=== PATIENT | female | born 1970 | race Two or more races ===

== ENCOUNTER → 2020-08-14 10:46 | Outpatient (BNVA) | payer OTHER, SELFPAY | PROVIDERS: PCP Internal Medicine; Visit Provider Anesthesiology | DX: M47.27 Other spondylosis with radiculopathy, lumbosacral region (principal); M47.22 Other spondylosis with radiculopathy, cervical region; M96.1 Postlaminectomy syndrome, not elsewhere classified | CPT/HCPCS: 99213 ==

== ENCOUNTER 2020-08-19 10:09 | Outpatient (REF) | payer SELFPAY ==
[2020-08-19 12:49] LABS: Alanine Aminotransferase 9 U/L (0-31); Albumin Level 4.4 g/dL (3.5-5.0); Alkaline Phosphatase 60 U/L (39-117); Anion Gap 12 (12-20); Aspartate Amino Transferase 16 U/L (5-31); Bilirubin Total 0.3 mg/dL (0.0-1.0); Blood Urea Nitrogen 12 mg/dL (9-16); Calcium 9.6 mg/dL (8.4-10.2); Carbon Dioxide 32 mmol/L (22-29); Chloride 101 mmol/L (96-108); Cholesterol 194 mg/dL; Estimated Glomerular Filt Rate > 60; Glucose Random 99 mg/dL (60-115); HDL Cholesterol 55 mg/dL; LDL Cholesterol Calculated 118 mg/dl; Potassium 4.6 mmol/l (3.3-5.1); Sodium 140 mmol/L (135-145); Total Protein 7.1 g/dL (6.5-8.0); Triglycerides 106 mg/dL
[2020-08-19 12:50] LABS: Vitamin D 25-OH Total 30.5 ng/mL (>30)
== END 2020-08-19 10:10 | disposition home or self-care (01) ==
LOC: HO.LAB 10:09
PROVIDERS: PCP Internal Medicine; Visit Provider Internal Medicine
DX: I10 Essential (primary) hypertension (principal); E55.9 Vitamin D deficiency, unspecified
CPT/HCPCS: 80053; 80061; 82306

== ENCOUNTER → 2020-12-25 14:17 | Outpatient (BNVA) | payer OTHER, SELFPAY | PROVIDERS: PCP Internal Medicine; Visit Provider Anesthesiology | DX: M47.27 Other spondylosis with radiculopathy, lumbosacral region (principal); M47.22 Other spondylosis with radiculopathy, cervical region; M96.1 Postlaminectomy syndrome, not elsewhere classified | CPT/HCPCS: 99212 ==

== ENCOUNTER 2021-02-13 09:23 | Outpatient (REF) | payer OTHER, SELFPAY ==
[2021-02-13 10:19] LABS: MANUAL DIFF FLAG NO
[2021-02-13 10:23] LABS: Basophils Percent Auto 0.6 % (0-2); Eosinophils Absolute Auto 0.1 X10*3/uL (0.0-0.4); Eosinophils Percent Auto 2.6 % (0-4); Hematocrit 37.8 % (37-47); Hemoglobin 11.7 g/dl (12.0-16.0); Imm Gran Abs Auto 0.01 X10*3/uL (0.00-0.03); Imm Gran Pct Auto 0.2 % (0.0-0.4); Lymphocytes Absolute Auto 2.8 X10*3/uL (1.2-4.9); Lymphocytes Percent Auto 55.5 % (20-40); Mean Corpuscular Hemoglobin 28.4 pg (27.0-33.0); Mean Corpuscular Volume 91.7 fL (80-98); Mean Platelet Volume 9.4 fL (9.4-12.3); Monocytes Absolute Auto 0.3 X10*3/uL (0.1-1.2); Monocytes Percent Auto 6.4 % (2-11); Neutrophils Absolute Auto 1.7 X10*3/uL (2.0-8.3); Neutrophils Percent Auto 34.7 % (45-73); Platelet Count 261 X10*3/uL (160-400); Red Blood Count 4.12 X10*6/uL (4.20-5.50); Red Cell Distribution Width 13.5 % (11.0-16.0)
[2021-02-13 10:49] LABS: Alanine Aminotransferase 10 U/L (0-31); Albumin Level 4.4 g/dL (3.5-5.0); Alkaline Phosphatase 61 U/L (39-117); Anion Gap 11 (12-20); Aspartate Amino Transferase 18 U/L (5-31); Bilirubin Total 0.4 mg/dL (0.0-1.0); Blood Urea Nitrogen 12 mg/dL (9-16); Calcium 9.8 mg/dL (8.4-10.2); Carbon Dioxide 29 mmol/L (22-29); Chloride 107 mmol/L (96-108); Cholesterol 181 mg/dL; Estimated Glomerular Filt Rate > 60; Glucose Fasting 91 mg/dL (60-99); HDL Cholesterol 54 mg/dL; LDL Cholesterol Calculated 110 mg/dl; Potassium 4.5 mmol/L (3.3-5.1); Sodium 142 mmol/L (135-145); Triglycerides 89 mg/dL
[2021-02-13 11:11] LABS: Thyroid Stimulating Hormone 0.74 uIU/mL (0.32-4.0)
[2021-02-20 16:12] LABS: Vitamin D 25-OH, D2 5 ng/mL; Vitamin D 25-OH, D3 26 ng/mL; Vitamin D 25-OH, Total 31 ng/mL (30-100)
== END 2021-02-13 09:24 | disposition home or self-care (01) ==
LOC: HO.LAB 09:23
PROVIDERS: PCP Internal Medicine; Visit Provider Internal Medicine
DX: E78.5 Hyperlipidemia, unspecified (principal); I10 Essential (primary) hypertension; D64.9 Anemia, unspecified; E66.9 Obesity, unspecified; E55.9 Vitamin D deficiency, unspecified
CPT/HCPCS: 36415; 80053; 80061; 82306; 84443; 85025

== ENCOUNTER 2021-02-25 13:26 | Outpatient (REF) | payer OTHER, SELFPAY ==
[2021-03-04 03:52] LABS: HPV mRNA E6/E7 rflx Not Detected (Not Detected)
== END 2021-02-25 13:27 | disposition home or self-care (01) ==
LOC: HO.LAB 13:26
PROVIDERS: PCP Internal Medicine; Visit Provider Obstetrics & Gynecology
DX: Z01.419 Encounter for gynecological examination (general) (routine) without abnormal findings (principal); Z11.51 Encounter for screening for human papillomavirus (HPV)
CPT/HCPCS: 87624; 88142

== ENCOUNTER 2021-03-16 16:02 | Outpatient (REF) | payer OTHER, SELFPAY ==
--- NOTE | 2021-03-16 17:15 | PFT_ITS ---
Forced vital capacity, FEV1, [id number], and MVV are all normal. Postbronchodilator therapy, there is no change. Total lung capacity and residual volume normal. Diffusion capacity normal. CONCLUSION: Normal pulmonary function test. There is no evidence of obstructive or restrictive pulmonary disorder. Ruthann Mendoza MD MSB/MODL / [id number]
== END 2021-03-16 16:03 | disposition home or self-care (01) ==
LOC: HO.RESP 16:02
PROVIDERS: PCP Internal Medicine; Visit Provider Internal Medicine
DX: R06.02 Shortness of breath (principal)
CPT/HCPCS: 94060; 94727; 94729

== ENCOUNTER → 2021-03-17 12:45 | Outpatient (BNVA) | payer OTHER, SELFPAY | PROVIDERS: PCP Internal Medicine; Visit Provider Physician Assistant | DX: E66.9 Obesity, unspecified (principal); I10 Essential (primary) hypertension; Z68.35 Body mass index [BMI] 35.0-35.9, adult | CPT/HCPCS: 99202 ==

== ENCOUNTER 2021-03-27 08:24 | Outpatient (REF) | payer OTHER, SELFPAY ==
--- NOTE | ~2021-03-27 | XR_ITS ---
EXAMINATION: XR KNEE, LEFT CLINICAL INFORMATION: Dislocation. COMPARISON: Radiographs dated 01/19/2019. TECHNIQUE: AP, lateral, tunnel, and sunrise views of the left knee. FINDINGS: Bony alignment and mineralization are normal. No fracture or dislocation. There is a small joint effusion. Alignment is anatomic. Joint spaces are well maintained. There is very mild peripheral osteophyte formation of the medial joint space compartment. No abnormal soft tissue calcification. XR/XR knee LT 4V IMPRESSION: 1. Minimal osteoarthritic change is seen of the medial joint space compartment of the left knee. 2. There is a small left knee joint effusion.
--- NOTE | ~2021-03-27 | XR_ITS ---
EXAMINATION: XR CHEST CLINICAL INFORMATION: Shortness of breath COMPARISON: Previous chest x-ray December 2019 TECHNIQUE: 2 views of the chest were obtained. FINDINGS: The cardiac and mediastinal contours are stable. The lungs are clear. There is no pleural effusion or pneumothorax. There is curvature of the lower thoracic spine to the left. There are postsurgical changes to the cervical spine. XR/XR chest 2V IMPRESSION: No evidence for acute disease in the chest.
== END 2021-03-27 08:25 | disposition home or self-care (01) ==
LOC: HO.XRAY 08:24
PROVIDERS: Absent Provider Anesthesiology; PCP Internal Medicine; Visit Provider Surgery
DX: R06.02 Shortness of breath (principal); S83.105A Unspecified dislocation of left knee, initial encounter; E66.9 Obesity, unspecified; Z68.34 Body mass index [BMI] 34.0-34.9, adult; K21.9 Gastro-esophageal reflux disease without esophagitis; I10 Essential (primary) hypertension; M47.27 Other spondylosis with radiculopathy, lumbosacral region; M96.1 Postlaminectomy syndrome, not elsewhere classified; G43.811 Other migraine, intractable, with status migrainosus; F41.9 Anxiety disorder, unspecified; G47.00 Insomnia, unspecified; J45.909 Unspecified asthma, uncomplicated
CPT/HCPCS: 71046; 73564

== ENCOUNTER → 2021-03-31 09:48 | Outpatient (REF) | payer OTHER, SELFPAY ==
--- NOTE | 2021-03-31 09:56 | ECG_ITS ---
Test Reason : SOB Blood Pressure : / mmHG Vent. Rate : 071 BPM Atrial Rate : 071 BPM P-R Int : 164 ms QRS Dur : 092 ms QT Int : 376 ms P-R-T Axes : 053 021 019 degrees QTc Int : 408 ms Normal sinus rhythm Normal ECG When compared to the previous EKG of No significant changes seen Referred By: Kirstie Singh Electronically Signed By:Nick Torres
[2021-03-31 10:50] LABS: MANUAL DIFF FLAG NO
[2021-03-31 11:00] LABS: Basophils Percent Auto 0.7 % (0-2); Eosinophils Absolute Auto 0.1 X10*3/uL (0.0-0.4); Eosinophils Percent Auto 1.8 % (0-4); Hematocrit 36.3 % (37-47); Hemoglobin 11.1 g/dl (12.0-16.0); Imm Gran Abs Auto 0.01 X10*3/uL (0.00-0.03); Imm Gran Pct Auto 0.2 % (0.0-0.4); Lymphocytes Absolute Auto 2.8 X10*3/uL (1.2-4.9); Lymphocytes Percent Auto 50.2 % (20-40); Mean Corpuscular HGB Conc 30.6 g/dl (31.0-35.0); Mean Corpuscular Volume 91.4 fL (80-98); Mean Platelet Volume 9.3 fL (9.4-12.3); Monocytes Absolute Auto 0.4 X10*3/uL (0.1-1.2); Monocytes Percent Auto 6.5 % (2-11); Neutrophils Absolute Auto 2.2 X10*3/uL (2.0-8.3); Neutrophils Percent Auto 40.6 % (45-73); Platelet Count 279 X10*3/uL (160-400); Red Blood Count 3.97 X10*6/uL (4.20-5.50); Red Cell Distribution Width 13.9 % (11.0-16.0); White Blood Count 5.5 X10*3/uL (4.8-10.8)
[2021-03-31 11:14] LABS: Estimated Average Glucose 114 mg/dL; Hemoglobin A1c % 5.6 %
[2021-03-31 11:23] LABS: Alanine Aminotransferase 8 U/L (0-31); Albumin Level 4.2 g/dL (3.5-5.0); Alkaline Phosphatase 66 U/L (39-117); Aspartate Amino Transferase 14 U/L (5-31); Bilirubin Total 0.2 mg/dL (0.0-1.0); Blood Urea Nitrogen 14 mg/dL (9-16); C Reactive Protein 0.28 mg/dL (< or = 0.50); Calcium 9.7 mg/dL (8.4-10.2); Cholesterol 190 mg/dL; Estimated Glomerular Filt Rate > 60; Glucose Fasting 94 mg/dL (60-99); HDL Cholesterol 55 mg/dL; Iron 49 mcg/dL (30-160); LDL Cholesterol Calculated 113 mg/dl; Percent Iron Saturation 11 % (15-50); Total Iron Binding Capacity 429 mcg/dL (228-428); Total Protein 6.8 g/dL (6.5-8.0); Triglycerides 111 mg/dL; Unsaturated Iron Binding 380 ug/dL
[2021-03-31 11:36] LABS: Anion Gap 11 (12-20); Carbon Dioxide 30 mmol/L (22-29); Chloride 103 mmol/L (96-108); Potassium 4.1 mmol/L (3.3-5.1); Sodium 140 mmol/L (135-145)
[2021-03-31 11:43] LABS: Folate 13.6 ng/mL (> or = 4.0); Vitamin B12 712 pg/mL (200-900)
[2021-03-31 11:44] LABS: Ferritin 7 ng/mL (10-250); TSH reflex Free T4 1.38 uIU/mL (0.32-4.0); Vitamin D 25-OH Total 32.6 ng/mL (>30)
[2021-04-01 09:37] LABS: Insulin Level Total 7.4 uIU/mL
[2021-04-02 09:21] LABS: Calcium (PTHI) 9.4 mg/dL (8.6-10.4); PTHI 54 pg/mL (14-64)
[2021-04-03 01:33] LABS: Zinc 66 mcg/dL (60-130)
[2021-04-03 12:06] LABS: Vitamin B1 48 nmol/L (8-30)
[2021-04-04 20:17] LABS: Vitamin A 84 mcg/dL (38-98)
== END ==
LOC: HO.SL 09:48
PROVIDERS: Absent Provider Physician Assistant; PCP Internal Medicine; Visit Provider Internal Medicine
DX: E66.01 Morbid (severe) obesity due to excess calories (principal); I10 Essential (primary) hypertension; R40.0 Somnolence; R06.02 Shortness of breath; Z68.35 Body mass index [BMI] 35.0-35.9, adult
CPT/HCPCS: 36415; 80053; 80061; 82306; 82607; 82728; 82746; 83036; 83525; 83540; 83970; 84425; 84443; 84590; 84630; 85025; 86140; 93005

== ENCOUNTER → 2021-04-08 10:18 | Outpatient (BNVA) | payer OTHER, SELFPAY | PROVIDERS: PCP Internal Medicine; Visit Provider Nurse Practitioner Family | DX: K59.00 Constipation, unspecified (principal); K21.9 Gastro-esophageal reflux disease without esophagitis; Z12.11 Encounter for screening for malignant neoplasm of colon | CPT/HCPCS: 99202 ==

== ENCOUNTER → 2021-04-09 16:44 | Outpatient (BNVA) | payer OTHER, SELFPAY | PROVIDERS: PCP Internal Medicine; Visit Provider Anesthesiology | DX: M47.27 Other spondylosis with radiculopathy, lumbosacral region (principal); M25.562 Pain in left knee; M47.22 Other spondylosis with radiculopathy, cervical region; M96.1 Postlaminectomy syndrome, not elsewhere classified; Z87.891 Personal history of nicotine dependence; Z79.899 Other long term (current) drug therapy | CPT/HCPCS: 20610; 99212; J3300 ==

== ENCOUNTER → 2021-04-14 08:11 | Outpatient (BNVA) | payer OTHER, SELFPAY | PROVIDERS: PCP Internal Medicine; Visit Provider Dietitian, Registered | DX: E66.9 Obesity, unspecified (principal); Z68.35 Body mass index [BMI] 35.0-35.9, adult | CPT/HCPCS: 97802 ==

== ENCOUNTER → 2021-05-05 08:15 | Outpatient (BNVA) | payer OTHER, SELFPAY | PROVIDERS: Visit Provider Dietitian, Registered | DX: E66.9 Obesity, unspecified (principal); Z68.35 Body mass index [BMI] 35.0-35.9, adult | CPT/HCPCS: 97803 ==

== ENCOUNTER 2021-05-12 10:19 | Day surgery (SDC) | payer OTHER, SELFPAY ==
[2021-05-07 11:15] VITALS: BMI 35.5
--- NOTE | 2021-05-11 09:44 | P.CONAN_ITS ---
Documented by User: Annemarie Anyaa 05/11/21 09:48 HPI - Anesthesia Eval Consult details Narrative: 50yo F Colonoscopy PMFSH Active Problems Active Problems: All Active Problems (Updated 04/09/21 @ 17:12 by Jaime Mccartney MD) Well woman exam (Acute) BMI 34.0-34.9,adult (Acute) Anemia (Acute) Fibromyalgia (Acute) GERD (gastroesophageal reflux disease) (Acute) Asthma (Acute) BMI 35.0-35.9,adult (Acute) Obesity (BMI 30-39.9) (Acute) Essential hypertension (Acute) Daytime sleepiness (Acute) Shortness of breath (Acute) Obese (Acute) Acute traumatic internal derangement of left knee (Acute) Insomnia (Acute) Sinusitis (Acute) Anxiety (Acute) Migraine (Acute) Postlaminectomy syndrome of cervical region (Acute) Spondylosis of cervical spine with radiculopathy (Acute) Spondylosis of lumbosacral spine with radiculopathy (Acute) Past Medical History Medical History Acute traumatic internal derangement of left knee Anemia Anxiety Asthma BMI 35.0-35.9,adult Daytime sleepiness Essential hypertension Fibromyalgia GERD (gastroesophageal reflux disease) Insomnia Migraine Obese Obesity (BMI 30-39.9) Postlaminectomy syndrome of cervical region Shortness of breath Sinusitis 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 Brother No problems noted. Son No problems noted. Son No problems noted. Son No problems noted. Son No problems noted. Surgical History Surgical History H/O colonoscopy H/O medial meniscus repair of right knee History of carpal tunnel release History of esophagogastroduodenoscopy (EGD) History of neck surgery History of surgery History of tubal ligation Hx of breast reduction, elective S/P JUSTYN-BSO (total abdominal hysterectomy and bilateral salpingo-oophorectomy) Social History Social History (Reviewed 05/12/21 @ 12:30 by Connie Washburn Alcohol intake: current Alcohol intake frequency: holidays/special occasions only Patient Tobacco Use Status: Former Tobacco user Quit Date: 2013 Patient Interested in Nicotine Replacement: No Patient Given Instructions on How to Stop Smoking: No Use of substances other than those prescribed or required for medical reasons: No Are you DNR?: No Advance Directives: No Advance Directives Information Provided: Yes Patient : No Meds Allergies Allergy/AdvReac Type Severity Reaction Status Date / Time fluoxetine [From PROZAC] Allergy Severe OVER Verified 04/09/21 16:48 SEDATION gabapentin [GABAPENTIN] Allergy Intermediate NAUSEA,DIZZINESS, Verified 04/09/21 16:48 dizziness hydromorphone [HYDROMORPHONE] Allergy Intermediate NAUSEA/PALPITATIONS, Verified 04/09/21 16:48 vomiting latex [LATEX] Allergy Intermediate RASH Verified 04/09/21 16:48 Penicillins [PENICILLINS] Allergy Intermediate RASH Verified 04/09/21 16:48 Home Medications Medication Instructions Recorded Confirmed Last Taken Type bupropion HCl 150 mg 24 hr tablet, 150 mg PO QAM 08/14/20 05/07/21 Unknown History extended release buspirone 15 mg tablet 30 mg PO BID 08/14/20 05/07/21 Unknown History lamotrigine 25 mg tablet 50 mg PO DAILY 08/14/20 05/07/21 Unknown History albuterol sulfate 90 mcg/actuation 2 puff INHALATION Q6H PRN 03/27/21 05/07/21 Unknown History aerosol inhaler sumatriptan succinate 50 mg tablet 50 mg PO DAILY 04/07/21 05/07/21 Unknown History zolpidem 10 mg tablet 10 mg PO BEDTIME 04/07/21 05/07/21 Unknown History trazodone 50 mg tablet 50 mg PO BEDTIME PRN 04/08/21 05/07/21 Unknown History oxycodone [OxyContin] 20 mg PO BID 05/07/21 05/07/21 Unknown History Exam Exam Date and Time: May 11, 2021 0944 Height,Weight and Vital Signs: Height 5 ft 4 in Weight 93.894 kg Pertinent Lab Results Pertinent Lab Results: Laboratory Tests 03/31/21 03/31/21 10:10 10:10 WBC 5.5 Hgb 11.1 L Hct 36.3 L Plt Count 279 Sodium 140 Potassium 4.1 Chloride 103 Carbon Dioxide 30 H BUN 14 Creatinine 0.75 Narrative Narrative: EKG 03/2021 Vent. Rate : 071 BPM Atrial Rate : 071 BPM P-R Int : 164 ms QRS Dur : 092 ms QT Int : 376 ms P-R-T Axes : 053 021 019 degrees QTc Int : 408 ms Normal sinus rhythm Normal ECG When compared to the previous EKG of No significant changes seen PFT 02/2021 CONCLUSION: Normal pulmonary function test. There is no evidence of obstructive or restrictive pulmonary disorder. 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 Brother No problems noted. Son No problems noted. Son No problems noted. Son No problems noted. Son No problems noted. Surgical History Surgical History H/O colonoscopy H/O medial meniscus repair of right knee History of carpal tunnel release History of esophagogastroduodenoscopy (EGD) History of neck surgery History of surgery History of tubal ligation Hx of breast reduction, elective S/P JUSTYN-BSO (total abdominal hysterectomy and bilateral salpingo-oophorectomy) Social History Social History (Reviewed 05/12/21 @ 12:30 by Connie Washburn Alcohol intake: current Alcohol intake frequency: holidays/special occasions only Patient Tobacco Use Status: Former Tobacco user Quit Date: 2013 Patient Interested in Nicotine Replacement: No Patient Given Instructions on How to Stop Smoking: No Use of substances other than those prescribed or required for medical reasons: No Are you DNR?: No Advance Directives: No Advance Directives Information Provided: Yes Patient : No Meds Allergies Allergy/AdvReac Type Severity Reaction Status Date / Time fluoxetine [From PROZAC] Allergy Severe OVER Verified 04/09/21 16:48 SEDATION gabapentin [GABAPENTIN] Allergy Intermediate NAUSEA,DIZZINESS, Verified 04/09/21 16:48 dizziness hydromorphone [HYDROMORPHONE] Allergy Intermediate NAUSEA/PALPITATIONS, Verified 04/09/21 16:48 vomiting latex [LATEX] Allergy Intermediate RASH Verified 04/09/21 16:48 Penicillins [PENICILLINS] Allergy Intermediate RASH Verified 04/09/21 16:48 Home Medications Medication Instructions Recorded Confirmed Last Taken Type bupropion HCl 150 mg 24 hr tablet, 150 mg PO QAM 08/14/20 05/07/21 Unknown History extended release buspirone 15 mg tablet 30 mg PO BID 08/14/20 05/07/21 Unknown History lamotrigine 25 mg tablet 50 mg PO DAILY 08/14/20 05/07/21 Unknown History albuterol sulfate 90 mcg/actuation 2 puff INHALATION Q6H PRN 03/27/21 05/07/21 Unknown History aerosol inhaler sumatriptan succinate 50 mg tablet 50 mg PO DAILY 04/07/21 05/07/21 Unknown History zolpidem 10 mg tablet 10 mg PO BEDTIME 04/07/21 05/07/21 Unknown History trazodone 50 mg tablet 50 mg PO BEDTIME PRN 04/08/21 05/07/21 Unknown History oxycodone [OxyContin] 20 mg PO BID 05/07/21 05/07/21 Unknown History Exam Airway Mallampati Class: II TM Dist: >3cm Neck ROM: Full Heart: RRR Lungs: CTA Assessment and Plan Assessment Anesthesia Assessment: Anesthesia Plan Discussed and Chart Reviewed Final Anesthetic Review NPO: Yes ASA Class: II Final Preanesthetic Review: Meds/Allgs Chart Reviewed, Consent Obtained/Reviewed and Anes Risks/Benef Reviewed Patient Risk: Low Procedure Risk: Intermediate Anesthetic Plan Anesthetic Plan: MAC: Disposition: Standard PACU
[2021-05-12 11:21] VITALS: BP 121/75; PULSE 78; RESP 16; TEMP 36.2; O2SAT 100; BMI 36.2
[2021-05-12] MEDS: Lactated Ringers 1,000 ML 100 ML IVCONT (11:29)
--- NOTE | 2021-05-12 11:44 | P.HPSUR_ITS ---
Pre-Procedural Eval Section A Date of Service: 05/12/21 The patient is an INPATIENT: No The History & Physical has been completed within 30 days and I have reviewed it.: No Section B Chief Complaint: Constipation, GERD Details of Present Illness: colon cancer screening, GERD, abdominal bloating, chronic constipation Relevant Family History (Specify if Yes): Yes Relevant Social History: Tobacco Use (former smoker) Present Medications: see Short Stay Collaborative assessment Medical History: Significant History (Acute traumatic internal derangement of left knee Anemia Anxiety Asthma BMI 35.0-35.9,adult Daytime sleepiness Essential hypertension Fibromyalgia GERD (gastroesophageal reflux disease) Insomnia Migraine Obese Obesity (BMI 30-39.9) Postlaminectomy syndrome of cervical region Shortness of breath Sinu) History of Previous Operations: Relevant previous surgery/procedure and date(s) (H/O medial meniscus repair of right knee History of carpal tunnel release History of neck surgery History of tubal ligation Hx of breast reduction, elective S/P JUSTYN-BSO (total abdominal hysterectomy and bilateral salpingo- oophorectomy)) Allergies: Allergies Allergy/AdvReac Type Severity Reaction Status Date / Time fluoxetine [From PROZAC] Allergy Severe OVER Verified 04/09/21 16:48 SEDATION gabapentin [GABAPENTIN] Allergy Intermediate NAUSEA,DIZZINESS, Verified 04/09/21 16:48 dizziness hydromorphone [HYDROMORPHONE] Allergy Intermediate NAUSEA/PALPITATIONS, Verified 04/09/21 16:48 vomiting latex [LATEX] Allergy Intermediate RASH Verified 04/09/21 16:48 Penicillins [PENICILLINS] Allergy Intermediate RASH Verified 04/09/21 16:48 Review of Systems Sugical H&P ROS: Negative: Constitution, Cardiovascular and Respiratory and Yes, Specify: Gastrointestinal (GERD, abdominal bloating, constipation) Exam Surgical H&P Exam: Normal: Heart, Normal: Lungs, Normal: Extremities and Normal: Abdomen Plan Diagnosis/Plan: Unchanged I have reviewed the history and physical and performed a pertinent physical examination on my patient. No changes have occurred unless specified.
[2021-05-12 13:27] VITALS: BP 93/59; PULSE 77; RESP 18; TEMP 36.3; O2SAT 99
--- NOTE | 2021-05-12 13:38 | PC.NURSE ---
patient sitting up in bed rafa po gingerle. c/o sciatic pain states its her baseline.
--- NOTE | 2021-05-12 13:41 | PC.NURSE ---
md t[place]on by bedside eval patient
[2021-05-12 13:42] VITALS: BP 110/68; PULSE 76; RESP 18; TEMP 36.7; O2SAT 98
--- NOTE | 2021-05-12 17:42 | P.OP_ITS ---
Operative Note Operative Note Date of Service: 05/12/21 Narrative: Pre-op diagnosis: Colon cancer screening, chronic constipation, GERD, FH of colon cancer and polyps Post-op diagnosis: other (Esophagitis, gastritis, diverticulosis, hemorrhoids) Procedure: FLEXIBLE TRANSORAL UPPER GASTROINTESTINAL ENDOSCOPY WITH BIOPSIES AND COLONOSCOPY TILL CECUM PROCEDURE NOTE UPPER ENDOSCOPY Consent: Indications for the procedure and potential complications of bleeding, perforation, reaction to medications and missed diagnosis were discussed with the patient and informed consent was obtained. Instrument: Olympus GIF H 190 mid size upper endoscope Monitoring: Vital signs and clinical assessment, continuous EKG monitoring, Pulse oximetry, Carbon Dioxide monitoring and blood pressure monitoring were done throughout the procedure. Procedure: The patient was placed in the left lateral decubitis position and pre-procedure medications were administered and a bite block was placed. The endoscope was inserted into the mouth and advanced under direct vision to the third part of duodenum. A careful inspection was made as the upper endoscope was withdrawn including a retroflexed examination of the proximal stomach; Findings and interventions are described below. Findings: Larynx: Normal Esophagus: GE junction at 36 cms. A 1.5 cms linear erosion at the GE junction. No Feliz's. Stomach: Multiple 5-10 mm benign appearing polyps in the fundus and body of the stomach - biopsied. Mild gastric erythema. Biopsies were obtained. Grade 2 flap valve on retroflexed examination of the cardia. Duodenum: Normal bulb and descending duodenum Intervention: Biopsies as noted above COLONOSCOPY PROCEDURE NOTE Consent: Indications for the procedure and potential complications of bleeding, perforation, reaction to medications and missed diagnosis were discussed with the patient and informed consent was obtained. Instrument: Olympus PCF H 190 L variable stiffness pediatric colonoscope Monitoring: Vital signs and clinical assessment, intermittent blood pressure monitoring, continuous EKG monitoring, Pulse oximetry and Carbon Dioxide monitoring were done throughout the procedure. Colon withdrawl time was 15 minutes. Procedure: The patient was placed in the left lateral decubitis position and pre-procedure medications were administered. After a digital rectal examination of the ano-rectum, the video colonoscope was inserted into the rectum and advanced through the colon to the cecum. The colonoscope was slowly withdrawn in a retrograde panoramic fashion and the colon mucosa was carefully examined including a retroflexed view of the rectum. Findings and interventions are described below. Procedure Difficulty: : Without difficulty Findings: Terminal Ileum: Not evaluated Cecum: Normal Ascending Colon: Normal Transverse Colon: Normal Descending Colon: Moderate diverticulosis Sigmoid Colon: Moderate diverticulosis Rectum: Normal Ano-rectum: Moderate internal hemorrhoids Colon preparation: Good after copious irrigation Impression and Post Procedure Diagnosis: Endoscopy Findings: ESOPHAGUS: Linear erosion at GEJ STOMACH: Gastritis and gastric polyps DUODENUM: Normal - bxed to check for celiac sprue Colonoscopy Findings: No polyps were detected. Moderate diverticulosis seen in the left colon Moderate hemorrhoids on retroflexed exam. Plan: Await pathology results Patient has an appointment on 05/27/21 in the [facility] with Taniya Cali FNP-BC . Repeat Colonoscopy in 5 years due to positive Family history (GM of colon cancer & Dad had multiple colon polyps removed). Above findings were reviewed with the patient and GERD and diverticulosis handouts were given in the discharge area Surgeon: Jenny Ramirez MD Anesthesia: MAC (Dr Smith) Was an Fire Prevention Captain used for this Procedure?: No Fire Prevention Captain: Rbuen Renner Estimated blood loss (mL): 0 Pathology: other ( A- SMALL BOWEL BXS R/O CELIAC B- GASTRIC ANTRUM BXS R/O H.PYLORI C- GASTRIC POLYPS) Condition: stable Disposition: PACU
== END 2021-05-12 14:25 | disposition home or self-care (01) ==
PROVIDERS: PCP Internal Medicine; Visit Provider Internal Medicine Gastroenterology
PROC: 0DJD8ZZ Inspection of Lower Intestinal Tract, Via Natural or Artificial Opening Endoscopic (ICD-10-PCS; CPT 45378; principal; 2021-05-12 11:40)
DX: Z12.11 Encounter for screening for malignant neoplasm of colon (principal); Z83.71 Family history of colonic polyps; K57.30 Diverticulosis of large intestine without perforation or abscess without bleeding; K64.8 Other hemorrhoids; K59.09 Other constipation; K21.9 Gastro-esophageal reflux disease without esophagitis; K20.80 Other esophagitis without bleeding; K29.50 Unspecified chronic gastritis without bleeding; K31.7 Polyp of stomach and duodenum; I10 Essential (primary) hypertension; J45.909 Unspecified asthma, uncomplicated; Z79.899 Other long term (current) drug therapy; Z91.040 Latex allergy status; Z88.0 Allergy status to penicillin; Z88.8 Allergy status to other drugs, medicaments and biological substances; Z87.891 Personal history of nicotine dependence
CPT/HCPCS: 45378; 43239; 88305; 88342

== ENCOUNTER 2021-05-22 10:03 | Outpatient (REF) | payer OTHER, SELFPAY ==
[2021-05-23 13:37] LABS: H Pylori Breath Test NOT DETECTED (NOT DETECTED)
== END 2021-05-22 10:04 | disposition home or self-care (01) ==
LOC: HO.LNP 10:03
PROVIDERS: PCP Internal Medicine; Referring Provider Internal Medicine; Visit Provider Physician Assistant
DX: E66.9 Obesity, unspecified (principal); Z68.35 Body mass index [BMI] 35.0-35.9, adult; I10 Essential (primary) hypertension; R06.02 Shortness of breath
CPT/HCPCS: 83013; 99211

== ENCOUNTER → 2021-05-27 15:15 | Outpatient (BNVA) | payer OTHER, SELFPAY | PROVIDERS: PCP Internal Medicine; Visit Provider Anesthesiology | DX: M47.27 Other spondylosis with radiculopathy, lumbosacral region (principal); M47.22 Other spondylosis with radiculopathy, cervical region; M96.1 Postlaminectomy syndrome, not elsewhere classified | CPT/HCPCS: 99212 ==

== ENCOUNTER 2021-06-29 08:09 | Outpatient (REF) | payer OTHER, SELFPAY ==
--- NOTE | ~2021-06-29 | US_ITS ---
EXAMINATION: US COMPLETE ABDOMEN WITH LIVER ELASTOGRAPHY CLINICAL INFORMATION: Obesity COMPARISON: None TECHNIQUE: Real-time imaging of the abdominal viscera. Noninvasive ultrasound liver fibrosis assessment is performed using [place] ElastPQ point quantification shear wave elastography (pSWE) with a C5-2 MHz transducer. Multiple elastography samples are obtained. FINDINGS: PANCREAS: Normal. The visualized pancreatic head and body are normal in appearance. The remainder of the pancreas is obscured from visualization by the overlying bowel gas. ABDOMINAL AORTA: The proximal, middle, and distal aortic segments are normal in caliber. INFERIOR VENA CAVA: Visualized portions are normal. LIVER: Diffuse increased parenchymal echogenicity. No focal lesion or intrahepatic biliary duct dilatation. The right lobe measures 17.7 cm in length. The left lobe measures 11.4 cm in length. Portal flow is hepatopedal. Shear wave liver elastography median stiffness is 1.35 m/s (reference: normal median stiffness is 1.3 m/s or less). IQR/median stiffness to assess sampling precision is 0.19 (reference: good quality data set is IQR/median stiffness of 0.15 or less). GALLBLADDER: Normal. The gallbladder is physiologically distended without evidence of stones, sludge, polyps, wall thickening or pericholecystic fluid. COMMON BILE DUCT: Normal in caliber measuring 0.3 cm in diameter. RIGHT KIDNEY: Normal. No hydronephrosis. No renal calculi or focal parenchymal lesions. The kidney measures 10.1 cm in maximum dimension. LEFT KIDNEY: Normal. No hydronephrosis. No renal calculi or focal parenchymal lesions. The kidney measures 10.6 cm in maximum dimension. SPLEEN: Normal. The spleen measures 8.3 cm in maximum dimension. FREE FLUID: None US/US abdomen comp w elastography IMPRESSION: 1. There is generalized increase in hepatic echotexture, consistent with fatty infiltration or hepatocellular disease. Please correlate clinically. No focal hepatic mass or intrahepatic biliary duct dilatation is seen. 2. Liver elastography: Elastography median value 1.35 m/s. Based on the criteria mentioned below, this correlates with cACLD is ruled out . REFERENCE: Society of Radiologists in Ultrasound Liver Stiffness Thresholds (2020): LIVER STIFFNESS THRESHOLDS: *Liver Stiffness equal or less than 1.3 m/s: High probability of being normal. *Liver Stiffness less than 1.7 m/s: In the absence of other known clinical signs, rules out compensated advanced chronic liver disease. *Liver Stiffness 1.7-2.1 m/s: Suggestive of compensated advanced chronic liver disease but need further test for confirmation. *Liver Stiffness over 2.1 m/s: Rules in compensated advanced chronic liver disease. *Liver Stiffness over 2.4 m/s: Suggestive of clinically significant portal hypertension. QUALITY OF DATA SET: *IQR/Median value equal or less than 0.15 implies a quality data set. *IQR/Median value over 0.15 implies a poor quality data set. SIGNIFICANT CHANGE FROM PRIOR EXAM: Significant change if liver stiffness measurement is 10% or greater from prior exam. OTHER CONSIDERATIONS: The stage of liver fibrosis may be overestimated in the setting of acute hepatitis, liver inflammation, elevated liver function tests, hepatic vascular congestion, obstructive cholestasis, non-fasting state, and infiltrative diseases such as amyloidosis and lymphoma. In some patients with NAFLD, the liver stiffness thresholds for compensated advanced chronic liver disease may be lower. In causes other than viral hepatitis and NAFLD, liver stiffness thresholds are not well established.
== END 2021-06-29 08:10 | disposition home or self-care (01) ==
LOC: HO.US 08:09
PROVIDERS: PCP Internal Medicine; Visit Provider Surgery
DX: Z01.818 Encounter for other preprocedural examination (principal); E66.01 Morbid (severe) obesity due to excess calories; K21.9 Gastro-esophageal reflux disease without esophagitis
CPT/HCPCS: 76705; 76981

== ENCOUNTER 2021-07-08 16:32 | Outpatient (REF) | payer OTHER, SELFPAY ==
--- NOTE | ~2021-07-08 | XR_ITS ---
EXAMINATION: XR HAND, LEFT CLINICAL INFORMATION: Displaced fracture. COMPARISON: Left hand radiographs dated 05/06/2016. TECHNIQUE: PA, lateral, and oblique views of the left hand. FINDINGS: The bones and soft tissues are normal. No fracture. Alignment is anatomic. Joint spaces are maintained. No erosions or soft tissue calcifications. XR/XR hand LT min 3V IMPRESSION: No fracture or dislocation.
== END 2021-07-08 16:33 | disposition home or self-care (01) ==
LOC: HO.XRAY 16:32
PROVIDERS: PCP Internal Medicine; Visit Provider Anesthesiology
DX: S62.319A Displaced fracture of base of unspecified metacarpal bone, initial encounter for closed fracture (principal); M47.27 Other spondylosis with radiculopathy, lumbosacral region; M47.22 Other spondylosis with radiculopathy, cervical region; M96.1 Postlaminectomy syndrome, not elsewhere classified; M17.10 Unilateral primary osteoarthritis, unspecified knee
CPT/HCPCS: 73130; 87071; 87073; 87205; 99212; J3300

== ENCOUNTER → 2021-07-16 12:33 | Day surgery (SDC) | payer OTHER, SELFPAY ==
[2021-07-13 10:37] VITALS: BMI 37.0
--- NOTE | 2021-07-15 11:35 | HO.ANESPROP2 ---
Documented by User: Annemarie Anaya NP 07/15/21 11:37 HPI - Anesthesia Eval Consult details Narrative: 50yo F for Left Epidural Steroid Injection,L5-LS1 *Multiple Med Allergies* Chronic opioids PMFSH Active Problems Active Problems: All Active Problems (Updated 07/08/21 @ 17:34 by Jaime Mccartney MD) Well woman exam (Acute) BMI 34.0-34.9,adult (Acute) Arthropathy of knee (Acute) Fracture of metacarpal base of left hand, closed (Acute) Foot pain, right (Acute) Plantar fasciitis of left foot (Acute) Anemia (Chronic) Fibromyalgia (Acute) GERD (gastroesophageal reflux disease) (Acute) Asthma (Acute) BMI 35.0-35.9,adult (Acute) Obesity (BMI 30-39.9) (Acute) Essential hypertension (Acute) Daytime sleepiness (Acute) Shortness of breath (Acute) Obese (Acute) Acute traumatic internal derangement of left knee (Acute) Insomnia (Acute) Sinusitis (Acute) Anxiety (Acute) Migraine (Acute) Postlaminectomy syndrome of cervical region (Acute) Spondylosis of cervical spine with radiculopathy (Acute) Spondylosis of lumbosacral spine with radiculopathy (Acute) Past Medical History Medical History Acute traumatic internal derangement of left knee Anemia Anxiety Arthropathy of knee Asthma BMI 35.0-35.9,adult Daytime sleepiness Essential hypertension Fibromyalgia Foot pain, right Fracture of metacarpal base of left hand, closed GERD (gastroesophageal reflux disease) Insomnia Migraine Obese Obesity (BMI 30-39.9) Plantar fasciitis of left foot Postlaminectomy syndrome of cervical region Shortness of breath Sinusitis 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 Brother No problems noted. Son No problems noted. Son No problems noted. Son No problems noted. Son No problems noted. Surgical History Surgical History H/O colonoscopy H/O medial meniscus repair of right knee History of carpal tunnel release History of esophagogastroduodenoscopy (EGD) History of neck surgery History of surgery History of tubal ligation Hx of breast reduction, elective S/P JUSTYN-BSO (total abdominal hysterectomy and bilateral salpingo-oophorectomy) Social History Social History Alcohol intake: current Alcohol intake frequency: holidays/special occasions only Patient Tobacco Use Status: Former Tobacco user Quit Date: 2013 Tobacco use type: Cigarette Smoked in Last 30 Days: No Use of substances other than those prescribed or required for medical reasons: No Are you DNR?: No Advance Directives: No Advance Directives Information Provided: Yes Recently lost weight without trying: No Nutrition Risks: No Nutritional Risk Meds Allergies Allergy/AdvReac Type Severity Reaction Status Date / Time fluoxetine [From PROZAC] Allergy Severe OVER Verified 07/08/21 16:49 SEDATION gabapentin [GABAPENTIN] Allergy Intermediate NAUSEA,DIZZINESS, Verified 07/08/21 16:49 dizziness hydromorphone [HYDROMORPHONE] Allergy Intermediate NAUSEA/PALPITATIONS, Verified 07/08/21 16:49 vomiting latex [LATEX] Allergy Intermediate RASH Verified 07/08/21 16:49 Penicillins [PENICILLINS] Allergy Intermediate RASH Verified 07/08/21 16:49 Home Medications Medication Instructions Recorded Confirmed Last Taken Type bupropion HCl 150 mg 24 hr tablet, 150 mg PO QAM 08/14/20 07/13/21 07/16/21 History extended release buspirone 15 mg tablet 30 mg PO BID 08/14/20 07/13/21 07/16/21 History lamotrigine 25 mg tablet 50 mg PO DAILY 08/14/20 07/13/21 07/16/21 History albuterol sulfate 90 mcg/actuation 2 puff INHALATION Q6H PRN 03/27/21 07/13/21 Unknown History aerosol inhaler sumatriptan succinate 50 mg tablet 50 mg PO DAILY 04/07/21 07/13/21 Unknown History zolpidem 10 mg tablet 10 mg PO BEDTIME 04/07/21 07/01/21 Unknown History oxycodone 20 mg tablet,crush 1 tab PO BID 07/01/21 07/13/21 Unknown History resistant,extended release 12 hr (OxyContin) Exam Exam Date and Time: July 15, 2021 1135 Height,Weight and Vital Signs: Height 5 ft 4 in Weight 97.749 kg Pertinent Lab Results Pertinent Lab Results: Laboratory Tests 03/31/21 07/01/21 10:10 15:52 WBC 6.9 Hgb 12.0 Hct 38.1 Plt Count 252 Sodium 140 Potassium 4.1 Chloride 103 Carbon Dioxide 30 H BUN 14 Creatinine 0.75 Narrative Narrative: EKG 03/2021 Vent. Rate : 071 BPM ? ? Atrial Rate : 071 BPM ?? P-R Int : 164 ms? QRS Dur : 092 ms ? ? QT Int : 376 ms ? ? ? P-R-T Axes : 053 021 019 degrees ?? QTc Int : 408 ms ? Normal sinus rhythm Normal ECG When compared to the previous EKG of No significant changes seen PFT 02/2021 CONCLUSION: Normal pulmonary function test.? There is no evidence of obstructive or restrictive pulmonary disorder. 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 Brother No problems noted. Son No problems noted. Son No problems noted. Son No problems noted. Son No problems noted. Surgical History Surgical History H/O colonoscopy H/O medial meniscus repair of right knee History of carpal tunnel release History of esophagogastroduodenoscopy (EGD) History of neck surgery History of surgery History of tubal ligation Hx of breast reduction, elective S/P JUSTYN-BSO (total abdominal hysterectomy and bilateral salpingo-oophorectomy) History of Problems with Anesthesia: No Social History Social History Alcohol intake: current Alcohol intake frequency: holidays/special occasions only Patient Tobacco Use Status: Former Tobacco user Quit Date: 2013 Tobacco use type: Cigarette Smoked in Last 30 Days: No Use of substances other than those prescribed or required for medical reasons: No Are you DNR?: No Advance Directives: No Advance Directives Information Provided: Yes Recently lost weight without trying: No Nutrition Risks: No Nutritional Risk Meds Allergies Allergy/AdvReac Type Severity Reaction Status Date / Time fluoxetine [From PROZAC] Allergy Severe OVER Verified 07/08/21 16:49 SEDATION gabapentin [GABAPENTIN] Allergy Intermediate NAUSEA,DIZZINESS, Verified 07/08/21 16:49 dizziness hydromorphone [HYDROMORPHONE] Allergy Intermediate NAUSEA/PALPITATIONS, Verified 07/08/21 16:49 vomiting latex [LATEX] Allergy Intermediate RASH Verified 07/08/21 16:49 Penicillins [PENICILLINS] Allergy Intermediate RASH Verified 07/08/21 16:49 Home Medications Medication Instructions Recorded Confirmed Last Taken Type bupropion HCl 150 mg 24 hr tablet, 150 mg PO QAM 08/14/20 07/13/21 07/16/21 History extended release buspirone 15 mg tablet 30 mg PO BID 08/14/20 07/13/21 07/16/21 History lamotrigine 25 mg tablet 50 mg PO DAILY 08/14/20 07/13/21 07/16/21 History albuterol sulfate 90 mcg/actuation 2 puff INHALATION Q6H PRN 03/27/21 07/13/21 Unknown History aerosol inhaler sumatriptan succinate 50 mg tablet 50 mg PO DAILY 04/07/21 07/13/21 Unknown History zolpidem 10 mg tablet 10 mg PO BEDTIME 04/07/21 07/01/21 Unknown History oxycodone 20 mg tablet,crush 1 tab PO BID 07/01/21 07/13/21 Unknown History resistant,extended release 12 hr (OxyContin) Exam Airway Mallampati Class: II TM Dist: >3cm Neck ROM: Full Loose/Missing/Broken Teeth: No Heart: RRR Lungs: CTA Assessment and Plan Assessment Anesthesia Assessment: Anesthesia Plan Discussed Final Anesthetic Review History of Problems with Anesthesia: No NPO: Yes ASA Class: II Final Preanesthetic Review: Meds/Allgs Chart Reviewed, Consent Obtained/Reviewed and Anes Risks/Benef Reviewed Patient Risk: Low Procedure Risk: Low Anesthetic Plan Anesthetic Plan: MAC: Disposition: Standard PACU
[2021-07-16 12:41] VITALS: BMI 37.0
[2021-07-16 13:00] VITALS: BP 134/73; PULSE 74; RESP 16; TEMP 36.2; O2SAT 98
[2021-07-16] MEDS: Lactated Ringers 1,000 ML 100 ML IVCONT (13:57)
== END ==
PROVIDERS: PCP Internal Medicine; Visit Provider Anesthesiology
DX: M47.27 Other spondylosis with radiculopathy, lumbosacral region (principal); M47.22 Other spondylosis with radiculopathy, cervical region; M96.1 Postlaminectomy syndrome, not elsewhere classified; Z53.8 Procedure and treatment not carried out for other reasons
CPT/HCPCS: J2250; J3010; J3300; Q9967

== ENCOUNTER → 2021-07-22 11:44 | Outpatient (BNVA) | payer OTHER, SELFPAY | PROVIDERS: Visit Provider Nurse Practitioner Family | DX: K21.9 Gastro-esophageal reflux disease without esophagitis (principal); Z98.890 Other specified postprocedural states | CPT/HCPCS: 99212 ==

== ENCOUNTER → 2021-07-23 15:46 | Outpatient (BNVA) | payer OTHER, SELFPAY | PROVIDERS: Visit Provider Physician Assistant | DX: M17.10 Unilateral primary osteoarthritis, unspecified knee (principal) | CPT/HCPCS: 99212 ==

== ENCOUNTER 2021-07-31 11:45 | Day surgery (SDC) | payer OTHER, SELFPAY ==
--- NOTE | ~2021-07-31 | FL_ITS ---
EXAMINATION: XR FLUOROSCOPY WITH IMAGES CLINICAL INFORMATION: Back pain and left lower extremity pain COMPARISON: MR lumbar spine 06/30/2020 TECHNIQUE: Fluoroscopy performed by Dr. Jaime Mccartney. Fluoroscopy time: 0.1 minutes DAP: 2.02 Gycm2 Images: 1 FINDINGS: There is a spinal needle overlying outer aspect left L5 neural foramen. Contrast is seen in the nerve sheaths with transforaminal epidural extension. No visible vascular communication. FL/FL guidance in OR IMPRESSION: Fluoroscopy for pain management procedure.
--- NOTE | 2021-07-31 07:23 | MHC.SHP ---
Pre-Procedural Eval Section A Date of Service: 07/31/21 The patient is an INPATIENT: No Changes since office visit: Yes Patient answered all questions Section B Chief Complaint: spondylosis Details of Present Illness: low back pain Relevant Family History (Specify if Yes): No Relevant Social History: None Present Medications: see Short Stay Collaborative assessment Medical History: No relevant PMH History of Previous Operations: No relevant previous surgery Allergies: Allergies Allergy/AdvReac Type Severity Reaction Status Date / Time fluoxetine [From PROZAC] Allergy Severe OVER Verified 07/22/21 12:01 SEDATION gabapentin [GABAPENTIN] Allergy Intermediate NAUSEA,DIZZINESS, Verified 07/22/21 12:01 dizziness hydromorphone [HYDROMORPHONE] Allergy Intermediate NAUSEA/PALPITATIONS, Verified 07/22/21 12:01 vomiting latex [LATEX] Allergy Intermediate RASH Verified 07/22/21 12:01 Penicillins [PENICILLINS] Allergy Intermediate RASH Verified 07/22/21 12:01 Review of Systems Sugical H&P ROS: Negative: Constitution, Cardiovascular, Respiratory, Neurological, Psychiatric, Hem-Onc, Allergic/Immunologic, Gastrointestinal, Genitourinary, Musculoskeletal, Integumentary, Endocrine and Eyes/Ears/Nose/Throat Exam Surgical H&P Exam: Normal: HEENT, Normal: Heart, Normal: Lungs, Normal: Extremities, Normal: Abdomen, Normal: Skin and Normal: Neurological Plan Diagnosis/Plan: Unchanged I have reviewed the history and physical and performed a pertinent physical examination on my patient. No changes have occurred unless specified.
[2021-07-31 12:08] VITALS: BP 134/80; PULSE 77; RESP 18; TEMP 36.7; O2SAT 99; BMI 37.0
--- NOTE | 2021-07-31 14:16 | W.PM.OPN ---
Operative Note Operative Note Date of Service: 07/31/21 Narrative: after explaining risks and benefits of the procedure and explaining informed consent the patient was taken into the operating room and was positioned prone on the operating table. ASA monitors were applied and the patient was minimaly sedated. Time out was performed delineating Name and of the patient nature, site and side of the procedure need for antibiotics, risk of DVT. The patient's back was prepped with Duraprep. and draped with sterile surgical utility towels. Sterilely draped C-arm was brought over the operating field and square picture of the L5 vertebra was delineated on the screen. Tilting machine 25 degree to the left the picture of the L5 left pedicle was delineated on the screen. 3mm below the lowest point of the pedicle projection to the skin local anesthetic lidocain 1% was used to raise a skin wheal. after ttha 22 g. 5 inch needle was insered through the skin wheal and advanced toward the L5 S1 left foramina in tunnel vision fashion on AP view using lateral and oblique views as the control of the needle tip position. When tip of the needle entered anterior epidural space injection of the contrast was performed delineating spread of the contrast in the fashion corresponding anterior epidural space. After that 3 cc of lidocaine 1% preservative-free mixed with 80 mg of Kenalog was injected into the needle. The patient tolerated procedure well. The needle was removed. Sterile Band-Aid was applied. The patient was taking outside of the operating room and the she recovered in PACU. There were no immediate complications observed.
--- NOTE | 2021-07-31 14:43 | PM.OP ---
Brief Operative Note Date of Service: 07/31/21 Pre-op diagnosis: Disc degeneration lumbar Post-op diagnosis: same Procedure: Transforaminal epidural steroid injection L5-S1 on the left. Implants: None Surgeon: Jaime Mccartney MD Anesthesia: MAC Was an Corporate Scheduler used for this Procedure?: No Estimated blood loss (mL): 2 Pathology: none sent Condition: stable Disposition: PACU
[2021-07-31 14:50] VITALS: BP 162/99; PULSE 90; RESP 19; TEMP 36.8; O2SAT 99
[2021-07-31 15:05] VITALS: BP 147/88; PULSE 90; RESP 18; O2SAT 99
[2021-07-31] MEDS: oxyCODONE HCl Immed Release 5 MG TABLET 10 MG PO (15:05)
[2021-07-31 15:20] VITALS: BP 129/85; PULSE 88; RESP 18; TEMP 36.8; O2SAT 98
== END 2021-07-31 15:51 | disposition home or self-care (01) ==
PROVIDERS: PCP Internal Medicine; Visit Provider Anesthesiology
PROC: (CPT 64483; principal; 2021-07-31 14:40)
DX: M47.27 Other spondylosis with radiculopathy, lumbosacral region (principal); M51.36 Other intervertebral disc degeneration, lumbar region; M54.50 Low back pain, unspecified; I10 Essential (primary) hypertension; J45.909 Unspecified asthma, uncomplicated; Z79.899 Other long term (current) drug therapy; Z91.040 Latex allergy status; Z88.0 Allergy status to penicillin; Z88.8 Allergy status to other drugs, medicaments and biological substances; Z87.891 Personal history of nicotine dependence
CPT/HCPCS: 64483; J1100; J2250; J3010; J3300; Q9967

== ENCOUNTER → 2021-09-30 14:41 | Outpatient (BNVA) | payer OTHER, SELFPAY | PROVIDERS: PCP Internal Medicine; Visit Provider Anesthesiology | DX: M47.27 Other spondylosis with radiculopathy, lumbosacral region (principal); M47.22 Other spondylosis with radiculopathy, cervical region; M96.1 Postlaminectomy syndrome, not elsewhere classified; M17.10 Unilateral primary osteoarthritis, unspecified knee; M46.1 Sacroiliitis, not elsewhere classified | CPT/HCPCS: 99212 ==

== ENCOUNTER 2021-11-10 05:48 | Outpatient (REF) | payer MEDICAID, SELFPAY ==
--- NOTE | ~2021-11-10 | FL_ITS ---
EXAMINATION: XR FLUOROSCOPY WITH IMAGES CLINICAL INFORMATION: M46.1 - Sacroiliitis, not elsewhere classified COMPARISON: Fluoroscopic spot view 07/31/2021, MR lumbar spine 06/30/2020 TECHNIQUE: Fluoroscopy performed by Dr. Jaime Mccartney. Fluoroscopy time: less than 1 minute. DAP: 0.912 Gycm2 Images: 1 FINDINGS: Spinal needle overlies lower left SI joint. There is contrast in the periarticular soft tissues with probable early intra-articular contrast. No vasculature communication appreciated. FL/FL guidance in treatment room IMPRESSION: Fluoroscopy for pain management procedure.
== END 2021-11-10 05:49 | disposition home or self-care (01) ==
LOC: HO.RADIR 05:48
PROVIDERS: Visit Provider Anesthesiology
DX: M46.1 Sacroiliitis, not elsewhere classified (principal); M47.27 Other spondylosis with radiculopathy, lumbosacral region; M47.22 Other spondylosis with radiculopathy, cervical region; M96.1 Postlaminectomy syndrome, not elsewhere classified; M17.10 Unilateral primary osteoarthritis, unspecified knee
CPT/HCPCS: J3300; Q9967

== ENCOUNTER → 2021-11-19 08:54 | Outpatient (BNVA) | payer MEDICAID, SELFPAY | PROVIDERS: Visit Provider Anesthesiology | DX: M47.27 Other spondylosis with radiculopathy, lumbosacral region (principal); M47.22 Other spondylosis with radiculopathy, cervical region; M96.1 Postlaminectomy syndrome, not elsewhere classified; M17.10 Unilateral primary osteoarthritis, unspecified knee; M46.1 Sacroiliitis, not elsewhere classified; M16.12 Unilateral primary osteoarthritis, left hip | CPT/HCPCS: 99212 ==

== ENCOUNTER 2021-11-25 09:28 | Outpatient (REF) | payer OTHER, SELFPAY ==
--- NOTE | ~2021-11-25 | XR_ITS ---
EXAMINATION: XR HIP, LEFT CLINICAL INFORMATION: Unilateral primary osteoarthritis left hip COMPARISON: None TECHNIQUE: Two views of the left hip. FINDINGS: No acute visible fracture or dislocation. Mild degenerative changes of the left femoral acetabular joint with joint space narrowing, subchondral cystic changes, and periarticular osteophyte formation. Joint spaces and alignment are otherwise maintained. Pelvic phleboliths are noted. Soft tissues are unremarkable. XR/XR hip LT min 2V IMPRESSION: 1. No acute visible fracture or dislocation. 2. Mild degenerative changes of the left femoral acetabular joint.
== END 2021-11-25 09:29 | disposition home or self-care (01) ==
LOC: HO.XRAY 09:28
PROVIDERS: PCP Internal Medicine; Visit Provider Anesthesiology
DX: M16.12 Unilateral primary osteoarthritis, left hip (principal)
CPT/HCPCS: 73502

== ENCOUNTER → 2021-12-14 11:17 | Outpatient (BNVA) | payer OTHER, SELFPAY | PROVIDERS: PCP Internal Medicine; Visit Provider Anesthesiology ==

== ENCOUNTER 2022-01-25 09:10 | Outpatient (REF) | payer OTHER, SELFPAY ==
[2022-01-25 11:29] LABS: Alanine Aminotransferase 11 U/L (0-31); Albumin Level 4.2 g/dL (3.5-5.0); Alkaline Phosphatase 61 U/L (39-117); Anion Gap 10 (12-20); Aspartate Amino Transferase 15 U/L (5-31); Bilirubin Total 0.5 mg/dL (0.0-1.0); Blood Urea Nitrogen 10 mg/dL (9-16); Calcium 9.7 mg/dL (8.4-10.2); Carbon Dioxide 29 mmol/L (22-29); Chloride 104 mmol/L (96-108); Cholesterol 218 mg/dL; Estimated Glomerular Filt Rate > 60; Glucose Fasting 100 mg/dL (60-99); HDL Cholesterol 52 mg/dL; LDL Cholesterol Calculated 131 mg/dl; Potassium 3.8 mmol/L (3.3-5.1); Sodium 139 mmol/L (135-145); Triglycerides 179 mg/dL
[2022-01-25 11:40] LABS: Thyroid Stimulating Hormone 2.67 uIU/mL (0.32-4.0); Vitamin D 25-OH Total 26.4 ng/mL (>30)
[2022-01-27 13:01] LABS: TS Negative Control Passed; TS Panel A 0; TS Panel B 0; TS Positive Control Passed; TSpotTB Negative (Negative)
== END 2022-01-25 09:11 | disposition home or self-care (01) ==
LOC: HO.LAB 09:10
PROVIDERS: PCP Internal Medicine; Visit Provider Internal Medicine
DX: E55.9 Vitamin D deficiency, unspecified (principal); M46.1 Sacroiliitis, not elsewhere classified; D64.9 Anemia, unspecified; Z11.1 Encounter for screening for respiratory tuberculosis; Z68.34 Body mass index [BMI] 34.0-34.9, adult
CPT/HCPCS: 36415; 80053; 80061; 82306; 84443; 86481

== ENCOUNTER 2022-02-05 07:21 | Day surgery (SDC) | payer OTHER, SELFPAY ==
--- NOTE | 2022-02-04 12:48 | P.CONAN_ITS ---
Documented by User: Annemarie Anaya NP 02/04/22 12:50 HPI - Anesthesia Eval Consult details Narrative: 50yo F for Left Hip Steroid Injection s/p epidural injection 07/2021 with MAC *Multiple Med Allergies* Chronic opioids PMFSH Active Problems Active Problems: All Active Problems (Updated 01/25/22 @ 09:37 by Dawn aWsserman MD) Osteoarthritis of left hip (Acute) Sacroiliitis (Acute) Infective arthritis of left knee (Acute) Well woman exam (Acute) BMI 34.0-34.9,adult (Acute) Arthropathy of knee (Acute) Fracture of metacarpal base of left hand, closed (Acute) Foot pain, right (Acute) Plantar fasciitis of left foot (Acute) Anemia (Chronic) Fibromyalgia (Acute) GERD (gastroesophageal reflux disease) (Acute) Asthma (Acute) BMI 35.0-35.9,adult (Acute) Obesity (BMI 30-39.9) (Acute) Essential hypertension (Acute) Daytime sleepiness (Acute) Shortness of breath (Acute) Obese (Acute) Acute traumatic internal derangement of left knee (Acute) Insomnia (Acute) Sinusitis (Acute) Anxiety (Acute) Migraine (Acute) Postlaminectomy syndrome of cervical region (Acute) Spondylosis of cervical spine with radiculopathy (Acute) Spondylosis of lumbosacral spine with radiculopathy (Acute) Past Medical History Medical History Acute traumatic internal derangement of left knee Anemia Anxiety Arthropathy of knee Asthma BMI 35.0-35.9,adult Daytime sleepiness Essential hypertension Fibromyalgia Foot pain, right Fracture of metacarpal base of left hand, closed GERD (gastroesophageal reflux disease) Infective arthritis of left knee Insomnia Migraine Obese Obesity (BMI 30-39.9) Osteoarthritis of left hip Plantar fasciitis of left foot Postlaminectomy syndrome of cervical region Sacroiliitis Shortness of breath Sinusitis 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 Brother No problems noted. Son No problems noted. Son No problems noted. Son No problems noted. Son No problems noted. Surgical History Surgical History H/O colonoscopy H/O medial meniscus repair of right knee History of carpal tunnel release History of esophagogastroduodenoscopy (EGD) History of neck surgery History of surgery History of tubal ligation Hx of breast reduction, elective S/P JUSTYN-BSO (total abdominal hysterectomy and bilateral salpingo-oophorectomy) History of Problems with Anesthesia: No Social History Social History Household Members: Significant Other and Family Housing: House Are you a primary lead caregiver to a significant other at home: No Do you presently have visiting nurse or other home services: No Alcohol intake: current Alcohol intake frequency: holidays/special occasions only Patient Tobacco Use Status: Former Tobacco user Quit Date: 2012 Tobacco use type: Cigarette Second Hand Smoke Exposure: No Use of substances other than those prescribed or required for medical reasons: No Are you DNR?: No Advance Directives: No Advance Directives Information Provided: Yes Advance Directives on File: No service: No Current occupational status: employed Meds Allergies Allergy/AdvReac Type Severity Reaction Status Date / Time fluoxetine [From PROZAC] Allergy Severe OVER Verified 01/25/22 09:30 SEDATION gabapentin [GABAPENTIN] Allergy Intermediate NAUSEA,DIZZINESS, Verified 01/25/22 09:30 dizziness hydromorphone [HYDROMORPHONE] Allergy Intermediate NAUSEA/PALPITATIONS, Verified 01/25/22 09:30 vomiting latex [LATEX] Allergy Intermediate RASH Verified 01/25/22 09:30 Penicillins [PENICILLINS] Allergy Intermediate RASH Verified 01/25/22 09:30 Home Medications Medication Instructions Recorded Confirmed Last Taken Type bupropion HCl 150 mg 24 hr tablet, 150 mg PO QAM 08/14/20 02/01/22 07/31/21 History extended release buspirone 15 mg tablet 30 mg PO BID 08/14/20 02/01/22 07/31/21 History lamotrigine 25 mg tablet 50 mg PO DAILY 08/14/20 02/01/22 02/05/22 History sumatriptan succinate 50 mg tablet 50 mg PO DAILY 04/07/21 02/01/22 Unknown H istory zolpidem 10 mg tablet 10 mg PO BEDTIME 04/07/21 02/01/22 Unknown History Exam Exam Date and Time: February 04, 2022 1248 Pertinent Lab Results Pertinent Lab Results: Laboratory Tests 01/25/22 01/25/22 09:56 09:56 WBC 7.3 Hgb 11.0 L Hct 35.2 L Plt Count 288 Sodium 139 Potassium 3.8 Chloride 104 Carbon Dioxide 29 BUN 10 Creatinine 0.74 Narrative Narrative: EKG 03/2021 Vent. Rate : 071 BPM ? ? Atrial Rate : 071 BPM ?? P-R Int : 164 ms? QRS Dur : 092 ms ? ? QT Int : 376 ms ? ? ? P-R-T Axes : 053 021 019 degrees ?? QTc Int : 408 ms ? Normal sinus rhythm Normal ECG When compared to the previous EKG of No significant changes seen PFT 02/2021 CONCLUSION: Normal pulmonary function test.? There is no evidence of obstructive or restrictive pulmonary disorder. Assessment and Plan Assessment Anesthesia Assessment: Chart Reviewed Final Anesthetic Review History of Problems with Anesthesia: No Documented by User: Connie Smith MD 02/05/22 07:54 [facility] Past Medical History Medical History Acute traumatic internal derangement of left knee Anemia Anxiety Arthropathy of knee Asthma BMI 35.0-35.9,adult Daytime sleepiness Essential hypertension Fibromyalgia Foot pain, right Fracture of metacarpal base of left hand, closed GERD (gastroesophageal reflux disease) Infective arthritis of left knee Insomnia Migraine Obese Obesity (BMI 30-39.9) Osteoarthritis of left hip Plantar fasciitis of left foot Postlaminectomy syndrome of cervical region Sacroiliitis Shortness of breath Sinusitis 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 Brother No problems noted. Son No problems noted. Son No problems noted. Son No problems noted. Son No problems noted. Surgical History Surgical History H/O colonoscopy H/O medial meniscus repair of right knee History of carpal tunnel release History of esophagogastroduodenoscopy (EGD) History of neck surgery History of surgery History of tubal ligation Hx of breast reduction, elective S/P JUSTYN-BSO (total abdominal hysterectomy and bilateral salpingo-oophorectomy) Social History Social History Household Members: Significant Other and Family Housing: House Are you a primary lead caregiver to a significant other at home: No Do you presently have visiting nurse or other home services: No Alcohol intake: current Alcohol intake frequency: holidays/special occasions only Patient Tobacco Use Status: Former Tobacco user Quit Date: 2012 Tobacco use type: Cigarette Second Hand Smoke Exposure: No Use of substances other than those prescribed or required for medical reasons: No Are you DNR?: No Advance Directives: No Advance Directives Information Provided: Yes Advance Directives on File: No service: No Current occupational status: employed Meds Allergies Allergy/AdvReac Type Severity Reaction Status Date / Time fluoxetine [From PROZAC] Allergy Severe OVER Verified 01/25/22 09:30 SEDATION gabapentin [GABAPENTIN] Allergy Intermediate NAUSEA,DIZZINESS, Verified 01/25/22 09:30 dizziness hydromorphone [HYDROMORPHONE] Allergy Intermediate NAUSEA/PALPITATIONS, Verified 01/25/22 09:30 vomiting latex [LATEX] Allergy Intermediate RASH Verified 01/25/22 09:30 Penicillins [PENICILLINS] Allergy Intermediate RASH Verified 01/25/22 09:30 Home Medications Medication Instructions Recorded Confirmed Last Taken Type bupropion HCl 150 mg 24 hr tablet, 150 mg PO QAM 08/14/20 02/01/22 07/31/21 History extended release buspirone 15 mg tablet 30 mg PO BID 08/14/20 02/01/22 07/31/21 History lamotrigine 25 mg tablet 50 mg PO DAILY 1002/01/22 02/05/22 History sumatriptan succinate 50 mg tablet 50 mg PO DAILY 04/07/21 02/01/22 Unknown History zolpidem 10 mg tablet 10 mg PO BEDTIME 04/07/21 02/01/22 Unknown History Exam Airway Mallampati Class: II TM Dist: >3cm Loose/Missing/Broken Teeth: Yes, Upper and Lower Heart: RRR Lungs: CTA Assessment and Plan Assessment Anesthesia Assessment: Anesthesia Plan Discussed Final Anesthetic Review NPO: Yes ASA Class: II Final Preanesthetic Review: Meds/Allgs Chart Reviewed, Consent Obtained/Reviewed and Anes Risks/Benef Reviewed Patient Risk: Low Procedure Risk: Low Anesthetic Plan Anesthetic Plan: MAC: Disposition: Standard PACU
--- NOTE | ~2022-02-05 | FL_ITS ---
EXAMINATION: XR FLUOROSCOPY WITH IMAGES CLINICAL INFORMATION: Left hip injection COMPARISON: Radiographs left hip 11/25/2021 TECHNIQUE: Fluoroscopy performed by Dr. Jaime Mccartney. Fluoroscopy time: 0.3 minutes DAP: 4.85 Gycm2 Images: 1 FINDINGS: There is a spinal needle overlying the superolateral left hip joint. There is contrast in the joint capsule. No visible vascular communication. FL/FL guidance in OR IMPRESSION: Fluoroscopy for pain management procedure.
[2022-02-05 07:31] VITALS: BMI 33.7
[2022-02-05 07:45] VITALS: BP 114/68; PULSE 78; RESP 16; TEMP 36.2; O2SAT 96
[2022-02-05] MEDS: Lactated Ringers 1,000 ML 100 ML IVCONT (07:56)
[2022-02-05 08:50] VITALS: BP 108/69; PULSE 67; RESP 13; TEMP 36.3; O2SAT 94
--- NOTE | 2022-02-05 09:00 | MHC.SHP ---
Pre-Procedural Eval Section A Date of Service: 02/05/22 Section B Chief Complaint: osteoarthritis Details of Present Illness: as above Relevant Family History (Specify if Yes): No Relevant Social History: Other (specify) Present Medications: None Medical History: No relevant PMH History of Previous Operations: No relevant previous surgery Allergies: Allergies Allergy/AdvReac Type Severity Reaction Status Date / Time fluoxetine [From PROZAC] Allergy Severe OVER Verified 01/25/22 09:30 SEDATION gabapentin [GABAPENTIN] Allergy Intermediate NAUSEA,DIZZINESS, Verified 01/25/22 09:30 dizziness hydromorphone [HYDROMORPHONE] Allergy Intermediate NAUSEA/PALPITATIONS, Verified 01/25/22 09:30 vomiting latex [LATEX] Allergy Intermediate RASH Verified 01/25/22 09:30 Penicillins [PENICILLINS] Allergy Intermediate RASH Verified 01/25/22 09:30 Review of Systems Sugical H&P ROS: Negative: Constitution, Cardiovascular, Respiratory, Neurological, Psychiatric, Hem-Onc, Allergic/Immunologic, Gastrointestinal, Genitourinary, Integumentary, Endocrine and Eyes/Ears/Nose/Throat and Yes, Specify: Musculoskeletal (osteoarthritis) Exam Surgical H&P Exam: Normal: HEENT, Normal: Heart, Normal: Lungs, Normal: Abdomen, Normal: Skin and Normal: Neurological and Significant Findings: Extremities (osteoarthritis) Plan Diagnosis/Plan: Unchanged I have reviewed the history and physical and performed a pertinent physical examination on my patient. No changes have occurred unless specified.
--- NOTE | 2022-02-05 09:01 | PM.OP ---
Brief Operative Note Date of Service: 02/05/22 Pre-op diagnosis: left hip osteoarthritis Post-op diagnosis: same Procedure: left hip steroid injection Surgeon: Jaime Mccartney MD Anesthesia: MAC Was an Editor Sound used for this Procedure?: No Estimated blood loss (mL): 0 Pathology: none sent Condition: stable Disposition: PACU
[2022-02-05 09:05] VITALS: BP 118/74; PULSE 69; RESP 18; TEMP 36.3; O2SAT 95
--- NOTE | 2022-02-05 09:05 | P.OP_ITS ---
Operative Note Operative Note Date of Service: 02/05/22 Narrative: Left hip joint therapeutic steroid injection. Before surgery informed consent was explained to the patient all risks and benefits were explained to the patient. The patient came to the operating room , she was positioned right lateral decubital on the operating table with dependent hip flexed and the non dependent he positions straight. Time-out was performed delineating correct site and side of the procedure name and date of of the patient need for antibiotic prophylaxis patient's allergies and risk of fire. Nondependent hip was prepped with ChloraPrep and draped with sterile it elicits house. C-arm was brought of the operating field and picture of the left smaller in size hip joint was demonstrated on the screen. Trochanter of the left hip was chosen as the target of the injection originally. The area of the projection of the trochanter skin was injected with mixture of lidocaine and bupivacaine 1-10.5% and 2%. After that 22 gauge 5 in needle was inserted through the skin and was advanced in the direction of mid shaft of the neck of the left hip to were the hip joint. After that position of the C-arm was brought to lateral view and advancement of the needle continued on the AP proje ction. When tip of the needle entered joint capsule injection of the contrast was performed demonstrating intra-articular spread of the contrast. After that injection of treatment solution of bupivacaine 0.5% mixed with Kenalog 40 mg was injected into the needle. Upon completion of the injection the needle was withdrawn sterile dressing was applied. Patient tolerated procedure well she was taken outside of the operating room to recovery room where she recovered uneventfully. She went home without immediate complications.
== END 2022-02-05 09:44 | disposition home or self-care (01) ==
PROVIDERS: PCP Internal Medicine; Visit Provider Anesthesiology
PROC: (CPT 20610; principal; 2022-02-05 08:30)
DX: M16.12 Unilateral primary osteoarthritis, left hip (principal); M96.1 Postlaminectomy syndrome, not elsewhere classified; M46.1 Sacroiliitis, not elsewhere classified; M47.27 Other spondylosis with radiculopathy, lumbosacral region; M47.22 Other spondylosis with radiculopathy, cervical region; M17.10 Unilateral primary osteoarthritis, unspecified knee; M79.7 Fibromyalgia; M72.2 Plantar fascial fibromatosis; I10 Essential (primary) hypertension; Z79.899 Other long term (current) drug therapy; Z88.0 Allergy status to penicillin; Z88.8 Allergy status to other drugs, medicaments and biological substances; Z91.040 Latex allergy status; Z98.890 Other specified postprocedural states; Z87.891 Personal history of nicotine dependence
CPT/HCPCS: 20610; J2250; J3010; J3300; Q9967

== ENCOUNTER → 2022-04-26 10:42 | Outpatient (BNVA) | payer OTHER, SELFPAY | PROVIDERS: Visit Provider Anesthesiology | DX: M25.562 Pain in left knee (principal); M17.12 Unilateral primary osteoarthritis, left knee; M16.12 Unilateral primary osteoarthritis, left hip | CPT/HCPCS: 99212 ==

== ENCOUNTER 2022-07-22 06:41 | Outpatient (REF) | payer OTHER, SELFPAY | END 2022-07-22 06:42 | disposition home or self-care (01) | LOC: HO.HOSX 06:41 | PROVIDERS: Visit Provider Physician Assistant | DX: Z13.89 Encounter for screening for other disorder (principal) ==

== ENCOUNTER 2022-07-28 09:46 | Outpatient (REF) | payer OTHER, SELFPAY ==
[2022-07-28 10:22] LABS: Alanine Aminotransferase 11 U/L (0-31); Albumin Level 4.6 g/dL (3.5-5.0); Alkaline Phosphatase 76 U/L (39-117); Anion Gap 17 (12-20); Aspartate Amino Transferase 17 U/L (5-31); Bilirubin Total 0.3 mg/dL (0.0-1.0); Blood Urea Nitrogen 8 mg/dL (9-16); Carbon Dioxide 26 mmol/L (22-29); Chloride 101 mmol/L (96-108); Cholesterol 186 mg/dL; Estimated Glomerular Filt Rate > 60; Glucose Fasting 102 mg/dL (60-99); HDL Cholesterol 52 mg/dL; LDL Cholesterol Calculated 109 mg/dl; Potassium 3.8 mmol/L (3.3-5.1); Sodium 140 mmol/L (135-145); Total Protein 7.5 g/dL (6.5-8.0); Triglycerides 128 mg/dL
[2022-07-28 10:42] LABS: Vitamin D 25-OH Total 33.7 ng/mL (>30)
== END 2022-07-28 09:47 | disposition home or self-care (01) ==
LOC: HO.LAB 09:46
PROVIDERS: PCP Internal Medicine; Visit Provider Internal Medicine
DX: E55.9 Vitamin D deficiency, unspecified (principal); I10 Essential (primary) hypertension; D64.9 Anemia, unspecified; J45.909 Unspecified asthma, uncomplicated
CPT/HCPCS: 36415; 80053; 80061; 82306

== ENCOUNTER 2022-08-26 12:18 | Outpatient (REF) | payer OTHER, SELFPAY ==
--- NOTE | ~2022-08-26 | XR_ITS ---
EXAMINATION: XR STANDING BILATERAL KNEES XR KNEE, LEFT CLINICAL INFORMATION: Left knee pain. COMPARISON: Left knee 03/27/2021. TECHNIQUE: Single standing radiograph of both knees with 2 additional views left knee. FINDINGS: Compared to the right, there is some mild narrowing of both the medial and lateral compartments on the upright radiograph. Small marginal medial osteophyte present on the tibial plateau. Patellofemoral joint appears normal. No significant joint effusion is seen. No chondrocalcinosis. XR/XR knee LT 2V IMPRESSION: Mild degenerative changes as described above.
--- NOTE | ~2022-08-26 | XR_ITS ---
EXAMINATION: XR STANDING BILATERAL KNEES XR KNEE, LEFT CLINICAL INFORMATION: Left knee pain. COMPARISON: Left knee 03/27/2021. TECHNIQUE: Single standing radiograph of both knees with 2 additional views left knee. FINDINGS: Compared to the right, there is some mild narrowing of both the medial and lateral compartments on the upright radiograph. Small marginal medial osteophyte present on the tibial plateau. Patellofemoral joint appears normal. No significant joint effusion is seen. No chondrocalcinosis. XR/XR knee standing BI IMPRESSION: Mild degenerative changes as described above.
== END 2022-08-26 12:19 | disposition home or self-care (01) ==
LOC: HO.HOSX 12:18
PROVIDERS: Visit Provider Physician Assistant
DX: M17.12 Unilateral primary osteoarthritis, left knee (principal); M70.62 Trochanteric bursitis, left hip
CPT/HCPCS: 73560; 73565; 99212

== ENCOUNTER 2022-09-09 10:22 | Outpatient (REF) | payer OTHER, SELFPAY ==
--- NOTE | ~2022-09-09 | MR_ITS ---
EXAMINATION: MR KNEE WITHOUT CONTRAST, LEFT CLINICAL INFORMATION: Left knee pain and swelling COMPARISON: Radiographs 08/26/2022 TECHNIQUE: MRI of the knee without contrast was performed using routine sequences on a high-field scanner. FINDINGS: MENISCI: Medial Meniscus: Ill-defined inner margin tearing of the posterior horn extending to the undersurface of the meniscal body where a small portion of the meniscal undersurface is displaced into the meniscotibial recess. Lateral Meniscus: Ill-defined inner margin tearing of the body and posterior horn. LIGAMENTS: Cruciate: Intact Collateral: Intact EXTENSOR MECHANISM: Intact ARTICULAR CARTILAGE/BONE: Patellofemoral Compartment: Normal Medial Compartment: Normal Lateral Compartment: Near full-thickness cartilage loss along the lateral tibial spine and mild cartilage thinning and surface irregularity of the weightbearing and posterior nonweightbearing femoral condyle with small marginal osteophytes JOINT FLUID AND BURSAE: Small joint effusion. MR/MR knee LT wo con IMPRESSION: 1. Ill-defined inner margin tearing of the posterior horn of the medial meniscus extending to the undersurface of the meniscal body. 2. Ill-defined inner margin tearing of the lateral meniscus body and posterior horn. 3. Moderate lateral compartment osteoarthritis with a small joint effusion.
== END 2022-09-09 10:23 | disposition home or self-care (01) ==
LOC: HO.MRI 10:22
PROVIDERS: Visit Provider Physician Assistant
DX: M17.12 Unilateral primary osteoarthritis, left knee (principal)
CPT/HCPCS: 73721

== ENCOUNTER → 2022-09-27 14:04 | Outpatient (BNVA) | payer OTHER, SELFPAY | PROVIDERS: PCP Internal Medicine; Visit Provider Orthopaedic Surgery | DX: S83.242D Other tear of medial meniscus, current injury, left knee, subsequent encounter (principal); M17.12 Unilateral primary osteoarthritis, left knee | CPT/HCPCS: 99212 ==

== ENCOUNTER 2022-09-29 06:08 | Day surgery (SDC) | payer OTHER, SELFPAY ==
--- NOTE | 2022-09-28 09:34 | P.CONAN_ITS ---
Documented by User: Annemarie Anaya NP 09/28/22 09:36 HPI - Anesthesia Eval Consult details Narrative: 51yo F for Left Knee Arthroscopy Chronic opioids s/p hip injection 01/2022 with MAC PMFSH Active Problems Active Problems: All Active Problems (Updated 09/27/22 @ 14:26 by Tyler Salazar) Acute meniscal tear of left knee (Acute) Trochanteric bursitis of left hip (Acute) Osteoarthritis of left knee (Acute) Mild recurrent major depression (Acute) Numbness of left hand (Acute) Arthritis of left knee (Acute) Left knee pain (Acute) Osteoarthritis of left hip (Acute) Sacroiliitis (Acute) Infective arthritis of left knee (Acute) Well woman exam (Acute) BMI 34.0-34.9,adult (Acute) Arthropathy of knee (Acute) Fracture of metacarpal base of left hand, closed (Acute) Foot pain, right (Acute) Plantar fasciitis of left foot (Acute) Anemia (Chronic) Fibromyalgia (Acute) GERD (gastroesophageal reflux disease) (Acute) Asthma (Acute) BMI 35.0-35.9,adult (Acute) Obesity (BMI 30-39.9) (Acute) Essential hypertension (Acute) Daytime sleepiness (Acute) Shortness of breath (Acute) Obese (Acute) Acute traumatic internal derangement of left knee (Acute) Insomnia (Acute) Sinusitis (Acute) Anxiety (Acute) Migraine (Acute) Postlaminectomy syndrome of cervical region (Acute) Spondylosis of cervical spine with radiculopathy (Acute) Spondylosis of lumbosacral spine with radiculopathy (Acute) Past Medical History Medical History Acute traumatic internal derangement of left knee Anemia Anxiety Arthropathy of knee Asthma BMI 35.0-35.9,adult Daytime sleepiness Essential hypertension Fibromyalgia Foot pain, right Fracture of metacarpal base of left hand, closed GERD (gastroesophageal reflux disease) Infective arthritis of left knee Insomnia Migraine Obese Obesity (BMI 30-39.9) Osteoarthritis of left hip Plantar fasciitis of left foot Postlaminectomy syndrome of cervical region Sacroiliitis Shortness of breath Sinusitis 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 Brother No problems noted. Son No problems noted. Son No problems noted. Son No problems noted. Son No problems noted. Surgical History Surgical History H/O colonoscopy H/O medial meniscus repair of right knee History of carpal tunnel release History of esophagogastroduodenoscopy (EGD) History of neck surgery History of surgery History of tubal ligation Hx of breast reduction, elective S/P JUSTYN-BSO (total abdominal hysterectomy and bilateral salpingo-oophorectomy) History of Problems with Anesthesia: No Social History Social History Household Members: Significant Other and Family Housing: House Are you a primary janitor caretaker to a significant other at home: No Do you presently have visiting nurse or other home services: No Alcohol intake: current Alcohol intake frequency: holidays/special occasions only Patient Tobacco Use Status: Current everyday Tobacco user Tobacco use type: Smokeless Tobacco e-Cigarette/Vaping Use: Never Used Second Hand Smoke Exposure: No Use of substances other than those prescribed or required for medical reasons: No Are you DNR?: No Advance Directives: No Advance Directives Information Provided: Yes service: No Current occupational status: employed Cognitive needs: No Hearing needs: No Vision needs: No Meds Allergies Allergy/AdvReac Type Severity Reaction Status Date / Time fluoxetine [From PROZAC] Allergy Severe OVER Verified 08/26/22 13:59 SEDATION gabapentin [GABAPENTIN] Allergy Intermediate NAUSEA,DIZZINESS, Verified 08/26/22 13:59 dizziness hydromorphone [HYDROMORPHONE] Allergy Intermediate NAUSEA/PALPITATIONS, Verified 08/26/22 13:59 vomiting latex [LATEX] Allergy Intermediate RASH Verified 08/26/22 13:59 Penicillins [PENICILLINS] Allergy Intermediate RASH Verified 08/26/22 13:59 Home Medications Medication Instructions Recorded Confirmed Last Taken Type bupropion HCl 150 mg 24 hr tablet, 150 mg PO QAM 08/14/20 09/29/22 09/29/22 History extended release buspirone 15 mg tablet 30 mg PO BID 08/14/20 09/29/22 09/29/22 History lamotrigine 25 mg tablet 50 mg PO DAILY 08/14/20 09/29/22 09/29/22 History sumatriptan succinate 50 mg tablet 50 mg PO DAILY 04/07/21 07/28/22 Unknown History zolpidem 10 mg tablet 10 mg PO BEDTIME 04/07/21 07/28/22 Unknown History Exam Exam Date and Time: September 28, 2022 0934 Pertinent Lab Results Pertinent Lab Results: Laboratory Tests 07/28/22 07/28/22 09:22 09:22 WBC 5.4 Hgb 12.1 Hct 38.4 Plt Count 263 Sodium 140 Potassium 3.8 Chloride 101 Carbon Dioxide 26 BUN 8 L Creatinine 0.78 Assessment and Plan Assessment Anesthesia Assessment: Chart Reviewed Final Anesthetic Review History of Problems with Anesthesia: No Documented by User: Leena Smith MD 09/29/22 07:02 [facility] Past Medical History Medical History Acute traumatic internal derangement of left knee Anemia Anxiety Arthropathy of knee Asthma BMI 35.0-35.9,adult Daytime sleepiness Essential hypertension Fibromyalgia Foot pain, right Fracture of metacarpal base of left hand, closed GERD (gastroesophageal reflux disease) Infective arthritis of left knee Insomnia Migraine Obese Obesity (BMI 30-39.9) Osteoarthritis of left hip Plantar fasciitis of left foot Postlaminectomy syndrome of cervical region Sacroiliitis Shortness of breath Sinusitis 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 Brother No problems noted. Son No problems noted. Son No problems noted. Son No problems noted. Son No problems noted. Family history of problems with anesthesia: No Surgical History Surgical History H/O colonoscopy H/O medial meniscus repair of right knee History of carpal tunnel release History of esophagogastroduodenoscopy (EGD) History of neck surgery History of surgery History of tubal ligation Hx of breast reduction, elective S/P JUSTYN-BSO (total abdominal hysterectomy and bilateral salpingo-oophorectomy) Social History Social History Household Members: Significant Other and Family Housing: House Are you a primary janitor caretaker to a significant other at home: No Do you presently have visiting nurse or other home services: No Alcohol intake: current Alcohol intake frequency: holidays/special occasions only Patient Tobacco Use Status: Current everyday Tobacco user Tobacco use type: Smokeless Tobacco e-Cigarette/Vaping Use: Never Used Second Hand Smoke Exposure: No Use of substances other than those prescribed or required for medical reasons: No Are you DNR?: No Advance Directives: No Advance Directives Information Provided: Yes service: No Current occupational status: employed Cognitive needs: No Hearing needs: No Vision needs: No Meds Allergies Allergy/AdvReac Type Severity Reaction Status Date / Time fluoxetine [From PROZAC] Allergy Severe OVER Verified 08/26/22 13:59 SEDATION gabapentin [GABAPENTIN] Allergy Intermediate NAUSEA,DIZZINESS, Verified 08/26/22 13:59 dizziness hydromorphone [HYDROMORPHONE] Allergy Intermediate NAUSEA/PALPITATIONS, Verified 08/26/22 13:59 vomiting latex [LATEX] Allergy Intermediate RASH Verified 08/26/22 13:59 Penicillins [PENICILLINS] Allergy Intermediate RASH Verified 08/26/22 13:59 Home Medications Medication Instructions Recorded Confirmed Last Taken Type bupropion HCl 150 mg 24 hr tablet, 150 mg PO QAM 08/14/20 09/29/22 09/29/22 History extended release buspirone 15 mg tablet 30 mg PO BID 08/14/20 09/29/22 09/29/22 History lamotrigine 25 mg tablet 50 mg PO DAILY 1009/29/22 09/29/22 History sumatriptan succinate 50 mg tablet 50 mg PO DAILY 04/07/21 07/28/22 Unknown History zolpidem 10 mg tablet 10 mg PO BEDTIME 04/07/21 07/28/22 Unknown History Exam Airway Mallampati Class: II TM Dist: >3cm Neck ROM: Full Heart: rrr Lungs: cta Assessment and Plan Assessment Anesthesia Assessment: Anesthesia Plan Discussed and Chart Reviewed Final Anesthetic Review Family History of Problems with Anesthesia: No NPO: Yes ASA Class: II Final Preanesthetic Review: No Changes in Pt Med Stat, Meds/Allgs Chart Reviewed and Consent Obtained/Reviewed Patient Risk: Intermediate Procedure Risk: Intermediate Anesthetic Plan Anesthetic Plan: GA Disposition: Standard PACU
[2022-09-29] VITALS (16 sets, daily range): BP systolic 84–120; BP diastolic 45–75; PULSE 58–94; RESP 12–18; TEMP 36.3–36.8; O2SAT 90–100; BMI 35.0
[2022-09-29] MEDS: Lactated Ringers 1,000 ML 100 ML IVCONT (06:42)
--- NOTE | 2022-09-29 07:27 | MHC.SHP ---
Pre-Procedural Eval Section A Date of Service: 09/29/22 The patient is an INPATIENT: No Changes since office visit: Yes Patient answered all questions; No Cold of Flu in the past 2 weeks, No New Medical Problems and No Changes in Medication The History & Physical has been completed within 30 days and I have reviewed it.: Yes Section B Chief Complaint: Unspecified tear of unspecified meniscus, current Allergies: Allergies Allergy/AdvReac Type Severity Reaction Status Date / Time fluoxetine [From PROZAC] Allergy Severe OVER Verified 08/26/22 13:59 SEDATION gabapentin [GABAPENTIN] Allergy Intermediate NAUSEA,DIZZINESS, Verified 08/26/22 13:59 dizziness hydromorphone [HYDROMORPHONE] Allergy Intermediate NAUSEA/PALPITATIONS, Verified 08/26/22 13:59 vomiting latex [LATEX] Allergy Intermediate RASH Verified 08/26/22 13:59 Penicillins [PENICILLINS] Allergy Intermediate RASH Verified 08/26/22 13:59 Plan I have reviewed the history and physical and performed a pertinent physical examination on my patient. No changes have occurred unless specified.
--- NOTE | 2022-09-29 08:10 | PM.OP ---
Brief Operative Note Date of Service: 09/29/22 Pre-op diagnosis: Left knee MMT Post-op diagnosis: other (1) left medial MMT 2) Left knee OA) Procedure: Left knee partial MMT and chondroplasty Surgeon: Jonathan De La Cruz MD Anesthesia: GETA and local Was an Building Equipment Inspector used for this Procedure?: No Estimated blood loss (mL): 5 Tourniquet time (min): 20 IV fluids (mL): 500 Pathology: none sent Condition: stable Disposition: PACU
[2022-09-29] MEDS: fentaNYL citrate/PF 100 MCG/2 ML VIAL 50 MCG IVPUSH ×4 (08:20→09:05)
--- NOTE | 2022-09-29 08:23 | P.OP_ITS ---
Operative Note Operative Note Date of Service: 09/29/22 Narrative: Date of Service: 09/29/22 Pre-op diagnosis: Left knee MMT Post-op diagnosis: other (1) left medial MMT 2) Left knee OA) Procedure: Left knee partial MMT and chondroplasty Surgeon: Jonathan De La Cruz MD Anesthesia: GETA and local Was an Marketing Manager [employer] used for this Procedure?: No Estimated blood loss (mL): 5 Tourniquet time (min): 20 IV fluids (mL): 500 Pathology: none sent Condition: stable Disposition: PACU Procedure in detail: Patient was brought to the operating room placed supine on the arthroscopic table and prepped and draped in standard sterile fashion. A time-out was called to identify proper site proper procedure proper surgeon and IV antibiotics per weight were administered. I began by exsanguinating the limb and insufflating tourniquet to 300 mm Hg. Then made a standard anterolateral stab incision. knee was insufflated with water and 30 degree arthroscope was placed. There was grade 1 fibrillations of the patella but overall suprapatellar pouch the gutters were clean. There was a small central G3 wear in the proximal trochlea.. I descended into the medial compartment where I made my medial portal under direct visualization. There was obvious of complex tear of the body and posterior horn of the medial meniscus. The oot was intact and there wwere scattered grade 1 changes in the medial compartment. I used a combination of biter shaver and cautery to remove unstable portions of the meniscus. Approximately 30% meniscal volume was removed. Once I was happy with this the ACL was examined and found to be intact and the lateral compartment was entered. There was G4 eburnation of 90 % of the lateral tibial plateau with associated degenerative meniscal fraying. I debrided any loose cartilage and the meniscal fraying but there was little to be done in the lateral compartment. I then removed all instrumentation and closed the portals with skin glue. 25 mL of 2% Marcaine with epinephrine was injected into the joint and the surrounding soft tissues. Patient was then placed in sterile dressing extubated brought recovery room stable condition. There were no known complications.
[2022-09-29] MEDS: oxyCODONE HCl Immed Release 5 MG TABLET 10 MG PO (08:30)
[2022-09-29] MEDS: Albuterol Sulfate (0.083%) 2.5 MG/3 ML VIAL.NEB INHALE (08:40)
[2022-09-29] MEDS: Acetaminophen 1,000 MG/100 ML PIGGYBACK 400 MG IV (09:36)
== END 2022-09-29 11:43 | disposition home or self-care (01) ==
PROVIDERS: PCP Internal Medicine; Visit Provider Orthopaedic Surgery
PROC: (CPT 29870; principal; 2022-09-29 07:30)
DX: S83.232A Complex tear of medial meniscus, current injury, left knee, initial encounter (principal); M17.12 Unilateral primary osteoarthritis, left knee; J45.909 Unspecified asthma, uncomplicated; R06.02 Shortness of breath; I10 Essential (primary) hypertension; M79.7 Fibromyalgia; M72.2 Plantar fascial fibromatosis; F33.0 Major depressive disorder, recurrent, mild; X58.XXXA Exposure to other specified factors, initial encounter; Y93.9 Activity, unspecified; Y92.9 Unspecified place or not applicable; Y99.8 Other external cause status; Z79.899 Other long term (current) drug therapy; Z88.0 Allergy status to penicillin; Z88.8 Allergy status to other drugs, medicaments and biological substances; Z91.040 Latex allergy status; F17.200 Nicotine dependence, unspecified, uncomplicated
CPT/HCPCS: 29881; 94640; J0131; J0171; J2250; J2405; J2795; J3010

== ENCOUNTER 2022-11-02 11:00 | Outpatient (RCR) | payer OTHER, SELFPAY ==
--- NOTE | 2022-10-04 11:49 | MHC.PT.EP ---
[facility] [place] Office [place] Office [place] Office [address] Bobby Lugo [address] [phone] F: [phone] F: [phone] F: [phone] F: [phone] Physical Therapy Plan of Care Date of Evaluation: Date of Surgery: 09/29/22 Diagnosis: Left knee partial MMT and chondroplasty Assessment: PRESENTS POD #5 FOR ORTHOPEDIC FOLLOW UP AND PT EVALUATION. UPON EXAM HE DEMONSTRATES THE EXPECTED IMPAIRMENTS OF DECREASED ROM, DECREASED STRENGTH, ALTERED POSTURE AND POSITIONING,ALTERED GAIT AND BALANCE, AND INCREASED PAIN AND EDEMA. FUNCTIONAL LIMITATIONS INCLUDE DECREASED ABILITY TO PERFORM HOMEMAKING AND SELF-CARE TASKS, DECREASED ABILITY TO PERFORM WALKING, RUNNING, JUMPING AND SQUATTING, INABILITY TO DRIVE AND PERFORM WORK TASKS, DECREASED PARTICIPATION IN COMMUNITY AND RECREATIONAL ACTIVITIES AND DISRUPTED SLEEP. THE Pt IS A GOOD CANDIDATE FOR SKILLED PT DUE TO AGE, POTENTIAL REMEDIATION OF IMPAIRMENTS, TYPICAL DISEASE/CONDITION PROGRESSION AND PROGNOSIS, COMORBIDITIES, AND MOTIVATION. PT WOULD BENEFIT FROM TAILORED PROGRAM OF THERAPEUTIC ACTIVITIES, FUNCTIONAL TRAINING, GAIT TRAINING, POSTURAL EDUCATION, NEUROMUSCULAR RE-EDUCATION, AND MODALITIES NEEDED. Frequency and Duration: The patient will be seen 2 X WEEK FOR 4 WEEKS Short Term Goals: INITIATE HEP AND PROMOTE SELF MANAGEMENT OF SYMPTOMS Metallurgical Lab Technician Goals: TO DEMONSTRATE FULL KNEE ROM, EQUAL EDWAR TO DEMONSTRATE FULL LE STRENGTH, EQUAL EDWAR TO ASCEND AND DESCEND STAIRS WITH RECIPROCAL GAIT WITHOUT PAIN GREATER THAN 2/10 TO AMBULATE AD TIANA ON LEVEL AND UNEVEN SURFACES FOR FITNESS WITHOUT PAIN GREATER THAN 2/10 TO PERFORM FULL FUNCTIONAL SQUAT WITHOUT SUBSTITUTION Treatment Plan: Modalities to reduce pain, spasms and effusion. Manual therapy to restore motion and function. Therapeutic exercise to improve strength and flexibility. Neuromuscular re-education for posture and balance. Therapeutic activities to return to functional activities of daily living. Electronically signed by: AVERY CHAUDHRY PT, DPT Please sign and return to therapist. Thank you for your referral.
--- NOTE | 2022-11-26 15:07 | MHC.PT.DC ---
[facility] [place] Office [place] Office [place] Office [address] Bobby Lugo [address] [phone] F: [phone] F: [phone] F: [phone] F: [phone] Physical Therapy Discharge Report Diagnosis: Left knee partial MMT and chondroplasty. PER OP REPORT Pt HAD MEDIAL MENISCECTOMY (30% OF VOLUME REMOVED) AND DEBRIDED LOOSE CARTILAGE FROM LAT TIBIAL PLATEAU AND THE MENISCAL FRAYING Date of Surgery: 09/29/22 Date of Evaluation: 10/04/22 Date of Discharge: 11/26/22 Treatments to Date: 4 Cancellations to Date: 0 No Shows to Date: 0 Discharge Status: Patient Elected to Stop Recommend MD Follow-up Discharge Summary: Pt LAST SEEN ON 11/02/22. SAW [facility]TH[facility] ON 11/04/22. PER LAST ASSESSMENT PROGRESSING WITH ROM AND STRENGTHENING, WEANING FROM CRUTCH . Pt THEN NO SHOWED X 7. WILL DC PER DEPARTMENT POLICY. TIGERTEXT SENT TO DANIEL[facility]TATYANA IN [facility] TO LET THEM KNOW. Electronically signed by: CHIQUITA NAVARRETE PT Please sign and return to therapist. Thank you for your referral.
== END 2022-11-26 15:31 | disposition home or self-care (01) ==
LOC: HO.PT 11:00
PROVIDERS: Visit Provider Physician Assistant
DX: S83.207A Unspecified tear of unspecified meniscus, current injury, left knee, initial encounter (principal)
CPT/HCPCS: 97110; 97116; 97161; 97530

== ENCOUNTER → 2022-11-04 13:20 | Outpatient (BNVA) | payer OTHER, SELFPAY | PROVIDERS: PCP Internal Medicine; Visit Provider Physician Assistant | DX: Z13.89 Encounter for screening for other disorder (principal) ==

== ENCOUNTER 2022-11-10 11:33 | Outpatient (REF) | payer OTHER, SELFPAY ==
--- NOTE | ~2022-11-10 | MM_ITS ---
EXAMINATION: MM SCREENING DIGITAL BREAST TOMOSYNTHESIS, BILATERAL CLINICAL INFORMATION: Screening. Asymptomatic. Status post bilateral reduction mammoplasty since prior mammography 2019. The lifetime risk of breast cancer based on the Tyrer-Cuzick Model is 6%. COMPARISON: Mammography: 06/11/2020; outside mammography 05/15/2018, 05/12/2017 ([facility]). TECHNIQUE: Digital breast tomosynthesis is performed in both the craniocaudal and mediolateral oblique views along with computer-aided detection (CAD). Synthesized 2D images are generated from the tomosynthesis. FINDINGS: There are scattered areas of fibroglandular density (ACR BI-RADS breast composition Category b). The breasts are symmetrically decreased in size along with minor scarring consistent with the reduction mammoplasty when compared with prior exams. There is a ribbon shaped biopsy clip marker anterior 11:00 right breast. There is no significant mass or architectural abnormality or abnormal calcifications. The axilla are unremarkable. MM/MM tomosynthesis screening BI IMPRESSION: No mammographic evidence of malignancy. ASSESSMENT: BI-RADS 2: Benign RECOMMENDATION: Routine annual mammography screening. This patient's information was entered into a reminder system with a target due date for their next mammogram.
== END 2022-11-10 11:34 | disposition home or self-care (01) ==
LOC: HO.MAMMO 11:33
PROVIDERS: PCP Internal Medicine; Visit Provider Internal Medicine
DX: Z12.31 Encounter for screening mammogram for malignant neoplasm of breast (principal)
CPT/HCPCS: 77063; 77067

== ENCOUNTER → 2022-12-15 11:51 | Outpatient (BNVA) | payer OTHER, SELFPAY | PROVIDERS: PCP Internal Medicine; Visit Provider Anesthesiology | DX: M47.27 Other spondylosis with radiculopathy, lumbosacral region (principal); M47.22 Other spondylosis with radiculopathy, cervical region; M96.1 Postlaminectomy syndrome, not elsewhere classified; M17.10 Unilateral primary osteoarthritis, unspecified knee; M46.1 Sacroiliitis, not elsewhere classified; M16.12 Unilateral primary osteoarthritis, left hip | CPT/HCPCS: 99212 ==

== ENCOUNTER 2023-01-18 06:04 | Outpatient (REF) | payer OTHER, SELFPAY ==
--- NOTE | ~2023-01-18 | FL_ITS ---
EXAMINATION: XR FLUOROSCOPY WITH IMAGES CLINICAL INFORMATION: Low back pain. COMPARISON: None available. TECHNIQUE: Fluoroscopy Supervised By: Nancy Epstein NP. Fluoroscopy Time: 0.2 minutes. Cumulative Dose: 9.21 mGy. DAP: 2.51 Gy-cm2. Images: 1. FINDINGS: There is a single image of lumbar spine revealing needle positioned at the left L5 pedicles with contrast opacifying the extra spinal L5 nerve root pathway there is likely some epidural contrast as well. Visualized bones are grossly unremarkable. FL/FL guidance in treatment room IMPRESSION: Fluoroscopy was provided to referrer for pain management.
== END 2023-01-18 06:05 | disposition home or self-care (01) ==
LOC: CF 06:04
PROVIDERS: Visit Provider Anesthesiology
DX: M47.27 Other spondylosis with radiculopathy, lumbosacral region (principal); M47.22 Other spondylosis with radiculopathy, cervical region; M96.1 Postlaminectomy syndrome, not elsewhere classified; M17.10 Unilateral primary osteoarthritis, unspecified knee; M46.1 Sacroiliitis, not elsewhere classified
CPT/HCPCS: 64483

== ENCOUNTER 2023-03-02 11:00 | Outpatient (RCR) | payer OTHER, SELFPAY ==
--- NOTE | 2023-04-25 12:03 | MHC.PT.DC ---
[facility] [place] [facility] [place] [facility] [place] Office [address] Bobby Lugo [address] [phone] F: [phone] F: [phone] F: [phone] F: [phone] Physical Therapy Discharge Report Diagnosis: NECK PAIN (KP) Date of Surgery: 2015 Date of Evaluation: 02/11/23 Date of Discharge: 04/25/23 Treatments to Date: 4 Cancellations to Date: 1 No Shows to Date: 1 Discharge Status: Patient Elected to Stop Discharge Summary: NO SHOWED FOR LAST SCHEDULED VISIT, LVM W/ MACHINE SORTER TO CALL AND RESCHEDULE HOWEVER Pt DID NOT RETURN CALLS. Electronically signed by: AVERY CHAUDHRY PT DPT Please sign and return to therapist. Thank you for your referral.
== END 2023-04-25 12:03 | disposition home or self-care (01) ==
LOC: HO.PT 11:00
PROVIDERS: PCP Internal Medicine; Visit Provider Anesthesiology
DX: M96.1 Postlaminectomy syndrome, not elsewhere classified (principal); M47.22 Other spondylosis with radiculopathy, cervical region
CPT/HCPCS: 97110; 97140; 97161

== ENCOUNTER → 2023-03-02 16:11 | Outpatient (BNVA) | payer OTHER, SELFPAY | PROVIDERS: PCP Internal Medicine; Visit Provider Anesthesiology | DX: M47.27 Other spondylosis with radiculopathy, lumbosacral region (principal); M47.22 Other spondylosis with radiculopathy, cervical region; M96.1 Postlaminectomy syndrome, not elsewhere classified; M17.10 Unilateral primary osteoarthritis, unspecified knee; M46.1 Sacroiliitis, not elsewhere classified; M54.12 Radiculopathy, cervical region | CPT/HCPCS: 99212 ==

== ENCOUNTER 2023-04-08 08:00 | Outpatient (REF) | payer OTHER, SELFPAY ==
--- NOTE | ~2023-04-08 | MR_ITS ---
EXAMINATION: MR CERVICAL SPINE WITHOUT CONTRAST CLINICAL INFORMATION: Postlaminectomy syndrome. Radiculopathy. COMPARISON: Cervical spine MRI from 03/27/2020. TECHNIQUE: MRI of the cervical spine was obtained using routine sequences without contrast. FINDINGS: Instrumented anterior fusion of C5-C6. Minimal degenerative retrolisthesis of C4 on C5. Otherwise, normal anatomic alignment. Moderate degenerative disc disease at C4-C5 and C6-C7. Associated mild mixed Modic type discogenic endplate changes including minimal Modic type I discogenic edema at C4-C5. No additional suspicious marrow edema. The vertebral body heights are well-maintained. No demonstrated spinal cord signal abnormalities. Limited evaluation of the soft tissues of the neck without demonstrated abnormalities. The flow voids of the major cervical vessels are maintained. Normal appearance of the cervicomedullary junction and visualized posterior fossa. SPINAL LEVELS: C2-C3: Normal annular contour. There is no uncovertebral joint arthropathy. There is no facet joint arthropathy. There is no neural foraminal stenosis. There is no spinal canal stenosis. C3-C4: Minimal disc-osteophyte complex. There is mild right and no left uncovertebral joint arthropathy. There is mild bilateral facet joint arthropathy. There is no neural foraminal stenosis. There is no spinal canal stenosis. C4-C5: Mild disc-osteophyte complex. There is mild right and no left uncovertebral joint arthropathy. There is mild bilateral facet joint arthropathy. There is mild right and no left neural foraminal stenosis. There is no spinal canal stenosis. C5-C6: Normal annular contour. There is mild right and no left uncovertebral joint arthropathy. There is mild bilateral facet joint arthropathy. There is mild right and no left neural foraminal stenosis. There is no spinal canal stenosis. C6-C7: Moderate disc-osteophyte complex. There is moderate bilateral uncovertebral joint arthropathy. There is mild bilateral facet joint arthropathy. There is mild bilateral neural foraminal stenosis. There is no spinal canal stenosis. C7-T1: Normal annular contour. There is no uncovertebral joint arthropathy. There is no facet joint arthropathy. There is no neural foraminal stenosis. There is no spinal canal stenosis. MR/MR cervical spine wo con IMPRESSION: Instrumented anterior fusion of C5-C6. Mild to moderate multilevel degenerative spondyloarthropathy of the cervical spine as described in detail above. Most notably, there are mild neural foraminal narrowings from C4-C7. No overt spinal canal stenosis or nerve root compression. Overall, degenerative changes are minimally progressed compared to 2020.
== END 2023-04-08 08:01 | disposition home or self-care (01) ==
LOC: HO.MRI 08:00
PROVIDERS: PCP Internal Medicine; Visit Provider Anesthesiology
DX: M96.1 Postlaminectomy syndrome, not elsewhere classified (principal); M54.12 Radiculopathy, cervical region
CPT/HCPCS: 72141

== ENCOUNTER → 2023-07-06 15:42 | Outpatient (BNVA) | payer OTHER, SELFPAY | PROVIDERS: PCP Internal Medicine; Visit Provider Anesthesiology ==

== ENCOUNTER 2023-07-26 09:44 | Outpatient (AMB) | payer OTHER, SELFPAY ==
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
[2023-07-26 09:54] VITALS: BMI 33.6
== END 2023-07-26 10:30 | disposition home or self-care (01) ==
PROVIDERS: PCP Internal Medicine; Visit Provider Physician Assistant
DX: M17.12 Unilateral primary osteoarthritis, left knee (principal); M47.22 Other spondylosis with radiculopathy, cervical region; M47.27 Other spondylosis with radiculopathy, lumbosacral region
CPT/HCPCS: 99213

== ENCOUNTER 2023-07-26 12:01 | Outpatient (REF) | payer OTHER, SELFPAY ==
--- NOTE | ~2023-07-26 | XR_ITS ---
EXAMINATION: XR KNEE AP STANDING, BILATERAL XR KNEE, LEFT CLINICAL INFORMATION: Left knee pain. COMPARISON: Radiographs 08/06/2022. TECHNIQUE: AP standing view of both knees. Lateral and sunrise views of the left knee. FINDINGS: Mild medial compartment narrowing bilaterally. Small marginal osteophytes in all 3 compartments of the left knee with a small joint effusion. There is a loose body in the posterior joint recess. No fracture or malalignment. XR/XR knee standing BI IMPRESSION: Mild tricompartmental osteoarthritis of the left knee with a small joint effusion. No significant change.
--- NOTE | ~2023-07-26 | XR_ITS ---
EXAMINATION: XR KNEE AP STANDING, BILATERAL XR KNEE, LEFT CLINICAL INFORMATION: Left knee pain. COMPARISON: Radiographs 08/06/2022. TECHNIQUE: AP standing view of both knees. Lateral and sunrise views of the left knee. FINDINGS: Mild medial compartment narrowing bilaterally. Small marginal osteophytes in all 3 compartments of the left knee with a small joint effusion. There is a loose body in the posterior joint recess. No fracture or malalignment. XR/XR knee LT 2V IMPRESSION: Mild tricompartmental osteoarthritis of the left knee with a small joint effusion. No significant change.
== END 2023-07-26 12:02 | disposition home or self-care (01) ==
LOC: HO.HOSX 12:01
PROVIDERS: Visit Provider Physician Assistant
DX: M17.12 Unilateral primary osteoarthritis, left knee (principal); M47.22 Other spondylosis with radiculopathy, cervical region; M47.27 Other spondylosis with radiculopathy, lumbosacral region
CPT/HCPCS: 73560; 73565; 99212

== ENCOUNTER 2023-07-29 07:29 | Day surgery (SDC) | payer OTHER, SELFPAY ==
[2023-07-27 13:14] VITALS: BMI 33.6
--- NOTE | ~2023-07-29 | FL_ITS ---
EXAMINATION: XR FLUOROSCOPY WITH IMAGES CLINICAL INFORMATION: Right C4-C5-C6 MBB. COMPARISON: None available. TECHNIQUE: Fluoroscopy Supervised By: Dr. Jaime Mccartney. Fluoroscopy Time: 0.4 minutes. Cumulative Dose: 8.66 mGy. DAP: 1.27 Gycm2. Images: 6. FINDINGS: Images demonstrate needle/probe placement and contrast injection adjacent to the right C4, C5 and and C6 vertebrae. there is anterior fusion hardware at C5-C6. FL/FL guidance in OR IMPRESSION: Fluoroscopy guidance for pain management procedure
[2023-07-29 08:06] VITALS: BP 117/78; PULSE 86; RESP 16; TEMP 36.6; O2SAT 99; BMI 33.6
[2023-07-29] MEDS: Lactated Ringers 1,000 ML 80 ML IVCONT (08:27)
--- NOTE | 2023-07-29 08:41 | P.CONAN_ITS ---
HPI - Anesthesia Eval Consult details Narrative: forcervical medial branch PMFSH Active Problems Active Problems: All Active Problems (Updated 07/26/23 @ 10:38 by Nataly French) Primary osteoarthritis of left knee (Acute) Postlaminectomy syndrome, cervical (Acute) Spondylosis without myelopathy or radiculopathy, cervical region (Acute) Radiculopathy of cervical spine (Acute) Acute meniscal tear of left knee (Acute) Trochanteric bursitis of left hip (Acute) Osteoarthritis of left knee (Acute) Mild recurrent major depression (Acute) Numbness of left hand (Acute) Arthritis of left knee (Acute) Left knee pain (Acute) BMI 34.0-34.9,adult (Acute) Well woman exam (Acute) Osteoarthritis of left hip (Acute) Sacroiliitis (Acute) Infective arthritis of left knee (Acute) Arthropathy of knee (Acute) Fracture of metacarpal base of left hand, closed (Acute) Foot pain, right (Acute) Plantar fasciitis of left foot (Acute) Anemia (Chronic) Fibromyalgia (Acute) GERD (gastroesophageal reflux disease) (Acute) Asthma (Acute) BMI 35.0-35.9,adult (Acute) Obesity (BMI 30-39.9) (Acute) Essential hypertension (Acute) Daytime sleepiness (Acute) Shortness of breath (Acute) Obese (Acute) Acute traumatic internal derangement of left knee (Acute) Insomnia (Acute) Sinusitis (Acute) Anxiety (Acute) Migraine (Acute) Postlaminectomy syndrome of cervical region (Acute) Spondylosis of cervical spine with radiculopathy (Acute) Spondylosis of lumbosacral spine with radiculopathy (Acute) Past Medical History Medical History Osteoarthritis of left hip Sacroiliitis Infective arthritis of left knee Arthropathy of knee Fracture of metacarpal base of left hand, closed Foot pain, right Plantar fasciitis of left foot Anemia Fibromyalgia GERD (gastroesophageal reflux disease) Asthma BMI 35.0-35.9,adult Obesity (BMI 30-39.9) Daytime sleepiness Shortness of breath Obese Acute traumatic internal derangement of left knee Insomnia Essential hypertension Sinusitis Anxiety Migraine Postlaminectomy syndrome of cervical region 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 Brother No problems noted. Son No problems noted. Son No problems noted. Son No problems noted. Son No problems noted. Family history of problems with anesthesia: No Surgical History Surgical History Hx of arthroscopy of left knee History of surgery History of esophagogastroduodenoscopy (EGD) H/O colonoscopy Hx of breast reduction, elective History of carpal tunnel release History of neck surgery History of tubal ligation S/P JUSTYN-BSO (total abdominal hysterectomy and bilateral salpingo-oophorectomy) H/O medial meniscus repair of right knee History of Problems with Anesthesia: No Social History Social History Household Members: Significant Other and Family Housing: House Are you a primary career development coordinator to a significant other at home: No Do you presently have visiting nurse or other home services: No Alcohol intake: current Alcohol intake frequency: holidays/special occasions only Patient Tobacco Use Status: Former Tobacco user Quit Date: 2012 Tobacco use type: Cigarette Years Smoked: 9 Smoked in Last 30 Days: No e-Cigarette/Vaping Use: Never Used Second Hand Smoke Exposure: No Use of substances other than those prescribed or required for medical reasons: No Are you DNR?: No Advance Directives: No Advance Directives Information Provided: Yes service: No Current occupational status: employed Cognitive needs: No Hearing needs: No Vision needs: No Meds Allergies Allergy/AdvReac Type Severity Reaction Status Date / Time fluoxetine [From PROZAC] Allergy Severe OVER Verified 07/29/23 08:02 SEDATION gabapentin [GABAPENTIN] Allergy Intermediate NAUSEA,DIZZINESS, Verified 07/29/23 08:02 dizziness hydromorphone [HYDROMORPHONE] Allergy Intermediate NAUSEA/PALPITATIONS, Verified 07/29/23 08:02 vomiting latex [LATEX] Allergy Intermediate RASH Verified 07/29/23 08:02 Penicillins [PENICILLINS] Allergy Intermediate RASH Verified 07/29/23 08:02 Active Medications: Current Medications Lactated Ringer's (Lr) 1,000 mls @ 80 mls/hr IVCONT .[id number] DAMEON Last Admin: 07/29/23 08:27 Dose: 80 mls/hr Home Medications Medication Instructions Recorded Confirmed Last Taken Type bupropion HCl 150 mg 24 hr tablet, 150 mg PO QAM 08/14/20 07/29/23 09/29/22 History extended release buspirone 15 mg tablet 30 mg PO BID 08/14/20 07/29/23 09/29/22 History lamotrigine 25 mg tablet 50 mg PO DAILY 08/14/20 07/29/23 09/29/22 History zolpidem 10 mg tablet 10 mg PO BEDTIME 04/07/21 07/29/23 Unknown History Exam Exam Date and Time: July 29, 2023 0841 Height,Weight and Vital Signs: Height 5 ft 4 in Weight 88.904 kg Last Vital Signs Temp 97.8 F 07/29/23 08:06 Pulse 86 07/29/23 08:06 Resp 16 07/29/23 08:06 BP 117/78 07/29/23 08:06 Pulse Ox 99 07/29/23 08:06 O2 Del Method Room Air 07/29/23 08:06 Airway Mallampati Class: II TM Dist: >3cm Neck ROM: Full Heart: rrr Lungs: cta Assessment and Plan Assessment Anesthesia Assessment: Anesthesia Plan Discussed and Chart Reviewed Final Anesthetic Review Family History of Problems with Anesthesia: No History of Problems with Anesthesia: No NPO: Yes Final Preanesthetic Review: No Changes in Pt Med Stat, Meds/Allgs Chart Reviewed, Consent Obtained/Reviewed and Anes Risks/Benef Reviewed Patient Risk: Intermediate Procedure Risk: Low (pt vapes, has headache and sinus congestion, no fever ) Anesthetic Plan Anesthetic Plan: MAC: Disposition: Standard PACU
--- NOTE | 2023-07-29 08:49 | P.HPSUR_ITS ---
Pre-Procedural Eval Section A Date of Service: 07/29/23 The patient is an INPATIENT: No Changes since office visit: Yes Patient answered all questions The History & Physical has been completed within 30 days and I have reviewed it.: No Section B Chief Complaint: Postlaminectomy syndrome,spondylosis with radiculo Details of Present Illness: as above Relevant Family History (Specify if Yes): No Relevant Social History: None Present Medications: see Short Stay Collaborative assessment Medical History: No relevant PMH History of Previous Operations: Relevant previous surgery/procedure and date(s) Allergies: Allergies Allergy/AdvReac Type Severity Reaction Status Date / Time fluoxetine [From PROZAC] Allergy Severe OVER Verified 07/29/23 08:02 SEDATION gabapentin [GABAPENTIN] Allergy Intermediate NAUSEA,DIZZINESS, Verified 07/29/23 08:02 dizziness hydromorphone [HYDROMORPHONE] Allergy Intermediate NAUSEA/PALPITATIONS, Verified 07/29/23 08:02 vomiting latex [LATEX] Allergy Intermediate RASH Verified 07/29/23 08:02 Penicillins [PENICILLINS] Allergy Intermediate RASH Verified 07/29/23 08:02 Review of Systems Sugical H&P ROS: Negative: Cardiovascular, Respiratory, Neurological, Psychiatric, Hem-Onc, Allergic/Immunologic, Gastrointestinal, Genitourinary, Integumentary, Endocrine and Eyes/Ears/Nose/Throat and Yes, Specify: Consti tution (obesity) and Musculoskeletal (spondylosis postlaminectomy syndrome, GOA.) Exam Surgical H&P Exam: Normal: HEENT, Normal: Heart, Normal: Lungs, Normal: Extremities, Normal: Skin and Normal: Neurological and Significant Findings: Abdomen (enlarged due to fat) Plan Diagnosis/Plan: Unchanged I have reviewed the history and physical and performed a pertinent physical examination on my patient. No changes have occurred unless specified. Time Spent With Patient Time: Total time managing care of this patient today __5__ minutes.
[2023-07-29 09:41] VITALS: BP 127/83; PULSE 87; RESP 16; TEMP 36.4; O2SAT 95
--- NOTE | 2023-07-29 09:46 | P.BOP_ITS ---
Brief Operative Note Date of Service: 07/29/23 Pre-op diagnosis: spondylosis cervical spine, postlaminectomy syndrome cervical spine Post-op diagnosis: same Procedure: therapeutic C4- C5- C6 MBB Surgeon: Jaime Mccartney MD Was an Radiator Mechanic used for this Procedure?: No Estimated blood loss (mL): 1 Condition: stable Disposition: PACU
--- NOTE | 2023-07-29 09:54 | P.OP_ITS ---
Operative Note Operative Note Date of Service: 07/29/23 Narrative: Therapeutic Cervical MBBs C4- C5- C6 on the right. Informed consent was explained to the patient. All questions were explained and? answered.? The patient was taken inside the operating room where the patient was positioned prone on the operating table.. Time-out was performed delineating correct site, side, the nature of the procedure, patient's allergy, preoperative antibiotic if needed.? All operating room staff was participating in OR time-out procedure. ASA m-rs were applied nd the patient was minimally sedated. The posterior neck was prepped with ChloraPrep and draped with sterile towels.? Sterilely draped C-arm was brought over the operating field and square picture of C4,C5, C6? vertebrae? were delineated on the screen.? Point of interest were delineated as the right lateral? masses of the above mentioned vertebrae. The waste line of the lateral masses on the right was chosen as the final needle target.The projection of the point of interest to the skin were injected with the small amount of local anesthetic lidocaine 2% 1-1.5 cc.? After that 22 gauge QP spinal needles were driven to the point of interest in tunnel vision fashion. After needles gently contacted the bone at the point of interests the lateral view was obtained for each needle and needle? was adjusted to be in the centroid of the lateral mass paralelloid projection. the needles was injected with small amount ofropivacaine 0.5%-1.5cc mixed with kenalog. Total dose of kenalog was 40 mg..? Upon completion of the injections? needles were removed and sterile dressings were applied patient was awaken and taken out side of the operating room to recovery room where she recovered uneventfully.?
[2023-07-29 09:56] VITALS: BP 124/73; PULSE 91; RESP 16; O2SAT 99
[2023-07-29 10:11] VITALS: BP 124/73; PULSE 85; RESP 16; TEMP 36.4; O2SAT 98
== END 2023-07-29 10:45 | disposition home or self-care (01) ==
PROVIDERS: PCP Internal Medicine; Visit Provider Anesthesiology
PROC: (CPT 64490; principal; 2023-07-29 09:10)
DX: M96.1 Postlaminectomy syndrome, not elsewhere classified (principal); M47.22 Other spondylosis with radiculopathy, cervical region; M47.27 Other spondylosis with radiculopathy, lumbosacral region; M79.7 Fibromyalgia; M46.1 Sacroiliitis, not elsewhere classified; M17.12 Unilateral primary osteoarthritis, left knee; M16.12 Unilateral primary osteoarthritis, left hip; M70.62 Trochanteric bursitis, left hip; I10 Essential (primary) hypertension; D64.9 Anemia, unspecified; J45.909 Unspecified asthma, uncomplicated; G43.909 Migraine, unspecified, not intractable, without status migrainosus; E66.9 Obesity, unspecified; Z68.33 Body mass index [BMI] 33.0-33.9, adult; Z88.8 Allergy status to other drugs, medicaments and biological substances; Z88.0 Allergy status to penicillin; Z91.040 Latex allergy status; Z98.890 Other specified postprocedural states; F17.200 Nicotine dependence, unspecified, uncomplicated
CPT/HCPCS: 64490; 64491; J2250; J2795; J3010; J3301; Q9967

== ENCOUNTER → 2023-07-29 07:29 | Outpatient (BNV) | payer OTHER, SELFPAY | PROVIDERS: PCP Internal Medicine; Visit Provider Anesthesiology | DX: M47.812 Spondylosis without myelopathy or radiculopathy, cervical region (principal); M96.1 Postlaminectomy syndrome, not elsewhere classified | CPT/HCPCS: 64490; 64491 ==

== ENCOUNTER 2023-08-24 10:41 | Outpatient (AMB) | payer OTHER, SELFPAY ==
--- NOTE | 2023-08-24 10:44 | A.OFFVIS_ITS ---
Intake Vital Signs 08/24/23 10:48 Height 5 ft 4 in Weight 196 lb BMI 33.6 BP 118/63 Blood Pressure Location Rt brachial Position Sitting Respiration 18 Pulse 69 Pulse Source Pulse Oximeter Pulse Oximetry (%) 96 Oxygen Delivery Method Room Air Intake Visit Reasons: s/p R. C4-C5-C6 MBB 07/21/23 Allergies fluoxetine [From PROZAC] Allergy (Severe, Verified 08/24/23 10:49) OVER SEDATION gabapentin [GABAPENTIN] Allergy (Intermediate, Verified 08/24/23 10:49) NAUSEA,DIZZINESS, dizziness hydromorphone [HYDROMORPHONE] Allergy (Intermediate, Verified 08/24/23 10:49) NAUSEA/PALPITATIONS, vomiting latex [LATEX] Allergy (Intermediate, Verified 08/24/23 10:49) RASH Penicillins [PENICILLINS] Allergy (Intermediate, Verified 08/24/23 10:49) RASH HPI HPI Comments History of Present Illness Details Selina is 49 y.o.? female who? PRESENTS IN MY? office again complaining on multiple pain generators.?She has postlaminectomy syndrome of the cervical spine.? She was sent to physical therapy by Dr. Ivory.? She continues to do physical therapy.? I performed right-sided C4-C5 C6 medial branch block on 07/21/2023. The patient reports excellent pain relief. She reports pain no not more than 1-2 out of 10 on regular basis. She denies pain exacerbation with movements. She reports that the injection ?help me a lot, it is not bothering me any more ?. On the background of improved pain in the neck she reports significant pain increase in the left knee. She is status post meniscectomy. She had injection of the steroids 1 year ago. She is not very eager to go for injection again. I will schedule her for the physical therapy to help her pain in the knee. Orthopedic surgery ordered her brace for her knee. That provides minimal to moderate pain relief. If those measures will not help her pain she will give us a call and we will schedule the appointment with me, we probably will proceed with another injection in the knee. She has Medicaid patient. She also complains on continuous pain on the left knee where she had meniscectomy surgery. History of lower back with radiation into the left lower extremity she received again left L5-S1 transforaminal epidural steroid injection which was done on 01/18/2023.? She reports this pain is getting much better.? She reports better mobility with her spine.? She reports severe pain in the left leg related to the surgery of meniscal tear which was done several years ago.? However I do not believe it is related to her radiculopathy.? She reports that SI joint injection did not help her condition.? She reports that sacroiliac joint injection resulted in pain aggravation she reports that pain is radiating to the left groin.? In the past she also received intra- articular hip steroid injections with moderate to minimal results. History of left knee steroid injection to alleviate pain in her left knee.? I also aspirated some fluid and send it for exam.? It did not reveal any pathology in the synovial fluid.? Patient reported aggravation of the pain after the injection.? Septic arthritis was ruled out. In the past she had L5-S1 left transforaminal epidural steroid injection with very good results it has been 9 months of complete pain relief.? Now she reports that her pain is starting to come back. She did not discuss her back pain today. She also did not discuss her left knee pain where she was discovered with mild osteoarthritis of the knee by the x-ray. Prior: Once she was here with complains on pain in the right side of her neck radiating into the posterior surface of the upper shoulder posterior surface of the arm lateral surface of the forearm and into the 3 middle fingers.? She reports that pain coincides with numbness into 3 little fingers, she feels her right arm and forearm week than the left.she had interlaminar C7-T1 epidural steroid injection with me to address pain which was in the lower cervical spine. ?She had the sacroiliac joint injection in the past which was marginal helpful for several days. She tried physical therapy for her lower back pain for about 3 of 4 times. She denies any help and reports aggravation of the pain due to physical therapy. 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 [facility] Medical History Osteoarthritis of left hip Sacroiliitis Infective arthritis of left knee Arthropathy of knee Fracture of metacarpal base of left hand, closed Foot pain, right Plantar fasciitis of left foot Anemia Fibromyalgia GERD (gastroesophageal reflux disease) Asthma BMI 35.0-35.9,adult Obesity (BMI 30-39.9) Daytime sleepiness Shortness of breath Obese Acute traumatic internal derangement of left knee Insomnia Essential hypertension Sinusitis Anxiety Migraine Postlaminectomy syndrome of cervical region 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 of lumbosacral spine with radiculopathy Surgical History Hx of arthroscopy of left knee History of surgery History of esophagogastroduodenoscopy (EGD) H/O colonoscopy Hx of breast reduction, elective History of carpal tunnel release History of neck surgery History of tubal ligation S/P JUSTYN-BSO (total abdominal hysterectomy and bilateral salpingo-oophorectomy) H/O medial meniscus repair of right knee Family History Father Diabetes Hypertension Maternal Grandmother Cancer Maternal Grandfather Cancer Family/Other FH: mental illness Substance use disorder Mother Arthritis Asthma Brother No problems noted. Brother No problems noted. Son No problems noted. Son No problems noted. Son No problems noted. Son No problems noted. Social History Household Members: Significant Other and Family Housing: House Are you a primary certified social workers in health care to a significant other at home: No Do you presently have visiting nurse or other home services: No Alcohol intake: current Alcohol intake frequency: holidays/special occasions only Patient Tobacco Use Status: Former Tobacco user Quit Date: 2012 Tobacco use type: Cigarette Years Smoked: 9 e-Cigarette/Vaping Use: Never Used Second Hand Smoke Exposure: No service: No Current occupational status: employed Cognitive needs: No Hearing needs: No Vision needs: No Female Reproductive History Menstrual Age of Menarche: 12 Review of Systems Const All systems reviewed & are unremarkable except as noted in HPI and below ENT Reports Normal hearing present Neuro Reports Normal hearing present and Denies confusion Psych Denies confusion Physical Exam Vital Signs: Last Vital Signs Pulse 69 08/24/23 10:48 Resp 18 08/24/23 10:48 BP 118/63 08/24/23 10:48 Pulse Ox 96 08/24/23 10:48 Oxygen Delivery Method Room Air 08/24/23 10:48 BMI result Body Mass Index 33.6 Const General: No confusion Orientation/consciousness: No confusion Neck Other: Reports radiation of the pain from the upper cervical spine all the way to the neck upper shoulder lower shoulder right arm right forearm and 3 right middle fingers. Both Phalen and reverse Phalen tests aggravate her pain. Therefore I would not think it is medial nerve entrapment. Neck: Yes normal visual inspection and Yes full ROM ( Limited ROM in the neck reports cracking sounds with neck movements) Resp Effort & Inspection: normal respiratory effort, able to speak in complete sentences, normal respiratory pattern, no audible wheezes and no cough Cardio Jugular venous distension: no JVD GI Inspection: Yes normal to inspection Back/Spine/Pelvis Other: Tenderness on palpation on paraspinal spinal region lumbar spine. Significant tenderness on palpation in the projection of the lowest portion of the lumbar spine. SLR is positive for pain increase. Lassegue test is positive for pain increase. Reports numbness and tingling in the left lower extremity in the area of the foot. Neuro General: No confusion Cranial nerves: Yes Normal hearing present Psych Speech and movement: Normal speech and movement present Affect: normal affect Attitude: cooperative Thought process: Normal thought process present Results Reviewed Results Reviewed: MR CERVICAL SPINE WITHOUT CONTRAST TECHNIQUE: MRI of the cervical spine was obtained using routine sequences without contrast. FINDINGS: Instrumented anterior fusion of C5-C6. Minimal degenerative retrolisthesis of C4 on C5. Otherwise, normal anatomic alignment. Moderate degenerative disc disease at C4-C5 and C6-C7. Associated mild mixed Modic type discogenic endplate changes including minimal Modic type I discogenic edema at C4-C5. No additional suspicious marrow edema. The vertebral body heights are well-maintained. No demonstrated spinal cord signal abnormalities. Limited evaluation of the soft tissues of the neck without demonstrated abnormalities. The flow voids of the major cervical vessels are maintained. Normal appearance of the cervicomedullary junction and visualized posterior fossa. SPINAL LEVELS: C2-C3: Normal annular contour. There is no uncovertebral joint arthropathy. There is no facet joint arthropathy. There is no neural foraminal stenosis. There is no spinal canal stenosis. C3-C4: Minimal disc-osteophyte complex. There is mild right and no left uncovertebral joint arthropathy. There is mild bilateral facet joint arthropathy. There is no neural foraminal stenosis. There is no spinal canal stenosis. C4-C5: Mild disc-osteophyte complex. There is mild right and no left uncovertebral joint arthropathy. There is mild bilateral facet joint arthropathy. There is mild right and no left neural foraminal stenosis. There is no spinal canal stenosis. C5-C6: Normal annular contour. There is mild right and no left uncovertebral joint arthropathy. There is mild bilateral facet joint arthropathy. There is mild right and no left neural foraminal stenosis. There is no spinal canal stenosis. C6-C7: Moderate disc-osteophyte complex. There is moderate bilateral uncovertebral joint arthropathy. There is mild bilateral facet joint arthropathy. There is mild bilateral neural foraminal stenosis. There is no spinal canal stenosis. C7-T1: Normal annular contour. There is no uncovertebral joint arthropathy. There is no facet joint arthropathy. There is no neural foraminal stenosis. There is no spinal canal stenosis. IMPRESSION: Instrumented anterior fusion of C5-C6. ? Mild to moderate multilevel degenerative spondyloarthropathy of the cervical spine as described in detail above. Most notably, there are mild neural foraminal narrowings from C4-C7. No overt spinal canal stenosis or nerve root compression. ? Overall, degenerative changes are minimally progressed compared to 2020. Assessment & Plan Assessment & Plan (1) Primary osteoarthritis of left knee: Code(s): M17.12 - Unilateral primary osteoarthritis, left knee (2) Radiculopathy of cervical spine: Code(s): M54.12 - Radiculopathy, cervical region (3) Spondylosis of cervical spine with radiculopathy: Code(s): M47.22 - Other spondylosis with radiculopathy, cervical region (4) Spondylosis of lumbosacral spine with radiculopathy: Code(s): M47.27 - Other spondylosis with radiculopathy, lumbosacral region (5) Left knee pain: Code(s): M25.562 - Pain in left knee Plan Ms. Derrick Hammond is a 52-year-old female, who is in my office today on the reports of cervical injection C4-C5 C6 MBB on 07/21/2023. She reports excellent pain relief. She reports pain today 11/09. status post left knee partial MMT and chondroplasty, 09/29/[address] De La Cruz. The patient reports she is having chronic pain when ambulating and bearing weight on the left lower extremity. She states she is here in the office to see what she can do to help her with pain relief. She reports her pain is in the left knee and radiates to her thigh and anterior tibia down to the foot. which radiates down to her foot. She also reports intermittent edema in the left knee. She reports having her ?entire? meniscus removed from the right knee in the past and now has no pain in the right knee. She wants me to send her for her left knee physical therapy. I will do as she requested. She is not very eager to repeat her steroid injection in the knee. However she stated that if physical therapy will not help her she may take a knee injection under consideration again. Patient Instructions: I here by testify that I spent 35 minutes in conversation with this patient, my examination of this patient as well as planning her care and organizing this note. Quality Reporting (2019) Adult ([facility] ) Smoking risk assessment performed?: Yes Patient Tobacco Use Status: Former Tobacco user Coding Level of Care Code Est Pt Level 4 (18876) Diagnoses Primary osteoarthritis of left knee M17.12 Radiculopathy of cervical spine M54.12 Spondylosis of cervical spine with radiculopathy M47.22 Spondylosis of lumbosacral spine with radiculopathy M47.27 Left knee pain M25.562
[2023-08-24 10:48] VITALS: BP 118/63; PULSE 69; RESP 18; O2SAT 96; BMI 33.6
== END 2023-08-24 11:00 | disposition home or self-care (01) ==
PROVIDERS: PCP Internal Medicine; Visit Provider Anesthesiology
DX: M17.12 Unilateral primary osteoarthritis, left knee (principal); M54.12 Radiculopathy, cervical region; M25.562 Pain in left knee
CPT/HCPCS: 99214

== ENCOUNTER → 2023-08-24 10:41 | Outpatient (BNVA) | payer OTHER, SELFPAY | PROVIDERS: PCP Internal Medicine; Visit Provider Anesthesiology | DX: M17.12 Unilateral primary osteoarthritis, left knee (principal); M54.12 Radiculopathy, cervical region; M47.22 Other spondylosis with radiculopathy, cervical region; M47.27 Other spondylosis with radiculopathy, lumbosacral region; M25.562 Pain in left knee | CPT/HCPCS: 99212 ==

== ENCOUNTER 2023-09-07 15:41 | Outpatient (AMB) | payer OTHER, SELFPAY ==
[2023-09-07 15:42] VITALS: BP 132/78; PULSE 76; O2SAT 99; BMI 33.3
--- NOTE | 2023-09-07 15:42 | A.OFFPC_ITS ---
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 Required: No Accompanied by: Self / Same As Patient Allergies fluoxetine [From PROZAC] Allergy (Severe, Verified 09/07/23 15:56) OVER SEDATION gabapentin [GABAPENTIN] Allergy (Intermediate, Verified 09/07/23 15:56) NAUSEA,DIZZINESS, dizziness hydromorphone [HYDROMORPHONE] Allergy (Intermediate, Verified 09/07/23 15:56) NAUSEA/PALPITATIONS, vomiting latex [LATEX] Allergy (Intermediate, Verified 09/07/23 15:56) RASH Penicillins [PENICILLINS] Allergy (Intermediate, Verified 09/07/23 15:56) RASH Medication List - Last Reconciled 09/07/23 by Deirdre Morel MD albuterol sulfate 90 mcg/actuation 2 puffs inhalation Q6H PRN 30 days arm brace (Wrist Brace) As directed bupropion HCl 150 mg PO QAM buspirone 30 mg PO BID cetirizine (Allergy Relief (cetirizine)) 10 mg PO DAILY PRN 90 days diazepam 10 mg PO BID PRN 30 days hydrochlorothiazide 25 mg PO QAM iron,carbonyl-vitamin C 65 mg iron- 125 mg (Vitron-C) 1 tab PO DAILY lamotrigine 50 mg PO DAILY leg brace (Knee Brace Large-XLarge) As directed montelukast 10 mg PO DAILY 90 days oxycodone 10 mg PO Q4-6H PRN 30 days oxycodone ER (OxyContin) 20 mg PO BID 7 days pantoprazole 40 mg PO DAILY 90 days rizatriptan 10 mg PO Q2-4H PRN 30 days triamcinolone acetonide 1 spray intranasal DAILY PRN 30 days zolpidem 10 mg PO BEDTIME Tobacco use date assessed: 09/07/23 Dental Screening Dental Screen Date: 09/07/23 Did you have a dental visit in the last 12 months?: Yes Did you have a dental problem in the last 6 months where you did not have access to dental care?: No Was dental information given to patient?: Patient has dentist HPI HPI Comments History of Present Illness Details This is a 52-year-old female with hypertension, GERD, sacroiliitis and mild major depression that comes today for follow-up on her conditions. Blood pressure stable. GERD stable with medications. Depression also stable with bupropion and this is follow by Psychiatry. She has postlaminectomy syndrome of cervical spine, bilateral knee osteoarthritis. Lumbar degenerative disc disease and he up osteoarthritis. She has been having more pain after discontinuing OxyContin due to insurance deny need. She requires more short- acting oxycodone to control her pain. Had a nerve block in the neck recently and has markedly improved her neck pain. She has been follow by pain management for over a year. Sacroiliitis is slightly control with oxycodone short-acting. Has left foot plantar fascitis and will benefit from having an ankle brace. [facility] Medical History Osteoarthritis of left hip Sacroiliitis Infective arthritis of left knee Arthropathy of knee Fracture of metacarpal base of left hand, closed Foot pain, right Plantar fasciitis of left foot Anemia Fibromyalgia GERD (gastroesophageal reflux disease) Asthma BMI 35.0-35.9,adult Obesity (BMI 30-39.9) Daytime sleepiness Shortness of breath Obese Acute traumatic internal derangement of left knee Insomnia Essential hypertension Sinusitis Anxiety Migraine Postlaminectomy syndrome of cervical region 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 of lumbosacral spine with radiculopathy Surgical History Hx of arthroscopy of left knee History of surgery History of esophagogastroduodenoscopy (EGD) H/O colonoscopy Hx of breast reduction, elective History of carpal tunnel release History of neck surgery History of tubal ligation S/P JUSTYN-BSO (total abdominal hysterectomy and bilateral salpingo-oophorectomy) H/O medial meniscus repair of right knee Family History Father Diabetes Hypertension Maternal Grandmother Cancer Maternal Grandfather Cancer Family/Other FH: mental illness Substance use disorder Mother Arthritis Asthma Brother No problems noted. Brother No problems noted. Son No problems noted. Son No problems noted. Son No problems noted. Son No problems noted. Social History Household Members: Significant Other and Family Housing: House Are you a primary career services representative to a significant other at home: No Do you presently have visiting nurse or other home services: No Alcohol intake: current Alcohol intake frequency: holidays/special occasions only Patient Tobacco Use Status: Former Tobacco user Quit Date: 2012 Tobacco use type: Cigarette Years Smoked: 9 e-Cigarette/Vaping Use: Never Used Second Hand Smoke Exposure: No service: No Current occupational status: employed Cognitive needs: No Hearing needs: No Vision needs: No Female Reproductive History Menstrual Age of Menarche: 12 Questionnaire PHQ-9 Over the last 2 weeks, how often have you been bothered by any of the following problems? 1. Little interest or pleasure in doing things: several days 2. Feeling down, depressed, or hopeless: several days 3. Trouble falling or staying asleep, or sleeping too much: several days 4. Feeling tired or having little energy: several days 5. Poor appetite or overeating: several days 6. Feeling bad about yourself - or that you are a failure or have let yourself or your family down: more than half the days 7. Trouble concentrating on things, such as reading the newspaper or watching television: not at all 8. Moving or speaking so slowly that other people could have noticed. Or the opposite - being so fidgety or restless that you have been moving around a lot more than usual: not at all 9. Thoughts that you would be better off or of hurting yourself in some way: not at all Total score: 7 Depression Screening Interpretation: Positive Depression Screening Follow-up: Existing condition and Community Mental Health Worker F/U Depression Screening Done: Yes 54449 - PHQ-9 Billing: Yes Source: Developed by Drs. Godfrey Varghese, Kaci Lang, Eduardo Jones and colleagues, with an educational araseli from [employer]. Thrive Questionnaire Date Thrive assessed: 09/07/23 I am a: Patient What is your living situation today?: I have a steady place to live Within the past 12 months, did the food you bought not last and you didn't have the money to get more?: Never true Within the past 12 months, did you worry whether your food would run out before you got money to buy more?: Never true Currently or been in a relationship where the following occur: no concerns reported AUDIT C Alcohol Use Questionnaire (AUDIT-C) 1. How often do you have a drink containing alcohol?: Monthly or less 2. How many drinks containing alcohol do you have on a typical day when you are drinking?: 1 or 2 3. How often do you have six or more drinks on one occasion?: Never Total Score: 1 Score Reviewed/Action Taken: No GORAN-7 AMB Questionnaire GORAN-7 Date GORAN - 7 assessed: 09/07/23 Feeling nervous, anxious, or on edge: 0 = Not at all Not being able to stop or control worryin = Not at all Worrying too much about different things: 0 = Not at all Trouble relaxin = Not at all Being so restless that it is hard to sit still: 0 = Not at all Becoming easily annoyed or irritable: 0 = Not at all Feeling afraid as if something awful might happen: 0 = Not at all Total GORAN-7 score (0-4 normal; 5-9 mild; 10-14 moderate; 15-21 severe): 0 Source: Developed by Drs. Godfrey Varghese, Kaci Lang, Eduardo Jones and colleagues, with an educational araseli from [employer]. GORAN-7 Assessment Billing GORAN-7 Assessment Tool: GORAN-7 Assessment 22817 Review of Systems Const All systems reviewed & are unremarkable except as noted in HPI and below Eyes Reports no additional complaints, Denies change in vision and Denies other visual disturbances Card Denies chest pain at rest, Denies chest pain with activity, Denies edema, Denies irregular heart rhythm, Denies claudication, Denies dyspnea, Denies dyspnea on exertion, Denies orthopnea, Denies paroxysmal nocturnal dyspnea and Denies slow heart rate Resp Denies cough, Denies dyspnea and Denies dyspnea on exertion GI Denies abdominal pain, Denies change in bowel habits, Denies excessive flatus, Denies nausea and Denies vomiting Denies urinary incontinence, Denies urinary hesitancy and Denies urinary urgency Musc Denies abnormal gait, Reports back pain, Reports myalgias, Denies atrophy, Denies deformity, Reports arthralgias and Denies limited range of motion Skin/Breast Denies bleeding lesions, Denies changing lesions and Denies rash Neuro Denies abnormal gait, Denies behavioral changes and Denies lack of coordination Psych Denies behavioral changes Physical exam (Primary Care) Vital Signs: Last Vital Signs Pulse 76 09/07/23 15:42 BP 132/78 09/07/23 15:42 Pulse Ox 99 09/07/23 15:42 Oxygen Delivery Method Room Air 09/07/23 15:42 BMI result Body Mass Index 33.3 Tobacco/Smoking Status: Tobacco use Status Tobacco use date assessed 09/07/23 09/07/23 15:43 Patient Tobacco Use Status Former Tobacco user 09/07/23 15:43 Tobacco use type Cigarette 09/07/23 15:43 e-Cigarette/Vaping Use Never Used 09/07/23 15:43 PHQ-9: PHQ-9 Score PHQ-9: Total score 7 09/07/23 16:21 Depression Screening Interpretation: Positive Depression Screening Follow-up: Existing condition and Community Mental Health Worker F/U Thrive Assessment: Date of Thrive Assessment Date Thrive assessed 09/07/23 09/07/23 15:43 Currently or been in a relationship where the following occur: no concerns reported Eyes General: appearance normal, both eyes and all related structures Eyelids: Yes eyelids normal Conjunctivae: conjunctivae normal Neck Neck: Yes normal visual inspection and Yes supple Resp Effort & Inspection: normal respiratory effort Auscultation: clear to auscultation bilaterally Cardio Jugular venous distension: no JVD Rate: regular rate Rhythm: regular rhythm Heart sounds: S1 normal heart sound present and S2 normal heart sound present Extrem General: Yes full ROM Office Procedures Flu Questionnaire Does the patient have a severe egg allergy?: No Does the patient have severe life threatening allergies?: No Does the patient have a fever or illness today?: No Has the patient ever had Guillain-[place] Syndrome?: No Has the patient ever had any past reaction to a flu shot?: No Immunizations flu vacc [id number] 6mos up(PF) 60 mcg(15 mcgx4)/0.5 mL IM syringe Performing Provider: Deirdre Morel MD [facility] Administered by: KHUSHI Estrella on 09/07/23 15:54 Dose Route Admin Location Dispensed Lot Number Expiration Date NDC Platform Power Technician 0.5 mL IM Left Deltoid 0.5 mL [id number] 04/29/24 66498-527-80 [employer] VIS Given Date VIS Provided VIS Publication Date 09/07/23 Single Vaccine 21 Eligibility Eligibility Date Funding Source Not [facility] Eligible 09/07/23 Private Assessment and Plan Assessment & Plan (1) Mild recurrent major depression: Code(s): F33.0 - Major depressive disorder, recurrent, mild Plan: Continue bupropion. (2) Sacroiliitis: Code(s): M46.1 - Sacroiliitis, not elsewhere classified Plan: Continue oxycodone as needed. (3) Essential hypertension: Code(s): I10 - Essential (primary) hypertension Plan: Continue hydrochlorothiazide. Blood pressure goal is equal or less than 130/80 P (4) GERD (gastroesophageal reflux disease): Code(s): K21.9 - Gastro-esophageal reflux disease without esophagitis Qualifiers: Esophagitis presence: esophagitis presence not specified Qualified Code(s): K21.9 - Gastro-esophageal reflux disease without esophagitis Plan: Continue pantoprazole. Orders: Orders Influenza [id number] Immunization Today Z23 - Encounter for immunization Lipid Panel Today E78.5 - Hyperlipidemia, unspecified Comprehensive [place]. Panel Fast Today M17.12 - Unilateral primary osteoarthritis, left knee Complete Blood Count Auto Diff Today D64.9 - Anemia, unspecified IRON PROFILE Today D64.9 - Anemia, unspecified Medications: New leg brace (BUNNY Ankle Brace) As directed 1 ea 0RF M72.2 - Plantar fascial fibroma tosis Refilled oxycodone ER (OxyContin) 20 mg PO BID 7 days 14 tabs 0RF M16.12 - Unilateral primary osteoarthritis, left hip, M17.12 - Unilateral primary osteoarthritis, left knee, M46.1 - Sacroiliitis, not elsewhere classified, M47.22 - Other spondylosis with radiculopathy, cervical region, M47.27 - Other spondylosis with radiculopathy, lumbosacral region, M54.12 - Radiculopathy, cervical region, M96.1 - Postlaminectomy syndrome, not elsewhere classified Coding Level of Care Code Est Pt Level 4 (87226) Diagnoses Mild recurrent major depression F33.0 Sacroiliitis M46.1 Essential hypertension I10 Gastroesophageal reflux disease, unspecified whether esophagitis present K21.9 Esophagitis presence: esophagitis presence not specified Additional Codes GORAN-7 Assessment Billing - GORAN-7 Assessment Tool: GORAN-7 Assessment 79605 ([id number]) Time Spent (min) 21
== END 2023-09-07 16:18 | disposition home or self-care (01) ==
PROVIDERS: PCP Internal Medicine; Visit Provider Internal Medicine
DX: F33.0 Major depressive disorder, recurrent, mild (principal); M46.1 Sacroiliitis, not elsewhere classified; I10 Essential (primary) hypertension; K21.9 Gastro-esophageal reflux disease without esophagitis; Z23 Encounter for immunization
CPT/HCPCS: 90471; 90686; 96127; 99214

== ENCOUNTER 2023-09-09 09:38 | Outpatient (AMB) | payer OTHER, SELFPAY ==
--- NOTE | 2023-09-09 09:40 | AM.OFFVISNUR ---
Intake Intake Visit Reasons: tb Allergies fluoxetine [From PROZAC] Allergy (Severe, Verified 09/07/23 15:56) OVER SEDATION gabapentin [GABAPENTIN] Allergy (Intermediate, Verified 09/07/23 15:56) NAUSEA,DIZZINESS, dizziness hydromorphone [HYDROMORPHONE] Allergy (Intermediate, Verified 09/07/23 15:56) NAUSEA/PALPITATIONS, vomiting latex [LATEX] Allergy (Intermediate, Verified 09/07/23 15:56) RASH Penicillins [PENICILLINS] Allergy (Intermediate, Verified 09/07/23 15:56) RASH Office Meds tuberculin PPD 5 tub. unit/0.1 mL intradermal injection solution Performing Provider: Deirdre Morel MD [facility] Administered by: Mireya Copeland RN on 09/09/23 09:48 Dose Route Admin Location Dispensed Lot Number Expiration Date NDC Promotional Demonstrator 0.1 mL intradermal 0.1 mL [id number] 08/29/26 [id number] [employer] Coding Assessment & Plan Assessment & Plan Orders: Orders AMB PPD Planted Today Z11.1 - Encounter for screening for respiratory tuberculosis
== END 2023-09-09 09:49 | disposition home or self-care (01) ==
LOC: HO.HMGH 09:39
PROVIDERS: PCP Internal Medicine; Visit Provider Internal Medicine
DX: Z11.1 Encounter for screening for respiratory tuberculosis (principal)
CPT/HCPCS: 86580

== ENCOUNTER 2023-09-09 09:56 | Outpatient (REF) | payer OTHER, SELFPAY ==
[2023-09-09 10:14] LABS: MANUAL DIFF FLAG NO
[2023-09-09 11:03] LABS: Basophils Percent Auto 0.6 % (0-2); Hematocrit 37.8 % (37.0-47.0); Hemoglobin 11.9 g/dl (12.0-16.0); Imm Gran Abs Auto 0.01 X10*3/uL (0.00-0.03); Imm Gran Pct Auto 0.2 % (0.0-0.4); Lymphocytes Absolute Auto 2.6 X10*3/uL (1.2-4.9); Lymphocytes Percent Auto 49.7 % (20-40); Mean Corpuscular HGB Conc 31.5 g/dl (31.0-35.0); Mean Corpuscular Hemoglobin 28.5 pg (27.0-33.0); Mean Corpuscular Volume 90.4 fL (80.0-98.0); Mean Platelet Volume 9.2 fL (9.4-12.3); Monocytes Absolute Auto 0.4 X10*3/uL (0.1-1.2); Monocytes Percent Auto 7.6 % (2-11); Neutrophils Absolute Auto 2.2 x10*3/uL (2.0-8.3); Neutrophils Percent Auto 41.9 % (45-73); Platelet Count 276 X10*3/uL (160-400); Red Blood Count 4.18 X10*6/uL (4.20-5.50); Red Cell Distribution Width 13.2 % (11.0-16.0); White Blood Count 5.1 X10*3/uL (4.8-10.8)
[2023-09-09 11:45] LABS: Alanine Aminotransferase 8 U/L (0-31); Albumin Level 4.4 g/dL (3.5-5.0); Alkaline Phosphatase 67 U/L (39-117); Anion Gap 10 (12-20); Aspartate Amino Transferase 18 U/L (5-31); Bilirubin Total 0.3 mg/dL (0.0-1.0); Blood Urea Nitrogen 6 mg/dL (9-16); Calcium 9.7 mg/dL (8.4-10.2); Carbon Dioxide 31 mmol/L (22-29); Chloride 104 mmol/L (96-108); Cholesterol 130 mg/dL (<200); Estimated Glomerular Filt Rate > 60; Glucose Fasting 95 mg/dL (60-99); HDL Cholesterol 53 mg/dL (>40); Iron 56 mcg/dL (30-160); LDL Cholesterol Calculated 61 mg/dL (<100); Percent Iron Saturation 16 % (15-50); Potassium 3.6 mmol/L (3.3-5.1); Sodium 141 mmol/L (135-145); Total Iron Binding Capacity 352 mcg/dL (228-428); Total Protein 7.3 g/dL (6.5-8.0); Triglycerides 80 mg/dL (<150); Unsaturated Iron Binding 296 ug/dL
== END 2023-09-09 09:57 | disposition home or self-care (01) ==
LOC: HO.LAB 09:56
PROVIDERS: PCP Internal Medicine; Visit Provider Internal Medicine
DX: D64.9 Anemia, unspecified (principal); E78.5 Hyperlipidemia, unspecified; M17.12 Unilateral primary osteoarthritis, left knee
CPT/HCPCS: 36415; 80053; 80061; 83540; 85025

== ENCOUNTER 2023-10-10 15:29 | Outpatient (AMB) | payer OTHER, SELFPAY ==
--- NOTE | 2023-10-10 15:31 | MHC.OFFVIS ---
Intake Vital Signs 10/10/23 15:36 Height 5 ft 4 in Weight 199 lb BMI 34.2 BP 120/74 Blood Pressure Location Lt brachial Position Sitting Respiration 18 Pulse 80 Pulse Source Pulse Oximeter Pulse Oximetry (%) 100 Oxygen Delivery Method Room Air Intake Visit Reasons: follow up increased knee/back pain Allergies fluoxetine [From PROZAC] Allergy (Severe, Verified 10/10/23 15:37) OVER SEDATION gabapentin [GABAPENTIN] Allergy (Intermediate, Verified 10/10/23 15:37) NAUSEA,DIZZINESS, dizziness hydromorphone [HYDROMORPHONE] Allergy (Intermediate, Verified 10/10/23 15:37) NAUSEA/PALPITATIONS, vomiting latex [LATEX] Allergy (Intermediate, Verified 10/10/23 15:37) RASH Penicillins [PENICILLINS] Allergy (Intermediate, Verified 10/10/23 15:37) RASH HPI HPI Comments History of Present Illness Details Selina is 49 y.o.? female who? is back in my office with complains on pain mostly in her left knee and left foot. She reports most of the pain in the knee with radiation in up to the hip as well as pain in the foot in the projection of the left heel most likely she suffers from plantar fasciitis however with a typical feature of exacerbation of the pain to were the end of the day. I recommended her to call to segmental wall installer with this complaint. I recommended her to ask her primary care physician for good podiatry referral. She also requested me to address the pain in her knee with intra-articular knee steroid injection. She had knee steroid injection 1 year ago. I perform knee steroid injections he is below. Prior: ?She has postlaminectomy syndrome of the cervical spine.? She was sent to physical therapy by Dr. Ivory.? She continues to do physical therapy.? I performed right-sided C4-C5 C6 medial branch block on 07/21/2023. The patient reports excellent pain relief. She reports pain no not more than 1-2 out of 10 on regular basis. She denies pain exacerbation with movements. She reports that the injection ?help me a lot, it is not bothering me any more ?. On the background of improved pain in the neck she reports significant pain increase in the left knee. She is status post meniscectomy. She had injection of the steroids 1 year ago. She is not very eager to go for injection again. I will schedule her for the physical therapy to help her pain in the knee. Orthopedic surgery ordered her brace for her knee however she does not wear 23/05. She also complains on continuous pain on the left knee where she had meniscectomy surgery. History of lower back with radiation into the left lower extremity she received again left L5-S1 transforaminal epidural steroid injection which was done on 01/18/2023.? She reports this pain is getting much better.? She reports better mobility with her spine.? She reports severe pain in the left leg related to the surgery of meniscal tear which was done several years ago.? However I do not believe it is related to her radiculopathy.? She reports that SI joint injection did not help her condition.? She reports that sacroiliac joint injection resulted in pain aggravation she reports that pain is radiating to the left groin.? In the past she also received intra-articular hip steroid injections with moderate to minimal results. History of left knee steroid injection to alleviate pain in her left knee.? I also aspirated some fluid and send it for exam.? It did not reveal any pathology in the synovial fluid.? Patient reported aggravation of the pain after the injection.? Septic arthritis was ruled out. In the past she had L5-S1 left transforaminal epidural steroid injection with very good results it has been 9 months of complete pain relief.? Now she reports that her pain is starting to come back. She did not discuss her back pain today. She also did not discuss her left knee pain where she was discovered with mild osteoarthritis of the knee by the x-ray. ?She had the sacroiliac joint injection in the past which was marginal helpful for several days. She tried physical therapy for her lower back pain for about 3 of 4 times. She denies any help and reports aggravation of the pain due to physical therapy. She is suffering from fibromyalgia and she is under care of cloth checker for fibromyalgia. [facility] Medical History Osteoarthritis of left hip Sacroiliitis Infective arthritis of left knee Arthropathy of knee Fracture of metacarpal base of left hand, closed Foot pain, right Plantar fasciitis of left foot Anemia Fibromyalgia GERD (gastroesophageal reflux disease) Asthma BMI 35.0-35.9,adult Obesity (BMI 30-39.9) Daytime sleepiness Shortness of breath Obese Acute traumatic internal derangement of left knee Insomnia Essential hypertension Sinusitis Anxiety Migraine Postlaminectomy syndrome of cervical region 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 of lumbosacral spine with radiculopathy Surgical History Hx of arthroscopy of left knee History of surgery History of esophagogastroduodenoscopy (EGD) H/O colonoscopy Hx of breast reduction, elective History of carpal tunnel release History of neck surgery History of tubal ligation S/P JUSTYN-BSO (total abdominal hysterectomy and bilateral salpingo-oophorectomy) H/O medial meniscus repair of right knee Family History Father Diabetes Hypertension Maternal Grandmother Cancer Maternal Grandfather Cancer Family/Other FH: mental illness Substance use disorder Mother Arthritis Asthma Brother No problems noted. Brother No problems noted. Son No problems noted. Son No problems noted. Son No problems noted. Son No problems noted. Social History Household Members: Significant Other and Family Housing: House Are you a primary acute care nurse practitioner to a significant other at home: No Do you presently have visiting nurse or other home services: No Alcohol intake: current Alcohol intake frequency: holidays/special occasions only Patient Tobacco Use Status: Former Tobacco user Quit Date: 2012 Tobacco use type: Cigarette Years Smoked: 9 e-Cigarette/Vaping Use: Never Used Second Hand Smoke Exposure: No service: No Current occupational status: employed Cognitive needs: No Hearing needs: No Vision needs: No Female Reproductive History Menstrual Age of Menarche: 12 Review of Systems Const All systems reviewed & are unremarkable except as noted in HPI and below ENT Reports Normal hearing present Neuro Reports Normal hearing present and Denies confusion Psych Denies confusion Physical Exam Vital Signs: Last Vital Signs Pulse 80 10/10/23 15:36 Resp 18 10/10/23 15:36 BP 120/74 10/10/23 15:36 Pulse Ox 100 10/10/23 15:36 Oxygen Delivery Method Room Air 10/10/23 15:36 BMI result Body Mass Index 34.2 Const General: No confusion Orientation/consciousness: No confusion Neck Other: Reports radiation of the pain from the upper cervical spine all the way to the neck upper shoulder lower shoulder right arm right forearm and 3 right middle fingers. Both Phalen and reverse Phalen tests aggravate her pain. Therefore I would not think it is medial nerve entrapment. Neck: Yes normal visual inspection and Yes full ROM ( Limited ROM in the neck reports cracking sounds with neck movements) Resp Effort & Inspection: normal respiratory effort, able to speak in complete sentences, normal respiratory pattern, no audible wheezes and no cough Cardio Jugular venous distension: no JVD GI Inspection: Yes normal to inspection Back/Spine/Pelvis Other: Tenderness on palpation on paraspinal spinal region lumbar spine. Significant tenderness on palpation in the projection of the lowest portion of the lumbar spine. SLR is positive for pain increase. Lassegue test is positive for pain increase. Reports numbness and tingling in the left lower extremity in the area of the foot. Neuro General: No confusion Cranial nerves: Yes Normal hearing present Psych Speech and movement: Normal speech and movement present Affect: normal affect Attitude: cooperative Thought process: Normal thought process present Assessment & Plan Assessment & Plan (1) Primary osteoarthritis of left knee: Code(s): M17.12 - Unilateral primary osteoarthritis, left knee (2) Radiculopathy of cervical spine: Code(s): M54.12 - Radiculopathy, cervical region (3) Spondylosis of cervical spine with radiculopathy: Code(s): M47.22 - Other spondylosis with radiculopathy, cervical region (4) Spondylosis of lumbosacral spine with radiculopathy: Code(s): M47.27 - Other spondylosis with radiculopathy, lumbosacral region (5) Left knee pain: Code(s): M25.562 - Pain in left knee Plan: Informed consent was explained to the patient. Risks and benefits were explained to the patient. The patient was positioned sitting on the examination table. The anterior lateral surface of the knee was prepped with ChloraPrep. Sterilely obtained lidocaine 2% 5 cc mixed with a sterilely obtain Kenalog 40 mg was injected into the retropatellar space from anterior lateral direction. Aspiration was negative for heme or synovial fluid. Patient tolerated procedure well. Sterile Band-Aid was applied. (6) Plantar fasciitis of left foot: Code(s): M72.2 - Plantar fascial fibromatosis Plan Ms. Derrick Hammond is a 52-year-old female, who is in my office today with request to perform steroid injection in her left knee. The procedure was performed as above. Prior to that she had knee injection 1 year ago. cervical injection C4-C5 C6 MBB on 07/21/2023. She reports excellent pain relief. status post left knee partial MMT and chondroplasty, 09/29/[address] De La Cruz. The patient reports she is having chronic pain when ambulating and bearing weight on the left lower extremity. She states she is here in the office to see what she can do to help her with pain relief. She reports her pain is in the left knee and radiates to her thigh and anterior tibia down to the foot. which radiates down to her foot. She also reports intermittent edema in the left knee. She reports having her ?entire? meniscus removed from the right knee in the past and now has no pain in the right knee. I recommended her to go to primary care physician for the referral to the past right trace to address left plantar fasciitis. Quality Reporting (2019) Adult ([facility] ) Smoking risk assessment performed?: Yes Patient Tobacco Use Status: Former Tobacco user Coding Level of Care Code Est Pt Level 3 (02602) Diagnoses Primary osteoarthritis of left knee M17.12 Radiculopathy of cervical spine M54.12 Spondylosis of cervical spine with radiculopathy M47.22 Spondylosis of lumbosacral spine with radiculopathy M47.27 Left knee pain M25.562 Plantar fasciitis of left foot M72.2
[2023-10-10 15:36] VITALS: BP 120/74; PULSE 80; RESP 18; O2SAT 100; BMI 34.2
== END 2023-10-10 16:22 | disposition home or self-care (01) ==
PROVIDERS: PCP Internal Medicine; Visit Provider Anesthesiology
DX: M17.12 Unilateral primary osteoarthritis, left knee (principal); M47.22 Other spondylosis with radiculopathy, cervical region; M47.27 Other spondylosis with radiculopathy, lumbosacral region; M25.562 Pain in left knee; M72.2 Plantar fascial fibromatosis
CPT/HCPCS: 20610; 99213

== ENCOUNTER → 2023-10-10 15:29 | Outpatient (BNVA) | payer OTHER, SELFPAY | PROVIDERS: PCP Internal Medicine; Visit Provider Anesthesiology | DX: M17.12 Unilateral primary osteoarthritis, left knee (principal); M54.12 Radiculopathy, cervical region; M47.22 Other spondylosis with radiculopathy, cervical region; M47.27 Other spondylosis with radiculopathy, lumbosacral region; M25.562 Pain in left knee; M72.2 Plantar fascial fibromatosis | CPT/HCPCS: 20610; 99212 ==

== ENCOUNTER 2023-11-14 15:45 | Outpatient (AMB) | payer OTHER, SELFPAY ==
[2023-11-14 15:48] VITALS: BP 120/80; BMI 34.3
--- NOTE | 2023-11-14 15:48 | A.OFFPC_ITS ---
Vital Signs 11/14/23 15:48 Height 5 ft 4 in Weight 200 lb BMI 34.3 BP 120/80 Blood Pressure Location Lt brachial Position Sitting Intake Visit Reasons: Physical Exam Intake Note: Patient here for a physical exam Clinical Documentation Improvement Specialist Required: No Accompanied by: Self / Same As Patient Allergies fluoxetine [From PROZAC] Allergy (Severe, Verified 11/14/23 16:18) OVER SEDATION gabapentin [GABAPENTIN] Allergy (Intermediate, Verified 11/14/23 16:18) NAUSEA,DIZZINESS, dizziness hydromorphone [HYDROMORPHONE] Allergy (Intermediate, Verified 11/14/23 16:18) NAUSEA/PALPITATIONS, vomiting latex [LATEX] Allergy (Intermediate, Verified 11/14/23 16:18) RASH Penicillins [PENICILLINS] Allergy (Intermediate, Verified 11/14/23 16:18) RASH Medication List - Last Reconciled 11/14/23 by Deirdre Morel MD albuterol sulfate 90 mcg/actuation 2 puffs inhalation Q6H PRN 30 days arm brace (Wrist Brace) As directed bupropion HCl 150 mg PO QAM buspirone 30 mg PO BID cetirizine (Allergy Relief (cetirizine)) 10 mg PO DAILY PRN 90 days diazepam 10 mg PO BID PRN 30 days doxycycline hyclate 100 mg PO BID 5 days hydrochlorothiazide 25 mg PO QAM iron,carbonyl-vitamin C 65 mg iron- 125 mg (Vitron-C) 1 tab PO DAILY lamotrigine 50 mg PO DAILY leg brace (Knee Brace Large-XLarge) As directed leg brace (BUNNY Ankle Brace) As directed montelukast 10 mg PO DAILY 90 days oxycodone 10 mg PO Q4-6H PRN 30 days oxycodone ER (OxyContin) 20 mg PO BID 7 days pantoprazole 40 mg PO DAILY 90 days rizatriptan 10 mg PO Q2-4H PRN 30 days triamcinolone acetonide 1 spray intranasal DAILY PRN 30 days zolpidem 10 mg PO BEDTIME Tobacco use date assessed: 11/14/23 Dental Screening Dental Screen Date: 11/14/23 Did you have a dental visit in the last 12 months?: Yes Did you have a dental problem in the last 6 months where you did not have access to dental care?: No Was dental information given to patient?: Patient has dentist HPI HPI Comments History of Present Illness Details This is a 52-year-old female with mild recurrent major depression that comes for her physical exam. Depression stable with medications and is follow by Psychiatry. Mammogram done 2022 was normal. Pap smear done 2020 was normal. Colonoscopy done 2018 showing hyperplastic polyp. She has family history of colon cancer and was in a 5 year plan. She reassures me that that is the only colonoscopy that she has had. No chest pain or shortness of breath. 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 of lumbosacral spine with radiculopathy Surgical History Hx of arthroscopy of left knee History of surgery History of esophagogastroduodenoscopy (EGD) H/O colonoscopy Hx of breast reduction, elective History of carpal tunnel release History of neck surgery History of tubal ligation S/P JUSTYN-BSO (total abdominal hysterectomy and bilateral salpingo-oophorectomy) H/O medial meniscus repair of right knee Family History Father Diabetes Hypertension Maternal Grandmother Cancer Maternal Grandfather Cancer Family/Other FH: mental illness Substance use disorder Mother Arthritis Asthma Brother No problems noted. Brother No problems noted. Son No problems noted. Son No problems noted. Son No problems noted. Son No problems noted. Social History Household Members: Significant Other and Family Housing: House Are you a primary sub acute care nurse to a significant other at home: No Do you presently have visiting nurse or other home services: No Alcohol intake: current Alcohol intake frequency: holidays/special occasions only Patient Tobacco Use Status: Former Tobacco user Quit Date: 2012 Tobacco use type: Cigarette Years Smoked: 9 e-Cigarette/Vaping Use: Never Used Second Hand Smoke Exposure: No service: No Current occupational status: employed Current occupational exposures/hazards: No Cognitive needs: No Hearing needs: No Vision needs: No Female Reproductive History Menstrual Age of Menarche: 12 Questionnaire PHQ-9 Over the last 2 weeks, how often have you been bothered by any of the following problems? 1. Little interest or pleasure in doing things: several days 2. Feeling down, depressed, or hopeless: several days 3. Trouble falling or staying asleep, or sleeping too much: several days 4. Feeling tired or having little energy: several days 5. Poor appetite or overeating: several days 6. Feeling bad about yourself - or that you are a failure or have let yourself or your family down: several days 7. Trouble concentrating on things, such as reading the newspaper or watching television: not at all 8. Moving or speaking so slowly that other people could have noticed. Or the opposite - being so fidgety or restless that you have been moving around a lot more than usual: not at all 9. Thoughts that you would be better off or of hurting yourself in some way: not at all Total score: 6 Depression Screening Interpretation: Positive Depression Screening Follow-up: Existing condition and Community Mental Health Worker F/U Depression Screening Done: Yes 93744 - PHQ-9 Billing: Yes Source: Developed by Drs. Godfrey Varghese, Kaci Lang, Eduardo Jones and colleagues, with an educational araseli from [employer]. Thrive Questionnaire Date Thrive assessed: 11/14/23 I am a: Patient What is your living situation today?: I have a steady place to live Within the past 12 months, did the food you bought not last and you didn't have the money to get more?: Never true Within the past 12 months, did you worry whether your food would run out before you got money to buy more?: Never true Do you have trouble paying for medicines?: No Do you have trouble getting transportation to medical appointments?: No Do you have trouble paying your heating and electricity bill?: No Do you have trouble taking care of your child, family member or friend?: No Do you have trouble with day-to-day activities such as bathing, preparing meals, shopping, managing finances, etc.?: No Are you currently unemployed and looking for a job?: No Are you interested in more education?: No Please select the resources that you would like help with: None AUDIT C Alcohol Use Questionnaire (AUDIT-C) 1. How often do you have a drink containing alcohol?: Monthly or less 2. How many drinks containing alcohol do you have on a typical day when you are drinking?: 1 or 2 3. How often do you have six or more drinks on one occasion?: Never Total Score: 1 Score Reviewed/Action Taken: No GORAN-7 AMB Questionnaire GORAN-7 Date GORAN - 7 assessed: 11/14/23 Feeling nervous, anxious, or on edge: 0 = Not at all Not being able to stop or control worryin = Not at all Worrying too much about different things: 0 = Not at all Trouble relaxin = Not at all Being so restless that it is hard to sit still: 0 = Not at all Becoming easily annoyed or irritable: 0 = Not at all Feeling afraid as if something awful might happen: 0 = Not at all Total GORAN-7 score (0-4 normal; 5-9 mild; 10-14 moderate; 15-21 severe): 0 Source: Developed by Drs. Godfrey Varghese, Kaci Lang, Eduardo Jones and colleagues, with an educational araseli from [employer]. GORAN-7 Assessment Billing GORAN-7 Assessment Tool: GORAN-7 Assessment 93751 Review of Systems Const All systems reviewed & are unremarkable except as noted in HPI and below Eyes Reports no additional complaints, Denies change in vision and Denies other visual disturbances Card Denies chest pain at rest, Denies chest pain with activity, Denies edema, Denies irregular heart rhythm, Denies claudication, Denies dyspnea, Denies dyspnea on exertion, Denies orthopnea, Denies paroxysmal nocturnal dyspnea and Denies slow heart rate Resp Denies cough, Denies dyspnea and Denies dyspnea on exertion GI Denies abdominal pain, Denies change in bowel habits, Denies excessive flatus, Denies nausea and Denies vomiting Denies urinary incontinence, Denies urinary hesitancy and Denies urinary urgency Musc Denies abnormal gait, Denies atrophy, Denies deformity and Denies limited range of motion Skin/Breast Denies bleeding lesions, Denies changing lesions and Denies rash Neuro Denies abnormal gait, Denies behavioral changes, Denies confusion and Denies lack of coordination Psych Denies behavioral changes and Denies confusion Physical exam (Primary Care) Vital Signs: Last Vital Signs BP 120/80 11/14/23 15:48 BMI result Body Mass Index 34.3 Tobacco/Smoking Status: Tobacco use Status Tobacco use date assessed 11/14/23 11/14/23 16:11 Patient Tobacco Use Status Former Tobacco user 11/14/23 15:51 Tobacco use type Cigarette 11/14/23 15:51 e-Cigarette/Vaping Use Never Used 11/14/23 15:51 PHQ-9: PHQ-9 Score PHQ-9: Total score 6 11/14/23 16:20 Depression Screening Interpretation: Positive Depression Screening Follow-up: Existing condition and Community Mental Health Worker F/U Thrive Assessment: Date of Thrive Assessment Date Thrive assessed 11/14/23 11/14/23 16:11 Const General: No confusion Orientation/consciousness: patient oriented x3 and No confusion HENMT Head: Yes normal to inspection, Yes normocephalic and Yes atraumatic Ears: external ears normal Eyes General: appearance normal, both eyes and all related structures Eyelids: Yes eyelids normal Conjunctivae: conjunctivae normal Neck Neck: Yes normal visual inspection and Yes supple Resp Effort & Inspection: normal respiratory effort Auscultation: clear to auscultation bilaterally Cardio Jugular venous distension: no JVD Rate: regular rate Rhythm: regular rhythm Heart sounds: S1 normal heart sound present and S2 normal heart sound present GI Inspection: Yes normal to inspection Palpation (GI): Soft to palpation and nontender Auscultation: normal bowel sounds Skin General skin exam: no rashes or lesions noted Neuro General: patient oriented x3, no focal motor deficits and No confusion Extrem General: Yes full ROM Psych Appearance: grossly normal Assessment and Plan Assessment & Plan (1) Physical exam: Code(s): Z00.00 - Encounter for general adult medical examination without abnormal findings Plan: Repeat in a year. (2) Mild recurrent major depression: Code(s): F33.0 - Major depressive disorder, recurrent, mild Plan: Continue bupropion. Follow-up with psychiatry. Orders: Orders T Spot TB Today Z11.1 - Encounter for screening for respiratory tuberculosis Referrals Ear/Nose/Throat Referral H92.03 - Otalgia, bilateral Gastroenterology Referral Z80.0 - Family history of malignant neoplasm of digestive organs Podiatry Referral M79.672 - Pain in left foot Coding Level of Care Code Est Pt Prev Care 40-64y(76152) Diagnoses Physical exam Z00.00 Mild recurrent major depression F33.0 Additional Codes GORAN-7 Assessment Billing - GORAN-7 Assessment Tool: GORAN-7 Assessment 77626 ([id number]) Time Spent (min) 32
== END 2023-11-14 16:52 | disposition home or self-care (01) ==
PROVIDERS: Visit Provider Internal Medicine
DX: Z00.00 Encounter for general adult medical examination without abnormal findings (principal); F33.0 Major depressive disorder, recurrent, mild; E11.9 Type 2 diabetes mellitus without complications; E55.9 Vitamin D deficiency, unspecified
CPT/HCPCS: 99396

== ENCOUNTER 2023-11-17 10:27 | Outpatient (REF) | payer OTHER, SELFPAY ==
--- NOTE | ~2023-11-17 | MM_ITS ---
EXAMINATION: MM SCREENING DIGITAL BREAST TOMOSYNTHESIS, BILATERAL CLINICAL INFORMATION: Screening. Asymptomatic. COMPARISON: Mammography: This study is compared with prior exams dating back to 2017. TECHNIQUE: Digital breast tomosynthesis is performed in both the craniocaudal and mediolateral oblique views along with computer-aided detection (CAD). Synthesized 2D images are generated from the tomosynthesis. FINDINGS: There are scattered areas of fibroglandular density (ACR BI-RADS breast composition Category b). There are no significant masses, abnormal calcifications, or other abnormalities. There is a tissue marker present in the upper outer quadrant of the right breast from prior benign percutaneous biopsy. MM/MM tomosynthesis screening BI IMPRESSION: No mammographic evidence of malignancy. ASSESSMENT: BI-RADS BI-RADS 2 - Benign Findings RECOMMENDATION: Routine annual mammography screening. 1 year F/U This examination should not preclude the clinical evaluation of a suspicious palpable abnormality. This patient's information was entered into a reminder system with a target due date for their next mammogram.
== END 2023-11-17 10:28 | disposition home or self-care (01) ==
LOC: HO.MAMMO 10:27
PROVIDERS: PCP Internal Medicine; Visit Provider Internal Medicine
DX: Z12.31 Encounter for screening mammogram for malignant neoplasm of breast (principal)
CPT/HCPCS: 77063; 77067

== ENCOUNTER → 2023-11-17 10:30 | Outpatient (BNV) | payer OTHER, SELFPAY | PROVIDERS: PCP Internal Medicine; Visit Provider Radiology Diagnostic Radiology | DX: Z12.31 Encounter for screening mammogram for malignant neoplasm of breast (principal) | CPT/HCPCS: 77063; 77067 ==

== ENCOUNTER 2024-01-31 16:20 | Outpatient (REF) | payer OTHER, SELFPAY ==
[2024-01-31 17:12] LABS: Influenza A PCR NEGATIVE (Negative); Influenza B PCR NEGATIVE (Negative); Resp Syncy Virus RNA Qual PCR NEGATIVE (Negative); SARS COV2 PCR INHOUSE NEGATIVE (Negative)
== END 2024-01-31 16:21 | disposition home or self-care (01) ==
LOC: HO.LAB 16:20
PROVIDERS: PCP Internal Medicine; Visit Provider Internal Medicine
DX: R09.89 Other specified symptoms and signs involving the circulatory and respiratory systems (principal)
CPT/HCPCS: 0241U

== ENCOUNTER 2024-02-22 17:14 | Outpatient (AMB) | payer OTHER, SELFPAY ==
[2024-02-22 17:15] VITALS: BP 120/82; BMI 35.5
--- NOTE | 2024-02-22 17:15 | MHC.PC.OV ---
Vital Signs 02/22/24 17:15 Height 5 ft 4 in Weight 207 lb BMI 35.5 BP 120/82 Blood Pressure Location Lt brachial Position Sitting Intake Visit Reasons: [facility] 12/24/23 sprained ankle Intake Note: Patient here for follow up sprained ankle Casing Running Machine Tender Required: No Accompanied by: Self / Same As Patient Allergies fluoxetine [From PROZAC] Allergy (Severe, Verified 02/22/24 17:30) OVER SEDATION gabapentin [GABAPENTIN] Allergy (Intermediate, Verified 02/22/24 17:30) NAUSEA,DIZZINESS, dizziness hydromorphone [HYDROMORPHONE] Allergy (Intermediate, Verified 02/22/24 17:30) NAUSEA/PALPITATIONS, vomiting latex [LATEX] Allergy (Intermediate, Verified 02/22/24 17:30) RASH Penicillins [PENICILLINS] Allergy (Intermediate, Verified 02/22/24 17:30) RASH Medication List - Last Reconciled 02/22/24 by Deirdre Morel MD albuterol sulfate 90 mcg/actuation 2 puffs inhalation Q6H PRN 30 days arm brace (Wrist Brace) As directed bupropion HCl XL 150 mg PO QAM buspirone 30 mg PO BID cetirizine (Allergy Relief (cetirizine)) 10 mg PO DAILY PRN 90 days diazepam 10 mg PO BID PRN 30 days hydrochlorothiazide 25 mg PO QAM iron,carbonyl-vitamin C 65 mg iron- 125 mg (Vitron-C) 1 tab PO DAILY lamotrigine 50 mg PO DAILY leg brace (Knee Brace Large-XLarge) As directed leg brace (BUNNY Ankle Brace) As directed meloxicam 15 mg PO DAILY 90 days montelukast 10 mg PO DAILY 90 days oxycodone 10 mg PO Q4-6H PRN 30 days oxycodone ER (OxyContin) 20 mg PO BID 7 days pantoprazole 40 mg PO DAILY 90 days rizatriptan 10 mg PO Q2-4H PRN 30 days topiramate 50 mg PO BEDTIME 30 days triamcinolone acetonide 1 spray intranasal DAILY PRN 30 days Tobacco use date assessed: 11/14/23 Dental Screening Dental Screen Date: 11/14/23 HPI HPI Comments History of Present Illness Details This is a 53-year-old female with hypertension, GERD, left foot plantar fascitis and allergic rhinitis that comes today for follow-up on her conditions. Blood pressure stable. GERD stable with PPIs. Allergic rhinitis has improved with antihistamines but still present and would like a referral for an measurement psychologist. Plantar fascitis is follow by tech brazer tester which gave 3 local injections with no response. I will order MRI of left foot. She still has plantar pain more prominent when standing in the morning. Full active range of motion. She is obese with a BMI of 35.5 and has tried diet and exercise as tolerated with no improvement. I would like to start her on Wegovy. [facility] Medical History (Updated 02/22/24 @ 17:46 by Deirdre Morel MD) Osteoarthritis of left hip Sacroiliitis Infective arthritis of left knee Arthropathy of knee Fracture of metacarpal base of left hand, closed Foot pain, right Plantar fasciitis of left foot Anemia Fibromyalgia GERD (gastroesophageal reflux disease) Asthma BMI 35.0-35.9,adult Obesity (BMI 30-39.9) Daytime sleepiness Shortness of breath Obese Acute traumatic internal derangement of left knee Insomnia Essential hypertension Sinusitis Anxiety Migraine Postlaminectomy syndrome of cervical region 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 of lumbosacral spine with radiculopathy Surgical History Hx of arthroscopy of left knee History of surgery History of esophagogastroduodenoscopy (EGD) H/O colonoscopy Hx of breast reduction, elective History of carpal tunnel release History of neck surgery History of tubal ligation S/P JUSTYN-BSO (total abdominal hysterectomy and bilateral salpingo-oophorectomy) H/O medial meniscus repair of right knee Family History Father Diabetes Hypertension Maternal Grandmother Cancer Maternal Grandfather Cancer Family/Other FH: mental illness Substance use disorder Mother Arthritis Asthma Brother No problems noted. Brother No problems noted. Son No problems noted. Son No problems noted. Son No problems noted. Son No problems noted. Social History Household Members: Significant Other and Family Housing: House Are you a primary palliative care coordinator to a significant other at home: No Do you presently have visiting nurse or other home services: No Alcohol intake: current Alcohol intake frequency: holidays/special occasions only Patient Tobacco Use Status: Former Tobacco user Quit Date: 2012 Tobacco use type: Cigarette Years Smoked: 9 e-Cigarette/Vaping Use: Never Used Second Hand Smoke Exposure: No service: No Current occupational status: employed Current occupational exposures/hazards: No Cognitive needs: No Hearing needs: No Vision needs: No Female Reproductive History Menstrual Age of Menarche: 12 Questionnaire Thrive Questionnaire Date Thrive assessed: 11/14/23 GORAN-7 AMB Questionnaire GORAN-7 Date GORAN - 7 assessed: 11/14/23 Source: Developed by Drs. Godfrey Varghese, Kaci Lang, Eduardo Jones and colleagues, with an educational araseli from [employer]. Review of Systems Const All systems reviewed & are unremarkable except as noted in HPI and below Card Denies chest pain at rest, Denies chest pain with activity, Denies edema, Denies irregular heart rhythm, Denies claudication, Denies dyspnea, Denies dyspnea on exertion, Denies orthopnea, Denies paroxysmal nocturnal dyspnea and Denies slow heart rate Resp Denies cough, Denies dyspnea and Denies dyspnea on exertion Physical exam (Primary Care) Vital Signs: Last Vital Signs BP 120/82 02/22/24 17:15 BMI result Body Mass Index 35.5 Tobacco/Smoking Status: Tobacco use Status Tobacco use date assessed 11/14/23 02/22/24 17:24 Patient Tobacco Use Status Former Tobacco user 02/22/24 17:24 Tobacco use type Cigarette 02/22/24 17:24 e-Cigarette/Vaping Use Never Used 02/22/24 17:24 Thrive Assessment: Date of Thrive Assessment Date Thrive assessed 11/14/23 02/22/24 17:24 Resp Effort & Inspection: normal respiratory effort Auscultation: clear to auscultation bilaterally Cardio Jugular venous distension: no JVD Rate: regular rate Rhythm: regular rhythm Heart sounds: S1 normal heart sound present and S2 normal heart sound present Extrem General: Yes full ROM Assessment and Plan Assessment & Plan (1) Mild recurrent major depression: Code(s): F33.0 - Major depressive disorder, recurrent, mild Plan: Continue bupropion. (2) Plantar fasciitis of left foot: Code(s): M72.2 - Plantar fascial fibromatosis Plan: MRI of the foot ordered. (3) GERD (gastroesophageal reflux disease): Code(s): K21.9 - Gastro-esophageal reflux disease without esophagitis Qualifiers: Esophagitis presence: esophagitis presence not specified Qualified Code(s): K21.9 - Gastro-esophageal reflux disease without esophagitis Plan: Continue PPIs. (4) Essential hypertension: Code(s): I10 - Essential (primary) hypertension Plan: Continue hydrochlorothiazide. Blood pressure goal is equal or less than 130/80. (5) Allergic rhinitis: Code(s): J30.9 - Allergic rhinitis, unspecified Plan: Continue antihistamines. Referred to measurement psychologist. Orders: Orders Complete Blood Count Auto Diff Today D64.9 - Anemia, unspecified IRON PROFILE Today D64.9 - Anemia, unspecified MR foot LT wo/w con Today M72.2 - Plantar fascial fibromatosis, M79.672 - Pain in left foot Referrals Allergy & Immunology Referral J30.9 - Allergic rhinitis, unspecified Medications: New semaglutide (weight loss) (Wechristinevalon) administer weeks 1 through 4 of therapy 0.25 mg (0.5 mL) subcut QWEEK 2.5 mL 0RF 30 days E66.9 - Obesity, unspecified Refilled oxycodone ER (OxyContin) 20 mg PO BID 14 tabs 0RF 7 days M16.12 - Unilateral primary osteoarthritis, left hip, M17.12 - Unilateral primary osteoarthritis, left knee, M46.1 - Sacroiliitis, not elsewhere classified, M47.22 - Other spondylosis with radiculopathy, cervical region, M47.27 - Other spondylosis with radiculopathy, lumbosacral region, M54.12 - Radiculopathy, cervical region, M96.1 - Postlaminectomy syndrome, not elsewhere classified oxycodone 10 mg PO Q4-6H PRN 168 tabs 0RF pain 30 days Coding Level of Care Code Est Pt Level 4 (15192) Diagnoses Mild recurrent major depression F33.0 Plantar fasciitis of left foot M72.2 Gastroesophageal reflux disease, unspecified whether esophagitis present K21.9 Esophagitis presence: esophagitis presence not specified Essential hypertension I10 Allergic rhinitis J30.9 Time Spent (min) 24
== END 2024-02-22 17:52 | disposition home or self-care (01) ==
PROVIDERS: PCP Internal Medicine; Visit Provider Internal Medicine
DX: I10 Essential (primary) hypertension (principal); K21.9 Gastro-esophageal reflux disease without esophagitis; J30.9 Allergic rhinitis, unspecified; F33.0 Major depressive disorder, recurrent, mild; M72.2 Plantar fascial fibromatosis
CPT/HCPCS: 99214

== ENCOUNTER 2024-04-03 08:14 | Day surgery (SDC) | payer OTHER, SELFPAY ==
[2024-04-03 08:28] VITALS: BP 128/82; PULSE 87; RESP 19; TEMP 36.9; O2SAT 97; BMI 35.6
[2024-04-03] MEDS: Lactated Ringers 1,000 ML 100 ML IVCONT (08:46)
--- NOTE | 2024-04-03 09:05 | P.CONAN_ITS ---
Documented by User: Annemarie Anaya NP 04/02/24 08:56 HPI - Anesthesia Eval Consult details Narrative: 53yo F for Upper Endoscopy and Colonoscopy Anesthesia Pre-Procedure Meds Is the patient on any of the following meds?: GLP1/DPP4 PMFSH Active Problems Active Problems: All Active Problems Obesity (BMI 35.0-39.9 without comorbidity) (Acute) Allergic rhinitis (Acute) Physical exam (Acute) Left foot pain (Acute) Family history of colon cancer (Acute) Otalgia of both ears (Acute) Primary osteoarthritis of left knee (Acute) Postlaminectomy syndrome, cervical (Acute) Spondylosis without myelopathy or radiculopathy, cervical region (Acute) Radiculopathy of cervical spine (Acute) Acute meniscal tear of left knee (Acute) Trochanteric bursitis of left hip (Acute) Osteoarthritis of left knee (Acute) Mild recurrent major depression (Acute) Numbness of left hand (Acute) Arthritis of left knee (Acute) Left knee pain (Acute) BMI 34.0-34.9,adult (Acute) Well woman exam (Acute) Osteoarthritis of left hip (Acute) Arthropathy of knee (Acute) Fracture of metacarpal base of left hand, closed (Acute) Foot pain, right (Acute) Plantar fasciitis of left foot (Acute) Anemia (Chronic) Fibromyalgia (Acute) GERD (gastroesophageal reflux disease) (Acute) Asthma (Acute) BMI 35.0-35.9,adult (Acute) Obesity (BMI 30-39.9) (Acute) Essential hypertension (Acute) Daytime sleepiness (Acute) Shortness of breath (Acute) Obese (Acute) Acute traumatic internal derangement of left knee (Acute) Insomnia (Acute) Sinusitis (Acute) Anxiety (Acute) Migraine (Acute) Postlaminectomy syndrome of cervical region (Acute) Spondylosis of cervical spine with radiculopathy (Acute) Spondylosis of lumbosacral spine with radiculopathy (Acute) Past Medical History Medical History (Updated 02/22/24 @ 17:46 by Deirdre Morel MD) Osteoarthritis of left hip Sacroiliitis Infective arthritis of left knee Arthropathy of knee Fracture of metacarpal base of left hand, closed Foot pain, right Plantar fasciitis of left foot Anemia Fibromyalgia GERD (gastroesophageal reflux disease) Asthma BMI 35.0-35.9,adult Obesity (BMI 30-39.9) Daytime sleepiness Shortness of breath Obese Acute traumatic internal derangement of left knee Insomnia Essential hypertension Sinusitis Anxiety Migraine Postlaminectomy syndrome of cervical region 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 Brother No problems noted. Son No problems noted. Son No problems noted. Son No problems noted. Son No problems noted. Family history of problems with anesthesia: No Surgical History Surgical History Hx of arthroscopy of left knee History of surgery History of esophagogastroduodenoscopy (EGD) H/O colonoscopy Hx of breast reduction, elective History of carpal tunnel release History of neck surgery History of tubal ligation S/P JUSTYN-BSO (total abdominal hysterectomy and bilateral salpingo-oophorectomy) H/O medial meniscus repair of right knee History of Problems with Anesthesia: No Social History Social History Household Members: Significant Other and Family Housing: House Are you a primary critical care registered nurse to a significant other at home: No Do you presently have visiting nurse or other home services: No Alcohol intake: current Alcohol intake frequency: does not drink Patient Tobacco Use Status: Former Tobacco user Tobacco use type: Cigarette Years Smoked: 9 e-Cigarette/Vaping Use: Never Used Second Hand Smoke Exposure: No Are you DNR?: No Advance Directives: No Advance Directives Information Provided: Yes Nutrition Risks: No Nutritional Risk service: No Current occupational status: employed Current occupational exposures/hazards: No Cognitive needs: No Hearing needs: No Vision needs: No Meds Allergies Allergy/AdvReac Type Severity Reaction Status Date / Time fluoxetine [From PROZAC] Allergy Severe OVER Verified 02/22/24 17:30 SEDATION gabapentin [GABAPENTIN] Allergy Intermediate NAUSEA,DIZZINESS, Verified 02/22/24 17:30 dizziness hydromorphone [HYDROMORPHONE] Allergy Intermediate NAUSEA/PALPITATIONS, Verified 02/22/24 17:30 vomiting latex [LATEX] Allergy Intermediate RASH Verified 02/22/24 17:30 Penicillins [PENICILLINS] Allergy Intermediate RASH Verified 02/22/24 17:30 Home Medications ?Medication ?Instructions ?Recorded ?Confirmed ?Last Taken ?Type bupropion HCl 150 mg 24 hr tablet, 150 mg PO QAM 08/14/20 02/22/24 09/29/22 History extended release buspirone 15 mg tablet 30 mg PO BID 08/14/20 02/22/24 09/29/22 History lamotrigine 25 mg tablet 50 mg PO DAILY 08/14/20 02/22/24 04/03/24 History Assessment and Plan Assessment Anesthesia Assessment: Chart Reviewed Final Anesthetic Review Family History of Problems with Anesthesia: No History of Problems with Anesthesia: No Documented by User: Anne Castillo DO 04/03/24 09:10 [facility] Past Medical History Medical History (Updated 02/22/24 @ 17:46 by Deirdre Morel MD) Osteoarthritis of left hip Sacroiliitis Infective arthritis of left knee Arthropathy of knee Fracture of metacarpal base of left hand, closed Foot pain, right Plantar fasciitis of left foot Anemia Fibromyalgia GERD (gastroesophageal reflux disease) Asthma BMI 35.0-35.9,adult Obesity (BMI 30-39.9) Daytime sleepiness Shortness of breath Obese Acute traumatic internal derangement of left knee Insomnia Essential hypertension Sinusitis Anxiety Migraine Postlaminectomy syndrome of cervical region 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 Brother No problems noted. Son No problems noted. Son No problems noted. Son No problems noted. Son No problems noted. Family history of problems with anesthesia: No Surgical History Surgical History Hx of arthroscopy of left knee History of surgery History of esophagogastroduodenoscopy (EGD) H/O colonoscopy Hx of breast reduction, elective History of carpal tunnel release History of neck surgery History of tubal ligation S/P JUSTYN-BSO (total abdominal hysterectomy and bilateral salpingo-oophorectomy) H/O medial meniscus repair of right knee History of Problems with Anesthesia: No Social History Social History Household Members: Significant Other and Family Housing: House Are you a primary critical care registered nurse to a significant other at home: No Do you presently have visiting nurse or other home services: No Alcohol intake: current Alcohol intake frequency: does not drink Patient Tobacco Use Status: Former Tobacco user Tobacco use type: Cigarette Years Smoked: 9 e-Cigarette/Vaping Use: Never Used Second Hand Smoke Exposure: No Are you DNR?: No Advance Directives: No Advance Directives Information Provided: Yes Nutrition Risks: No Nutritional Risk service: No Current occupational status: employed Current occupational exposures/hazards: No Cognitive needs: No Hearing needs: No Vision needs: No Meds Allergies Allergy/AdvReac Type Severity Reaction Status Date / Time fluoxetine [From PROZAC] Allergy Severe OVER Verified 02/22/24 17:30 SEDATION gabapentin [GABAPENTIN] Allergy Intermediate NAUSEA,DIZZINESS, Verified 02/22/24 17:30 dizziness hydromorphone [HYDROMORPHONE] Allergy Intermediate NAUSEA/PALPITATIONS, Verified 02/22/24 17:30 vomiting latex [LATEX] Allergy Intermediate RASH Verified 02/22/24 17:30 Penicillins [PENICILLINS] Allergy Intermediate RASH Verified 02/22/24 17:30 Home Medications ?Medication ?Instructions ?Recorded ?Confirmed ?Last Taken ?Type bupropion HCl 150 mg 24 hr tablet, 150 mg PO QAM 08/14/20 02/22/24 09/29/22 History extended release buspirone 15 mg tablet 30 mg PO BID 08/14/20 02/22/24 09/29/22 History lamotrigine 25 mg tablet 50 mg PO DAILY 08/14/20 02/22/24 04/03/24 History Exam Exam Date and Time: April 03, 2024 0908 Height,Weight and Vital Signs: Height 5 ft 4 in Weight 94.03 kg Vital Signs Temperature 98.4 F 04/03/24 08:28 Pulse Rate 87 04/03/24 08:28 Respiratory Rate 19 04/03/24 08:28 Blood Pressure 128/82 04/03/24 08:28 Pulse Oximetry 97 04/03/24 08:28 Oxygen Delivery Method Room Air 04/03/24 08:28 Temperature 98.4 F 04/03/24 08:28 Pulse Rate 87 04/03/24 08:28 Respiratory Rate 19 04/03/24 08:28 Blood Pressure 128/82 04/03/24 08:28 Pulse Oximetry 97 04/03/24 08:28 Oxygen Delivery Method Room Air 04/03/24 08:28 Airway Mallampati Class: I TM Dist: >3cm Neck ROM: Full Loose/Missing/Broken Teeth: Yes (multiple missing teeth but no loose or broken teeth) Heart: S1S2 Lungs: CTAB Assessment and Plan Assessment Anesthesia Assessment: Anesthesia Plan Discussed and Chart Reviewed Final Anesthetic Review Family History of Problems with Anesthesia: No History of Problems with Anesthesia: No NPO: Yes ASA Class: III Final Preanesthetic Review: No Changes in Pt Med Stat, Meds/Allgs Chart Reviewed, Consent Obtained/Reviewed and Anes Risks/Benef Reviewed Patient Risk: Low Procedure Risk: Low Anesthetic Plan Anesthetic Plan: MAC: and Agree w/ Assess. and Plan Disposition: Standard PACU
--- NOTE | 2024-04-03 09:22 | MHC.SHP ---
Pre-Procedural Eval Section A - 24 Hr Update-Section A only Date of Service: 04/03/24 Section B - Complete if H&P > 30 days Chief Complaint: gerd,screening Details of Present Illness: see H&P no changes Relevant Family History (Specify if Yes): No Relevant Social History: None Present Medications: see Short Stay Collaborative assessment Medical History: No relevant PMH History of Previous Operations: No relevant previous surgery Allergies: Allergies Allergy/AdvReac Type Severity Reaction Status Date / Time fluoxetine [From PROZAC] Allergy Severe OVER Verified 02/22/24 17:30 SEDATION gabapentin [GABAPENTIN] Allergy Intermediate NAUSEA,DIZZINESS, Verified 02/22/24 17:30 dizziness hydromorphone [HYDROMORPHONE] Allergy Intermediate NAUSEA/PALPITATIONS, Verified 02/22/24 17:30 vomiting latex [LATEX] Allergy Intermediate RASH Verified 02/22/24 17:30 Penicillins [PENICILLINS] Allergy Intermediate RASH Verified 02/22/24 17:30 Review of Systems Sugical H&P ROS: Negative: Constitution, Cardiovascular, Respiratory, Neurological, Psychiatric, Hem-Onc, Allergic/Immunologic, Gastrointestinal, Genitourinary, Musculoskeletal, Integumentary, Endocrine and Eyes/Ears/Nose/Throat Exam Surgical H&P Exam: Normal: HEENT, Normal: Heart, Normal: Lungs, Normal: Extremities, Normal: Abdomen, Normal: Skin and Normal: Neurological Plan Diagnosis/Plan: Unchanged I have reviewed the history and physical and performed a pertinent physical examination on my patient. No changes have occurred unless specified. Time Spent With Patient Time: Total time managing care of this patient today ____ minutes.
[2024-04-03 10:24] VITALS: BP 113/73; PULSE 68; RESP 18; TEMP 36.1; O2SAT 97
[2024-04-03 10:39] VITALS: BP 129/85; PULSE 68; RESP 16; TEMP 36.1; O2SAT 98
--- NOTE | 2024-04-03 11:50 | OP_ITS ---
DATE OF SERVICE: 04/03/2024 SURGEON: Bebo Guy MD INDICATIONS: 1. Gastroesophageal reflux disease. 2. Colon cancer screening and family history of colon polyps. PREOPERATIVE DIAGNOSIS: POSTOPERATIVE DIAGNOSIS: PROCEDURE PERFORMED: 1. Upper endoscopy with biopsy. 2. Colonoscopy to the cecum. ESTIMATED BLOOD LOSS: COMPLICATIONS: ANESTHESIA: Monitored anesthesia care. ASSISTANTS: SPECIMENS: DESCRIPTION OF PROCEDURE: A history and physical was performed. The risks and benefits of the procedure were explained to the patient and informed consent was obtained. The patient was placed in the left lateral decubitus position. The Olympus video gastroscope was introduced into the esophagus, stomach, and duodenum. Examination was performed and the scope was removed. She was repositioned for colonoscopy. A digital rectal exam was performed and was found to be normal. The Olympus pediatric video colonoscope was introduced into the rectum and advanced to the cecum with the assistance of abdominal wall pressure. Examination was performed and the scope was removed. She tolerated both procedures well and was returned to the recovery area in stable condition. The cecum was identified by transillumination, palpation, and identification of ileocecal valve. FINDINGS: Upper endoscopy, esophagus: The esophagus was normal. There was no esophagitis. Biopsies were obtained from the EG junction. Stomach: The stomach showed multiple polyps appearing in the body and fundus consistent with fundic gland polyps, largest of these measured approximately 8 to 10 mm. Two of these were biopsied. Antral biopsies were obtained as there was mild erythema consistent with mild gastritis. Duodenum: The bulb and 2nd portion were normal. Colonoscopy: The terminal ileum was not examined. The visualized colonic mucosa was normal without evidence of masses, ulcers, or polyps. There was minimal sigmoid diverticulosis with retroflexed examination showing moderate-sized internal hemorrhoids. The quality of the prep was good. IMPRESSION: 1. Gastric polyps. 2. Gastritis. 3. Gastroesophageal reflux disease. 4. Normal colonoscopy. RECOMMENDATIONS: 1. Follow up the biopsy results. 2. Repeat colonoscopy is recommended in 5 years due to family history of colon cancer and polyps. MD BRIAN Whitfield/HARLEEN / [phone]
== END 2024-04-03 12:09 | disposition home or self-care (01) ==
PROVIDERS: PCP Internal Medicine; Visit Provider Internal Medicine Gastroenterology
PROC: (CPT 45378; principal; 2024-04-03 10:00)
DX: Z12.11 Encounter for screening for malignant neoplasm of colon (principal); K57.30 Diverticulosis of large intestine without perforation or abscess without bleeding; K64.8 Other hemorrhoids; Z83.719 Family history of colon polyps, unspecified; K21.9 Gastro-esophageal reflux disease without esophagitis; K31.7 Polyp of stomach and duodenum; K29.70 Gastritis, unspecified, without bleeding; Z88.0 Allergy status to penicillin; Z88.5 Allergy status to narcotic agent
CPT/HCPCS: 45378; 43239; 88305; 88313; 88342; J2704

== ENCOUNTER 2024-04-18 11:39 | Outpatient (AMB) | payer OTHER, SELFPAY ==
--- NOTE | 2024-04-18 11:43 | MHC.OFFVIS ---
Vital Signs 04/18/24 11:57 Height 5 ft 4 in Weight 203 lb BMI 34.8 BP 126/70 Blood Pressure Location Lt brachial Position Sitting Respiration 16 Pulse 107 H Pulse Source Pulse Oximeter Pulse Oximetry (%) 95 Oxygen Delivery Method Room Air Intake Visit Reasons: LEFT KNEE PAIN,BACK PAIN Intake Note: Patient comes in for knee and back pain. Reports pain /10. Allergies fluoxetine [From PROZAC] Allergy (Severe, Verified 04/18/24 12:00) OVER SEDATION gabapentin [GABAPENTIN] Allergy (Intermediate, Verified 04/18/24 12:00) NAUSEA,DIZZINESS, dizziness hydromorphone [HYDROMORPHONE] Allergy (Intermediate, Verified 04/18/24 12:00) NAUSEA/PALPITATIONS, vomiting latex [LATEX] Allergy (Intermediate, Verified 04/18/24 12:00) RASH Penicillins [PENICILLINS] Allergy (Intermediate, Verified 04/18/24 12:00) RASH HPI Comments Details: Selina is back in my office with complaints on pain in the left knee as well as the pain in the lumbar spine with minimal radiation into bilateral lower extremities reporting neurogenic claudication with the pain into bilateral lower extremities inability to flex herself forward or backwards. She did not have MRI safe of the lumbar spine in the past 5 years. I suspected that she has lumbar spinal stenosis. I will send her for the fresh MRI. To treat the pain in left knee I offered her intra-articular Synvisc injection. We will preauthorize this injection with her insurance company in light her for the appointment. Instructions were given today for the patient about her pain. In the past she was subject of multiple injections including intra-articular hip injections knee injections as well as medial branch block of the cervical spine. She does not complain on cervicalgia today. She has postlaminectomy syndrome of the cervical spine. 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 Brother No problems noted. Son No problems noted. Son No problems noted. Son No problems noted. Son No problems noted. Social History Household Members: Significant Other and Family Housing: House Are you a primary caregivers non medical to a significant other at home: No Do you presently have visiting nurse or other home services: No Alcohol intake: current Alcohol intake frequency: does not drink Patient Tobacco Use Status: Former Tobacco user Tobacco use type: Cigarette Years Smoked: 9 e-Cigarette/Vaping Use: Never Used Second Hand Smoke Exposure: No service: No Current occupational status: employed Current occupational exposures/hazards: No Cognitive needs: No Hearing needs: No Vision needs: No Female Reproductive History Menstrual Age of Menarche: 12 Review of Systems Const All systems reviewed & are unremarkable except as noted in HPI and below ENT Reports Normal hearing present Neuro Reports Normal hearing present and Denies confusion Psych Denies confusion Physical Exam Vital Signs: Last Vital Signs Pulse 107 H 04/18/24 11:57 Resp 16 04/18/24 11:57 BP 126/70 04/18/24 11:57 Pulse Ox 95 04/18/24 11:57 Oxygen Delivery Method Room Air 04/18/24 11:57 BMI result Body Mass Index 34.8 Const General: No confusion Orientation/consciousness: No confusion Neck Other: Reports radiation of the pain from the upper cervical spine all the way to the neck upper shoulder lower shoulder right arm right forearm and 3 right middle fingers. Both Phalen and reverse Phalen tests aggravate her pain. Therefore I would not think it is medial nerve entrapment. Neck: Yes normal visual inspection and Yes full ROM ( Limited ROM in the neck reports cracking sounds with neck movements) Resp Effort & Inspection: normal respiratory effort, able to speak in complete sentences, normal respiratory pattern, no audible wheezes and no cough Cardio Jugular venous distension: no JVD GI Inspection: Yes normal to inspection Back/Spine/Pelvis Other: Tenderness on palpation on paraspinal spinal region lumbar spine. Significant tenderness on palpation in the projection of the lowest portion of the lumbar spine. SLR is positive for pain increase. Lassegue test is positive for pain increase. Reports numbness and tingling in the left lower extremity in the area of the foot. Neuro General: No confusion Cranial nerves: Yes Normal hearing present Psych Speech and movement: Normal speech and movement present Affect: normal affect Attitude: cooperative Thought process: Normal thought process present Quality Reporting (2019) Adult ([facility] 138/12/22/68) Smoking risk assessment performed?: Yes Patient Tobacco Use Status: Former Tobacco user Assessment & Plan Assessment & Plan (1) Spondylosis of lumbosacral spine with radiculopathy: Code(s): M47.27 - Other spondylosis with radiculopathy, lumbosacral region Category: Medical (2) Spinal stenosis of lumbar region: Code(s): M48.061 - Spinal stenosis, lumbar region without neurogenic claudication Category: Medical (3) Primary osteoarthritis of left knee: Code(s): M17.12 - Unilateral primary osteoarthritis, left knee Category: Medical (4) Radiculopathy of cervical spine: Code(s): M54.12 - Radiculopathy, cervical region Category: Medical (5) Spondylosis of cervical spine with radiculopathy: Code(s): M47.22 - Other spondylosis with radiculopathy, cervical region Category: Medical (6) Left knee pain: Code(s): M25.562 - Pain in left knee Category: Medical (7) Plantar fasciitis of left foot: Code(s): M72.2 - Plantar fascial fibromatosis Category: Medical Plan cervical injection C4-C5 C6 MBB on 07/21/2023. She reported excellent pain relief. She denies any pain as of now. status post left knee partial MMT and chondroplasty, 09/29/[address] De La Cruz. The patient reports she is having chronic pain when ambulating and bearing weight on the left lower extremity. She exhibits signs of exacerbation of the synovitis of the left knee. Her knee is swollen and ballottement of the kneecap is felt. I offered her today to preauthorize her for Synvisc injection. She also complains on neurogenic claudication as above. Spinal stenosis is suspected. I will order MRI of the lumbar spine for this patient. Orders: Orders MR lumbar spine wo con Today M47.27 - Other spondylosis with radiculopathy, lumbosacral region, M48.061 - Spinal stenosis, lumbar region without neurogenic claudication Coding Level of Care Code Est Pt Level 3 (71028) Diagnoses Spondylosis of lumbosacral spine with radiculopathy M47.27 Spinal stenosis of lumbar region M48.061 Primary osteoarthritis of left knee M17.12 Radiculopathy of cervical spine M54.12 Spondylosis of cervical spine with radiculopathy M47.22 Left knee pain M25.562 Plantar fasciitis of left foot M72.2
[2024-04-18 11:57] VITALS: BP 126/70; PULSE 107; RESP 16; O2SAT 95; BMI 34.8
== END 2024-04-18 12:07 | disposition home or self-care (01) ==
PROVIDERS: PCP Internal Medicine; Visit Provider Anesthesiology
DX: M47.27 Other spondylosis with radiculopathy, lumbosacral region (principal); M48.061 Spinal stenosis, lumbar region without neurogenic claudication; M17.12 Unilateral primary osteoarthritis, left knee; M47.22 Other spondylosis with radiculopathy, cervical region; M25.562 Pain in left knee; M72.2 Plantar fascial fibromatosis
CPT/HCPCS: 99213

== ENCOUNTER → 2024-04-18 11:39 | Outpatient (BNVA) | payer OTHER, SELFPAY | PROVIDERS: PCP Internal Medicine; Visit Provider Anesthesiology | DX: M47.27 Other spondylosis with radiculopathy, lumbosacral region (principal); M48.061 Spinal stenosis, lumbar region without neurogenic claudication; M17.12 Unilateral primary osteoarthritis, left knee; M54.12 Radiculopathy, cervical region; M47.22 Other spondylosis with radiculopathy, cervical region; M25.562 Pain in left knee; M72.2 Plantar fascial fibromatosis | CPT/HCPCS: 99212 ==

== ENCOUNTER 2024-04-26 09:57 | Outpatient (AMB) | payer OTHER, SELFPAY ==
--- NOTE | 2024-04-26 09:58 | A.OFFPC_ITS ---
Vital Signs 04/26/24 09:59 Height 5 ft 4 in Weight 204 lb BMI 35.0 BP 122/82 Blood Pressure Location Lt brachial Position Sitting Intake Visit Reasons: bp,chronic pain Intake Note: Patient here for a follow up bp, chronic pain Multimedia Developer Required: No Accompanied by: Self / Same As Patient Allergies fluoxetine [From PROZAC] Allergy (Severe, Verified 04/26/24 10:12) OVER SEDATION gabapentin [GABAPENTIN] Allergy (Intermediate, Verified 04/26/24 10:12) NAUSEA,DIZZINESS, dizziness hydromorphone [HYDROMORPHONE] Allergy (Intermediate, Verified 04/26/24 10:12) NAUSEA/PALPITATIONS, vomiting latex [LATEX] Allergy (Intermediate, Verified 04/26/24 10:12) RASH Penicillins [PENICILLINS] Allergy (Intermediate, Verified 04/26/24 10:12) RASH Medication List - Last Reconciled 04/26/24 by Deirdre Morel MD albuterol sulfate 90 mcg/actuation 2 puffs inhalation Q6H PRN 30 days arm brace (Wrist Brace) As directed bupropion HCl XL 150 mg PO QAM buspirone 30 mg PO BID cetirizine (Allergy Relief (cetirizine)) 10 mg PO DAILY PRN 90 days diazepam 10 mg PO BID PRN 30 days hydrochlorothiazide 25 mg PO QAM iron,carbonyl-vitamin C 65 mg iron- 125 mg (Vitron-C) 1 tab PO DAILY lamotrigine 50 mg PO DAILY leg brace (Knee Brace Large-XLarge) As directed leg brace (BUNNY Ankle Brace) As directed meloxicam 15 mg PO DAILY 90 days montelukast 10 mg PO DAILY 90 days oxycodone 10 mg PO Q4-6H PRN 30 days oxycodone ER (OxyContin) 20 mg PO BID 7 days pantoprazole 40 mg PO DAILY 90 days rizatriptan 10 mg PO Q2-4H PRN 30 days topiramate 50 mg PO BEDTIME 30 days trazodone 50 mg PO BEDTIME PRN 90 days triamcinolone acetonide 1 spray intranasal DAILY PRN 30 days Tobacco use date assessed: 11/14/23 Dental Screening Dental Screen Date: 11/14/23 HPI HPI Comments History of Present Illness Details This is a 53-year-old female with hypertension, GERD, mild major de pression and chronic pain on opiates that complains of bilateral knee pain secondary to osteoarthritis and would like a 2nd opinion outside [facility]. Blood pressure stable. GERD well control with PPIs. On bupropion for depression and this is follow by Psychiatry. Denies any chest pain or shortness on breath. She has obese with a BMI of 35 and is doing diet and exercise daily. [facility] Medical History (Updated 04/26/24 @ 10:46 by Deirrde Morel MD) Osteoarthritis of left hip Sacroiliitis Infective arthritis of left knee Arthropathy of knee Fracture of metacarpal base of left hand, closed Foot pain, right Plantar fasciitis of left foot Anemia Fibromyalgia GERD (gastroesophageal reflux disease) Asthma BMI 35.0-35.9,adult Obesity (BMI 30-39.9) Daytime sleepiness Shortness of breath Obese Acute traumatic internal derangement of left knee Insomnia Essential hypertension Sinusitis Anxiety Migraine Postlaminectomy syndrome of cervical region 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 of lumbosacral spine with radiculopathy Surgical History Hx of arthroscopy of left knee History of surgery History of esophagogastroduodenoscopy (EGD) H/O colonoscopy Hx of breast reduction, elective History of carpal tunnel release History of neck surgery History of tubal ligation S/P JUSTYN-BSO (total abdominal hysterectomy and bilateral salpingo-oophorectomy) H/O medial meniscus repair of right knee Family History Father Diabetes Hypertension Maternal Grandmother Cancer Maternal Grandfather Cancer Family/Other FH: mental illness Substance use disorder Mother Arthritis Asthma Brother No problems noted. Brother No problems noted. Son No problems noted. Son No problems noted. Son No problems noted. Son No problems noted. Social History (Updated 04/26/24 @ 10:17 by Deirdre Morel MD) Household Members: Significant Other and Family Housing: House Are you a primary family day care provider to a significant other at home: No Do you presently have visiting nurse or other home services: No Alcohol intake: current Alcohol intake frequency: holidays/special occasions only Alcohol type: hard liquor Patient Tobacco Use Status: Former Tobacco user Tobacco use type: Cigarette Years Smoked: 9 e-Cigarette/Vaping Use: Never Used Second Hand Smoke Exposure: No service: No Current occupational status: employed Current occupational exposures/hazards: No Cognitive needs: No Hearing needs: No Vision needs: No Female Reproductive History Menstrual Age of Menarche: 12 Questionnaire Thrive Questionnaire Date Thrive assessed: 11/14/23 GORAN-7 AMB Questionnaire GORAN-7 Date GORAN - 7 assessed: 11/14/23 Source: Developed by Drs. Godfrey Varghese, Kaci Lang, Eduardo Jones and colleagues, with an educational araseli from [employer]. Review of Systems Const All systems reviewed & are unremarkable except as noted in HPI and below Card Denies chest pain at rest, Denies chest pain with activity, Denies edema, Denies irregular heart rhythm, Denies claudication, Denies dyspnea, Denies dyspnea on exertion, Denies orthopnea, Denies paroxysmal nocturnal dyspnea and Denies slow heart rate Resp Denies cough, Denies dyspnea and Denies dyspnea on exertion Physical exam (Primary Care) Vital Signs: Last Vital Signs BP 122/82 04/26/24 09:59 BMI result Body Mass Index 35.0 BMI Assessment/Plan discussion: High BMI High, discussed plan: lifestyle, weight reduction, dietary and physical activity Tobacco/Smoking Status: Tobacco use Status Tobacco use date assessed 11/14/23 04/26/24 10:05 Patient Tobacco Use Status Former Tobacco user 04/26/24 10:17 Tobacco use type Cigarette 04/26/24 10:17 e-Cigarette/Vaping Use Never Used 04/26/24 10:17 Thrive Assessment: Date of Thrive Assessment Date Thrive assessed 11/14/23 04/26/24 10:05 Resp Effort & Inspection: normal respiratory effort Auscultation: clear to auscultation bilaterally Cardio Jugular venous distension: no JVD Rate: regular rate Rhythm: regular rhythm Heart sounds: S1 normal heart sound present and S2 normal heart sound present Extrem General: Yes full ROM Assessment and Plan Assessment & Plan (1) Osteoarthritis of left knee: Code(s): M17.12 - Unilateral primary osteoarthritis, left knee Qualifiers: Osteoarthritis type: primary Qualified Code(s): M17.12 - Unilateral primary osteoarthritis, left knee Plan: Referred to Ortho. (2) Essential hypertension: Code(s): I10 - Essential (primary) hypertension Plan: Continue hydrochlorothiazide. Blood pressure goal is equal or less than 130/80. (3) GERD (gastroesophageal reflux disease): Code(s): K21.9 - Gastro-esophageal reflux disease without esophagitis Qualifiers: Esophagitis presence: esophagitis presence not specified Qualified Code(s): K21.9 - Gastro-esophageal reflux disease without esophagitis Plan: Continue PPIs. (4) Mild recurrent major depression: Code(s): F33.0 - Major depressive disorder, recurrent, mild Plan: Continue bupropion. Follow-up with psychiatry. (5) Arthritis of right knee: Code(s): M17.11 - Unilateral primary osteoarthritis, right knee Plan: Referred to Ortho. (6) Opiate dependence: Code(s): F11.20 - Opioid dependence, uncomplicated Qualifiers: Substance use status: uncomplicated Qualified Code(s): F11.20 - Opioid dependence, uncomplicated Plan: Continue opiates as needed for chronic pain. Orders: Referrals Orthopedics Referral M17.11 - Unilateral primary osteoarthritis, right knee, M17.12 - Unilateral primary osteoarthritis, left knee Coding Level of Care Code Est Pt Level 4 (79360) Complex EM visit Add On G2211 Diagnoses Primary osteoarthritis of left knee M17.12 Osteoarthritis type: primary Essential hypertension I10 Gastroesophageal reflux disease, unspecified whether esophagitis present K21.9 Esophagitis presence: esophagitis presence not specified Mild recurrent major depression F33.0 Arthritis of right knee M17.11 Uncomplicated opioid dependence F11.20 Substance use status: uncomplicated
[2024-04-26 09:59] VITALS: BP 122/82; BMI 35.0
== END 2024-04-26 10:37 | disposition home or self-care (01) ==
PROVIDERS: PCP Internal Medicine; Visit Provider Internal Medicine
DX: I10 Essential (primary) hypertension (principal); M17.0 Bilateral primary osteoarthritis of knee; F33.0 Major depressive disorder, recurrent, mild; F11.20 Opioid dependence, uncomplicated
CPT/HCPCS: 99214; G2211

== ENCOUNTER 2024-07-20 08:11 | Outpatient (REF) | payer OTHER, SELFPAY ==
--- NOTE | ~2024-07-20 | MR_ITS ---
EXAMINATION: MR LUMBAR SPINE WITHOUT CONTRAST CLINICAL INFORMATION: Lumbosacral radiculopathy. COMPARISON: Lumbar spine MRI from 06/30/2020. TECHNIQUE: MRI of the lumbar spine was obtained using routine sequences without contrast. FINDINGS: Minimal degenerative retrolisthesis of L3 on L4 and L5 on S1. Otherwise, normal anatomic alignment. Mild degenerative disc disease from L3-S1. Associated mixed Modic type discogenic endplate changes including Modic type I discogenic edema from L3-S1. No additional suspicious marrow edema. The vertebral body heights are largely maintained. The conus medullaris terminates at the level of L1-L2. The distal spinal cord is normal in appearance. Moderate subcutaneous edema within the posterior soft tissues of the back from L1-L5. No additional significant abnormalities of the paraspinal musculature. Limited evaluation of the intra-abdominal structures without significant abnormalities. The abdominal aorta is of normal contour and caliber. AXIAL SPINAL LEVELS: L1-L2: Normal annular contour. There is mild left and no right facet joint arthropathy. There is no neural foraminal stenosis. There is no spinal canal stenosis. L2-L3: Normal annular contour. There is mild bilateral facet joint arthropathy. There is no neural foraminal stenosis. There is no spinal canal stenosis. L3-L4: Mild diffuse disc bulge. There is mild bilateral facet joint arthropathy. There is mild left and no right neural foraminal stenosis. There is no spinal canal stenosis. L4-L5: Mild diffuse disc bulge. There is moderate bilateral facet joint arthropathy. There is mild bilateral neural foraminal stenosis. There is no spinal canal stenosis. L5-S1: Moderate diffuse disc bulge. There is moderate bilateral facet joint arthropathy. There is moderate right and mild left neural foraminal stenosis. There is no spinal canal stenosis. MR/MR lumbar spine wo con IMPRESSION: Mild to moderate multilevel degenerative spondyloarthropathy of the lumbar spine as described in detail above. Most notably, there are mild to moderate neural foraminal narrowings from L3-S1. No overt spinal canal stenosis. Overall, degenerative changes apparent mildly progressed compared to 2019. Electronically signed by: Eleno Mensah DO 08/11/2024 07:00 PM EDT
== END 2024-07-20 08:12 | disposition home or self-care (01) ==
LOC: HO.MRI 08:11
PROVIDERS: PCP Internal Medicine; Visit Provider Anesthesiology
DX: M47.27 Other spondylosis with radiculopathy, lumbosacral region (principal); M48.061 Spinal stenosis, lumbar region without neurogenic claudication
CPT/HCPCS: 72148

== ENCOUNTER 2024-08-01 09:54 | Outpatient (AMB) | payer OTHER, SELFPAY ==
--- NOTE | 2024-08-01 10:09 | AM.OFFVISNUR ---
Intake Visit Reasons: flu shot Allergies fluoxetine [From PROZAC] Allergy (Severe, Verified 04/26/24 10:12) OVER SEDATION gabapentin [GABAPENTIN] Allergy (Intermediate, Verified 04/26/24 10:12) NAUSEA,DIZZINESS, dizziness hydromorphone [HYDROMORPHONE] Allergy (Intermediate, Verified 04/26/24 10:12) NAUSEA/PALPITATIONS, vomiting latex [LATEX] Allergy (Intermediate, Verified 04/26/24 10:12) RASH Penicillins [PENICILLINS] Allergy (Intermediate, Verified 04/26/24 10:12) RASH Office Procedures Flu Questionnaire Does the patient have a severe egg allergy?: No Does the patient have severe life threatening allergies?: No Does the patient have a fever or illness today?: No Has the patient ever had Guillain-[place] Syndrome?: No Has the patient ever had any past reaction to a flu shot?: No Assessment & Plan Assessment & Plan Orders: Orders Influenza [id number] Immunization Today Z23 - Encounter for immunization Medications: New Fluarix Triv [id number] (PF) (flu vacc [id number] 6mos up(PF)) 0.5 mL IM ONCE 0.5 mL 0RF NS Z23 - Encounter for immunization
== END 2024-08-01 10:13 | disposition home or self-care (01) ==
PROVIDERS: PCP Internal Medicine; Visit Provider Internal Medicine
DX: Z23 Encounter for immunization (principal)

== ENCOUNTER → 2024-08-01 09:54 | Outpatient (BNVA) | payer OTHER, SELFPAY | PROVIDERS: PCP Internal Medicine; Visit Provider Internal Medicine | DX: Z23 Encounter for immunization (principal) | CPT/HCPCS: 90471; 90656 ==

== ENCOUNTER 2024-08-16 09:38 | Outpatient (AMB) | payer OTHER, SELFPAY ==
--- NOTE | 2024-08-16 09:39 | A.OFFVIS_ITS ---
Vital Signs 08/16/24 09:49 Height 5 ft 4 in Weight 202 lb 4 oz BMI 34.7 BP 122/72 Blood Pressure Location Lt brachial Position Sitting Respiration 16 Pulse 89 Pulse Source Pulse Oximeter Pulse Oximetry (%) 96 Oxygen Delivery Method Room Air Intake Visit Reasons: Discuss MRI Results Intake Note: Patient comes in to discuss MRI results. Reports pain 6/10. Allergies fluoxetine [From PROZAC] Allergy (Severe, Verified 08/16/24 09:50) OVER SEDATION gabapentin [GABAPENTIN] Allergy (Intermediate, Verified 08/16/24 09:50) NAUSEA,DIZZINESS, dizziness hydromorphone [HYDROMORPHONE] Allergy (Intermediate, Verified 08/16/24 09:50) NAUSEA/PALPITATIONS, vomiting latex [LATEX] Allergy (Intermediate, Verified 08/16/24 09:50) RASH Penicillins [PENICILLINS] Allergy (Intermediate, Verified 08/16/24 09:50) RASH HPI Comments Details: Selina is back in my office with continuous complain on lower back pain. She reports that most of the pain she experiences while sitting and attempting to stand up. She also reports pain aggravation with flexing forward. I sent her for the MRI of the lumbar spine and it did not demonstrate Modic type 1 changes in the projection of L3-L4 L5 and S1 lumbar vertebra. I offered patient to have intercept procedure to perform. Patient requests me to perform this as soon as possible because she is facing a surgery on her left knee, total knee replacement, she wants to have intercept procedure to be performed before total knee replacement. If her insurance will approve the procedure we will be possibly schedule this before the September of 2024 when her total knee replacement is scheduled. We discussed her plantar fasciitis today as well. I recommended her to were [employer] orthotics full-length for the next 6 months nonstop inside and out. Patient agreed and she will go online and acquire [employer] orthotic insoles. 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 Brother No problems noted. Son No problems noted. Son No problems noted. Son No problems noted. Son No problems noted. Social History (Updated 04/26/24 @ 10:17 by Deirdre Morel MD) Household Members: Significant Other and Family Housing: House Are you a primary student career development specialist to a significant other at home: No Do you presently have visiting nurse or other home services: No Alcohol intake: current Alcohol intake frequency: does not drink Alcohol type: hard liquor Patient Tobacco Use Status: Former Tobacco user Tobacco use type: Cigarette Years Smoked: 9 e-Cigarette/Vaping Use: Never Used Second Hand Smoke Exposure: No service: No Current occupational status: employed Current occupational exposures/hazards: No Cognitive needs: No Hearing needs: No Vision needs: No Female Reproductive History Menstrual Age of Menarche: 12 Review of Systems Const All systems reviewed & are unremarkable except as noted in HPI and below ENT Reports Normal hearing present Neuro Reports Normal hearing present and Denies confusion Psych Denies confusion Physical Exam Const General: No confusion Orientation/consciousness: No confusion Neck Other: Reports radiation of the pain from the upper cervical spine all the way to the neck upper shoulder lower shoulder right arm right forearm and 3 right middle fingers. Both Phalen and reverse Phalen tests aggravate her pain. Therefore I would not think it is medial nerve entrapment. Neck: Yes normal visual inspection and Yes full ROM ( Limited ROM in the neck reports cracking sounds with neck movements) Resp Effort & Inspection: normal respiratory effort, able to speak in complete sentences, normal respiratory pattern, no audible wheezes and no cough Cardio Jugular venous distension: no JVD GI Inspection: Yes normal to inspection Back/Spine/Pelvis Other: Tenderness on palpation on paraspinal spinal region lumbar spine. Significant tenderness on palpation in the projection of the lowest portion of the lumbar spine. SLR is positive for pain increase. Lassegue test is positive for pain increase. Reports numbness and tingling in the left lower extremity in the area of the foot. Neuro General: No confusion Cranial nerves: Yes Normal hearing present Psych Speech and movement: Normal speech and movement present Affect: normal affect Attitude: cooperative Thought process: Normal thought process present Quality Reporting (2019) Adult ([facility] 138//) Smoking risk assessment performed?: Yes Patient Tobacco Use Status: Former Tobacco user Results Reviewed Results Reviewed: MR LUMBAR SPINE WITHOUT CONTRAST 07/20/2024 CLINICAL INFORMATION: Lumbosacral radiculopathy. COMPARISON: Lumbar spine MRI from 06/30/2020. TECHNIQUE: MRI of the lumbar spine was obtained using routine sequences without contrast. FINDINGS: Minimal degenerative retrolisthesis of L3 on L4 and L5 on S1. Otherwise, normal anatomic alignment. Mild degenerative disc disease from L3-S1. Associated mixed Modic type discogenic endplate changes including Modic type I discogenic edema from L3-S1. No additional suspicious marrow edema. The vertebral body heights are largely maintained. The conus medullaris terminates at the level of L1-L2. The distal spinal cord is normal in appearance. Moderate subcutaneous edema within the posterior soft tissues of the back from L1-L5. No additional significant abnormalities of the paraspinal musculature. Limited evaluation of the intra-abdominal structures without significant abnormalities. The abdominal aorta is of normal contour and caliber. AXIAL SPINAL LEVELS: L1-L2: Normal annular contour. There is mild left and no right facet joint arthropathy. There is no neural foraminal stenosis. There is no spinal canal stenosis. L2-L3: Normal annular contour. There is mild bilateral facet joint arthropathy. There is no neural foraminal stenosis. There is no spinal canal stenosis. L3-L4: Mild diffuse disc bulge. There is mild bilateral facet joint arthropathy. There is mild left and no right neural foraminal stenosis. There is no spinal canal stenosis. L4-L5: Mild diffuse disc bulge. There is moderate bilateral facet joint arthropathy. There is mild bilateral neural foraminal stenosis. There is no spinal canal stenosis. L5-S1: Moderate diffuse disc bulge. There is moderate bilateral facet joint arthropathy. There is moderate right and mild left neural foraminal stenosis. There is no spinal canal stenosis. MR/MR lumbar spine wo con IMPRESSION: Mild to moderate multilevel degenerative spondyloarthropathy of the lumbar spine as described in detail above. Most notably, there are mild to moderate neural foraminal narrowings from L3-S1. No overt spinal canal stenosis. Overall, degenerative changes apparent mildly progressed compared to 2020. Assessment & Plan Assessment & Plan (1) Spondylosis of lumbosacral spine with radiculopathy: Code(s): M47.27 - Other spondylosis with radiculopathy, lumbosacral region Category: Medical (2) Spinal stenosis of lumbar region: Code(s): M48.061 - Spinal stenosis, lumbar region without neurogenic claudication Category: Medical (3) Primary osteoarthritis of left knee: Code(s): M17.12 - Unilateral primary osteoarthritis, left knee Category: Medical (4) Radiculopathy of cervical spine: Code(s): M54.12 - Radiculopathy, cervical region Category: Medical (5) Spondylosis of cervical spine with radiculopathy: Code(s): M47.22 - Other spondylosis with radiculopathy, cervical region Category: Medical (6) Left knee pain: Code(s): M25.562 - Pain in left knee Category: Medical (7) Plantar fasciitis of left foot: Code(s): M72.2 - Plantar fascial fibromatosis Category: Medical (8) Vertebrogenic low back pain: Code(s): M54.51 - Vertebrogenic low back pain Category: Medical Plan cervical injection C4-C5 C6 MBB on 07/21/2023. She reported excellent pain relief. She denies any pain as of now. She is in process of getting total knee replacement in September of 2024. She understands the need for physical therapy after total knee replacement. As of her lower back pain the MRI was read as above and demonstrated L3-L4 L5 and S1 vertebra genic changes Modic type 1. She complains on pain with prolonged sitting. Complains on pain with activities, she complains on pain with flexing forward. She wants me to schedule her for intercept procedure soon as possible to have it done before knee replacement surgery. As of her plantar fasciitis on the left I recommended her to acquire [employer] orthotics and continue to wear it 24/ inside and out Patient Instructions: I here by testify that I spent 32 minutes in conversation with this patient as well as evaluating her prior records and prior diagnostic studies current MRI studies planning her care and organizing this note. Coding Level of Care Code Est Pt Level 4 (48748) Diagnoses Spondylosis of lumbosacral spine with radiculopathy M47.27 Spinal stenosis of lumbar region M48.061 Primary osteoarthritis of left knee M17.12 Radiculopathy of cervical spine M54.12 Spondylosis of cervical spine with radiculopathy M47.22 Left knee pain M25.562 Plantar fasciitis of left foot M72.2 Vertebrogenic low back pain M54.51
[2024-08-16 09:49] VITALS: BP 122/72; PULSE 89; RESP 16; O2SAT 96; BMI 34.7
== END 2024-08-16 09:59 | disposition home or self-care (01) ==
PROVIDERS: PCP Internal Medicine; Visit Provider Anesthesiology
DX: M47.27 Other spondylosis with radiculopathy, lumbosacral region (principal); M48.061 Spinal stenosis, lumbar region without neurogenic claudication; M17.12 Unilateral primary osteoarthritis, left knee; M54.12 Radiculopathy, cervical region; M47.22 Other spondylosis with radiculopathy, cervical region; M25.562 Pain in left knee; M72.2 Plantar fascial fibromatosis; M54.51 Vertebrogenic low back pain
CPT/HCPCS: 99214

== ENCOUNTER → 2024-08-16 09:38 | Outpatient (BNVA) | payer OTHER, SELFPAY | PROVIDERS: PCP Internal Medicine; Visit Provider Anesthesiology | DX: M47.27 Other spondylosis with radiculopathy, lumbosacral region (principal); M48.061 Spinal stenosis, lumbar region without neurogenic claudication; M17.12 Unilateral primary osteoarthritis, left knee; M54.12 Radiculopathy, cervical region; M47.22 Other spondylosis with radiculopathy, cervical region; M25.562 Pain in left knee; M72.2 Plantar fascial fibromatosis; M54.51 Vertebrogenic low back pain | CPT/HCPCS: 99212 ==

== ENCOUNTER 2024-09-21 09:41 | Day surgery (SDC) | payer OTHER, SELFPAY ==
--- NOTE | 2024-09-20 11:04 | P.CONAN_ITS ---
Documented by User: Annemarie Anaya NP 09/20/24 11:05 HPI - Anesthesia Eval Consult details Narrative: 53yo F for L3, L4, L5 and S1 Basivertebral Nerve Ablation (Intracept RFA) s/p colo 03/2024 with TIVA Chronic opioids PMFSH Active Problems Active Problems: All Active Problems Vertebrogenic low back pain (Acute) Opiate dependence (Acute) Arthritis of right knee (Acute) Spinal stenosis of lumbar region (Acute) Obesity (BMI 35.0-39.9 without comorbidity) (Acute) Allergic rhinitis (Acute) Physical exam (Acute) Left foot pain (Acute) Family history of colon cancer (Acute) Otalgia of both ears (Acute) Primary osteoarthritis of left knee (Acute) Postlaminectomy syndrome, cervical (Acute) Spondylosis without myelopathy or radiculopathy, cervical region (Acute) Radiculopathy of cervical spine (Acute) Acute meniscal tear of left knee (Acute) Trochanteric bursitis of left hip (Acute) Osteoarthritis of left knee (Acute) Mild recurrent major depression (Acute) Numbness of left hand (Acute) Arthritis of left knee (Acute) Left knee pain (Acute) BMI 34.0-34.9,adult (Acute) Well woman exam (Acute) Osteoarthritis of left hip (Acute) Arthropathy of knee (Acute) Fracture of metacarpal base of left hand, closed (Acute) Foot pain, right (Acute) Plantar fasciitis of left foot (Acute) Anemia (Chronic) Fibromyalgia (Acute) GERD (gastroesophageal reflux disease) (Acute) Asthma (Acute) BMI 35.0-35.9,adult (Acute) Obesity (BMI 30-39.9) (Acute) Essential hypertension (Acute) Daytime sleepiness (Acute) Shortness of breath (Acute) Obese (Acute) Acute traumatic internal derangement of left knee (Acute) Insomnia (Acute) Sinusitis (Acute) Anxiety (Acute) Migraine (Acute) Postlaminectomy syndrome of cervical region (Acute) Spondylosis of cervical spine with radiculopathy (Acute) Spondylosis of lumbosacral spine with radiculopathy (Acute) Past Medical History Medical History Osteoarthritis of left hip Sacroiliitis Infective arthritis of left knee Arthropathy of knee Fracture of metacarpal base of left hand, closed Foot pain, right Plantar fasciitis of left foot Anemia Fibromyalgia GERD (gastroesophageal reflux disease) Asthma BMI 35.0-35.9,adult Obesity (BMI 30-39.9) Daytime sleepiness Shortness of breath Obese Acute traumatic internal derangement of left knee Insomnia Essential hypertension Sinusitis Anxiety Migraine Postlaminectomy syndrome of cervical region 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 Brother No problems noted. Son No problems noted. Son No problems noted. Son No problems noted. Son No problems noted. Family history of problems with anesthesia: No Surgical History Surgical History Hx of arthroscopy of left knee History of surgery History of esophagogastroduodenoscopy (EGD) H/O colonoscopy Hx of breast reduction, elective History of carpal tunnel release History of neck surgery History of tubal ligation S/P JUSTYN-BSO (total abdominal hysterectomy and bilateral salpingo-oophorectomy) H/O medial meniscus repair of right knee History of Problems with Anesthesia: No Social History Social History (Updated 04/26/24 @ 10:17 by Deirdre Morel MD) Household Members: Significant Other and Family Housing: House Are you a primary hospice care consultant to a significant other at home: No Do you presently have visiting nurse or other home services: No Alcohol intake: current Alcohol intake frequency: holidays/special occasions only Alcohol type: hard liquor Patient Tobacco Use Status: Former Tobacco user Tobacco use type: Cigarette Years Smoked: 9 e-Cigarette/Vaping Use: Never Used Second Hand Smoke Exposure: No service: No Current occupational status: employed Current occupational exposures/hazards: No Cognitive needs: No Hearing needs: No Vision needs: No Meds Allergies Allergy/AdvReac Type Severity Reaction Status Date / Time fluoxetine [From PROZAC] Allergy Severe OVER Verified 10/01/24 11:37 SEDATION gabapentin [GABAPENTIN] Allergy Intermediate NAUSEA,DIZZINESS, Verified 10/01/24 11:37 dizziness hydromorphone [HYDROMORPHONE] Allergy Intermediate NAUSEA/PALPITATIONS, Verified 10/01/24 11:37 vomiting latex [LATEX] Allergy Intermediate RASH Verified 10/01/24 11:37 Penicillins [PENICILLINS] Allergy Intermediate RASH Verified 10/01/24 11:37 Home Medications ?Medication ?Instructions ?Recorded ?Confirmed ?Last Taken ?Type bupropion HCl 150 mg 24 hr tablet, 150 mg PO QAM 08/14/20 09/21/24 09/21/24 History extended release buspirone 15 mg tablet 30 mg PO BID 08/14/20 09/21/24 09/21/24 History lamotrigine 25 mg tablet 50 mg PO DAILY 08/14/20 09/21/24 09/21/24 History Assessment and Plan Assessment Anesthesia Assessment: Chart Reviewed Final Anesthetic Review Family History of Problems with Anesthesia: No History of Problems with Anesthesia: No Documented by User: Shun Reese MD 10/03/24 17:02 [facility] Past Medical History Medical History Osteoarthritis of left hip Sacroiliitis Infective arthritis of left knee Arthropathy of knee Fracture of metacarpal base of left hand, closed Foot pain, right Plantar fasciitis of left foot Anemia Fibromyalgia GERD (gastroesophageal reflux disease) Asthma BMI 35.0-35.9,adult Obesity (BMI 30-39.9) Daytime sleepiness Shortness of breath Obese Acute traumatic internal derangement of left knee Insomnia Essential hypertension Sinusitis Anxiety Migraine Postlaminectomy syndrome of cervical region 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 Brother No problems noted. Son No problems noted. Son No problems noted. Son No problems noted. Son No problems noted. Surgical History Surgical History Hx of arthroscopy of left knee History of surgery History of esophagogastroduodenoscopy (EGD) H/O colonoscopy Hx of breast reduction, elective History of carpal tunnel release History of neck surgery History of tubal ligation S/P JUSTYN-BSO (total abdominal hysterectomy and bilateral salpingo-oophorectomy) H/O medial meniscus repair of right knee Social History Social History (Updated 04/26/24 @ 10:17 by Deirdre Morel MD) Household Members: Significant Other and Family Housing: House Are you a primary hospice care consultant to a significant other at home: No Do you presently have visiting nurse or other home services: No Alcohol intake: current Alcohol intake frequency: holidays/special occasions only Alcohol type: hard liquor Patient Tobacco Use Status: Former Tobacco user Tobacco use type: Cigarette Years Smoked: 9 e-Cigarette/Vaping Use: Never Used Second Hand Smoke Exposure: No service: No Current occupational status: employed Current occupational exposures/hazards: No Cognitive needs: No Hearing needs: No Vision needs: No Meds Allergies Allergy/AdvReac Type Severity Reaction Status Date / Time fluoxetine [From PROZAC] Allergy Severe OVER Verified 10/01/24 11:37 SEDATION gabapentin [GABAPENTIN] Allergy Intermediate NAUSEA,DIZZINESS, Verified 10/01/24 11:37 dizziness hydromorphone [HYDROMORPHONE] Allergy Intermediate NAUSEA/PALPITATIONS, Verified 10/01/24 11:37 vomiting latex [LATEX] Allergy Intermediate RASH Verified 10/01/24 11:37 Penicillins [PENICILLINS] Allergy Intermediate RASH Verified 10/01/24 11:37 Home Medications ?Medication ?Instructions ?Recorded ?Confirmed ?Last Taken ?Type bupropion HCl 150 mg 24 hr tablet, 150 mg PO QAM 08/14/20 09/21/24 09/21/24 History extended release buspirone 15 mg tablet 30 mg PO BID 08/14/20 09/21/24 09/21/24 History lamotrigine 25 mg tablet 50 mg PO DAILY 08/14/20 09/21/24 09/21/24 History Exam Airway Mallampati Class: II TM Dist: <=3cm Neck ROM: Full Heart: ok Lungs: ok Assessment and Plan Assessment Anesthesia Assessment: Anesthesia Plan Discussed Final Anesthetic Review NPO: Yes ASA Class: III Final Preanesthetic Review: No Changes in Pt Med Stat, Meds/Allgs Chart Reviewed, Consent Obtained/Reviewed and Anes Risks/Benef Reviewed Patient Risk: Intermediate Procedure Risk: Intermediate Anesthetic Plan Anesthetic Plan: GA and Agree w/ Assess. and Plan Disposition: Standard PACU
[2024-09-21] VITALS (8 sets, daily range): BP systolic 98–129; BP diastolic 53–75; PULSE 60–77; RESP 15–16; TEMP 36.1–36.6; O2SAT 91–99; BMI 34.5
[2024-09-21] MEDS: Lactated Ringers 1,000 ML 100 ML IVCONT (10:54)
[2024-09-21] MEDS: dexAMETHasone sod phosphate 4 MG/ML VIAL IVPUSH (10:54)
--- NOTE | 2024-09-21 11:20 | MHC.SHP ---
Pre-Procedural Eval Section A - 24 Hr Update-Section A only Date of Service: 09/21/24 The patient is an INPATIENT: No Changes since office visit: Yes Patient answered all questions The patient has been examined within 24 hours of the surgical procedure. The History & Physical has been completed within 30 days and I have reviewed it.: No Section B - Complete if H&P > 30 days Chief Complaint: Vertebrogenic low back pain Details of Present Illness: as above Relevant Family History (Specify if Yes): No Relevant Social History: None Present Medications: None Medical History: No relevant PMH History of Previous Operations: No relevant previous surgery Allergies: Allergies Allergy/AdvReac Type Severity Reaction Status Date / Time fluoxetine [From PROZAC] Allergy Severe OVER Verified 09/21/24 10:09 SEDATION gabapentin [GABAPENTIN] Allergy Intermediate NAUSEA,DIZZINESS, Verified 09/21/24 10:09 dizziness hydromorphone [HYDROMORPHONE] Allergy Intermediate NAUSEA/PALPITATIONS, Verified 09/21/24 10:09 vomiting latex [LATEX] Allergy Intermediate RASH Verified 09/21/24 10:09 Penicillins [PENICILLINS] Allergy Intermediate RASH Verified 09/21/24 10:09 Review of Systems Sugical H&P ROS: Negative: Constitution, Cardiovascular, Respiratory, Neurological, Psychiatric, Hem-Onc, Allergic/Immunologic, Gastrointestinal, Genitourinary, Musculoskeletal, Integumentary, Endocrine and Eyes/Ears/Nose/Throat Exam Surgical H&P Exam: Normal: HEENT, Normal: Heart, Normal: Lungs, Normal: Extremities, Normal: Abdomen, Normal: Skin and Normal: Neurological Plan Diagnosis/Plan: Unchanged I have reviewed the history and physical and performed a pertinent physical examination on my patient. No changes have occurred unless specified. Time Spent With Patient Time: Total time managing care of this patient today ____ minutes.
--- NOTE | 2024-09-21 13:42 | PM.OP ---
Brief Operative Note Date of Service: 09/21/24 Pre-op diagnosis: Vertebra genic pain syndrome Post-op diagnosis: same Procedure: basivertebral nerve radiofrequency ablation L4, L5, S1. Surgeon: Jaime Mccartney MD Was an Hospital Product Specialist used for this Procedure?: No Estimated blood loss (mL): 18 Condition: stable Disposition: PACU
[2024-09-21] MEDS: fentaNYL citrate/PF 100 MCG/2 ML VIAL IVPUSH (13:45)
--- NOTE | 2024-09-21 13:45 | P.OP_ITS ---
Operative Note Operative Note Date of Service: 09/21/24 Narrative: Basivertebral nerve (BVN) ablation? Intracept Procedure S1, L5 Procedure Time Out: Selina is very pleasant 53 years old female who came today to the operating room to receive basivertebral nerve radiofrequency ablation L4,L5 and S1. The informed consent was obtained risks and benefits were explained as bleeding , infection, peripheral nerve damage, spinal cord damage, headache, failure to eliminate the pain..? The benefits are pain relief, the alternatives are physical therapy, medications, injections. She received cefazolin 2 g intravenously 30 minutes before onset of the procedure as well as dexamethasone 10 mg intravenously push. The patient came to the operating room and positioned supine on the stretcher. ASA monitors were applied and patient was induced with general LMAanesthesia. The patient was transferred on the operating table prone, all pressure points were protected. The entire back was sterilely prepped with ChloraPrep twice and draped with erik rile self adhesive utility towels and covered with full body drape. Sterilely draped C-arm was brought over the operating field. Time-out was performed delineating name and date of of the patient, allergies, need for DVT prophylaxis, probiotics prophylaxis, risk of fire. 2 sterilely draped C-arm were adjusted around the operating field, One C-arm positioned in stable lateral position, and another C-armwas rotated to a Stock view to square off the superior endplate at S1. The skin entry point was identified As 7 cm to the left from the S1 left pedicle and infiltrated with mixture of 2% lidocaine with ropivacaine 0.5% 1 to 1 4 cc. A small horizontal 5 mm skin incision was made with 11 scalpel blade. The introducer cannula with bevel tip was then introduced through the skin, subcutaneous tissue and paraspinal muscle until bony contact was made. The position was checked in the AP and lateral plane. Using a mallet, the trocar was then advanced through the pedicle to the posterior aspect of the vertebral body using a combination of AP , oblique and lateral views to ensure appropriate traversing of the left pedicle and no breaching of the pedicle medially. Once the trocar was in the posterior aspect of the S1 vertebral body, the trocar was removed from the cannula and the curved cannula assembly with the nitinol J-stylet was inserted. The spin wheel was rotated counterclockwise permitting excursion of the J- stylet. The curved cannula assembly was then advanced using a mallet in 1-2 mm increments. The J-stylet was observed to traverse the vertebral body in the midl ine in both the AP and lateral views. The J-stylet was removed and replaced with the straight stylet to reach the BVN target. Target was reached when the tip of the stylet was noted to be approximately 55 % anterior of the posterior wall of the S1 in the lateral view, 50 % inferior from the superior endplate and it crossed the midline of the S1 spinous process in the AP view. The stylet was then removed. The bipolar radiofrequency (RF) probe was ?inserted into the introducer cannula. The spin wheel was rotated clockwise to retract the PEEK sleeve to expose the proximal electrode on the radiofrequency probe. The BVN was then ablated using [employer]?s standard RFG algorithm for 15 minutes. because the position of the bipolar radiofrequency probe was little bit more anterior the decision was made to repeat the radiofrequency ablation from the right side. on the right side position of the stylette was more appropriate with 40% anterior to posterior wall of the S1 on the lateral view and 50% inferior from superior endplate Cammie cross the midline of the S1 spinous process on AP view. The procedure on this side was performed using relevant standard RFA algorithm for 7 minutes. After the C-arm was moved to visualize the target at the superolateral aspect of the L5 vertebral body. The C-arm was rotated to square off the superior endplate at L5 . The superolateral right L5 pedicle was identified, and the skin entry point identified and infiltrated with mixture of 2% lidocaine with ropivacaine 0.5% one to one using a 25- gauge 1-1/2 inch needle. A skin incision was made with 11 blade scalpel5 mm. The introducer cannula with bevel tip was then introduced through the skin, subcutaneous tissue and paraspinal muscle until bony contact was made In retropatellar L5 position on the right. The position was checked in the AP and lateral plane. Using a mallet, the trocar was then advanced through the pedicle to the posterior aspect of the vertebral body using a combination of AP, and lateral views to ensure appropriate traversing of the pedicle and no breaching of the pedicle medially or inferiorly. Once the trocar was in the posterior aspect of the L5 vertebral body the trocar was removed from the cannula and the curved cannula assembly with the nitinol J-stylet was inserted. The spin wheel was rotated counterclockwise permitting excursion of the J-stylet. The curved cannula assembly was then advanced using a mallet in 1-2 mm increments. The J-stylet was observed to traverse the vertebral body in the AP and lateral views. Target was reached when the tip of the stylet was 40 % anterior of the posterior wall of the L5 in the lateral view (midway between the superior and inferior endplates) and it crossed the midline of the L5 spinous process in the AP view. The stylet was then removed. The bipolar radiofrequency (RF) probe was removed from the previous vertebral body, the tip cleaned and was inserted into the introducer cannula in its ablation position. The spin wheel was rotated clockwise to retract the PEEK sleeve to expose the proximal electrode on the radiofrequency probe. The BVN was then ablated using [employer]?s standard RFG algorithm for 15 minutes.? After the C-arm was moved to visualize the target at the superolateral aspect of the L4 vertebral body. The C-arm was rotated to square off the superior endplate at L4 . The superolateral left L4 pedicle was identified, and the skin entry point identified and infiltrated with mixture of 2% lidocaine with ropivacaine 0.5% one to one using a 25- gauge 1-1/2 inch needle. A skin incisi on was made with 11 blade scalpel5 mm. The introducer cannula with bevel tip was then introduced through the skin, subcutaneous tissue and paraspinal muscle until bony contact was made In retropatellar L4 position on the right. The position was checked in the AP and lateral plane. Using a mallet, the trocar was then advanced through the pedicle to the posterior aspect of the vertebral body using a combination of AP, and lateral views to ensure appropriate traversing of the pedicle and no breaching of the pedicle medially or inferiorly. Once the trocar was in the posterior aspect of the L5 vertebral body the trocar was removed from the cannula and the curved cannula assembly with the nitinol J- stylet was inserted. The spin wheel was rotated counterclockwise permitting excursion of the J-stylet. The curved cannula assembly was then advanced using a mallet in 1-2 mm increments. The J-stylet was observed to traverse the vertebral body in the AP and lateral views. Target was reached when the tip of the stylet was 40 % anterior of the posterior wall of the L4 in the lateral view (midway between the superior and inferior endplates) and it crossed the midline of the L4 spinous process in the AP view. The stylet was then removed. The bipolar radiofrequency (RF) probe was removed from the previous vertebral body, the tip cleaned and was inserted into the introducer cannula in its ablation position. The spin wheel was rotated clockwise to retract the PEEK sleeve to expose the proximal electrode on the radiofrequency probe. The BVN was then ablated using [employer]?s standard RFG algorithm for 15 minutes.? Upon completion of the procedure instruments were removed EN mass. Pressure was applied to each site of the insertion of the introducer and held for 90 seconds. After that single skin sutures was performed to close the wound with 0-0 silk suture. Bacitracin ointment was applied and sterile dressing was applied. The patient was awaken, extubated, taken outside of the operating room to recovery room where she recovered uneventfully
[2024-09-21] MEDS: HYDROmorphone HCl 1 MG/ML SYRINGE IVPUSH (13:50)
== END 2024-09-21 15:29 | disposition home or self-care (01) ==
PROVIDERS: PCP Internal Medicine; Visit Provider Anesthesiology
PROC: (CPT 64628; principal; 2024-09-21 11:00)
DX: M54.51 Vertebrogenic low back pain (principal); M47.27 Other spondylosis with radiculopathy, lumbosacral region; M48.061 Spinal stenosis, lumbar region without neurogenic claudication; M46.1 Sacroiliitis, not elsewhere classified; M96.1 Postlaminectomy syndrome, not elsewhere classified; M72.2 Plantar fascial fibromatosis; M17.12 Unilateral primary osteoarthritis, left knee; M25.562 Pain in left knee; M79.7 Fibromyalgia; J45.909 Unspecified asthma, uncomplicated; I10 Essential (primary) hypertension; D64.9 Anemia, unspecified; E66.9 Obesity, unspecified; Z68.34 Body mass index [BMI] 34.0-34.9, adult; Z79.899 Other long term (current) drug therapy; Z88.0 Allergy status to penicillin; Z88.8 Allergy status to other drugs, medicaments and biological substances; Z91.040 Latex allergy status; Z98.890 Other specified postprocedural states; Z87.891 Personal history of nicotine dependence
CPT/HCPCS: 64628; 64629; C1889; J0736; J1100; J1171; J2003; J2250; J2704; J2795; J3010

== ENCOUNTER → 2024-09-21 09:41 | Outpatient (BNV) | payer OTHER, SELFPAY | PROVIDERS: PCP Internal Medicine; Visit Provider Anesthesiology | DX: M54.51 Vertebrogenic low back pain (principal) | CPT/HCPCS: 64628 ==

== ENCOUNTER 2024-10-01 11:16 | Outpatient (AMB) | payer OTHER, SELFPAY ==
--- NOTE | 2024-10-01 11:23 | MHC.OFFVIS ---
Vital Signs 10/01/24 11:36 Height 5 ft 4 in Weight 200 lb 4 oz BMI 34.4 BP 134/84 Blood Pressure Location Rt brachial Position Sitting Respiration 16 Pulse 95 Pulse Source Pulse Oximeter Pulse Oximetry (%) 96 Oxygen Delivery Method Room Air Intake Visit Reasons: S/p L3,L4,L5 and S1 BVN 09/21/24 Intake Note: Patient comes in for post-op. Reports pain 2-3. Allergies fluoxetine [From PROZAC] Allergy (Severe, Verified 10/01/24 11:37) OVER SEDATION gabapentin [GABAPENTIN] Allergy (Intermediate, Verified 10/01/24 11:37) NAUSEA,DIZZINESS, dizziness hydromorphone [HYDROMORPHONE] Allergy (Intermediate, Verified 10/01/24 11:37) NAUSEA/PALPITATIONS, vomiting latex [LATEX] Allergy (Intermediate, Verified 10/01/24 11:37) RASH Penicillins [PENICILLINS] Allergy (Intermediate, Verified 10/01/24 11:37) RASH HPI Comments Details: Selina is back in my office after intracept RFA procedure.. She reports mild tension on the right lower back and loin. She reports that she completed treatment with Medrol pack. Most likely this minor pain is secondary to irritation of the soft tissues after passing in and out the cannulas to perform the procedure. She reports that her regular pain is no longer bothering her it is gone. She reports very good mobility good activities of daily living and good social interaction. She is going to have total hip replacement. I will schedule her for stitches removal on 10/04/2024. The wounds examined today: There is no redness, no pathological discharge, no swelling, no tenderness on palpation. She is doing very well. The sterile dry dressing was applied. Spenco orthotics was offered in the past for plantar fasciitis. 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 Brother No problems noted. Son No problems noted. Son No problems noted. Son No problems noted. Son No problems noted. Social History (Updated 04/26/24 @ 10:17 by Deirdre Morel MD) Household Members: Significant Other and Family Housing: House Are you a primary acute care certified nursing assistant to a significant other at home: No Do you presently have visiting nurse or other home services: No Alcohol intake: current Alcohol intake frequency: holidays/special occasions only Alcohol type: hard liquor Patient Tobacco Use Status: Former Tobacco user Tobacco use type: Cigarette Years Smoked: 9 e-Cigarette/Vaping Use: Never Used Second Hand Smoke Exposure: No service: No Current occupational status: employed Current occupational exposures/hazards: No Cognitive needs: No Hearing needs: No Vision needs: No Female Reproductive History Menstrual Age of Menarche: 12 Review of Systems Const All systems reviewed & are unremarkable except as noted in HPI and below ENT Reports Normal hearing present Neuro Reports Normal hearing present and Denies confusion Psych Denies confusion Physical Exam Vital Signs: Last Vital Signs Pulse 95 10/01/24 11:36 Resp 16 10/01/24 11:36 BP 134/84 10/01/24 11:36 Pulse Ox 96 10/01/24 11:36 Oxygen Delivery Method Room Air 10/01/24 11:36 BMI result Body Mass Index 34.4 Const General: No confusion Orientation/consciousness: No confusion Neck Other: Reports radiation of the pain from the upper cervical spine all the way to the neck upper shoulder lower shoulder right arm right forearm and 3 right middle fingers. Both Phalen and reverse Phalen tests aggravate her pain. Therefore I would not think it is medial nerve entrapment. Neck: Yes normal visual inspection and Yes full ROM ( Limited ROM in the neck reports cracking sounds with neck movements) Resp Effort & Inspection: normal respiratory effort, able to speak in complete sentences, normal respiratory pattern, no audible wheezes and no cough Cardio Jugular venous distension: no JVD GI Inspection: Yes normal to inspection Back/Spine/Pelvis Other: Tenderness on palpation on paraspinal spinal region lumbar spine. Significant tenderness on palpation in the projection of the lowest portion of the lumbar spine. SLR is positive for pain increase. Lassegue test is positive for pain increase. Reports numbness and tingling in the left lower extremity in the area of the foot. Neuro General: No confusion Cranial nerves: Yes Normal hearing present Psych Speech and movement: Normal speech and movement present Affect: normal affect Attitude: cooperative Thought process: Normal thought process present Quality Reporting (2019) Adult ([facility] 138/12/22/68) Smoking risk assessment performed?: Yes Patient Tobacco Use Status: Former Tobacco user Assessment & Plan Assessment & Plan (1) Spondylosis of lumbosacral spine with radiculopathy: Code(s): M47.27 - Other spondylosis with radiculopathy, lumbosacral region Category: Medical (2) Spinal stenosis of lumbar region: Code(s): M48.061 - Spinal stenosis, lumbar region without neurogenic claudication Category: Medical (3) Primary osteoarthritis of left knee: Code(s): M17.12 - Unilateral primary osteoarthritis, left knee Category: Medical (4) Radiculopathy of cervical spine: Code(s): M54.12 - Radiculopathy, cervical region Category: Medical (5) Spondylosis of cervical spine with radiculopathy: Code(s): M47.22 - Other spondylosis with radiculopathy, cervical region Category: Medical (6) Left knee pain: Code(s): M25.562 - Pain in left knee Category: Medical (7) Plantar fasciitis of left foot: Code(s): M72.2 - Plantar fascial fibromatosis Category: Medical (8) Vertebrogenic low back pain: Code(s): M54.51 - Vertebrogenic low back pain Category: Medical Plan Intercept RFA L4-5 and S1 was performed 1 week ago. The patient reported very good results. No more lower back pain as it was before. Minor discomfort in the right loin is probably secondary to the cannulas passages. I will remove her seth on 10/04/2024. In the past: cervical injection C4-C5 C6 MBB on 07/21/2023. She reported excellent pain relief. She denies any pain as of now. She is in process of getting total knee replacement in September of 2024. She understands the need for physical therapy after total knee replacement. Coding Level of Care Code Est Pt Level 3 (98859) Diagnoses Spondylosis of lumbosacral spine with radiculopathy M47.27 Spinal stenosis of lumbar region M48.061 Primary osteoarthritis of left knee M17.12 Radiculopathy of cervical spine M54.12 Spondylosis of cervical spine with radiculopathy M47.22 Left knee pain M25.562 Plantar fasciitis of left foot M72.2 Vertebrogenic low back pain M54.51
[2024-10-01 11:36] VITALS: BP 134/84; PULSE 95; RESP 16; O2SAT 96; BMI 34.4
== END 2024-10-01 12:09 | disposition home or self-care (01) ==
PROVIDERS: PCP Internal Medicine; Visit Provider Anesthesiology
DX: M47.27 Other spondylosis with radiculopathy, lumbosacral region (principal); M48.061 Spinal stenosis, lumbar region without neurogenic claudication; M17.12 Unilateral primary osteoarthritis, left knee; M47.22 Other spondylosis with radiculopathy, cervical region; M25.562 Pain in left knee; M72.2 Plantar fascial fibromatosis; M54.51 Vertebrogenic low back pain
CPT/HCPCS: 99024

== ENCOUNTER → 2024-10-01 11:16 | Outpatient (BNVA) | payer OTHER, SELFPAY | PROVIDERS: PCP Internal Medicine; Visit Provider Anesthesiology | DX: M47.27 Other spondylosis with radiculopathy, lumbosacral region (principal); M48.061 Spinal stenosis, lumbar region without neurogenic claudication; M17.12 Unilateral primary osteoarthritis, left knee; M47.22 Other spondylosis with radiculopathy, cervical region; M72.2 Plantar fascial fibromatosis; M54.51 Vertebrogenic low back pain | CPT/HCPCS: 99212 ==

== ENCOUNTER 2024-10-04 09:56 | Outpatient (AMB) | payer OTHER, SELFPAY ==
--- NOTE | 2024-10-04 09:57 | MHC.OFFVIS ---
Vital Signs 10/04/24 10:01 Height 5 ft 4 in Weight 201 lb 6 oz BMI 34.6 BP 137/78 Blood Pressure Location Lt brachial Position Sitting Pulse 97 Pulse Source Pulse Oximeter Pulse Oximetry (%) 98 Oxygen Delivery Method Room Air Intake Visit Reasons: Removal of Stitches Intake Note: Pain today 1/10 Director Of Graduate Medical Education Required: No Accompanied by: Self / Same As Patient Allergies fluoxetine [From PROZAC] Allergy (Severe, Verified 10/01/24 11:37) OVER SEDATION gabapentin [GABAPENTIN] Allergy (Intermediate, Verified 10/01/24 11:37) NAUSEA,DIZZINESS, dizziness hydromorphone [HYDROMORPHONE] Allergy (Intermediate, Verified 10/01/24 11:37) NAUSEA/PALPITATIONS, vomiting latex [LATEX] Allergy (Intermediate, Verified 10/01/24 11:37) RASH Penicillins [PENICILLINS] Allergy (Intermediate, Verified 10/01/24 11:37) RASH HPI Comments Details: Selina is back in my office after intracept BVN RFA procedure.. She reports pain level 1/10 very minimal today. The wound was examined today the area was prepped with ChloraPrep. Sutures #3 were removed today. The wounds are very well-healed. Minimal redness but no tenderness on palpation no swelling and no pathological discharge. Sterile dry dressing was applied. She is going for total knee replacement tomorrow. She reports very good mobility good activities of daily living and good social interaction. She is going to have total hip replacement. I will schedule her for stitches removal on 10/04/2024. The wounds examined today: There is no redness, no pathological discharge, no swelling, no tenderness on palpation. She is doing very well. The sterile dry dressing was applied. Spenco orthotics was offered in the past for plantar fasciitis. 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 Brother No problems noted. Son No problems noted. Son No problems noted. Son No problems noted. Son No problems noted. Social History (Updated 04/26/24 @ 10:17 by Deirdre Morel MD) Household Members: Significant Other and Family Housing: House Are you a primary intensive care nurse to a significant other at home: No Do you presently have visiting nurse or other home services: No Alcohol intake: current Alcohol intake frequency: holidays/special occasions only Alcohol type: hard liquor Patient Tobacco Use Status: Former Tobacco user Tobacco use type: Cigarette Years Smoked: 9 e-Cigarette/Vaping Use: Never Used Second Hand Smoke Exposure: No service: No Current occupational status: employed Current occupational exposures/hazards: No Cognitive needs: No Hearing needs: No Vision needs: No Female Reproductive History Menstrual Age of Menarche: 12 Review of Systems Const All systems reviewed & are unremarkable except as noted in HPI and below ENT Reports Normal hearing present Neuro Reports Normal hearing present and Denies confusion Psych Denies confusion Physical Exam Vital Signs: Last Vital Signs Pulse 97 10/04/24 10:01 BP 137/78 10/04/24 10:01 Pulse Ox 98 10/04/24 10:01 Oxygen Delivery Method Room Air 10/04/24 10:01 BMI result Body Mass Index 34.6 Const General: No confusion Orientation/consciousness: No confusion Neck Other: Reports radiation of the pain from the upper cervical spine all the way to the neck upper shoulder lower shoulder right arm right forearm and 3 right middle fingers. Both Phalen and reverse Phalen tests aggravate her pain. Therefore I would not think it is medial nerve entrapment. Neck: Yes normal visual inspection and Yes full ROM ( Limited ROM in the neck reports cracking sounds with neck movements) Resp Effort & Inspection: normal respiratory effort, able to speak in complete sentences, normal respiratory pattern, no audible wheezes and no cough Cardio Jugular venous distension: no JVD GI Inspection: Yes normal to inspection Back/Spine/Pelvis Other: Tenderness on palpation on paraspinal spinal region lumbar spine. Significant tenderness on palpation in the projection of the lowest portion of the lumbar spine. SLR is positive for pain increase. Lassegue test is positive for pain increase. Reports numbness and tingling in the left lower extremity in the area of the foot. Neuro General: No confusion Cranial nerves: Yes Normal hearing present Psych Speech and movement: Normal speech and movement present Affect: normal affect Attitude: cooperative Thought process: Normal thought process present Quality Reporting (2019) Adult ([facility] 138/12/22/68) Smoking risk assessment performed?: Yes Patient Tobacco Use Status: Former Tobacco user Assessment & Plan Assessment & Plan (1) Spondylosis of lumbosacral spine with radiculopathy: Code(s): M47.27 - Other spondylosis with radiculopathy, lumbosacral region Category: Medical (2) Spinal stenosis of lumbar region: Code(s): M48.061 - Spinal stenosis, lumbar region without neurogenic claudication Category: Medical (3) Primary osteoarthritis of left knee: Code(s): M17.12 - Unilateral primary osteoarthritis, left knee Category: Medical (4) Radiculopathy of cervical spine: Code(s): M54.12 - Radiculopathy, cervical region Category: Medical (5) Spondylosis of cervical spine with radiculopathy: Code(s): M47.22 - Other spondylosis with radiculopathy, cervical region Category: Medical (6) Left knee pain: Code(s): M25.562 - Pain in left knee Category: Medical (7) Plantar fasciitis of left foot: Code(s): M72.2 - Plantar fascial fibromatosis Category: Medical (8) Vertebrogenic low back pain: Code(s): M54.51 - Vertebrogenic low back pain Category: Medical Plan Intercept RFA L4-5 and S1 was performed on 09/28/2024 The patient reported very good results. No more lower back pain as it was before. Sutures removed today. In the past: cervical injection C4-C5 C6 MBB on 07/21/2023. She reported excellent pain relief. She denies any pain as of now. She is going for total knee replacement tomorrow 10/05/2024. The procedure is in the [facility].. She understands the need for physical therapy after total knee replacement. Coding Level of Care Code Est Pt Level 3 (60106) Diagnoses Spondylosis of lumbosacral spine with radiculopathy M47.27 Spinal stenosis of lumbar region M48.061 Primary osteoarthritis of left knee M17.12 Radiculopathy of cervical spine M54.12 Spondylosis of cervical spine with radiculopathy M47.22 Left knee pain M25.562 Plantar fasciitis of left foot M72.2 Vertebrogenic low back pain M54.51
[2024-10-04 10:01] VITALS: BP 137/78; PULSE 97; O2SAT 98; BMI 34.6
== END 2024-10-04 10:08 | disposition home or self-care (01) ==
PROVIDERS: PCP Internal Medicine; Visit Provider Anesthesiology
DX: M47.27 Other spondylosis with radiculopathy, lumbosacral region (principal); M48.061 Spinal stenosis, lumbar region without neurogenic claudication; M17.12 Unilateral primary osteoarthritis, left knee; M47.22 Other spondylosis with radiculopathy, cervical region; M25.562 Pain in left knee; M72.2 Plantar fascial fibromatosis; M54.51 Vertebrogenic low back pain
CPT/HCPCS: 99213

== ENCOUNTER → 2024-10-04 09:56 | Outpatient (BNVA) | payer OTHER, SELFPAY | PROVIDERS: PCP Internal Medicine; Visit Provider Anesthesiology | DX: Z48.02 Encounter for removal of sutures (principal); M47.27 Other spondylosis with radiculopathy, lumbosacral region; M48.061 Spinal stenosis, lumbar region without neurogenic claudication; M17.12 Unilateral primary osteoarthritis, left knee; M47.22 Other spondylosis with radiculopathy, cervical region; M25.562 Pain in left knee; M72.2 Plantar fascial fibromatosis; M54.51 Vertebrogenic low back pain; Z98.890 Other specified postprocedural states | CPT/HCPCS: 99212 ==

== ENCOUNTER 2024-11-15 11:35 | Outpatient (AMB) | payer OTHER, SELFPAY ==
--- NOTE | 2024-11-15 11:41 | A.OFFPC_ITS ---
Vital Signs 11/15/24 11:44 Height 5 ft 4 in Weight 206 lb 6 oz BMI 35.4 BP 130/70 Blood Pressure Location Lt brachial Position Sitting Pulse 96 Pulse Source Pulse Oximeter Temp 97.3 F Temp Source Temporal Artery Scan Pulse Oximetry (%) 97 Oxygen Delivery Method Room Air Intake Visit Reasons: annual exam Intake Note: Patient is here for follow-up after [place] [facility] [place] replacement on 10[place]13/24, currently experiencing hypoxia. Computer Language Coder Required: No Accompanied by: Self / Same As Patient Allergies fluoxetine [From PROZAC] Allergy (Severe, Verified 11/15/24 13:08) OVER SEDATION gabapentin [GABAPENTIN] Allergy (Intermediate, Verified 11/15/24 13:08) NAUSEA,DIZZINESS, dizziness hydromorphone [HYDROMORPHONE] Allergy (Intermediate, Verified 11/15/24 13:08) NAUSEA/PALPITATIONS, vomiting latex [LATEX] Allergy (Intermediate, Verified 11/15/24 13:08) RASH Penicillins [PENICILLINS] Allergy (Intermediate, Verified 11/15/24 13:08) RASH Medication List - Last Reconciled 11/15/24 by Juliet Shi PA-C albuterol sulfate 2.5 mg (3 mL) inhalation QID PRN 30 days albuterol sulfate 90 mcg/actuation 2 puffs inhalation Q6H PRN 30 days arm brace (Wrist Brace) As directed azithromycin 250 mg PO DAILY 5 days bupropion HCl XL 150 mg PO QAM buspirone 30 mg PO BID cetirizine (Allergy Relief (cetirizine)) 10 mg PO DAILY PRN 90 days diazepam 10 mg PO BID PRN 30 days hydrochlorothiazide 25 mg PO QAM iron,carbonyl-vitamin C 65 mg iron- 125 mg (Vitron-C) 1 tab PO DAILY lamotrigine 50 mg PO DAILY leg brace (Knee Brace Large-XLarge) As directed leg brace (BUNNY Ankle Brace) As directed methylprednisolone (Medrol (Arya)) 4 mg PO QAM 6 days montelukast 10 mg PO DAILY 90 days oxycodone 10 mg PO Q6H PRN 30 days pantoprazole 40 mg PO DAILY 90 days topiramate 50 mg PO DAILY 90 days triamcinolone acetonide 1 spray intranasal DAILY PRN 30 days Tobacco use date assessed: 11/14/23 Dental Screening Dental Screen Date: 11/14/23 HPI annual exam HPI Details 53-year-old female with a past medical h istory of osteoarthritis of left knee status post left total knee arthroplasty at [facility] in 09/2024, fibromyalgia, chronic back pain, chronic opioid use disorder she takes oxycodone for her chronic pain, GERD, obesity with BMI of 35, anxiety, depression, iron deficiency anemia, chronic sinusitis and asthma. She is presenting today due to shortness of breath since she has had her surgery and was admitted at [facility]. She reports this started after she had her surgery while still admitted at [facility] therefore they obtain labs and she was noted to be anemic with an H&H of 9.1 and 29.6 although they related that from recent blood loss from surgery that she had. Her BNP was 363. She is currently on hydrochlorothiazide 25 mg take daily taking as prescribed. They obtain a CT of her chest which was negative for PE. There was no evidence of pneumonia. They reported that it was most likely related to cold induced asthma and prescribed her albuterol inhaler. She reports she is utilizing the albuterol inhaler although she does not feel like it is related to asthma. She reports she did not have asthma as a child although she was around secondhand smoke. She reports that she was vaping over the past 2 years and recently stopped vaping before her knee surgery. She reports the shortness of breath is with any activity and upon exertion. She denies orthopnea, cough, sputum production, nasal congestion/rhinorrhea, chest pain, leg swelling, black or bloody stools or any other symptoms related to this. [facility] Medical History Osteoarthritis of left hip Sacroiliitis Infective arthritis of left knee Arthropathy of knee Fracture of metacarpal base of left hand, closed Foot pain, right Plantar fasciitis of left foot Anemia Fibromyalgia GERD (gastroesophageal reflux disease) Asthma BMI 35.0-35.9,adult Obesity (BMI 30-39.9) Daytime sleepiness Shortness of breath Obese Acute traumatic internal derangement of left knee Insomnia Essential hypertension Sinusitis Anxiety Migraine Postlaminectomy syndrome of cervical region 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 of lumbosacral spine with radiculopathy Surgical History Status post left knee replacement Hx of arthroscopy of left knee History of surgery History of esophagogastroduodenoscopy (EGD) H/O colonoscopy Hx of breast reduction, elective History of carpal tunnel release History of neck surgery History of tubal ligation S/P JUSTYN-BSO (total abdominal hysterectomy and bilateral salpingo-oophorectomy) H/O medial meniscus repair of right knee Family History Father Diabetes Hypertension Maternal Grandmother Cancer Maternal Grandfather Cancer Family/Other FH: mental illness Substance use disorder Mother Arthritis Asthma Brother No problems noted. Brother No problems noted. Son No problems noted. Son No problems noted. Son No problems noted. Son No problems noted. Social History Household Members: Significant Other and Family Housing: House Are you a primary gericare aide teacher to a significant other at home: No Do you presently have visiting nurse or other home services: No Alcohol intake: current Alcohol intake frequency: holidays/special occasions only Alcohol type: hard liquor Patient Tobacco Use Status: Former Tobacco user Tobacco use type: Cigarette Years Smoked: 9 e-Cigarette/Vaping Use: Never Used Second Hand Smoke Exposure: No service: No Current occupational status: employed Current occupational exposures/hazards: No Cognitive needs: No Hearing needs: No Vision needs: No Female Reproductive History Menstrual Age of Menarche: 12 Questionnaire Thrive Questionnaire Date Thrive assessed: 11/15/24 I am a: Patient What is your living situation today?: I have a steady place to live Within the past 12 months, did the food you bought not last and you didn't have the money to get more?: Never true Within the past 12 months, did you worry whether your food would run out before you got money to buy more?: Never true Do you have trouble paying for medicines?: No Do you have trouble getting transportation to medical appointments?: No Do you have trouble paying your heating and electricity bill?: No Do you have trouble taking care of your child, family member or friend?: No Do you have trouble with day-to-day activities such as bathing, preparing meals, shopping, managing finances, etc.?: No Are you currently unemployed and looking for a job?: No Are you interested in more education?: No Please select the resources that you would like help with: None Currently or been in a relationship where the following occur: No concerns reported THRIVE Score: 0 AUDIT C Alcohol Use Questionnaire (AUDIT-C) 1. How often do you have a drink containing alcohol?: Monthly or less 2. How many drinks containing alcohol do you have on a typical day when you are drinking?: 1 or 2 3. How often do you have six or more drinks on one occasion?: Never Total Score: 1 Score Reviewed/Action Taken: No GORAN-7 AMB Questionnaire GORAN-7 Date GORAN - 7 assessed: 11/15/24 Feeling nervous, anxious, or on edge: 0 = Not at all Not being able to stop or control worryin = Not at all Worrying too much about different things: 0 = Not at all Trouble relaxin = Not at all Being so restless that it is hard to sit still: 0 = Not at all Becoming easily annoyed or irritable: 0 = Not at all Feeling afraid as if something awful might happen: 0 = Not at all Total GORAN-7 score (0-4 normal; 5-9 mild; 10-14 moderate; 15-21 severe): 0 Source: Developed by Drs. Godfrey Varghese, Kaci Lang, Eduardo Jones and colleagues, with an educational araseli from [employer]. GORAN-7 Assessment Billing GORAN-7 Assessment Tool: GORAN-7 Assessment 89044 Review of Systems Const All systems reviewed & are unremarkable except as noted in HPI and below Physical exam (Primary Care) Vital Signs: Last Vital Signs Temp 97.3 F 11/15/24 11:44 Pulse 96 11/15/24 11:44 BP 130/70 11/15/24 11:44 Pulse Ox 97 11/15/24 11:44 Oxygen Delivery Method Room Air 11/15/24 11:44 Care Plan Goal for BP management: Blood pressure 130/70 at go patient currently on hydrochlorothiazide 25 mg taking as prescribed will continue this regimen. BMI result Body Mass Index 35.4 BMI Assessment/Plan discussion: High BMI High, discussed plan: lifestyle, weight reduction, dietary, physical activity, alcohol moderation and other Tobacco/Smoking Status: Tobacco use Status Tobacco use date assessed 11/14/23 11/15/24 11:42 Patient Tobacco Use Status Former Tobacco user 11/15/24 11:42 Tobacco use type Cigarette 11/15/24 11:42 e-Cigarette/Vaping Use Never Used 11/15/24 11:42 Thrive Assessment: Date of Thrive Assessment Date Thrive assessed 11/15/24 11/15/24 11:43 Currently or been in a relationship where the following occur: No concerns reported Results Reviewed Results Reviewed: 10/11/24 CTA performed at [facility] on 10/12/2024 revealed no evidence of pulmonary embolism. Generalized low lung volumes with mild dependent atelectasis. No evidence of pneumonia or congestive failure. Labs from [facility] records: 10/11/2024 Hemoglobin and hematocrit 8.7/28.0. Patient had a negative PCR panel. Patient's BNP was 363. Coding Level of Care Code Est Pt Level 4 (64748) Complex EM visit Add On G2211 Diagnoses Shortness of breath R06.02 Asthma J45.909 Vapes nicotine containing substance Z72.0 Uncomplicated opioid dependence F11.20 Substance use status: uncomplicated Obesity (BMI 35.0-39.9 without comorbidity) E66.9 Mild recurrent major depression F33.0 Essential hypertension I10 Additional Codes GORAN-7 Assessment Billing - GORAN-7 Assessment Tool: GORAN-7 Assessment 08602 ([id number]) Assessment & Plan Assessment & Plan (1) Shortness of breath: Code(s): R06.02 - Shortness of breath Category: Medical Plan: On exam patient has oxygen 97% on room air. Not in any acute respiratory distress. No wheezes rales or rhonchi noted. No evidence of pneumonia or acute respiratory failure. Will obtain basic outpatient labs which include CBC, CMP and BNP along with a chest x-ray. Patient instructed to stay away from any secondhand smoke and vaping. Referral to pulmonology ordered at this time for further asthma management. (2) Asthma: Code(s): J45.909 - Unspecified asthma, uncomplicated Category: Medical Plan: see above (3) Vapes nicotine containing substance: Code(s): Z72.0 - Tobacco use Category: Social Hx Plan: It was discussed with patient that vaping could be making her symptoms worse she reports she has not vaped since before her surgery. Will continue to monitor. (4) Opiate dependence: Code(s): F11.20 - Opioid dependence, uncomplicated Category: Medical Qualifiers: Substance use status: uncomplicated Qualified Code(s): F11.20 - Opioid dependence, uncomplicated Plan: Patient on oxycodone taking as prescribed for chronic pain. Condition is chronic and stable will continue to monitor. (5) Obesity (BMI 35.0-39.9 without comorbidity): Code(s): E66.9 - Obesity, unspecified Category: Medical Plan: Patient instructed to continue walking for exercise and better diet. Condition is chronic and stable will continue to monitor. (6) Mild recurrent major depression: Code(s): F33.0 - Major depressive disorder, recurrent, mild Category: Medical Plan: Patient currently on bupropion taking as prescribed. Condition is chronic and stable continue to monitor. (7) Essential hypertension: Code(s): I10 - Essential (primary) hypertension Category: Medical Plan: Patient currently on hydrochlorothiazide 25 mg daily taking as prescribed. Blood pressure at goal today. Condition is chronic and staple will continue to monitor. Plan 1. Outpatient CMP, CBC, BNP and chest x-ray ordered to evaluate for possible anemia, CHF or pneumonia causing the patient's shortness of breath. 2. Patient with history of asthma although reports she has never had asthma in the past. If labs and imaging above are negative referral for pulmonology place. 3. Patient to return in 1-2 weeks for follow-up on labs and imaging. Orders: Orders Complete Blood Count Auto Diff Today R06.02 - Shortness of breath Comprehensive Dierks. Panel Fast Today R06.02 - Shortness of breath B Type Natriuretic Peptide Today R06.02 - Shortness of breath XR chest 2V Today R06.02 - Shortness of breath Referrals Pulmonology Referral J45.909 - Unspecified asthma, uncomplicated, R06.02 - Shortness of breath, Z72.0 - Tobacco use Patient Instructions: 1. Outpatient CMP, CBC, BNP and chest x-ray ordered to evaluate for possible anemia, CHF or pneumonia causing the patient's shortness of breath. 2. Patient with history of asthma although reports she has never had asthma in the past. If labs and imaging above are negative referral for pulmonology place. 3. Patient to return in 1-2 weeks for follow-up on labs and imaging.
[2024-11-15 11:44] VITALS: BP 130/70; PULSE 96; TEMP 36.3; O2SAT 97; BMI 35.4
--- OUTSIDE RECORDS SUMMARY | 2024-11-15 14:40 | XMS_ITS | Continuity of Care Document ---
Author Organization [facility] ter Address [address] [place] [address]- Care Team Providers Care Creel Clerk Name Role Phone Krzysztof Morel MD, Deirdre Sears Primary Care Physician [phone] Encounter [facility] Date(s): 09/17/24 - 10/17/[address] [address]- Attending Physician: Admtr, [id number] Admitting Physician: Admtr, Dayanara Referring Physician: Admtr, [id number] Encounter Type: Triage Allergies, Adverse Reactions, Alerts Substance Criticality Severity Reaction Reaction Severity Status penicillin hives Active gabapentin Active Dilaudid Vomitting nausea Active Adhesive Bandage rash Act javy Latex 1 Unable to assess criticality Persistent Moderate Active PROzac Active 1rash Medications acetaminophen 325 mg oral tablet 650 mg, By Mouth, Every 6 hours, May take OTC not to exceed 3000 mg/day, Refills 0, Maintenance, 10/06/24 12:30:00 PM EST, Partial fill upon patient request if the prescription is for a schedule II opioid drug. Start Date: 10/06/24 Status: Ordered Repeat number: 1 Albuterol 0.083% inhalation jason 2.5 mg, 3, mL, BAND Nebulizer, 4 times a day, Refills 0, Maintenance, 10/11/24 9:30:00 AM EST, Inhalation Solution Start Date: 10/11/24 Status: Ordered Repeat number: 1 busPIRone 30 mg oral tablet 1 tablet = 30 mg, By Mouth, 2 times a day, # 180 tablet, 0 Refills, Maintenance, 09/20/24 11:43:00 AM EST, Tablet, Partial fill upon patient request if the prescription is for a schedule II opioid drug. Start Date: 09/20/24 Status: Ordered Quantity: 180.0 Unit: tablet Repeat number: 1 celecoxib 200 mg oral capsule = 200 mg, By Mouth, Daily, 0 Refills, Maintenance, 10/06/24 12:30:00 PM EST, Capsule, Partial fill upon patient request if the prescription is for a schedule II opioid drug. Start Date: 10/06/24 Status: Ordered Repeat number: 1 cetirizine 10 mg oral tablet TAKE 1 TABLET BY MOUTH EVERDAY NEEDED FOR ALLERGY SYMPTOMS FOR 90 DAYS Start Date: 09/20/24 Status: Ordered Repeat number: 1 docusate sodium 100 mg oral capsule 1 capsule = 100 mg, By Mouth, 2 times a day, # 60 capsule, 0 Refills, Maintenance, 10/06/24 12:28:00PM EST, Capsule, [facility], Partial fill upon patient request if the prescription isfor a schedule II opioid drug., 163, cm, 10/06/24 11:33:00 EST, Height, 92, kg, 10/05/24 20:07:00 EST, Dry Weight Start Date: 10/06/24 Status: Ordered Quantity: 60.0 Unit: capsule Repeat number: 1 Ecotrin 325 mg oral delayed release tablet 1 tablet = 325 mg, By Mouth, 2 times a day, # 60 tablet, 0 Refills, Maintenance, 10/06/24 12:27:00 PM EST, EC Tablet, [facility], Partial fill upon patient request if the prescription isfor a schedule II opioid drug., 163, cm, 10/06/24 11:33:00 EST, Height, 92, kg, 10/05/24 20:07:00 EST, Dry Weight Start Date: 10/06/24 Stop Date: 11/05/24 Status: Ordered Quantity: 60.0 Unit: tablet Repeat number: 1 hydrochlorothiazide 25 mg oral tablet 25 mg, 1, tablet, By Mouth, Daily, Refills 0, Maintenance, 09/20/24 11:46:00 AM EST, Partial fill upon patient request if the prescription is for a schedule II opioid drug. Start Date: 09/20/24 Status: Ordered Repeat number: 1 lamotrigine 25 mg oral tablet TAKE 2 TABLETS BY MOUTH TWICE A DAY Start Date: 09/20/24 Status: Ordered Repeat number: 1 MiraLax Powder 1 pack/packet = 17 Gm, By Mouth, Daily, PRN Constipation, 0 Refills, Maintenance, 10/06/24 12:30:00 PM EST, Powder, Partial fill upon patient request if the prescription is for a schedule II opioid drug. Start Date: 10/06/24 Status: Ordered Repeat number: 1 pantoprazole 40 mg oral delayed release tablet TAKE 1 TABLET BY MOUTH EVERY DAY FOR 90 DAYS Start Date: 09/20/24 Status: Ordered Repeat number: 1 senna 187 mg oral tablet 1 tablet = 8.6 mg, By Mouth, Daily at bedtime, PRN as needed for constipation, 0 Refills, Maintenance, 10/06/24 12:30:00 PM EST, Tablet, Partial fill upon patient request if the prescription is for a schedule II opioid drug. Start Date: 10/06/24 Status: Ordered Repeat number: 1 Singulair 10 mg oral tablet 10 mg, 1, tablet, By Mouth, Daily, PRN, Refills 0, Maintenance, Other, 01/14/16 1:59:59 PM EDT Start Date: 01/14/16 Status: Ordered Repeat number: 1 triamcinolone 55 mcg/inh nasal spray PLACE 1 SPRAY INTRANASALLY DAILY NEEDED FOR ALLERGIC SYMPTOMS FOR 30 DAYS Start Date: 09/20/24 Status: Ordered Repeat number: 1 Valium 5 mg oral tablet 10 mg, 2, tablet, By Mouth, 2 times a day, PRN, Refills 0, Maintenance, for anxiety, 08/08/17 3:07:32 PM EDT Start Date: 08/08/17 Status: Ordered Repeat number: 1 Vitamin D3 oral tablet = 1,000 units, By Mouth, Daily, 0 Refills, Maintenance, 10/11/16 11:40:18 AM EST Start Date: 10/11/16 Status: Ordered Repeat number: 1 Wellbutrin XL 150 mg/24 hours oral tablet, extended release 1 tablet = 150 mg, By Mouth, Every 24 hours, 0 Refills, Maintenance, 08/08/17 3:07:21 PM EDT Start Date: 08/08/17 Status: Ordered Repeat number: 1 Problem List Condition Confirmation Course Effective Dates Status Health St atus Informant Bipolar disorder Confirmed Active Depression Confirmed Active Fibromyalgia Confirmed Active GERD (gastroesophageal reflux disease) Confirmed Active HTN (hypertension) Confirmed Active Mild persistent asthma Confirmed Active Mitral valve prolapse Confirmed Active Chronic narcotic use Confirmed Active Obese class I Confirmed Active OA (osteoarthritis) Confirmed Active Plantar fasciitis, bilateral Confirmed Active Social History Social History Type Response Smoking Status Former smoker; Other : QUIT 3 YEARS AGO; entered on: 02/08/18 Sex Sex Representation Female (finding) Patient Care team information Care Team Personnel Name: Radha Garcia RN Position: S RN Member Role: Primary Care Nurse Name: Shanika Martinez RN Position: S RN Member Role: Primary Care Nurse Name: Beny Cameron RN Position: S RN Member Role: Primary Care Nurse Name: Sena MCCAULEY, Terry Position: S RN Member Role: Primary Care Nurse Name: Krzysztof Morel MD , Deirdre Sears Position: Reference Physician Member Role: PCP Address: [address] [place] [address] Telecom: Name: Kassandra Barrow RN Position: S RN Member Role: Primary Care Nurse Care Team Related Persons Name: LUBNA PEÑA Name: LUBNA ROBLEDO Insurance Providers Guarantor name: [facility] Health Plan Information #: 1 Payer: [employer] Member Number: NA Policy Number: NA Group Number: NA
--- OUTSIDE RECORDS SUMMARY | 2024-11-15 14:41 | XMS_ITS | Continuity of Care Document ---
Author Organization [facility] ter Address [address] [place] [address]- Care Team Providers Care Stain Sprayer Name Role Phone Krzysztof Morel MD, Deirdre Sears Primary Care Physician [id number] Date(s): [facility] - 11/04/[facility] [address] [place] [address]- Attending Physician: Not on Staff, Attending MD Admitting Physician: Not on Staff, Admitting MD Referring Physician: Not on Staff, Referring MD Encounter Type: Pre-Outpt Allergies, Adverse Reactions, Alerts Substance Criticality Severity [...] 0 Refills, Maintenance, 10/06/24 12:28:00PM EST, Capsule, [facility], Partial fill upon patient request [...] Maintenance, 10/06/24 12:27:00 PM EST, EC Tablet, [facility], Partial fill upon patient request [...] RN Member Role: Primary Care Nurse Name: Terry Shetty RN Position: S RN Member Role: Primary Care Nurse Name: Krzysztof Morel MD , Deirdre Sears Position: Reference Physician Member Role: PCP Address: [address] [place] [id number] Telecom: Name: Kassandra Barrow RN Position: S RN Member Role: Primary Care Nurse Care Team Related Persons Name: LUBNA PEÑA Name: LUBNA ROBLEDO Insurance Providers Guarantor name: [facility] Health Plan Information #: 1 Payer: [employer] Member Number: NA Policy Number: NA Group Number: NA
--- OUTSIDE RECORDS SUMMARY | 2024-11-15 14:41 | XMS_ITS | Continuity of Care Document ---
Author Organization [facility] Address [address] [place] [address]- Care Team Providers Care State Pilot Name Role Phone Krzysztof Morel MD, Deirdre Sears Primary Care Physician Encounter [facility] Date(s): 09/20/24 - 10/20/24 [facility] [address] [place] [address]- Attending Physician: Admtr, [id number] Admitting Physician: Admtr, [...] 0 Refills, Maintenance, 10/06/24 12:28:00PM EST, Capsule, [facility], Partial fill upon patient request [...] Maintenance, 10/06/24 12:27:00 PM EST, EC Tablet, [facility], Partial fill upon patient request [...] Position: Reference Physician Member Role: PCP Address: [address] [place] [address] Telecom: Name: Kassandra Barrow RN Position: S RN Member Role: Primary Care Nurse Care Team Related Persons Name: LUBNA PEÑA Name: LUBNA ROBLEDO Insurance Providers Guarantor name: [facility] Health Plan Information #: 1 Payer: [employer] Member Number: NA Policy Number: NA Group Number: NA
--- OUTSIDE RECORDS SUMMARY | 2024-11-15 14:41 | XMS_ITS | Continuity of Care Document ---
Author Organization [facility] Address [address] [place] [address]- Care Team Providers Care Sheather Name Role Phone Krzysztof Morel MD, Deirdre Sears Primary Care Physician Encounter [facility] Date(s): 09/25/24 - 10/25/24 [facility] [address] [place] [address]- Attending Physician: Dayanara Epperson Admitting Physician: Dayanara Epperson Referring Physician: Dayanara Epperson Encounter Type: Triage Allergies, Adverse Reactions, Alerts Substance Criticality Severity Reaction Reaction Severity Status penicillin hives Active gabapentin Active PROzac Active Dilaudid Vomitting nausea Active Adhesive Bandage rash Act javy Latex 1 Unable to assess criticality Persistent Moderate Active 1rash Medications acetaminophen 325 mg oral [...] 0 Refills, Maintenance, 10/06/24 12:28:00PM EST, Capsule, [facility], Partial fill upon patient [...] Maintenance, 10/06/24 12:27:00 PM EST, EC Tablet, [facility], Partial fill upon patient [...] Position: Reference Physician Member Role: PCP Address: [address] [place] [address] [address] [place] [id number] Telecom: Name: Kassandra Barrow RN Position: S RN Member Role: Primary Care Nurse Care Team Related Persons Name: LUBNA PEÑA Name: LUBNA ROBLEDO Insurance Providers Guarantor name: [facility] Plan Information #: 1 Payer: [employer] Member Number: NA Policy Number: NA Group Number: NA
== END 2024-11-15 12:24 | disposition home or self-care (01) ==
PROVIDERS: PCP Internal Medicine; Visit Provider Physician Assistant Medical
DX: R06.02 Shortness of breath (principal); F11.20 Opioid dependence, uncomplicated; F33.0 Major depressive disorder, recurrent, mild; J45.909 Unspecified asthma, uncomplicated; Z72.0 Tobacco use; E66.9 Obesity, unspecified; I10 Essential (primary) hypertension

== ENCOUNTER 2024-11-15 11:35 | Outpatient (REF) | payer OTHER, SELFPAY ==
--- NOTE | ~2024-11-15 | XR_ITS ---
EXAMINATION: XR CHEST 2 VIEWS HISTORY: R06.02 - Shortness of breath COMPARISON: Comparison is made with the prior examination dated 03/19/2021. FINDINGS: PA and lateral views of the chest are submitted. The lungs are expanded and clear. There is no pleural effusion, pneumothorax, or pulmonary vascular congestion. The heart is normal in size. The bones are intact. A fusion plate is again noted in the lower cervical spine. XR/XR chest 2V IMPRESSION: No acute cardiopulmonary abnormality. Electronically signed by: Godfrey Crawley MD 11/15/2024 01:47 PM [facility]
== END 2024-11-15 11:36 | disposition home or self-care (01) ==
LOC: HO.XRAY 11:35
PROVIDERS: PCP Internal Medicine; Visit Provider Physician Assistant Medical
DX: R06.02 Shortness of breath (principal); J45.909 Unspecified asthma, uncomplicated; G89.29 Other chronic pain; E66.9 Obesity, unspecified; F33.0 Major depressive disorder, recurrent, mild; I10 Essential (primary) hypertension; Z79.891 Long term (current) use of opiate analgesic; Z79.899 Other long term (current) drug therapy; Z72.0 Tobacco use
CPT/HCPCS: 71046; 96127; 99212

== ENCOUNTER → 2024-11-15 12:45 | Outpatient (BNV) | payer OTHER, SELFPAY | PROVIDERS: PCP Internal Medicine; Visit Provider Radiology Diagnostic Radiology | DX: R06.02 Shortness of breath (principal) | CPT/HCPCS: 71046 ==

== ENCOUNTER 2024-11-16 10:11 | Outpatient (REF) | payer OTHER, SELFPAY ==
[2024-11-16 10:54] LABS: MANUAL DIFF FLAG NO
[2024-11-16 11:04] LABS: Basophils Absolute Auto 0.1 X10*3/uL (0.0-0.2); Basophils Percent Auto 0.9 % (0-2); Eosinophils Absolute Auto 0.1 X10*3/uL (0.0-0.4); Eosinophils Percent Auto 2.2 % (0-4); Hematocrit 36.3 % (37.0-47.0); Hemoglobin 11.3 g/dl (12.0-16.0); Imm Gran Abs Auto 0.02 X10*3/uL (0.00-0.03); Imm Gran Pct Auto 0.3 % (0.0-0.4); Lymphocytes Absolute Auto 2.7 X10*3/uL (1.2-4.9); Lymphocytes Percent Auto 47.1 % (20-40); Mean Corpuscular HGB Conc 31.1 g/dl (31.0-35.0); Mean Corpuscular Hemoglobin 28.3 pg (27.0-33.0); Mean Corpuscular Volume 90.8 fL (80.0-98.0); Mean Platelet Volume 8.9 fL (9.4-12.3); Monocytes Absolute Auto 0.4 X10*3/uL (0.1-1.2); Monocytes Percent Auto 6.2 % (2-11); Neutrophils Absolute Auto 2.5 x10*3/uL (2.0-8.3); Neutrophils Percent Auto 43.3 % (45-73); Platelet Count 295 X10*3/uL (160-400); Red Cell Distribution Width 13.8 % (11.0-16.0); White Blood Count 5.8 X10*3/uL (4.8-10.8)
[2024-11-16 11:44] LABS: B Type Natriuretic Peptide 14 pg/mL (<100)
[2024-11-16 11:47] LABS: Alanine Aminotransferase < 6 U/L (0-31); Albumin Level 4.3 g/dL (3.5-5.0); Alkaline Phosphatase 84 U/L (39-117); Anion Gap 9 (12-20); Aspartate Amino Transferase 16 U/L (5-31); Bilirubin Total 0.4 mg/dL (0.0-1.0); Blood Urea Nitrogen 11 mg/dL (9-16); Calcium 9.8 mg/dL (8.4-10.2); Carbon Dioxide 31 mmol/L (22-29); Chloride 106 mmol/L (96-108); Estimated Glomerular Filt Rate > 60; Glucose Fasting 101 mg/dL (60-99); Potassium 4.4 mmol/L (3.3-5.1); Sodium 142 mmol/L (135-145); Total Protein 7.7 g/dL (6.5-8.0)
== END 2024-11-16 10:12 | disposition home or self-care (01) ==
LOC: HO.LAB 10:11
PROVIDERS: Physician Assistant Medical; PCP Internal Medicine; Visit Provider Internal Medicine
DX: R06.02 Shortness of breath (principal)
CPT/HCPCS: 36415; 80053; 83880; 85025

== ENCOUNTER → 2024-11-22 10:00 | Outpatient (BNV) | payer OTHER, SELFPAY | PROVIDERS: PCP Internal Medicine; Visit Provider Internal Medicine | DX: Z12.31 Encounter for screening mammogram for malignant neoplasm of breast (principal) | CPT/HCPCS: 77063; 77067 ==

== ENCOUNTER 2024-11-22 10:07 | Outpatient (REF) | payer OTHER, SELFPAY | END 2024-11-22 10:08 | disposition home or self-care (01) | LOC: HO.MAMMO 10:07 | PROVIDERS: PCP Internal Medicine; Visit Provider Internal Medicine | DX: Z12.31 Encounter for screening mammogram for malignant neoplasm of breast (principal) | CPT/HCPCS: 77063; 77067 ==

== ENCOUNTER 2024-11-30 10:27 | Outpatient (AMB) | payer OTHER, SELFPAY ==
--- NOTE | 2024-11-30 11:04 | A.OFFVIS_ITS ---
Vital Signs 11/30/24 11:05 Height 5 ft 4 in Weight 206 lb BMI 35.4 BP 124/70 Blood Pressure Location Rt brachial Position Sitting Pulse 96 Pulse Source Pulse Oximeter Pulse Oximetry (%) 96 Oxygen Delivery Method Room Air Intake Visit Reasons: SOB/ asthma Pad Extractor Tender Required: No Appointment Coordinator: Appointment Coordinator offered & declined Allergies fluoxetine [From PROZAC] Allergy (Severe, Verified 11/30/24 11:11) OVER SEDATION gabapentin [GABAPENTIN] Allergy (Intermediate, Verified 11/30/24 11:11) NAUSEA,DIZZINESS, dizziness hydromorphone [HYDROMORPHONE] Allergy (Intermediate, Verified 11/30/24 11:11) NAUSEA/PALPITATIONS, vomiting latex [LATEX] Allergy (Intermediate, Verified 11/30/24 11:11) RASH Penicillins [PENICILLINS] Allergy (Intermediate, Verified 11/30/24 11:11) RASH Medication List - Last Reconciled 11/30/24 by Corinne Julio LPN albuterol sulfate 2.5 mg (3 mL) inhalation QID PRN 30 days albuterol sulfate 90 mcg/actuation 2 puffs inhalation Q6H PRN 30 days arm brace (Wrist Brace) As directed azithromycin 250 mg PO DAILY 5 days bupropion HCl XL 150 mg PO QAM buspirone 30 mg PO BID cetirizine (Allergy Relief (cetirizine)) 10 mg PO DAILY PRN 90 days diazepam 10 mg PO BID PRN 30 days hydrochlorothiazide 25 mg PO QAM iron,carbonyl-vitamin C 65 mg iron- 125 mg (Vitron-C) 1 tab PO DAILY lamotrigine 50 mg PO DAILY leg brace (Knee Brace Large-XLarge) As directed leg brace (BUNNY Ankle Brace) As directed methylprednisolone (Medrol (Arya)) 4 mg PO QAM 6 days montelukast 10 mg PO DAILY 90 days oxycodone 10 mg PO Q6H PRN 30 days pantoprazole 40 mg PO DAILY 90 days topiramate 50 mg PO DAILY 90 days triamcinolone acetonide 1 spray intranasal DAILY PRN 30 days HPI HPI SOB/ asthma: Details: Selina is a pleasant 53 year old female, former smoker, with less than 5 pyh, with underlying asthma, iron deficiency anemia, chronic sinusitis and GERD. She was referred by PCP for pulmonary evaluation for dyspnea. She reports dyspnea h as been present since undergoing left total knee replacement at [facility] on 10/05. She reports minimal recollection for 2 days after surgery however recalls routine nebs and supplemental oxygen, which she has not required in the past. She also notes that during physical therapy her oxygen desaturated and was sent for CTA on 10/12 which was negative for PE. During this time her BNP was elevated 363 and she has been on HCTZ. According to patient this is when she was told symptoms were related to bronchial asthma and started on albuterol MDI. She has been using infrequently. She denies prior dx of asthma/COPD. She does report multiple family members with asthma. She endorses seasonal allergies however recent allergy testing reportedly normal. She does have dogs at home. She also reports that she was vaping over the past 2 years and recently stopped vaping a few days prior to knee surgery. She continues with dyspnea on exertion, denies wheezing, cough or chest tightness. She reports likely occupational exposures working at a [employer] x 6 years. [facility] Medical History Osteoarthritis of left hip Sacroiliitis Infective arthritis of left knee Arthropathy of knee Fracture of metacarpal base of left hand, closed Foot pain, right Plantar fasciitis of left foot Anemia Fibromyalgia GERD (gastroesophageal reflux disease) Asthma BMI 35.0-35.9,adult Obesity (BMI 30-39.9) Daytime sleepiness Shortness of breath Obese Acute traumatic internal derangement of left knee Insomnia Essential hypertension Sinusitis Anxiety Migraine Postlaminectomy syndrome of cervical region 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 of lumbosacral spine with radiculopathy Surgical History Status post left knee replacement Hx of arthroscopy of left knee History of surgery History of esophagogastroduodenoscopy (EGD) H/O colonoscopy Hx of breast reduction, elective History of carpal tunnel release History of neck surgery History of tubal ligation S/P JUSTYN-BSO (total abdominal hysterectomy and bilateral salpingo-oophorectomy) H/O medial meniscus repair of right knee Family History Father Diabetes Hypertension Maternal Grandmother Cancer Maternal Grandfather Cancer Family/Other FH: mental illness Substance use disorder Mother Arthritis Asthma Brother No problems noted. Brother No problems noted. Son No problems noted. Son No problems noted. Son No problems noted. Son No problems noted. Social History Household Members: Significant Other and Family Housing: House Are you a primary direct care professional to a significant other at home: No Do you presently have visiting nurse or other home services: No Alcohol intake: current Alcohol intake frequency: holidays/special occasions only Alcohol type: hard liquor Patient Tobacco Use Status: Former Tobacco user Tobacco use type: Cigarette Years Smoked: 9 e-Cigarette/Vaping Use: Never Used Second Hand Smoke Exposure: No service: No Current occupational status: employed Current occupational exposures/hazards: No Cognitive needs: No Hearing needs: No Vision needs: No Female Reproductive History Menstrual Age of Menarche: 12 Review of Systems Const Denies chills, Denies excessive sweating, Denies fever(s), Denies headache(s) and Denies night sweats Eyes Denies dry eyes, Denies irritation and Denies itchy eyes ENT Reports Normal hearing present, Denies headache(s), Reports nasal congestion, Denies nasal discharge, Denies post nasal drip and Denies sore throat Card Denies chest pain, Denies chest pain at rest, Denies chest pain with activity, Denies claudication, Denies leg edema, Reports dyspnea on exertion, Denies orthopnea and Denies paroxysmal nocturnal dyspnea Resp Denies chest congestion, Denies cough, Denies excessive phlegm production, Denies pain on inspiration, Denies pain with cough, Reports dyspnea on exertion, Denies stridor and Denies wheezing Musc Denies myalgias Neuro Reports Normal hearing present and Denies headache(s) Endo Denies excessive sweating Acl/Lymph Denies lymphadenopathy Aller/Immun Denies itchy eyes, Denies seasonal rhinorrhea and Denies wheezing Physical Exam Vital Signs: Last Vital Signs Pulse 96 11/30/24 11:05 BP 124/70 11/30/24 11:05 Pulse Ox 96 11/30/24 11:05 Oxygen Delivery Method Room Air 11/30/24 11:05 BMI result Body Mass Index 35.4 Const General: cooperative, healthy appearing, comfortable, no acute distress, well developed and alert Nutritional Appearance: obese Orientation/consciousness: patient oriented x3 Limitations: no limitations HEENT Head: Yes normal to inspection, Yes normocephalic and Yes atraumatic Ears: hearing grossly normal bilaterally and external ears normal Eyes General: appearance normal, both eyes and all related structures Eyelids: Yes eyelids normal Sclerae: sclerae normal EOM: EOMs intact bilaterally Neck Neck: Yes normal visual inspection and Yes no lymphadenopathy Lymphatic: no lymphadenopathy noted Chest Chest palpation & inspection: normal inspection of the chest Resp Effort & Inspection: normal respiratory effort, able to speak in complete sen tences, no audible wheezes, no cough, no stridor, not tachypneic, no tripod positioning and no use of accessory muscles Auscultation: clear to auscultation bilaterally Cardio Jugular venous distension: no JVD Rate: regular rate Rhythm: regular rhythm Skin Other: warm, dry General skin exam: no rashes or lesions noted Neuro General: patient oriented x3 Cranial nerves: Yes Normal hearing present Cognition (Neuro): normal cognition Gait exam (Neuro): Normal gait present Extrem General: Yes normal to inspection, Yes capillary refill normal, Yes no clubbing, cyanosis or edema and Yes no pedal edema Psych Appearance: grossly normal and well kempt Speech and movement: Normal speech and movement present and Clear speech present Affect: normal affect Attitude: cooperative Thought process: Normal thought process present Thought content: Normal thought content present Insight: Good insight present (Psych) Judgement: Good judgement present (Psych) Quality Reporting (2019) Adult ([facility] 13812/22/68) Smoking risk assessment performed?: Yes Patient Tobacco Use Status: Former Tobacco user Assessment & Plan Assessment & Plan (1) Asthma: Code(s): J45.909 - Unspecified asthma, uncomplicated Category: Medical (2) Dyspnea on exertion: Code(s): R06.09 - Other forms of dyspnea Category: Medical (3) Allergic rhinitis: Code(s): J30.9 - Allergic rhinitis, unspecified Category: Medical Plan Selina presents for pulmonary evaluation for ongoing dyspnea since left TKR in September. She was recently diagnosed with asthma and prescribed albuterol MDI however not using. Discussed empiric treatment with ICS/LABA however declined. Encouraged patient to use albuterol MDI. Will send for PFT to assess for obstructive defect. Prior CTA unremarkable. All questions were answered and patient is in agreement of plan. Will follow up to review results or sooner if needed. Coding Level of Care Code New Pt Level 4 (09205) Diagnoses Asthma J45.909 Dyspnea on exertion R06.09 Allergic rhinitis J30.9
[2024-11-30 11:05] VITALS: BP 124/70; PULSE 96; O2SAT 96; BMI 35.4
--- OUTSIDE RECORDS SUMMARY | 2024-11-30 11:10 | XMS_ITS | Clinical Summary ---
Author Organization [facility] Address [address] [place] [address] Care Team Providers Care Web Development Manager Name Role Phone Deirdre Stevens MD Primary Care Provid er Social History Tobacco Use Types Packs/Day Years Used Date Smoking Tobacco: Never Assessed Sex and Gender Information Value Date Recorded Sex Assigned at Not on file Gender Identity Not on file Sexual Orientation Not on file Plan of Treatment Health Maintenance Due Date Last Done Comments Hepatitis B Vaccines (1 of 3 - 3-dose series) 1970 Hepatitis C Screening 1970 COVID-19 Vaccine (#1) 06/04/1971 Depression Screening 1982 Preventative Health Evaluation 1988 DTap / Tdap / Td (1 - Tdap) 1989 Cervical Cancer Screening (P ap Smear) 1991 Colon Cancer Screening (Colonoscopy) 2015 Breast Cancer Screening (Mammogram) 2020 Shingrix-Zoster Vaccine (1 of 2) 2020 Influenza Vaccine (#1) 2024 Pneumococcal Vaccine Aged Out No long er eligible based on patient's age to complete this topic RSV Ped < 20 months Aged Out No longe r eligible based on patient's age to complete this topic Care Teams Web Development Manager Relationship Specialty Start Date End Date Deirdre Stevens MD [address] [facility] , [address] [facility] D/B/A: [facility] [place] [address] PCP - General Internal Medicine 05/29/18
== END 2024-11-30 11:46 | disposition home or self-care (01) ==
PROVIDERS: PCP Internal Medicine; Referring Provider Physician Assistant Medical; Visit Provider Nurse Practitioner Family
DX: J45.909 Unspecified asthma, uncomplicated (principal); R06.09 Other forms of dyspnea; J30.9 Allergic rhinitis, unspecified
CPT/HCPCS: 99204

== ENCOUNTER → 2024-11-30 10:27 | Outpatient (BNVA) | payer OTHER, SELFPAY | PROVIDERS: PCP Internal Medicine; Referring Provider Physician Assistant Medical; Visit Provider Nurse Practitioner Family | DX: J45.909 Unspecified asthma, uncomplicated (principal); R06.09 Other forms of dyspnea | CPT/HCPCS: 99202 ==

== ENCOUNTER 2024-12-04 13:56 | Outpatient (AMB) | payer OTHER, SELFPAY ==
--- OUTSIDE RECORDS SUMMARY | 2024-12-04 14:04 | XMS_ITS | Clinical Summary ---
Author Organization [facility] Address [address] [place] [address] Care Team Providers Care Salesperson Flowers Name Role Phone Deirdre Stevens MD Primary [...] age to complete this topic Care Teams Salesperson Flowers Relationship Specialty Start Date End Date Deirdre Stevens MD [address] [facility] , [address] [facility] D/B/A: [facility] [id number] PCP - General Internal Medicine 05/29/18
[2024-12-04 14:12] VITALS: BP 108/76; PULSE 85; O2SAT 97; BMI 35.5
--- NOTE | 2024-12-04 14:12 | A.OFFPC_ITS ---
Vital Signs 12/04/24 14:12 Height 5 ft 4 in Weight 207 lb BMI 35.5 BP 108/76 Blood Pressure Location Lt brachial Position Sitting Pulse 85 Pulse Source Pulse Oximeter Pulse Oximetry (%) 97 Oxygen Delivery Method Room Air Intake Visit Reasons: lab f/u Intake Note: Patient here for a follow up labs Charging Plug Placer Required: Yes Charging Plug Placer Language: Hands Parter Name: Deirdre Morel MD Information Interpreted: non-clinical & clinical Accompanied by: Self / Same As Patient Allergies fluoxetine [From PROZAC] Allergy (Severe, Verified 12/04/24 14:31) OVER SEDATION gabapentin [GABAPENTIN] Allergy (Intermediate, Verified 12/04/24 14:31) NAUSEA,DIZZINESS, dizziness hydromorphone [HYDROMORPHONE] Allergy (Intermediate, Verified 12/04/24 14:31) NAUSEA/PALPITATIONS, vomiting latex [LATEX] Allergy (Intermediate, Verified 12/04/24 14:31) RASH Penicillins [PENICILLINS] Allergy (Intermediate, Verified 12/04/24 14:31) RASH Medication List - Last Reconciled 12/04/24 by Deirdre Morel MD albuterol sulfate 2.5 mg (3 mL) inhalation QID PRN 30 days albuterol sulfate 90 mcg/actuation 2 puffs inhalation Q6H PRN 30 days arm brace (Wrist Brace) As directed bupropion HCl XL 150 mg PO QAM buspirone 30 mg PO BID cetirizine (Allergy Relief (cetirizine)) 10 mg PO DAILY PRN 90 days diazepam 10 mg PO BID PRN 30 days hydrochlorothiazide 25 mg PO QAM iron,carbonyl-vitamin C 65 mg iron- 125 mg (Vitron-C) 1 tab PO DAILY lamotrigine 50 mg PO DAILY leg brace (Knee Brace Large-XLarge) As directed leg brace (BUNNY Ankle Brace) As directed montelukast 10 mg PO DAILY 90 days oxycodone 10 mg PO Q6H PRN 30 days pantoprazole 40 mg PO DAILY 90 days topiramate 50 mg PO DAILY 90 days triamcinolone acetonide 1 spray intranasal BID PRN Tobacco use date assessed: 12/04/24 Dental Screening Dental Screen Date: 12/04/24 Did you have a dental visit in the last 12 months?: No Did you have a dental problem in the last 6 months where you did not have access to dental care?: No Was dental information given to patient?: Patient has dentist HPI HPI Comments History of Present Illness Details The patient is a 53-year-old female presenting with concerns regarding post-operative recovery following a complete knee replacement performed on October 05. The patient reports significant issues during the hospital stay, including a ajxpra-xeop-almyurbt recovery time due to complications believed to be associated with excessive anesthesia and a cold operating room environment. The patient was discharged on October 11, only to be readmitted on October 12 due to respiratory concerns, but no wheezing or asthma was confirmed by the attending physician. Post-operatively, the patient experienced a drop in hemoglobin to 8.6, discovered incidentally, which has since improved slightly to 8.5. The current hematological status raises concern for further investigation as the patient reports significant blood loss and heavy narcotic use in the hospital, potentially contributing to the anemia. The primary care concern remains the resolution of anemia and stabilization of hemoglobin levels, which have h istorically been normal prior to the surgical event. She also has mild major depression with anxiety follow by Psychiatry. Hypertension well controlled with hydrochlorothiazide. 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 of lumbosacral spine with radiculopathy Surgical History Status post left knee replacement Hx of arthroscopy of left knee History of surgery History of esophagogastroduodenoscopy (EGD) H/O colonoscopy Hx of breast reduction, elective History of carpal tunnel release History of neck surgery History of tubal ligation S/P JUSTYN-BSO (total abdominal hysterectomy and bilateral salpingo-oophorectomy) H/O medial meniscus repair of right knee Family History Father Diabetes Hypertension Maternal Grandmother Cancer Maternal Grandfather Cancer Family/Other FH: mental illness Substance use disorder Mother Arthritis Asthma Brother No problems noted. Brother No problems noted. Son No problems noted. Son No problems noted. Son No problems noted. Son No problems noted. Social History Household Members: Significant Other and Family Housing: House Are you a primary career technical counselor to a significant other at home: No Do you presently have visiting nurse or other home services: No Alcohol intake: current Alcohol intake frequency: holidays/special occasions only Alcohol type: hard liquor Patient Tobacco Use Status: Former Tobacco user Tobacco use type: Cigarette Years Smoked: 9 e-Cigarette/Vaping Use: Never Used Second Hand Smoke Exposure: No service: No Current occupational status: employed Current occupational exposures/hazards: No Cognitive needs: No Hearing needs: No Vision needs: No Female Reproductive History Menstrual Age of Menarche: 12 Questionnaire PHQ-9 Over the last 2 weeks, how often have you been bothered by any of the following problems? 1. Little interest or pleasure in doing things: not at all 2. Feeling down, depressed, or hopeless: not at all 3. Trouble falling or staying asleep, or sleeping too much: not at all 4. Feeling tired or having little energy: not at all 5. Poor appetite or overeating: not at all 6. Feeling bad about yourself - or that you are a failure or have let yourself or your family down: not at all 7. Trouble concentrating on things, such as reading the newspaper or watching television: not at all 8. Moving or speaking so slowly that other people could have noticed. Or the opposite - being so fidgety or restless that you have been moving around a lot more than usual: not at all 9. Thoughts that you would be better off or of hurting yourself in some way: not at all Total score: 0 Depression Screening Interpretation: Negative Depression Screening Done: Yes 46828 - PHQ-9 Billing: Yes Source: Developed by Drs. Godfrey Varghese, Kaci B.W. Eduardo Lang and colleagues, with an educational araseli from [employer] (formerly [employer]). Thrive Questionnaire Date Thrive assessed: 12/04/24 I am a: Patient What is your living situation today?: I have a steady place to live Within the past 12 months, did the food you bought not last and you didn't have the money to get more?: Often true Within the past 12 months, did you worry whether your food would run out before you got money to buy more?: Often true Do you have trouble paying for medicines?: No Do you have trouble getting transportation to medical appointments?: No Do you have trouble paying your heating and electricity bill?: No Do you have trouble taking care of your child, family member or friend?: No Do you have trouble with day-to-day activities such as bathing, preparing meals, shopping, managing finances, etc.?: Yes Are you currently unemployed and looking for a job?: No Are you interested in more education?: No THRIVE Score: 2 AUDIT C Alcohol Use Questionnaire (AUDIT-C) 1. How often do you have a drink containing alcohol?: Monthly or less 2. How many drinks containing alcohol do you have on a typical day when you are drinking?: 1 or 2 3. How often do you have six or more drinks on one occasion?: Never Total Score: 1 Score Reviewed/Action Taken: No GORAN-7 AMB Questionnaire GORAN-7 Date GORAN - 7 assessed: 12/05/24 Feeling nervous, anxious, or on edge: 0 = Not at all Not being able to stop or control worryin = Not at all Worrying too much about different things: 0 = Not at all Trouble relaxin = Not at all Being so restless that it is hard to sit still: 0 = Not at all Becoming easily annoyed or irritable: 0 = Not at all Feeling afraid as if something awful might happen: 0 = Not at all Total GORAN-7 score (0-4 normal; 5-9 mild; 10-14 moderate; 15-21 severe): 0 Source: Developed by Drs. Godfrey Varghese, Eduardo Elizondo and colleagues, with an educational araseli from [employer] (formerly [employer]). GORAN-7 Assessment Billing GORAN-7 Assessment Tool: GORAN-7 Assessment 42724 Review of Systems Const All systems reviewed & are unremarkable except as noted in HPI and below Card Denies chest pain at rest, Denies chest pain with activity, Denies edema, Denies irregular heart rhythm, Denies claudication, Denies dyspnea, Denies dyspnea on exertion, Denies orthopnea, Denies paroxysmal nocturnal dyspnea and Denies slow heart rate Resp Denies cough, Denies dyspnea and Denies dyspnea on exertion GI Denies abdominal pain, Denies change in bowel habits, Denies excessive flatus, Denies nausea and Denies vomiting Physical exam (Primary Care) Vital Signs: Last Vital Signs Pulse 85 12/04/24 14:12 BP 108/76 12/04/24 14:12 Pulse Ox 97 12/04/24 14:12 Oxygen Delivery Method Room Air 12/04/24 14:12 BMI result Body Mass Index 35.5 Tobacco/Smoking Status: Tobacco use Status Tobacco use date assessed 12/04/24 12/04/24 14:18 Patient Tobacco Use Status Former Tobacco user 12/04/24 14:18 Tobacco use type Cigarette 12/04/24 14:18 e-Cigarette/Vaping Use Never Used 12/04/24 14:18 PHQ-9: PHQ-9 Score PHQ-9: Total score 0 12/04/24 14:34 Depression Screening Interpretation: Negative Thrive Assessment: Date of Thrive Assessment Date Thrive assessed 12/04/24 12/04/24 14:18 Resp Effort & Inspection: normal respiratory effort Auscultation: clear to auscultation bilaterally Cardio Jugular venous distension: no JVD Rate: regular rate Rhythm: regular rhythm Heart sounds: S1 normal heart sound present and S2 normal heart sound present Extrem General: Yes full ROM Coding Level of Care Code Est Pt Level 4 (40062) Complex EM visit Add On G2211 Diagnoses Mild recurrent major depression F33.0 Anemia, unspecified type D64.9 Anemia type: unspecified type Essential hypertension I10 Anxiety F41.9 Additional Codes GORAN-7 Assessment Billing - GORAN-7 Assessment Tool: GORAN-7 Assessment 68357 ([id number]) PHQ-9 - 68345 - PHQ-9 Billing: Yes ([id number]) Time Spent (min) 21 Assessment & Plan Assessment & Plan (1) Mild recurrent major depression: Code(s): F33.0 - Major depressive disorder, recurrent, mild Category: Medical (2) Anemia: Code(s): D64.9 - Anemia, unspecified Category: Medical Qualifiers: Anemia type: unspecified type Qualified Code(s): D64.9 - Anemia, unspecified (3) Essential hypertension: Code(s): I10 - Essential (primary) hypertension Category: Medical (4) Anxiety: Code(s): F41.9 - Anxiety disorder, unspecified Category: Medical Plan - Monitor and examine hemoglobin levels to exclude additional hematological etiologies or continued bleeding sources. - Continue physical therapy for knee recovery and ensure mobility improvement. - Investigate and address anxiety symptoms, acknowledging its impact on cardiovascular symptoms. - Address reported anemia symptoms with appropriate supplements and reassess in follow-up. - Routine biochemical lab assessments, including electrolytes and blood count, to track progress. - Referral to pulmonology for repeated lung function assessment in six weeks. Patient was informed and verbally consented to the use of an ambient scribe for clinic note documentation during this visit. During our visit, we discussed the significance of the postoperative hemoglobin drop and investigated potential causes, focusing on the surgical blood loss. I explained the importance of monitoring hemoglobin levels and scheduled follow-up labs to ensure improvement. We reviewed the ongoing recovery process for her knee replacement through physical therapy, agreeing on exercises for mobility improvement. Moreover, we tackled the patient's anxiety symptoms that lead to increased pulse rates, evaluating the need to manage these symptoms effectively. The patient comprehended and agreed to the outlined plan, understanding the significance of close follow-up. Orders: Orders Complete Blood Count Auto Diff 6 Months D64.9 - Anemia, unspecified IRON PROFILE 6 Months D64.9 - Anemia, unspecified Medications: Changed From triamcinolone acetonide 1 spray intranasal DAILY 30 days PRN 16.9 mL 2RF allergic symptoms To triamcinolone acetonide 1 spray intranasal BID PRN Patient Instructions: - Continue taking prescribed iron supplements as directed. - Adhere to physical therapy appointments and exercises. - Monitor and record episodes of anxiety and heart rate changes. - Report any symptoms like shortness of breath or signs of increased bleeding. - Follow up for lab results and further assessment as scheduled in six weeks.
== END 2024-12-04 15:02 | disposition home or self-care (01) ==
PROVIDERS: PCP Internal Medicine; Visit Provider Internal Medicine
DX: F33.0 Major depressive disorder, recurrent, mild (principal); D64.9 Anemia, unspecified; I10 Essential (primary) hypertension; F41.9 Anxiety disorder, unspecified

== ENCOUNTER → 2024-12-04 13:56 | Outpatient (BNVA) | payer OTHER, SELFPAY | PROVIDERS: PCP Internal Medicine; Visit Provider Internal Medicine | DX: F33.0 Major depressive disorder, recurrent, mild (principal); D64.9 Anemia, unspecified; F41.9 Anxiety disorder, unspecified; I10 Essential (primary) hypertension | CPT/HCPCS: 96127; 99212 ==

== ENCOUNTER 2025-02-07 10:49 | Outpatient (AMB) | payer OTHER, SELFPAY ==
[2025-02-07 10:52] VITALS: BP 139/78; PULSE 84; O2SAT 95; BMI 34.7
--- NOTE | 2025-02-07 10:52 | A.OFFVIS_ITS ---
Vital Signs 02/07/25 10:52 Height 5 ft 4 in Weight 202 lb 2 oz BMI 34.7 BP 139/78 Blood Pressure Location Rt brachial Position Sitting Pulse 84 Pulse Source Pulse Oximeter Pulse Oximetry (%) 95 Oxygen Delivery Method Room Air Intake Visit Reasons: LEFT ANKLE SWELLING Allergies fluoxetine [From PROZAC] Allergy (Severe, Verified 02/07/25 10:52) OVER SEDATION gabapentin [GABAPENTIN] Allergy (Intermediate, Verified 02/07/25 10:52) NAUSEA,DIZZINESS, dizziness hydromorphone [HYDROMORPHONE] Allergy (Intermediate, Verified 02/07/25 10:52) NAUSEA/PALPITATIONS, vomiting latex [LATEX] Allergy (Intermediate, Verified 02/07/25 10:52) RASH Penicillins [PENICILLINS] Allergy (Intermediate, Verified 02/07/25 10:52) RASH HPI Comments Details: Selina is back in my office after long period of absence. She has new complain on pain and swelling in the left foot as well as pain in the left side of the back radiating to the left groin. On physical exam she is exhibiting signs of osteoarthritis with lateral hip rotation exacerbating groin pain to very severe extent. As of her complaining on the left foot pain I offered her referral to a rehab office coordinator. As of the left hip osteoarthritis I will send her for the x-ray of the left hip joint and after that consider intra-articular left hip injections. Very successful results after intracept BVN RFA procedure.. Very successful results of total knee replacement. She is very proud of her ability to exercise with her left knee. The scar is thin and very nice no inflammatory changes. She probably requires total hip replacement as well. 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 Surgical History Status post left knee replacement Hx of arthroscopy of left knee History of surgery History of esophagogastroduodenoscopy (EGD) H/O colonoscopy Hx of breast reduction, elective History of carpal tunnel release History of neck surgery History of tubal ligation S/P JUSTYN-BSO (total abdominal hysterectomy and bilateral salpingo-oophorectomy) H/O medial meniscus repair of right knee Family History Father Diabetes Hypertension Maternal Grandmother Cancer Maternal Grandfather Cancer Family/Other FH: mental illness Substance use disorder Mother Arthritis Asthma Brother No problems noted. Brother No problems noted. Son No problems noted. Son No problems noted. Son No problems noted. Son No problems noted. Social History Household Members: Significant Other and Family Housing: House Are you a primary resident care aide to a significant other at home: No Do you presently have visiting nurse or other home services: No Alcohol intake: current Alcohol intake frequency: holidays/special occasions only Alcohol type: hard liquor Patient Tobacco Use Status: Former Tobacco user Tobacco use type: Cigarette Years Smoked: 9 e-Cigarette/Vaping Use: Never Used Second Hand Smoke Exposure: No service: No Current occupational status: employed Current occupational exposures/hazards: No Cognitive needs: No Hearing needs: No Vision needs: No Female Reproductive History Menstrual Age of Menarche: 12 Review of Systems Const All systems reviewed & are unremarkable except as noted in HPI and below ENT Reports Normal hearing present Neuro Reports Normal hearing present and Denies confusion Psych Denies confusion Physical Exam Vital Signs: Last Vital Signs Pulse 84 02/07/25 10:52 BP 139/78 02/07/25 10:52 Pulse Ox 95 02/07/25 10:52 Oxygen Delivery Method Room Air 02/07/25 10:52 BMI result Body Mass Index 34.7 Const General: No confusion Orientation/consciousness: No confusion Neck Other: Reports radiation of the pain from the upper cervical spine all the way to the neck upper shoulder lower shoulder right arm right forearm and 3 right middle fingers. Both Phalen and reverse Phalen tests aggravate her pain. Therefore I would not think it is medial nerve entrapment. Neck: Yes normal visual inspection and Yes full ROM ( Limited ROM in the neck reports cracking sounds with neck movements) Resp Effort & Inspection: normal respiratory effort, able to speak in complete sentences, normal respiratory pattern, no audible wheezes and no cough Cardio Jugular venous distension: no JVD GI Inspection: Yes normal to inspection Back/Spine/Pelvis Other: Tenderness on palpation on paraspinal spinal region lumbar spine. Significant tenderness on palpation in the projection of the lowest portion of the lumbar spine. SLR is positive for pain increase. Lassegue test is positive for pain increase. Reports numbness and tingling in the left lower extremity in the area of the foot. Neuro General: No confusion Cranial nerves: Yes Normal hearing present Extrem Other: Lateral rotation of the left hip causes severe discomfort in the groin. Psych Speech and movement: Normal speech and movement present Affect: normal affect Attitude: cooperative Thought process: Normal thought process present Assessment & Plan Assessment & Plan (1) Pain and swelling of left ankle: Code(s): M25.572 - Pain in left ankle and joints of left foot; M25.472 - Effusion, left ankle Category: Medical (2) Osteoarthritis of left hip: Code(s): M16.12 - Unilateral primary osteoarthritis, left hip Category: Medical (3) Spondylosis of lumbosacral spine with radiculopathy: Code(s): M47.27 - Other spondylosis with radiculopathy, lumbosacral region Category: Medical (4) Spinal stenosis of lumbar region: Code(s): M48.061 - Spinal stenosis, lumbar region without neurogenic claudication Category: Medical (5) Primary osteoarthritis of left knee: Code(s): M17.12 - Unilateral primary osteoarthritis, left knee Category: Medical (6) Radiculopathy of cervical spine: Code(s): M54.12 - Radiculopathy, cervical region Category: Medical (7) Spondylosis of cervical spine with radiculopathy: Code(s): M47.22 - Other spondylosis with radiculopathy, cervical region Category: Medical (8) Left knee pain: Code(s): M25.562 - Pain in left knee Category: Medical (9) Plantar fasciitis of left foot: Code(s): M72.2 - Plantar fascial fibromatosis Category: Medical (10) Vertebrogenic low back pain: Code(s): M54.51 - Vertebrogenic low back pain Category: Medical Plan Intercept RFA L4-5 and S1 was performed on 09/28/2024 with excellent results.. She denies lower back pain. She admits pain in the left groin and left side of the back radiating to the left groin. She also reports swelling and pain in the left ankle. I will refer her to rehab office coordinator with the left ankle. I also will send her for x-ray of the left hip joint. She had left hip x-ray in 2021. Since then she might have had significant changes building up in her left hip. She will schedule appointment with me in 2 weeks. I will evaluate her hip and possibly schedule her injections or evaluation with orthopedic surgery. In the past: cervical injection C4-C5 C6 MBB on 07/21/2023. She reported excellent pain relief. She denies any pain as of now. . Orders: Orders XR hip LT min 2V Today M16.12 - Unilateral primary osteoarthritis, left hip Referrals Podiatry Referral M25.472 - Effusion, left ankle, M25.572 - Pain in left ankle and joints of left foot Patient Instructions: I here by testify that I spent 30 minutes in conversation with this patient as well as planning her care and organizing this note. Coding Level of Care Code Est Pt Level 4 (32766) Diagnoses Pain and swelling of left ankle M25.572; M25.472 Osteoarthritis of left hip M16.12 Spondylosis of lumbosacral spine with radiculopathy M47.27 Spinal stenosis of lumbar region M48.061 Primary osteoarthritis of left knee M17.12 Radiculopathy of cervical spine M54.12 Spondylosis of cervical spine with radiculopathy M47.22 Left knee pain M25.562 Plantar fasciitis of left foot M72.2 Vertebrogenic low back pain M54.51
--- OUTSIDE RECORDS SUMMARY | 2025-02-07 12:55 | XMS_ITS | Patient Health Record ---
Author Organization [facility] Address [address] [place] [address] Care Team Providers Care Hay Stacker Name Role Phone Deirdre Stevens Primary Care Provider UnavailBebo Black Jr [phone] Allergies Allergen (clinical drug ingredient) Drug/Non Drug Allergy documented on EMR Reaction Allergy Type Onset Date Status Penicillin Unknown Drug Allergy Active fluoxetine Prozac Unknown Drug Allergy Active hydromorphone Hydromorphone HCl Unknown Drug Allergy Active Results Component Value Reference Range Notes Pathology Reviewed date:04/09/2024 09:03:12 AM Interpretation: Performing Lab:[facility], [address] [place] [phone] Notes/Report: Name: Sage Oh V Age/Sex: 53/F : 1970 Unit#: [id number] Attend Dr: Bebo Guy MD Re04/03/24 Status : [facility] Location: [facility] Disch: SPEC : [id number] RECD : 04/03/240 STATUS: FRACISCO PALMER NUM: [id number] RELL: 04/03/[address] [facility] [address]: Bebo Guy MD ENTERED: 04/03/2411 46 SP TYPE: Surgical OTHR DR: Deirdre Stevens MD ORDERED: HE Stain/9, Gross Micro L4/3, IHC/2, Special st. 2/3, H. pylori/2, AB/PAS/3 Diagnosis A. Gastric antrum, b iopsy: Gastric antral mucosa with mild reactive changes and minimal chronic inactive gas tritis; negative for H pylori, intestinal metaplasia and dysplasia. B. Gastric polyps, b iopsy: Fundic gland polyps with focal minimal chronic inactive inflammation; negati ve for H pylori, intestinal metaplasia and dysplasia. C. Esophagogastric j unction, biopsy: Squamocolumnar mucosa with mild chronic inflammation and a m inute focus of intestinal metaplasia; negative for dysplasia (see comment). Comment: (C): These findings may represent Feliz's esophagus if the biopsies were taken from above the anatomic g astroesophageal junction. Clinical and endoscopic correlation is advised. Clinical History Pre-Op Dx: GERD, screening Post-Op Dx: Gastriti s, gastric polyps, normal colonoscopy exam Microscopic Description Microscopic sections reviewed. Immunostains for H. pylori on A and B are negative. AB/PAS on A and B are negat javy for intestinal metaplasia. AB/PAS on C is positive for intestinal metaplasia. Controls stain appropriately. Material Received A. Antral bx's B. Gastric polyps bx's C. EG junction bx's Gross Description Received in three parts. Part A: Received in formalin labeled ?antral bx's? are 2 schwarz-pink irregular and rectangular tissue fragments aleida suring 0.25 and 0.45 cm, submitted in toto in a cassette labeled A. Part B: Received in formalin labeled ?gastric polyps bx's? are 2 schwarz-pink irregular tissue fragments each measu ring 0.25 cm, submitted in toto in a cassette labeled B. CONTINUED ON NEXT PAGE Name: Sage Oh V Age/Sex: 53/F : 1970 Unit#: [id number] Attend Dr: Bebo Guy MD Re04/03/24 Status : [facility] Location: [facility] Disch: SPEC : [id number] RECD : 04/03/24-1140 STATUS: FRACISCO LEEMik NUM: [id number] RELL: 04/03/24-[address] [facility] [address]: Bebo Guy MD ENTERED: 04/03/24-11 46 SP TYPE: Surgical OTHR DR: Deirdre Stevens MD ORDERED: HE Stain/9, Gross Micro L4/3, IHC/2, Special st. 2/3, H. pylori/2, AB/PAS/3 Gross Description (Continued) Part C: Received in formalin labeled ?EG junction bx's? are 4 schwarz-white and schwarz-pink irregular and rectan gular tissue fragments ranging from 0.2-0.4 cm, submitted in toto in a cassette labeled C. CEDS Special studies orde red and performed: Immunostain for H. pylori on A1 and B1; AB/PAS stains on A1, B1 and C1. Copies To: Bebo Guy MD [address] [place] [address] [id number] [place] [id number] Deirdre Stevens MD [address] [place] [address] Dr. [address] [place] [id number] Signed (si gnature on file) Cheyenne Chipley 04/04/24 1631 END OF REPORT Reason For Referral Referred Organization [facility] Referred Provider Bebo Guy Jr Referred Address [address] [place] [address],[facility] [address],[place],[address],[place] Referred Provider Specialty Gastroentero hesham General Notes Cass Pate 024 10:52:45 AM EDT > no referral required for [facility] Referral Priority Routine Medications Medication SIG (Take, Route, Frequency, Duration) Notes Start Date End Date Status oxyCODONE HCl 5 MG 1 tablet Orally ever y 6 hrs/prn Active Montelukast Sodium 10 MG 1 tablet in the evening Orally Once a day Active Zanaflex 4 MG 1 tablet as needed Orally Three times a day Active diazePAM 10 MG Oral for 30 Act javy Ventolin HFA 108 (90 Base) MCG/ACT Inhalation for 30 Active hydroCHLOROthiazide 25 MG TAKE 1 TABLET BY MOUTH EVERY MORNING Oral for 90 Active Triamcinolone Acetonide 55 MCG/ACT Nasal for 90 Active Vitamin D 1000 UNIT 1 tablet Orally Once a day Active Topiramate 50 MG Oral for 90 A ctive Meloxicam 15 MG Oral for 90 Ac tive buPROPion HCl ER (XL) 150 MG 1 tablet in the morning Orally Once a day Active Pantoprazole Sodium 40 MG Oral for 90 Active Valium 5 MG 1 tablet as needed Orally Twice a day Active lamoTRIgine 25 MG Oral for 90 Active Immunizations Vaccine Route Administration Date Status Comme nts Influenza Unknown 08/23/2023 Administered Social History Tobacco Use: Social History Observation Description Date Details (start date - stop date) Former Smoker NA - NA Tobacco Use/Smoking Question Answer Notes Patient is a former smoker How long has it been since you last smoked? 1-5 years Alcohol Screen Question Answer Notes Did you have a drink contain ing alcohol in the past year? Yes How often did you have a dri nk containing alcohol in the past year? Monthly or less (1 point) How many drinks did you have on a typical day when you were drinking in the past year? 1 or 2 drinks (0 point) How often did you have 6 or more drinks on one occasion in the past year? Never (0 point) Points 1 Interpretation Negative Problems Problem Type SNOMED Code ICD Code Onset Dates Problem Status W/U Status Risk Notes Problem 576792101 Colon cancer screening (Z12.11) Active confirmed Problem 863335340 Family history o f colonic polyps (Z83.71) Active confirmed Problem Gastroesophageal reflux disease (688033032) Gastroesophageal reflux disease (K21.9) Active confirmed Problem 490669303 Gastroesophageal reflux disease, esophagitis presence not specified (K21.9) Active confirmed Vital Signs Temperature 97.8 degrees Fahrenheit 02/29/2024 Blood pressure diastolic 00 mm Hg 02/29/2024 Height 66 in 02/29/2024 Blood pressure systolic 000 mm Hg 02/29/2024 Weight 207 lb 6 oz lbs 02/29/2024 BMI 33.47 kg/m2 02/29/2024 Encounters Encounter Location Date Provider Diagnosis [facility] Outpatient [address] [place], [place] [phone] 04/03/2024 Bebo Guy Jr Encounter for screening colonoscopy Z12.11 ; Family history of colon cancer Z80.0 and Gastroesophageal reflux disease K21.9 [facility] [address] [place] [address] 02/29/2024 Bebo Guy Jr Gastroesophageal reflux disease, esophagitis presence not specified K21.9 and Colon cancer screening Z12.11 [facility] [address] [place] [address] 04/09/2024 Bebo Guy Jr Assessments Encounter Date Diagnosis (ICD Code) Assessment Notes Treatment Notes Treatment Clinical Notes Section Notes 04/03/2024 Encounter for screening colonoscopy (ICD-10 - Z12.11) 04/03/2024 Family history of colon cancer (ICD-10 - Z80.0) 02/29/2024 Colon cancer screening (ICD-10 - Z12.11) We discussed gastroesophageal reflux disease today. We discussed diet, lifestyle modifications, and weight management. Her reflux symptoms are poorly controlled and she will undergo upper endoscopy for further evaluation. We discussed risks and benefits of the procedure today. She understands these and agrees to proceed. She is also due for colorectal cancer screening in this will be arranged at the same time. Followup will be pending these results. She is advised to stop NSAIDs one week before the procedure. She will stop hydrochlorothiazide the day before the procedure. 02/29/2024 Gastroesophageal reflux disease, esophagitis presence not specified (ICD-10 - K21.9) Endoscopy material was printed We discussed gastroesophageal reflux disease today. We discussed diet, lifestyle modifications, and weight management. Her reflux symptoms are poorly controlled and she will undergo upper endoscopy for further evaluation. We discussed risks and benefits of the procedure today. She understands these and agrees to proceed. She is also due for colorectal cancer screening in this will be arranged at the same time. Followup will be pending these results. She is advised to stop NSAIDs one week before the procedure. She will stop hydrochlorothiazide the day before the procedure. 04/03/2024 Gastroesophageal reflux disease (ICD-10 - K21.9) Plan Of Treatment Future Test Test Name Order Date UPPER GI ENDOSCOPY 08/19/2017 COLONOSCOPY 08/19/2017 UPPER GI ENDOSCOPY 02/29/2024 COLONOSCOPY 02/29/2024 Insurance Providers Payer Name Payer Address Payer Phone Subscriber Number Group Number Insured Name Patient Relationship to Insured Coverage Start Date Coverage End Date [facility] [address] [address] [place], [place] [id number] SAGE [place] Self - patient is the insured Medical (General) History Medical History History ICD Code anxiety/depression pancreatitis sciatica back and neck pain Osteoarthritis Asthma Fibromyalgia Colonoscopy 11/17, hyperplastic polyp, fi ve-year followup Gastroesophageal reflux disease, EGD 10/31 8, and no H. pylori or Feliz's Surgical History Surgery Date(Month/Year) section 1992,1993 right knee arthroscopy carpal tunnel release 11/11/2016 neck surgery 12/2015 surgery left knee 02/20
--- OUTSIDE RECORDS SUMMARY | 2025-02-07 12:55 | XMS_ITS | Clinical Summary ---
Author Organization [facility] Address [address] [place] [address] Care Team Providers Care Head Of Human Resources Name Role Phone Deirdre Stevens MD Primary [...] age to complete this topic Care Teams Head Of Human Resources Relationship Specialty Start Date End Date Deirdre Stevens MD [address] [facility] , [address] [facility] D/B/A: [facility] [place] [address] PCP - General Internal Medicine 05/29/18
--- OUTSIDE RECORDS SUMMARY | 2025-02-07 12:55 | XMS_ITS ---
Author Organization [facility] Address [address] [place] [address] Care Team Providers Care Coil Binder Name Role Phone Deirdre Stevens Primary Care Provider Unavailab Bebo Portillo Jr REASON FOR VISIT pathology Encounters Encounter Location Date Provider Diagnosis [facility] [address] [place] [address] 04/09/2024 Bebo Guy Jr Plan Of Treatment No Information Progress Notes * BECKY FENGSAGE BEEBE VDOB:0 1970 (53 yo F)Acc No.[id number]:04/09/2024 Patient:?IMAN OH V :1970???Age:53 Y???Sex:Female Address:[address] [place] [address] , [place], [address] * true * Date:? Generated for Jose Eliasi young/Melvin/eTransmitting on:?02/07/2025 12:55 PM EDT
--- OUTSIDE RECORDS SUMMARY | 2025-02-07 12:55 | XMS_ITS ---
Author Organization [facility] Address [address] [place] [address] Care Team Providers Care Quality Nurse Name Role Phone Deirdre Stevens Primary Care Provider Unavailab Bebo Portillo Jr REASON FOR VISIT gerd,screening Problems Problem Type SNOMED Code ICD Code Onset Dates Problem Status W/U Status Risk Notes Problem Gastroesophageal reflux disease (072953771) Gastroesophageal reflux disease (K21.9) Active confirmed Encounters Encounter Location Date Provider Diagnosis [facility] Outpatient [address] [place], [place] [phone] 04/03/2024 Bebo Guy Jr Encounter for screening [...] SAGE OH VDOB:0 1970 (54 yo F)Acc No.[id number]:04/03/2024 EGD and COL/MAC Patient:?IMAN OH V Provider:?Bebo Guy MD :1970???Age:53 Y???Sex:Female D ate:04/03/2024 Address:[address] [place], [place] [phone] Pcp:Deirdre Morel Subjective: * Chief Complaints: * ???1. Gerd,screening. * Medical History:? Objective: * Vitals:? Assessment: * Assessment: 1.?Encounter for screening c olonoscopy - Z12.11 (Primary)???2.?Family history of colon cancer - Z80.0???3.?Gastroesophageal reflux disease - K21.9??? Plan: * Treatment: * Procedure Codes:?13183 DIAGN OSTIC COLONOSCOPY, 60475 UPPER GI ENDOSCOPY, BIOPSY * * The named appointment provid er may or may not be the originator of this progress note, and it is not deemed complete until electronically signed by the appointment provider. Sign off status: Pending * Provider:?Bebo Guy MD Date:?0 04/03/2024 Generated for Azra vidal/Melvin/Ashleighsmitting on:?02/07/2025 12:55 PM EDT
--- OUTSIDE RECORDS SUMMARY | 2025-02-07 12:55 | XMS_ITS ---
Author Organization [facility] Address [address] [place] [address] Care Team Providers Care Evaporator Operator Name Role Phone Deirdre Stevens Primary Care Provider Bebo Mendes Jr Unavailable Allergies Allergen (clinical drug ingredient) Drug/Non Drug Allergy documented on EMR Reaction Allergy Type Onset Date Status Penicillin Unknown Drug Allergy Active fluoxetine Prozac Unknown Drug Allergy Active hydromorphone Hydromorphone HCl Unknown Drug Allergy Active REASON FOR VISIT Patient presents today for evaluation of reflux and colon cancer screening. Medications Medication SIG (Take, Route, Frequency, Duration) Notes Start Date End Date Status Topiramate 50 MG Oral for 90 A ctive Meloxicam 15 MG Oral for 90 Ac tive Pantoprazole Sodium 40 MG Oral for 90 Active lamoTRIgine 25 MG Oral for 90 Active Zanaflex 4 MG 1 tablet as needed Orally Three times a day Active diazePAM 10 MG Oral for 30 Act javy Ventolin HFA 108 (90 Base) MCG/ACT Inhalation for 30 Active hydroCHLOROthiazide 25 MG TAKE 1 TABLET BY MOUTH EVERY MORNING Oral for 90 Active Triamcinolone Acetonide 55 MCG/ACT Nasal for 90 Active oxyCODONE HCl 5 MG 1 tablet Orally ever y 6 hrs/prn Active Montelukast Sodium 10 MG 1 tablet in the evening Orally Once a day Active Vitamin D 1000 UNIT 1 tablet Orally Once a day Active buPROPion HCl ER (XL) 150 MG 1 tablet in the morning Orally Once a day Active Valium 5 MG 1 tablet as needed Orally Twice a day Active Social History Tobacco Use: Social History Observation [...] Problem Status W/U Status Risk Notes Problem 225477310 Colon cancer screening (Z12.11) Active confirmed Vital Signs Temperature 97.8 degrees Fahrenheit 02/29/20 24 Blood pressure systolic 000 mm Hg 02/29/20 24 Blood pressure diastolic 00 mm Hg 024 Height 66 in 02/29/2024 Weight 207 lb 6 oz lbs 02/29/2024 BMI 33.47 kg/m2 02/29/2024 Encounters Encounter Location Date Provider Diagnosis [facility] [address] [place] [address] 02/29/2024 Bebo Guy Jr Gastroesophageal reflux disease, esophagitis presence not specified K21.9 and Colon cancer screening Z12.11 Assessments Encounter Date Diagnosis (ICD Code) Assessment Notes Treatment Notes Treatment Clinical Notes Section Notes 02/29/2024 Gastroesophageal reflux disease, esophagitis presence not [...] hydrochlorothiazide the day before the procedure. 02/29/2024 Colon cancer screening (ICD-10 - Z12.11) [...] stop hydrochlorothiazide the day before the procedure. Plan Of Treatment Treatment Notes Assessment Notes Gastroesophageal reflux dise ase, esophagitis presence not specified Endoscopy material was printed Future Test Test Name Order Date UPPER GI ENDOSCOPY 02/29/2024 COLONOSCOPY 02/29/2024 Progress Notes * SAGE OH VDOB:0 1970 (53 yo F)Acc No.[id number]:02/29/2024 Progress Notes Patient:?IMAN OH V Provider:?Bebo Guy MD :1970???Age:53 Y???Sex:Female D ate:02/29/2024 Address:[address] [place] [address] Pcp:Deirdre Morel Subjective: * Chief Complaints: * ???1. Patient presents today for evaluation of reflux and colon cancer screening.. * HPI: ???New symptom(s):? Sage is a pleasant 53-year-old woman seen today in consultation at the request of her primary care provider. She describes a long-standing history of esophageal reflux disease with substernal burning precipitated by typical foods including spicy foods and fatty foods. Symptoms are exacerbated with fried foods, which she had 2 days ago. Since that time she's had epigastric burning and diarrhea. She's also noted intolerance to lactulose and is using Lactaid supplements such as Lactaid ice cream. Symptoms have been persistent despite pantoprazole 40 mg which he takes upwards of 2 times per day as needed. She has no dysphagia, hematemesis, or melena. Weight and appetite have been stable. ?Sage previously underwent colonoscopy in 2018. This showed a hyperplastic polyp. Five-year followup was recommended because of her family history of colon cancer and polyps. She has no complaints of rectal bleeding or change in her bowel habits. * ROS:?General/Constitutional:?Change in appetite?denies.?Fatigue?denies.?ENT:?Patient denies?difficulty swallowing.?Respiratory:?Patient denies?shortness of breath.?Cardiovascular:?Patient denies?chest pain.?Gastrointestinal:?Comments?See HPI for details.?Genitourinary:?Difficulty urinating?denies.?Incontinence?denies.?Musculoskeletal:?Patient denies?muscle aches.?Skin:?Patient denies?pruritis.?Neurologic:?Patient denies?low back pain.?Psychiatric:?Patient denies?mental or physical abuse.? * Medical History:?Anxiety/dep ression, Pancreatitis, Sciatica, Back and neck pain, Osteoarthritis, Asthma, Fibromyalgia, Colonoscopy 11/17, hyperplastic polyp, five-year followup, Gastroesophageal reflux disease, EGD 11/17, and no H. pylori or Feliz's. * Surgical History:? s ection 1992,1993, right knee arthroscopy , carpal tunnel release 11/11/2016, neck surgery 12/2015, surgery left knee 02/20. * Family History:?Father: sayra walter, diagnosed with Colon polyps, Diabetes, HTN (hypertension).?Mother: alive.? No family history of liver cancer. Dad's mother had colon cancer. Brother had 6 polyps removed and two were cancerous. * Social History:?Tobacco Use:?Tobacco Use/Smoking?Patient is a?former smoker,?How long has it been since you last smoked??1-5 years.?Drugs/Alcohol:?Alcohol Screen?Did you have a drink containing alcohol in the past year??Yes,?How often did you have a drink containing alcohol in the past year??Monthly or less (1 point), How many drinks did you have on a typical day when you were drinking in the past year??1 or 2 drinks (0 point),?How often did you have 6 or more drinks on one occasion in the past year??Never (0 point),?Points?1,?Interpretation?Negative.?Miscellaneous:?Marital status: single. 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 * Medications:?Taking Vitamin D 1000 UNIT Tablet 1 tablet Orally Once a day, Taking Valium 5 MG Tablet 1 tablet as needed Orally Twice a day, Taking buPROPion HCl ER (XL) 150 MG Tablet Extended Release 24 Hour 1 tablet in the morning Orally Once a day, Taking Montelukast Sodium 10 MG Tablet 1 tablet in the evening Orally Once a day, Taking oxyCODONE HCl 5 MG Tablet 1 tablet Orally every 6 hrs/prn, Taking Zanaflex 4 MG Tablet 1 tablet as needed Orally Three times a day, Taking Ventolin HFA 108 (90 Base) MCG/ACT Aerosol Solution Inhalation , Taking diazePAM 10 MG Tablet Oral , Taking Triamcinolone Acetonide 55 MCG/ACT Aerosol Nasal , Taking hydroCHLOROthiazide 25 MG Tablet TAKE 1 TABLET BY MOUTH EVERY MORNING Oral , Taking Meloxicam 15 MG Tablet Oral , Taking Topiramate 50 MG Tablet Oral , Taking lamoTRIgine 25 MG Tablet Oral , Taking Pantoprazole Sodium 40 MG Tablet Delayed Release Oral , Discontinued Colyte with Flavor Packs 240 GM Solution Reconstituted As directed Orally Over the specified time., Medication List reviewed and reconciled with the patient * Allergies:?Prozac, Penicilli n, Hydromorphone HCl. Objective: * Vitals:?Wt: 207 lb 6 oz, Ht: 66 in, BMI:33.47 Index, BP: 000/00 mm Hg, Temp: 97.8. * Examination: ???General Examination: ?GENERAL APPEARANCE:?in no acute distress.?HEAD:?normocephalic.?EYES:?sclera non-icteric.?ORAL CAVITY:?mucosa moist.?NECK/THYROID:?no lymphadenopathy.?SKIN:?anicteric.?HEART:?S1, S2 normal, no murmurs.?LUNGS:?clear to auscultation bilaterally.?CHEST:?normal shape and expansion.?ABDOMEN:?soft, nontender, nondistended, bowel sounds present, no organomegaly .?EXTREMITIES:?no clubbing, cyanosis, or edema.?PSYCH:?cognitive function intact.? Assessment: * Assessment: 1.?Gastroesophageal reflux d isease, esophagitis presence not specified - K21.9 (Primary)?2.?Colon cancer screening - Z12.11? We discussed gastroesophagea l reflux disease today. We discussed diet, lifestyle [...] stop hydrochlorothiazide the day before the procedure. Plan: * Treatment: Notes: Endoscopy material was printed??2.?Colon cancer screening?Procedure: COLONOSCOPY (Ordered for 02/29/2024)* sched for 04/03/24 at 10:00 am macmiralax * Procedure Codes:?3017F COLOR ECTAL CA SCREEN DOC REV, G9903 Pt scrn tbco id as non user, G9745 DOC RSN FOR NOT SCREEN/REC F/U HBP * Preventive Medicine:? ??Counseling:?Care goal follow-up plan:?Above Normal BMI Follow-up?Giving encouragement to exercise,?BMI management provided?Yes.? * * Sign off status: Completed true * Provider:?Bebo Guy MD Date:?0 02/29/2024 Generated for Azra vidal/Melvin/Chazitting on:?02/07/2025 12:55 PM EDT History and Physical Notes * HPI (History of Present Illness) Category Sub-Category Detail Notes Category Not es New symptom(s) Sage is a pleasant 53-year-old woman seen today in consultation at the request of her primary care provider. She describes a long-standing history of esophageal reflux disease with substernal burning precipitated by typical foods including spicy foods and fatty foods. Symptoms are exacerbated with fried foods, which she had 2 days ago. Since that time she's had epigastric burning and diarrhea. She's also noted intolerance to lactulose and is using Lactaid supplements such as Lactaid ice cream. Symptoms have been persistent despite pantoprazole 40 mg which he takes upwards of 2 times per day as needed. She has no dysphagia, hematemesis, or melena. Weight and appetite have been stable. Sage previously underwent colonoscopy in 2018. This showed a hyperplastic polyp. Five-year followup was recommended because of her family history of colon cancer and polyps. She has no complaints of rectal bleeding or change in her bowel habits. Examination Category Sub-Category Detail Notes Category Not es General Examination GENERAL APPEARANCE: in no acute di stress HEAD: normocephalic EYES: sclera non-icteric NECK/THYROID: no lymphadenopathy HEART: S1, S2 normal, no mu rmurs CHEST: normal shape and exp ansion LUNGS: clear to auscultatio n bilaterally ABDOMEN: soft, nontender, non distended, bowel sounds present, no organomegaly SKIN: anicteric EXTREMITIES: no clubbing, cyanosi s, or edema PSYCH: cognitive function i ntact ORAL CAVITY: mucosa moist
== END 2025-02-07 11:03 | disposition home or self-care (01) ==
LOC: HO.PMC 10:49
PROVIDERS: PCP Internal Medicine; Visit Provider Anesthesiology
DX: M25.572 Pain in left ankle and joints of left foot (principal); M25.472 Effusion, left ankle; M16.12 Unilateral primary osteoarthritis, left hip; M47.27 Other spondylosis with radiculopathy, lumbosacral region; M48.061 Spinal stenosis, lumbar region without neurogenic claudication; M17.12 Unilateral primary osteoarthritis, left knee; M54.12 Radiculopathy, cervical region; M47.22 Other spondylosis with radiculopathy, cervical region; M25.562 Pain in left knee; M72.2 Plantar fascial fibromatosis; M54.51 Vertebrogenic low back pain
CPT/HCPCS: 99214

== ENCOUNTER → 2025-02-07 10:49 | Outpatient (BNVA) | payer OTHER, SELFPAY | PROVIDERS: PCP Internal Medicine; Visit Provider Anesthesiology | DX: M25.572 Pain in left ankle and joints of left foot (principal); M25.472 Effusion, left ankle; M16.12 Unilateral primary osteoarthritis, left hip; M47.27 Other spondylosis with radiculopathy, lumbosacral region; M47.22 Other spondylosis with radiculopathy, cervical region; M48.061 Spinal stenosis, lumbar region without neurogenic claudication; M17.12 Unilateral primary osteoarthritis, left knee; M72.2 Plantar fascial fibromatosis; M54.51 Vertebrogenic low back pain | CPT/HCPCS: 99212 ==

== ENCOUNTER 2025-02-14 12:51 | Outpatient (REF) | payer OTHER, SELFPAY ==
--- NOTE | ~2025-02-14 | XR_ITS ---
EXAMINATION: XR HIP 2 OR MORE VIEWS LEFT HISTORY: M16.12 - Unilateral primary osteoarthritis, left hip COMPARISON: Comparison is made with the prior examination dated 11/25/2021. FINDINGS: Two views of the left hip are submitted. Osseous mineralization is normal. There is no fracture or dislocation. Again seen is mild joint space narrowing. The soft tissues are unremarkable. XR/XR hip LT min 2V IMPRESSION: Mild joint space narrowing. Electronically signed by: Godfrey Crawley MD 02/15/2025 07:38 AM EDT
--- OUTSIDE RECORDS SUMMARY | 2025-02-14 15:38 | XMS_ITS ---
Author Organization [facility] Address [address] [place] [address] Care Team Providers Care Assistant Business Manager Name Role Phone Deirdre Stevens Primary Care Provider Unavailab Bebo Portillo Jr REASON FOR VISIT pathology Encounters Encounter Location Date Provider Diagnosis [facility] [address] [place] [address] 04/09/2024 Bebo Guy Jr Plan Of Treatment No Information Progress Notes * BECKY FENGSAGE BEEBE VDOB:0 1970 (53 yo F)Acc No.[id number]:04/09/2024 Patient:?IMAN OH V :1970???Age:53 Y???Sex:Female Address:[address] [place] [address] , [place], [address] * true * Date:? Generated for Jose Eliasi young/Melvin/eTransmitting on:?02/14/2025 03:38 PM EDT
--- OUTSIDE RECORDS SUMMARY | 2025-02-14 15:38 | XMS_ITS ---
Author Organization [facility] Address [address] [place] [address] Care Team Providers Care Radiator Repairer Name Role Phone Deirdre Stevens Primary Care Provider Unavailab Bebo Portillo Jr [phone] REASON FOR VISIT gerd,screening Problems Problem Type SNOMED Code ICD Code Onset Dates Problem Status W/U Status Risk Notes Problem Gastroesophageal reflux disease (707631415) Gastroesophageal reflux disease (K21.9) Active confirmed Encounters Encounter Location Date Provider Diagnosis [facility] Outpatient [address] [place], [place] [phone] 04/03/2024 Bebo Guy Jr Encounter for screening [...] SAGE OH VDOB:0 1970 (54 yo F)Acc No.[id number]:04/03/2024 EGD and COL/MAC Patient:?IMAN OH V Provider:?Bebo Guy MD :1970???Age:53 Y???Sex:Female D ate:04/03/2024 Address:[address] [place], [place] [id number] Pcp:Deirdre Morel Subjective: * Chief Complaints: * ???1. Gerd,screening. * Medical History:? Objective: * Vitals:? Assessment: * Assessment: 1.?Encounter for screening c olonoscopy - Z12.11 (Primary)???2.?Family history of colon cancer - Z80.0???3.?Gastroesophageal reflux disease - K21.9??? Plan: * Treatment: * Procedure Codes:?75483 DIAGN OSTIC COLONOSCOPY, 11837 UPPER GI ENDOSCOPY, BIOPSY * * The named appointment provid er may or may not be the originator of this progress note, and it is not deemed complete until electronically signed by the appointment provider. Sign off status: Pending * Provider:?Bebo Guy MD Date:?0 04/03/2024 Generated for Azra vidal/Melvin/Ashleighsmitting on:?02/14/2025 03:38 PM EDT
--- OUTSIDE RECORDS SUMMARY | 2025-02-14 15:39 | XMS_ITS | Clinical Summary ---
Author Organization [facility] Address [address] [place] [address] Care Team Providers Care Home Energy Consultant Supervisor Name Role Phone Deirdre Stevens MD Primary [...] age to complete this topic Care Teams Home Energy Consultant Supervisor Relationship Specialty Start Date End Date Deirdre Stevens MD [address] [facility] , [address] [facility] D/B/A: [facility] [place] [address] PCP - General Internal Medicine 05/29/18
--- OUTSIDE RECORDS SUMMARY | 2025-02-14 15:39 | XMS_ITS | Patient Health Record ---
Author Organization [facility] Address [address] [place] [address] Care Team Providers Care Adjunct Latin Professor Name Role Phone Deirdre Stevens Primary Care Provider UnavailBebo Black Jr Allergies Allergen (clinical drug ingredient) Drug/Non Drug Allergy documented on EMR Reaction Allergy Type Onset Date Status Penicillin Unknown Drug Allergy Active fluoxetine Prozac Unknown Drug Allergy Active hydromorphone Hydromorphone HCl Unknown Drug Allergy Active Results Component Value Reference Range Notes Pathology Reviewed date:04/09/2024 09:03:12 AM Interpretation: Performing Lab:[facility], [address] [place] [phone] Notes/Report: Name: Sage Oh V Age/Sex: 53/F : 1970 Unit#: [id number] Attend Dr: Bebo Guy MD Re04/03/24 Status : [facility] Location: [facility] Disch: SPEC : [id number] RECD : 04/03/240 STATUS: FRACISCO PALMER NUM: [id number] RELL: 04/03/24 [facility] [address]: Bebo Guy MD ENTERED: 04/03/2411 46 [...] Oh V Age/Sex: 53/F : 1970 Unit#: [id number] Attend Dr: Bebo Guy MD Re04/03/24 Status : [facility] Location: [facility] Disch: SPEC : [id number] RECD : 04/03/24-1140 STATUS: FRACISCO LEEMik NUM: [id number] RELL: 04/03/24-939 [facility] [address]: Bebo Guy MD ENTERED: 04/03/24-11 46 [...] and C1. Copies To: Bebo Guy MD [address] [place] [address] [address] [place] [id number] Deirdre Stevens MD [address] [place] [address] Dr. Bradley [address] [place] [phone] Signed (si gnature on file) [place] 04/04/24 1631 END OF REPORT Reason For Referral Referred Organization [facility] Referred Provider Bebo Guy Jr Referred Address [address] [place] [address],[facility] [address],[place],[address],[place] Referred Provider Specialty Gastroentero hesham General Notes Cass Pate 024 10:52:45 AM EDT > no referral required for [facility] Referral Priority Routine Medications Medication SIG (Take, [...] Problem Status W/U Status Risk Notes Problem 561344039 Colon cancer screening (Z12.11) Active confirmed Problem 505785268 Family history o f colonic polyps (Z83.71) Active confirmed Problem Gastroesophageal reflux disease (272666814) Gastroesophageal reflux disease (K21.9) Active confirmed Problem 693324503 Gastroesophageal reflux disease, esophagitis presence not specified (K21.9) Active confirmed Vital Signs Temperature 97.8 degrees Fahrenheit 02/29/2024 Blood pressure diastolic 00 mm Hg 02/29/2024 Height 66 in 02/29/2024 Blood pressure systolic 000 mm Hg 02/29/2024 Weight 207 lb 6 oz lbs 02/29/2024 BMI 33.47 kg/m2 02/29/2024 Encounters Encounter Location Date Provider Diagnosis [facility] Outpatient [address] [place], [place] [phone] 04/03/2024 Bebo Guy Jr Encounter for screening colonoscopy Z12.11 ; Family history of colon cancer Z80.0 and Gastroesophageal reflux disease K21.9 [facility] [address] [place] [address] 02/29/2024 Bebo Guy Jr Gastroesophageal reflux disease, esophagitis presence not specified K21.9 and Colon cancer screening Z12.11 [facility] [address] [place] [address] 04/09/2024 Bebo Guy Jr Assessments Encounter Date [...] Insured Coverage Start Date Coverage End Date [facility] [address] [facility] [address] [address] [place], [place] [id number] SAGE [place] Self - patient is the [...]
--- OUTSIDE RECORDS SUMMARY | 2025-02-14 15:39 | XMS_ITS ---
Author Organization [facility] Address [address] [place] [address] Care Team Providers Care Feed Research Technician Name Role Phone Deirdre Stevens Primary Care [...] Problem Status W/U Status Risk Notes Problem 679800919 Colon cancer screening (Z12.11) Active confirmed Vital Signs Temperature 97.8 degrees Fahrenheit 02/29/20 24 Blood pressure systolic 000 mm Hg 02/29/20 24 Blood pressure diastolic 00 mm Hg 024 Height 66 in 02/29/2024 Weight 207 lb 6 oz lbs 02/29/2024 BMI 33.47 kg/m2 02/29/2024 Encounters Encounter Location Date Provider Diagnosis [facility] [address] [place] [address] 02/29/2024 Bebo Guy Jr Gastroesophageal reflux disease, [...] SAGE OH VDOB:0 1970 (53 yo F)Acc No.[id number]:02/29/2024 Progress Notes Patient:?IMAN OH V Provider:?Bebo Guy MD :1970???Age:53 Y???Sex:Female D ate:02/29/2024 Address:[address] [place] [address] Pcp:Deirdre Morel Subjective: * Chief Complaints: * [...] past year??Never (0 point),?Points?1,?Interpretation?Negative.?Miscellaneous:?Marital status: single. 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 * Medications:?Taking Vitamin D 1000 UNIT [...] MD Date:?0 02/29/2024 Generated for Azra vidal/Melvin/Chazitting on:?02/14/2025 03:38 PM EDT History and Physical Notes * [...]
== END 2025-02-14 12:52 | disposition home or self-care (01) ==
LOC: HO.XRAY 12:51
PROVIDERS: PCP Internal Medicine; Visit Provider Anesthesiology
DX: M16.12 Unilateral primary osteoarthritis, left hip (principal)
CPT/HCPCS: 73502

== ENCOUNTER → 2025-02-14 12:56 | Outpatient (BNV) | payer OTHER, SELFPAY | PROVIDERS: PCP Internal Medicine; Visit Provider Radiology Diagnostic Radiology | DX: M16.12 Unilateral primary osteoarthritis, left hip (principal) | CPT/HCPCS: 73502 ==

== ENCOUNTER 2025-02-19 11:05 | Outpatient (REF) | payer OTHER, SELFPAY ==
--- NOTE | 2025-02-19 11:08 | PFT_ITS ---
Spirometry [] Lung Volumes [] Diffusion Capacity [] Methacholine Challenge [] Flow Volume Loops [] MVV [] MIP/MEP(Max inspiratory pressure/Max expiratory pressure) [] 6 Minute Walk Test [] ABG [] Interpretation [] MTDD
[2025-02-19 11:53] VITALS: PULSE 92; O2SAT 98
--- OUTSIDE RECORDS SUMMARY | 2025-02-19 13:18 | XMS_ITS | Patient Health Record ---
Author Organization [facility] Address [address] [place] [address] Care Team Providers Care Special Education Paraprofessional Name Role Phone Deirdre Stevens Primary Care Provider UnavailBebo Black Jr [phone] Allergies Allergen (clinical drug ingredient) Drug/Non Drug Allergy documented on EMR Reaction Allergy Type Onset Date Status Penicillin Unknown Drug Allergy Active fluoxetine Prozac Unknown Drug Allergy Active hydromorphone Hydromorphone HCl Unknown Drug Allergy Active Results Component Value Reference Range Notes Pathology Reviewed date:04/09/2024 09:03:12 AM Interpretation: Performing Lab:[facility], [address] [place] [phone] Notes/Report: Name: Sage Oh V Age/Sex: 53/F : 1970 Unit#: [id number] Attend Dr: Bebo Guy MD Re04/03/24 Status : [facility] Location: [facility] Disch: SPEC : [id number] RECD : 04/03/240 STATUS: FRACISCO PALMER NUM: [id number] RELL: 04/03/[address] [facility] [address]: Bebo Guy MD ENTERED: 04/03/2411 [...] Oh V Age/Sex: 53/F : 1970 Unit#: [id number] Attend Dr: Bebo Guy MD Re04/03/24 Status : [facility] Location: [facility] Disch: SPEC : [id number] RECD : 04/03/24-1140 STATUS: FRACISCO LEEMik NUM: [id number] RELL: 04/03/24-[address] [facility] [address]: Bebo Guy MD ENTERED: 04/03/24-11 [...] and C1. Copies To: Bebo Guy MD [address] [place] [address] [address] [place] [phone] Deirdre Stevens MD [address] [place] [address] Dr. [address] [place] [phone] Signed (si gnature on file) Cheyenne [place] 04/04/24 1631 END OF REPORT Reason For Referral Ref[facility] Referred Provider Bebo Guy Jr Referred Address [address] [place] [address],[facility] [address],[place],[address],[place] Referred Provider Specialty Gastroentero hesham General Notes Cass Pate 024 10:52:45 AM EDT > no referral required for [facility] [place] Referral Priority Routine Medications Medication SIG (Take, [...] Problem Status W/U Status Risk Notes Problem 074173128 Colon cancer screening (Z12.11) Active confirmed Problem 918253402 Family history o f colonic polyps (Z83.71) Active confirmed Problem Gastroesophageal reflux disease (646293742) Gastroesophageal reflux disease (K21.9) Active confirmed Problem 745486871 Gastroesophageal reflux disease, esophagitis presence not specified (K21.9) Active confirmed Vital Signs Temperature 97.8 degrees Fahrenheit 02/29/2024 Blood pressure diastolic 00 mm Hg 02/29/2024 Height 66 in 02/29/2024 Blood pressure systolic 000 mm Hg 02/29/2024 Weight 207 lb 6 oz lbs 02/29/2024 BMI 33.47 kg/m2 02/29/2024 Encounters Encounter Location Date Provider Diagnosis [facility] Outpatient [address] [place], [place] [phone] 04/03/2024 Bebo Guy Jr Encounter for screening colonoscopy Z12.11 ; Family history of colon cancer Z80.0 and Gastroesophageal reflux disease K21.9 [facility] [address] [place] [address] 02/29/2024 Bebo Guy Jr Gastroesophageal reflux disease, esophagitis presence not specified K21.9 and Colon cancer screening Z12.11 [facility] [address] [place] [address] 04/09/2024 Bebo Guy Jr Assessments Encounter Date [...] Insured Coverage Start Date Coverage End Date [facility] [address] [employer] [facility] [address] [address] [place], [place] [id number] SAGE [place] Self - patient is the [...]
--- OUTSIDE RECORDS SUMMARY | 2025-02-19 13:18 | XMS_ITS ---
Author Organization [facility] Address [address] [place] [address] Care Team Providers Care Assistant Education Director Name Role Phone Deirdre Stevens Primary Care Provider Unavailab Bebo Portillo Jr REASON FOR VISIT gerd,screening Problems Problem Type SNOMED Code ICD Code Onset Dates Problem Status W/U Status Risk Notes Problem Gastroesophageal reflux disease (620467947) Gastroesophageal reflux disease (K21.9) Active confirmed Encounters Encounter Location Date Provider Diagnosis [facility] Outpatient [address] [place], [place] [phone] 04/03/2024 Bebo Guy Jr Encounter for screening [...] SAGE OH VDOB:0 1970 (54 yo F)Acc No.[id number]:04/03/2024 EGD and COL/MAC Patient:?IMAN OH V Provider:?Bebo Guy MD :1970???Age:53 Y???Sex:Female D ate:04/03/2024 Address:[address] [place], [place] [phone] Pcp:Deirdre Morel Subjective: * Chief Complaints: * ???1. Gerd,screening. * Medical History:? Objective: * Vitals:? Assessment: * Assessment: 1.?Encounter for screening c olonoscopy - Z12.11 (Primary)???2.?Family history of colon cancer - Z80.0???3.?Gastroesophageal reflux disease - K21.9??? Plan: * Treatment: * Procedure Codes:?69919 DIAGN OSTIC COLONOSCOPY, 58455 UPPER GI ENDOSCOPY, BIOPSY * * The named appointment provid er may or may not be the originator of this progress note, and it is not deemed complete until electronically signed by the appointment provider. Sign off status: Pending * Provider:?Bebo Guy MD Date:?0 04/03/2024 Generated for Azra vidal/Melvin/Ashleighsmitting on:?02/19/2025 01:17 PM EDT
--- OUTSIDE RECORDS SUMMARY | 2025-02-19 13:18 | XMS_ITS | Clinical Summary ---
Author Organization [facility] Address [address] [place] [address] Care Team Providers Care Glassware Maker Name Role Phone Deirdre Stevens MD Primary [...] age to complete this topic Care Teams Glassware Maker Relationship Specialty Start Date End Date Deirdre Stevens MD [address] [facility] , [address] [facility] D/B/A: [facility] [place] [address] PCP - General Internal Medicine 05/29/18
--- OUTSIDE RECORDS SUMMARY | 2025-02-19 13:18 | XMS_ITS ---
Author Organization [facility] Address [address] [place] [address] Care Team Providers Care Storeroom Supervisor Name Role Phone Deirdre Stevens Primary Care [...] Problem Status W/U Status Risk Notes Problem 061725788 Colon cancer screening (Z12.11) Active confirmed Vital Signs Temperature 97.8 degrees Fahrenheit 02/29/20 24 Blood pressure systolic 000 mm Hg 02/29/20 24 Blood pressure diastolic 00 mm Hg 024 Height 66 in 02/29/2024 Weight 207 lb 6 oz lbs 02/29/2024 BMI 33.47 kg/m2 02/29/2024 Encounters Encounter Location Date Provider Diagnosis [facility] [address] [place] [address] 02/29/2024 Bebo Guy Jr Gastroesophageal reflux disease, [...] SAGE OH VDOB:0 1970 (53 yo F)Acc No.[id number]:02/29/2024 Progress Notes Patient:?IMAN OH V Provider:?Bebo Guy MD :1970???Age:53 Y???Sex:Female D ate:02/29/2024 Address:[address] [place] [address] Pcp:Deirdre Morel Subjective: * Chief Complaints: * [...] past year??Never (0 point),?Points?1,?Interpretation?Negative.?Miscellaneous:?Marital status: single. 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 * Medications:?Taking Vitamin D 1000 UNIT [...] MD Date:?0 02/29/2024 Generated for Azra vidal/Melvin/Chazitting on:?02/19/2025 01:17 PM EDT History and Physical Notes * [...]
--- OUTSIDE RECORDS SUMMARY | 2025-02-19 13:18 | XMS_ITS ---
Author Organization [facility] Address [address] [place] [address] Care Team Providers Care Electrician Technician Name Role Phone Deirdre Stevens Primary Care Provider Unavailab Bebo Portillo Jr [phone] REASON FOR VISIT pathology Encounters Encounter Location Date Provider Diagnosis [facility] [address] [place] [address] 04/09/2024 Bebo Guy Jr Plan Of Treatment No Information Progress Notes * BECKY FENGSAGE BEEBE VDOB:0 1970 (53 yo F)Acc No.[id number]:04/09/2024 Patient:?IMAN OH V :1970???Age:53 Y???Sex:Female Address:[address] [place] [address] , [place], [address] * true * Date:? Generated for Jose Eliasi young/Melvin/eTransmitting on:?02/19/2025 01:17 PM EDT
== END 2025-02-19 11:06 | disposition home or self-care (01) ==
LOC: HO.RESP 11:05
PROVIDERS: PCP Internal Medicine; Visit Provider Nurse Practitioner Family
DX: R06.09 Other forms of dyspnea (principal)
CPT/HCPCS: 94010; 94640; 94727; 94729

== ENCOUNTER → 2025-02-19 11:08 | Outpatient (BNV) | payer OTHER, SELFPAY | PROVIDERS: PCP Internal Medicine; Visit Provider Internal Medicine Pulmonary Disease | DX: R06.09 Other forms of dyspnea (principal) | CPT/HCPCS: 94060; 94727; 94729 ==

== ENCOUNTER 2025-03-14 14:31 | Outpatient (AMB) | payer OTHER, SELFPAY ==
--- NOTE | 2025-03-14 14:32 | A.OFFVIS_ITS ---
Vital Signs 03/14/25 14:38 Height 5 ft 4 in Weight 200 lb BMI 34.3 Intake Visit Reasons: HIP X-RAY RESULTS Allergies fluoxetine [From PROZAC] Allergy (Severe, Verified 03/14/25 14:38) OVER SEDATION gabapentin [GABAPENTIN] Allergy (Intermediate, Verified 03/14/25 14:38) NAUSEA,DIZZINESS, dizziness hydromorphone [HYDROMORPHONE] Allergy (Intermediate, Verified 03/14/25 14:38) NAUSEA/PALPITATIONS, vomiting latex [LATEX] Allergy (Intermediate, Verified 03/14/25 14:38) RASH Penicillins [PENICILLINS] Allergy (Intermediate, Verified 03/14/25 14:38) RASH HPI Comments Details: Selina is today on the phone to discuss the results of the left hip injection. Good news at that the arthritis did not progress however she still feels severe pain in the left hip. I offered her to attempt intra-articular left hip steroid injection. She insisted this procedure would be done under sedation. I will schedule her under sedation in the operating room to perform left hip intra- articular steroid injection. She also complains on pain in the foot. This is a new complaint. [facility] I made a referral for her to go to grooming salon manager at [facility] in [place]. Very successful results after intracept BVN RFA procedure.. Very successful results of total knee replacement. She is very proud of her ability to exercise with her left knee. The scar is thin and very nice no inflammatory changes. She probably requires total hip replacement as well. 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 Surgical History Status post left knee replacement Hx of arthroscopy of left knee History of surgery History of esophagogastroduodenoscopy (EGD) H/O colonoscopy Hx of breast reduction, elective History of carpal tunnel release History of neck surgery History of tubal ligation S/P JUSTYN-BSO (total abdominal hysterectomy and bilateral salpingo-oophorectomy) H/O medial meniscus repair of right knee Family History Father Diabetes Hypertension Maternal Grandmother Cancer Maternal Grandfather Cancer Family/Other FH: mental illness Substance use disorder Mother Arthritis Asthma Brother No problems noted. Brother No problems noted. Son No problems noted. Son No problems noted. Son No problems noted. Son No problems noted. Social History Household Members: Significant Other and Family Housing: House Are you a primary adult care manager to a significant other at home: No Do you presently have visiting nurse or other home services: No Alcohol intake: current Alcohol intake frequency: holidays/special occasions only Alcohol type: hard liquor Patient Tobacco Use Status: Former Tobacco user Tobacco use type: Cigarette Years Smoked: 9 e-Cigarette/Vaping Use: Never Used Second Hand Smoke Exposure: No service: No Current occupational status: employed Current occupational exposures/hazards: No Cognitive needs: No Hearing needs: No Vision needs: No Female Reproductive History Menstrual Age of Menarche: 12 Review of Systems Const All systems reviewed & are unremarkable except as noted in HPI and below Telehealth Telehealth Telehealth Platform: Telephone Location of provider rendering services: practice address Location of patient: address on file Patient Identification confirmed using: Name, : Yes Telehealth method: voice only Patient verbally consented to treatment: Yes Patient verbally consented to billing insurance company: Yes Patient informed of any privacy concerns related to visit: Yes Results Reviewed Results Reviewed: EXAMINATION: XR HIP 2 OR MORE VIEWS LEFT HISTORY: M16.12 - Unilateral primary osteoarthritis, left hip COMPARISON: Comparison is made with the prior examination dated 11/25/2021. FINDINGS: Two views of the left hip are submitted. Osseous mineralization is normal. There is no fracture or dislocation. Again seen is mild joint space narrowing. The soft tissues are unremarkable. Assessment & Plan Assessment & Plan (1) Pain and swelling of left ankle: Code(s): M25.572 - Pain in left ankle and joints of left foot; M25.472 - Effusion, left ankle Category: Medical Plan I will schedule this patient for intra-articular left hip injection. I will see her in the office after the injection. I also will refer this patient to Podiatry in [facility]. Orders: Referrals Podiatry Referral M25.472 - Effusion, left ankle, M25.572 - Pain in left ankle and joints of left foot Patient Instructions: I here by testify that I spent 15 minutes in conversation with this patient as well as planning her care and organizing this note. Coding Level of Care Code Tele Est Pt Level 3 (08367) Diagnoses Pain and swelling of left ankle M25.572; M25.472
[2025-03-14 14:38] VITALS: BMI 34.3
--- OUTSIDE RECORDS SUMMARY | 2025-03-14 15:07 | XMS_ITS ---
Author Organization [facility] Address [address] [place] [address] Care Team Providers Care Materials Management Manager Name Role Phone Deirdre Stevens Primary Care Provider UnavailBebo Black Jr REASON FOR VISIT gerd,screening Problems Problem Type SNOMED Code ICD Code Onset Dates Problem Status W/U Status Risk Notes Problem Gastroesophageal reflux disease (K21.9) Active confirmed Encounters Encounter Location Date Provider Diagnosis [facility] Outpatient [address] [place], [place] [phone] 04/03/2024 Bebo Guy Jr Encounter for screening [...] SAGE FENG VDOB:0 1970 (54 yo F)Acc No.[id number]:04/03/2024 EGD and COL/MAC Patient:?BECKY FENGIMAN BRANDIE V Provider:?Bebo Guy MD :1970???Age:53 Y???Sex:Female D ate:04/03/2024 Address:[address] [place], [place] [phone] Pcp:Deirdre Morel Subjective: * Chief Complaints: * ???1. Gerd,screening. * Medical History:? Objective: * Vitals:? Assessment: * Assessment: 1.?Encounter for screening c olonoscopy - Z12.11 (Primary)???2.?Family history of colon cancer - Z80.0???3.?Gastroesophageal reflux disease - K21.9??? Plan: * Treatment: * Procedure Codes:?02820 DIAGN OSTIC COLONOSCOPY, 21217 UPPER GI ENDOSCOPY, BIOPSY * * The named appointment provid er may or may not be the originator of this progress note, and it is not deemed complete until electronically signed by the appointment provider. Sign off status: Pending * Provider:?Bebo Guy MD Date:?0 04/03/2024 Generated for Azra vidal/Melvin/Ashleighsmitting on:?03/14/2025 03:07 PM EDT
--- OUTSIDE RECORDS SUMMARY | 2025-03-14 15:07 | XMS_ITS ---
Author Organization [facility] Address [address] [place] [phone] Care Team Providers Care Transit Coach Operator Name Role Phone Deirdre Stevens Primary Care Provider Unavailab Bebo Portillo Jr REASON FOR VISIT pathology Encounters Encounter Location Date Provider Diagnosis [facility] [address] [place] [address] 04/09/2024 Bebo Guy Jr Plan Of Treatment No Information Progress Notes * BECKY FENGSAGE BEEBE VDOB:0 1970 (53 yo F)Acc No.[id number]:04/09/2024 Patient:?IMAN OH V :1970???Age:53 Y???Sex:Female Address:[address] [place] [address] , [place], [address] * true * Date:? Generated for Jose Eliasi young/Melvin/eTransmitting on:?03/14/2025 03:07 PM EDT
--- OUTSIDE RECORDS SUMMARY | 2025-03-14 15:08 | XMS_ITS | Patient Health Record ---
Author Organization [facility] Address [address] [place] [address] Care Team Providers Care Laborer Wood Preserving Plant Name Role Phone Deirdre Stevens Primary Care Provider UnavailBebo Black Jr Allergies Allergen (clinical drug ingredient) Drug/Non Drug Allergy documented on EMR Reaction Allergy Type Onset Date Status Penicillin Unknown Drug Allergy Active fluoxetine Prozac Unknown Drug Allergy Active hydromorphone Hydromorphone HCl Unknown Drug Allergy Active Results Component Value Reference Range Notes Pathology Reviewed date:04/09/2024 09:03:12 AM Interpretation: Performing Lab:[facility], [address] [place] [id number] Notes/Report: Name: Sage Oh V Age/Sex: 53/F : 1970 Unit#: [id number] Attend Dr: Bebo Guy MD Re04/03/24 Status : [facility] Location: [facility] Disch: SPEC : [id number] RECD : 04/03/240 STATUS: FRACISCO PALMER NUM: [id number] RELL: 04/03/24 [facility] DR: Bebo Guy MD ENTERED: [...] Oh V Age/Sex: 53/F : 1970 Unit#: [id number] Attend Dr: Bebo Guy MD Re04/03/24 Status : [facility] Location: [facility] Disch: SPEC : [id number] RECD : 04/03/24-1140 STATUS: FRACISCO LEEMik NUM: [id number] RELL: 04/03/24-939 [facility] DR: Bebo Guy MD ENTERED: [...] and C1. Copies To: Bebo Guy MD [address] [place] [address] [address] [place] [id number] Deirdre Stevens MD [address] [place] [address] Dr. Bradley [address] [place] [address] Signed (si gnature on file) [place] 04/04/24 1631 END OF REPORT Reason For Referral Referred Organization [facility] Referred Provider Bebo Guy Jr Referred Address [address] [place] [address],[facility] [address],[place],[address],[place] Referred Provider Specialty Gastroentero hesham General Notes Cass Pate 024 10:52:45 AM EDT > no referral required for [facility] Referral Priority Routine Medications Medication SIG (Take, [...] Problem Status W/U Status Risk Notes Problem 174955759 Colon cancer screening (Z12.11) Active confirmed Problem 388550402 Family history o f colonic polyps (Z83.71) Active confirmed Problem Gastroesophageal reflux disease (K21.9) Active confirmed Problem [id number] Gastroesophageal reflux disease, esophagitis presence not specified (K21.9) Active confirmed Encounters Encounter Location Date Provider Diagnosis [facility] [address]patient [address] [place], [place] [id number] 04/03/2024 Bebo Guy Jr Encounter for screening colonoscopy Z12.11 ; Family history of colon cancer Z80.0 and Gastroesophageal reflux disease K21.9 [facility] [address] [place] [phone] 04/09/2024 Bebo Guy Jr Assessments Encounter Date [...] Insured Coverage Start Date Coverage End Date [facility] [address] [address] [place], [place] [id number] SAGE OH Self - patient is the [...]
--- OUTSIDE RECORDS SUMMARY | 2025-03-14 15:08 | XMS_ITS ---
Author Organization [facility] Address [address] [place] [phone] Care Team Providers Care Central Office Frame Wirer Name Role Phone Deirdre Stevens Primary Care Provider Bebo Mendes Jr Unavailable [phone] Allergies Allergen (clinical drug ingredient) Drug/Non Drug [...] Problem Status W/U Status Risk Notes Problem [id number] Colon cancer screening (Z12.11) Active confirmed Vital Signs Temperature 97.8 degrees Fahrenheit 02/29/20 24 Blood pressure systolic 000 mm Hg 02/29/20 24 Blood pressure diastolic 00 mm Hg 024 Height 66 in 02/29/2024 Weight 207 lb 6 oz lbs 02/29/2024 BMI 33.47 kg/m2 02/29/2024 Encounters Encounter Location Date Provider Diagnosis [facility] [address] [place] [address] 02/29/2024 Bebo Guy Jr Gastroesophageal reflux disease, [...] SAGE OH VDOB:0 1970 (53 yo F)Acc No.[id number]:02/29/2024 Progress Notes Patient:?IMAN OH V Provider:?Bebo Guy MD :1970???Age:53 Y???Sex:Female D ate:02/29/2024 Address:[address] [place] [address] Pcp:Deirdre Morel Subjective: * Chief Complaints: * [...] past year??Never (0 point),?Points?1,?Interpretation?Negative.?Miscellaneous:?Marital status: single. 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 * Medications:?Taking Vitamin D 1000 UNIT [...] Guy MD Date:?0 02/29/2024 Generated for Azra ivdal/Melvin/Chazitting on:?03/14/2025 03:07 PM EDT History and Physical Notes * [...]
--- OUTSIDE RECORDS SUMMARY | 2025-03-14 15:08 | XMS_ITS | Clinical Summary ---
Author Organization [facility] Address [address] [place] [address] Care Team Providers Care Rn Pediatric Name Role Phone Deirdre Stevens MD Primary [...] age to complete this topic Care Teams Rn Pediatric Relationship Specialty Start Date End Date Deirdre Stevens MD [address] , [address] [facility] D/B/A: [facility] [place] [address] PCP - General Internal Medicine 05/29/18
== END 2025-03-14 14:55 | disposition home or self-care (01) ==
LOC: HO.PMC 14:31
PROVIDERS: PCP Internal Medicine; Visit Provider Anesthesiology
DX: M25.572 Pain in left ankle and joints of left foot (principal); M25.472 Effusion, left ankle
CPT/HCPCS: 99213

== ENCOUNTER → 2025-03-14 14:31 | Outpatient (BNVA) | payer OTHER, SELFPAY | PROVIDERS: PCP Internal Medicine; Visit Provider Anesthesiology ==

== ENCOUNTER 2025-06-04 08:59 | Outpatient (AMB) | payer OTHER, SELFPAY ==
--- OUTSIDE RECORDS SUMMARY | 2024-04-03 06:00 | XMS_ITS ---
Author Organization [facility] Address [address] [place] [phone] Care Team Providers Care Sports Centre Manager Name Role Phone Deirdre Stevens Primary Care Provider UnavailBebo Black Jr REASON FOR VISIT gerd,screening Problems Problem Type SNOMED Code ICD Code Onset Dates Problem Status W/U Status Risk Notes Problem Gastroesophageal reflux disease (K21.9) Active confirmed Encounters Encounter Location Date Provider Diagnosis [facility] [place] Outpatient [address] [place] [id number] 04/03/2024 Bebo Guy Jr Encounter for screening colonoscopy Z12.11 ; Family history of colon cancer Z80.0 and Gastroesophageal reflux disease K21.9 Assessments Encounter Date Diagnosis (ICD Code) Assessment Notes Treatment Notes Treatment Clinical Notes Section Notes 04/03/2024 Encounter for screening colonoscopy (ICD-10 - Z12.11) 04/03/2024 Family history of colon cancer (ICD-10 - Z80.0) 04/03/2024 Gastroesophageal reflux disease (ICD-10 - K21.9) Plan Of Treatment No Information Progress Notes * PENA SAGE FENG VDOB:0 1970 (54 yo F)Acc No.[id number]:04/03/2024 EGD and COL/MAC Patient: Dafne DIOP LEON TAMMIE Provider: Sheryl Guy MD :1970 A ge:53 Y S ex:Female Date:04/03/2024 Address:[address] [place] [address] Pcp:Deirdre Morel Subjective: * Chief Complaints: * 1 . Gerd,screening. * Medical History: Objective: * Vitals: Assessment: * Assessment: 1. E ncounter for screening colonoscopy - Z12.11 (Primary) 2 . F amily history of colon cancer - Z80.0 3 . G astroesophageal reflux disease - K21.9 ? Plan: * Treatment: * Procedure Codes: 4 5378 DIAGNOSTIC COLONOSCOPY, 08921 UPPER GI ENDOSCOPY, BIOPSY * * The named appointment provid er may or may not be the originator of this progress note, and it is not deemed complete until electronically signed by the appointment provider. Sign off status: Pending * Provider: Sheryl Guy MD Date: 0 04/03/2024 Generated for Azra vidal/Melvin/Chazitting on: 0 06/04/2025 09:15 AM EDT
--- NOTE | 2025-06-04 09:04 | A.OFFPC_ITS ---
Vital Signs 06/04/25 09:09 Height 5 ft 4 in Weight 199 lb BMI 34.2 BP 112/76 Blood Pressure Location Lt brachial Position Sitting Intake Visit Reasons: Annual Exam Intake Note: Patient here for a physical exam Slurry Worker Required: No Accompanied by: Child Allergies fluoxetine (From PROZAC) Allergy (Severe, Verified 06/04/25 09:24) OVER SEDATION gabapentin (GABAPENTIN) Allergy (Intermediate, Verified 06/04/25 09:24) NAUSEA,DIZZINESS, dizziness hydromorphone (HYDROMORPHONE) Allergy (Intermediate, Verified 06/04/25 09:24) NAUSEA/PALPITATIONS, vomiting latex (LATEX) Allergy (Intermediate, Verified 06/04/25 09:24) RASH Penicillins (PENICILLINS) Allergy (Intermediate, Verified 06/04/25 09:24) RASH Medication List - Last Reconciled 06/04/25 by Deirdre Morel MD albuterol sulfate 2.5 mg (3 mL) inhalation QID PRN 30 days albuterol sulfate 90 mcg/actuation 2 puffs inhalation Q6H PRN 30 days arm brace (Wrist Brace) As directed bupropion HCl XL 150 mg PO QAM buspirone 30 mg PO BID cetirizine (Allergy Relief (cetirizine)) 10 mg PO DAILY PRN 90 days diazepam 10 mg PO BID PRN 30 days hydrochlorothiazide 25 mg PO QAM iron,carbonyl-vitamin C 65 mg iron- 125 mg (Vitron-C) 1 tab PO DAILY lamotrigine 50 mg PO DAILY leg brace (Knee Brace Large-XLarge) As directed leg brace (BUNNY Ankle Brace) As directed montelukast 10 mg PO DAILY 90 days oxycodone 10 mg PO Q4-6H PRN 30 days pantoprazole 40 mg PO DAILY 90 days topiramate 50 mg PO DAILY 90 days triamcinolone acetonide 1 spray intranasal BID PRN 30 days Tobacco use date assessed: 12/04/24 Dental Screening Dental Screen Date: 12/04/24 HPI HPI Comments History of Present Illness Details The patient is a 54-year-old female presenting with a physical examination and ongoing health concerns. She has a history of chronic pain syndrome and opioid use disorder, which have been managed with a pain management contract. The patient reports ongoing issues with gastroesophageal reflux disease, for which she is taking pantoprazole. She experiences migraines and has been advised about the potential benefits of Topamax for migraine management and weight reduction. The patient is currently taking bupropion for depression, which she reports as being effective. Menopausal symptoms, particularly weight gain and frustration with weight management, are significant concerns for her. She has undergone multiple surgeries, including knee replacement and hysterectomy, which are relevant to her current health status. Preventative care measures include a DTaP vaccination in 2016, a normal mammogram in October, a negative Pap smear in 2020, and a colonoscopy scheduled for 2025. [facility] Medical History (Updated 06/04/25 @ 11:41 by Deirdre Morel MD) Osteoarthritis of left hip Sacroiliitis Infective arthritis of left knee Arthropathy of knee Fracture of metacarpal base of left hand, closed Foot pain, right Plantar fasciitis of left foot Anemia Fibromyalgia GERD (gastroesophageal reflux disease) Asthma BMI 35.0-35.9,adult Obesity (BMI 30-39.9) Daytime sleepiness Shortness of breath Obese Acute traumatic internal derangement of left knee Insomnia Essential hypertension Sinusitis Anxiety Migraine Postlaminectomy syndrome of cervical region 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 of lumbosacral spine with radiculopathy Surgical History Status post left knee replacement Hx of arthroscopy of left knee History of surgery History of esophagogastroduodenoscopy (EGD) H/O colonoscopy Hx of breast reduction, elective History of carpal tunnel release History of neck surgery History of tubal ligation S/P JUSTYN-BSO (total abdominal hysterectomy and bilateral salpingo-oophorectomy) H/O medial meniscus repair of right knee Family History (Updated 06/04/25 @ 09:33 by Deirdre Morel MD) Father Diabetes Hypertension Maternal Grandmother Cancer Maternal Grandfather Cancer Family/Other FH: mental illness Substance use disorder Mother Arthritis Asthma COPD (chronic obstructive pulmonary disease) Lung nodule Brother No problems noted. Brother No problems noted. Son No problems noted. Son No problems noted. Son No problems noted. Son No problems noted. Social History Household Members: Significant Other and Family Housing: House Are you a primary client care specialist to a significant other at home: No Do you presently have visiting nurse or other home services: No Alcohol intake: current Alcohol intake frequency: holidays/special occasions only Alcohol type: hard liquor Patient Tobacco Use Status: Former Tobacco user Tobacco use type: Cigarette Years Smoked: 9 e-Cigarette/Vaping Use: Never Used Second Hand Smoke Exposure: No service: No Current occupational status: employed Current occupational exposures/hazards: No Cognitive needs: No Hearing needs: No Vision needs: No Female Reproductive History Menstrual Age of Menarche: 12 Questionnaire PHQ-9 Over the last 2 weeks, how often have you been bothered by any of the following problems? 1. Little interest or pleasure in doing things: nearly every day 2. Feeling down, depressed, or hopeless: nearly every day 3. Trouble falling or staying asleep, or sleeping too much: nearly every day 4. Feeling tired or having little energy: nearly every day 5. Poor appetite or overeating: nearly every day 6. Feeling bad about yourself - or that you are a failure or have let yourself or your family down: nearly every day 7. Trouble concentrating on things, such as reading the newspaper or watching television: nearly every day 8. Moving or speaking so slowly that other people could have noticed. Or the opposite - being so fidgety or restless that you have been moving around a lot more than usual: more than half the days 9. Thoughts that you would be better off or of hurting yourself in some way: not at all Total score: 23 Depression Screening Interpretation: Positive (no suicidal thoughts) Depression Screening Follow-up: Existing condition, In treatment, Community Mental Health Worker F/U and Follow-up Visit Requested Depression Screening Done: Yes 24992 - PHQ-9 Billing: Yes Source: Developed by Drs. Godfrey Varghese, Kaci Lang, Eduardo Jones and colleagues, with an educational araseli from [employer]. Thrive Questionnaire Date Thrive assessed: 11/08/24 I am a: Patient What is your living situation today?: I have a steady place to live Within the past 12 months, did the food you bought not last and you didn't have the money to get more?: Often true Within the past 12 months, did you worry whether your food would run out before you got money to buy more?: Often true Do you have trouble paying for medicines?: No Do you have trouble getting transportation to medical appointments?: No Do you have trouble paying your heating and electricity bill?: No Do you have trouble taking care of your child, family member or friend?: No Do you have trouble with day-to-day activities such as bathing, preparing meals, shopping, managing finances, etc.?: Yes Are you currently unemployed and looking for a job?: No Are you interested in more education?: No Please select the resources that you would like help with: None Currently or been in a relationship where the following occur: I choose not to answer THRIVE Score: 2 GORAN-7 AMB Questionnaire GORAN-7 Date GORAN - 7 assessed: 12/05/24 Not being able to stop or control worryin = Nearly every day Source: Developed by Drs. Godfrey Varghese, Kaci Lang, Eduardo Jones and colleagues, with an educational araseli from [employer]. Review of Systems Const All systems reviewed & are unremarkable except as noted in HPI and below Card Denies chest pain at rest, Denies chest pain with activity, Denies edema, Denies irregular heart rhythm, Denies claudication, Denies dyspnea, Denies dyspnea on exertion, Denies orthopnea, Denies paroxysmal nocturnal dyspnea and Denies slow heart rate Resp Denies cough, Denies dyspnea and Denies dyspnea on exertion GI Denies abdominal pain, Denies change in bowel habits, Denies excessive flatus, Denies nausea and Denies vomiting Denies urinary incontinence, Denies urinary hesitancy and Denies urinary urgency Musc Denies abnormal gait, Denies atrophy, Denies deformity and Denies limited range of motion Neuro Denies abnormal gait and Denies lack of coordination Physical exam (Primary Care) Vital Signs: Last Vital Signs BP 112/76 06/04/25 09:09 BMI result Body Mass Index 34.2 BMI Assessment/Plan discussion: High BMI High, discussed plan: lifestyle, weight reduction, dietary and physical activity Tobacco/Smoking Status: Tobacco use Status Tobacco use date assessed 12/04/24 06/04/25 09:07 Patient Tobacco Use Status Former Tobacco user 06/04/25 09:07 Tobacco use type Cigarette 06/04/25 09:07 e-Cigarette/Vaping Use Never Used 06/04/25 09:07 PHQ-9: PHQ-9 Score PHQ-9: Total score 23 06/04/25 09:33 Depression Screening Interpretation: Positive (no suicidal thoughts) Depression Screening Follow-up: Existing condition, In treatment, Community Mental Health Worker F/U and Follow-up Visit Requested Thrive Assessment: Date of Thrive Assessment Date Thrive assessed 11/08/24 06/04/25 09:07 Currently or been in a relationship where the following occur: I choose not to answer HENMT Head: Yes normal to inspection, Yes normocephalic and Yes atraumatic Ears: external ears normal Eyes General: appearance normal, both eyes and all related structures Eyelids: Yes eyelids normal Conjunctivae: conjunctivae normal Neck Neck: Yes normal visual inspection and Yes supple Resp Effort & Inspection: normal respiratory effort Auscultation: clear to auscultation bilaterally Cardio Jugular venous distension: no JVD Rate: regular rate Rhythm: regular rhythm Heart sounds: S1 normal heart sound present and S2 normal heart sound present GI Inspection: Yes normal to inspection Palpation (GI): Soft to palpation and nontender Auscultation: normal bowel sounds Skin General skin exam: no rashes or lesions noted Neuro General: no focal motor deficits Extrem General: Yes full ROM Psych Appearance: grossly normal Coding Level of Care Code Est Pt Level 3 (21371) Est Pt Prev Care 40-64y(28896) Diagnoses Physical exam Z00.00 Dyspepsia R10.13 Mild recurrent major depression F33.0 Uncomplicated opioid dependence F11.20 Substance use status: uncomplicated Additional Codes PHQ-9 - 15551 - PHQ-9 Billing: Yes ([id number]) Time Spent (min) 33 Assessment & Plan Assessment & Plan (1) Physical exam: Code(s): Z00.00 - Encounter for general adult medical examination without abnormal findings Category: Medical (2) Dyspepsia: Code(s): R10.13 - Epigastric pain Category: Medical (3) Mild recurrent major depression: Code(s): F33.0 - Major depressive disorder, recurrent, mild Category: Medical (4) Opiate dependence: Code(s): F11.20 - Opioid dependence, uncomplicated Category: Medical Qualifiers: Substance use status: uncomplicated Qualified Code(s): F11.20 - Opioid dependence, uncomplicated Plan The patient will continue with her current pain management contract to address chronic pain syndrome and opioid use disorder. Pantoprazole will be continued for gastroesophageal reflux disease management. Consideration of Topamax for migraine management and potential weight reduction was discussed, but the patient is not currently taking it. Bupropion will be continued for depression management. Preventative care measures are up to date, with the next DTaP vaccination due in 2026 and a colonoscopy scheduled for 2025. Patient was informed and verbally consented to the use of an ambient scribe for clinic note documentation during this visit. Orders: Referrals Gastroenterology Referral R10.13 - Epigastric pain Medications: Refilled topiramate 50 mg PO DAILY 90 tabs 1RF 90 days
[2025-06-04 09:09] VITALS: BP 112/76; BMI 34.2
--- OUTSIDE RECORDS SUMMARY | 2025-06-04 09:15 | XMS_ITS | Clinical Summary ---
Author Organization [facility] Address [address] [place] [address] Care Team Providers Care Printing Engineer Name Role Phone Deirdre Stevens MD Primary [...] (1 of 2) 2020 Influenza Vaccine (#1) 2025 Pneumococcal Vaccine Aged Out No long er eligible based on patient's age to complete this topic RSV Ped < 20 months Aged Out No longe r eligible based on patient's age to complete this topic Care Teams Printing Engineer Relationship Specialty Start Date End Date Deirdre Stevens MD [address] [facility] , [address] [facility] D/B/A: [facility] [place] [address] PCP - General Internal Medicine 05/29/18
== END 2025-06-04 09:53 | disposition home or self-care (01) ==
LOC: HO.HMCH 09:00
PROVIDERS: PCP Internal Medicine; Visit Provider Internal Medicine
DX: Z00.00 Encounter for general adult medical examination without abnormal findings (principal); R10.13 Epigastric pain; F33.0 Major depressive disorder, recurrent, mild; F11.20 Opioid dependence, uncomplicated

== ENCOUNTER → 2025-06-04 08:59 | Outpatient (BNVA) | payer OTHER, SELFPAY | PROVIDERS: PCP Internal Medicine; Visit Provider Internal Medicine | DX: Z00.00 Encounter for general adult medical examination without abnormal findings (principal); K21.9 Gastro-esophageal reflux disease without esophagitis; G89.4 Chronic pain syndrome; G43.909 Migraine, unspecified, not intractable, without status migrainosus; R10.13 Epigastric pain; F33.0 Major depressive disorder, recurrent, mild; F11.20 Opioid dependence, uncomplicated; Z78.0 Asymptomatic menopausal state | CPT/HCPCS: 96127; 99396 ==

== ENCOUNTER 2025-07-24 10:23 | Outpatient (AMB) | payer OTHER, SELFPAY ==
--- OUTSIDE RECORDS SUMMARY | 2024-04-03 06:00 | XMS_ITS ---
Author Organization [facility] Address [address] [place] [phone] Care Team Providers Care Medical Accounting Clerk Name Role Phone Deirdre Stevens Primary Care Provider Unavailab Bebo Portillo Jr [phone] REASON FOR VISIT gerd,screening Problems Problem Type SNOMED Code ICD Code Onset Dates Problem Status W/U Status Risk Notes Problem Gastroesophageal reflux disease (368140737) Gastroesophageal reflux disease (K21.9) Active confirmed Encounters Encounter Location Date Provider Diagnosis [facility] [place] Outpatient [address] [place], [place] [phone] 04/03/2024 Bebo Guy Jr Encounter for screening [...] Of Treatment No Information Progress Notes * SAGE OH VDOB:0 1970 (54 yo F)Acc No.[id number]:04/03/2024 EGD and COL/MAC Patient: SAGE ROME V Provider: Sheryl Guy MD :1970 A ge:53 Y S ex:Female Date:04/03/2024 Address:[address] [place], [place] [id number] Pcp:Deirdre Morel Subjective: * Chief Complaints: * 1 . Gerd,screening. * Medical History: Objective: * Vitals: Assessment: * Assessment: 1. E ncounter for screening colonoscopy - Z12.11 (Primary) 2 . F amily history of colon cancer - Z80.0 3 . G astroesophageal reflux disease - K21.9 ? Plan: * Treatment: * Procedure Codes: 4 5378 DIAGNOSTIC COLONOSCOPY, 81184 UPPER GI ENDOSCOPY, BIOPSY * * The named appointment provid er may or may not be the originator of this progress note, and it is not deemed complete until electronically signed by the appointment provider. Sign off status: Pending * Provider: Sheryl Guy MD Date: 0 04/03/2024 Generated for Azra vidal/Melvin/Chazitting on: 0 07/24/2025 12:52 PM EDT
[2025-07-24 10:28] VITALS: BP 125/78; PULSE 88; RESP 18; O2SAT 99; BMI 34.5
--- NOTE | 2025-07-24 10:28 | MHC.OFFVIS ---
Vital Signs 07/24/25 10:28 Height 5 ft 4 in Weight 201 lb BMI 34.5 BP 125/78 Blood Pressure Location Lt brachial Position Sitting Respiration 18 Pulse 88 Pulse Source Pulse Oximeter Pulse Oximetry (%) 99 Oxygen Delivery Method Room Air Intake Visit Reasons: HIP PAIN Allergies fluoxetine (From PROZAC) Allergy (Severe, Verified 07/24/25 10:30) OVER SEDATION gabapentin (GABAPENTIN) Allergy (Intermediate, Verified 07/24/25 10:30) NAUSEA,DIZZINESS, dizziness hydromorphone (HYDROMORPHONE) Allergy (Intermediate, Verified 07/24/25 10:30) NAUSEA/PALPITATIONS, vomiting latex (LATEX) Allergy (Intermediate, Verified 07/24/25 10:30) RASH Penicillins (PENICILLINS) Allergy (Intermediate, Verified 07/24/25 10:30) RASH HPI Comments Details: Selina is back in my office to request a 2nd time to repeat the left hip steroid injection. She was not able to attend as scheduled intra-articular left hip steroid injection last time in February of 2025 because she had a relative suffering from DC. now she is back in my office requesting me to perform the procedure for her. I will schedule it as soon as possible. She did not hear anything from secretarial stenographer at [facility], we will repeat the referral. She is also complaining on cervicalgia with pain radiating to the right upper extremity as well as numbness and tingling in 3 middle fingers. Her PCP schedule her for MRI to be done at [facility]. I told her to request PCP to change the order for the MRI in [facility]. If anything will be demonstrable on that MRI can tried to do some injections. Possibility exists that this is the carpal tunnel syndrome. I will send her for EMG if her MRI is not demonstrable of any pathology corresponding to her symptoms. She also complains on pain in the lateral surface of the left knee. 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 She is appropriately up attending physical therapy for this condition and she is wearing a brace on the left knee. Prior: She complains on pain in the foot. This is a new complaint. [facility] I made a referral for her to go to secretarial stenographer at [facility] in [place]. Very successful results after intracept BVN RFA procedure.. Very successful results of total knee replacement. She is very proud of her ability to exercise with her left knee. The scar is thin and very nice no inflammatory changes. She probably requires total hip replacement as well. 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 Surgical History Status post left knee replacement Hx of arthroscopy of left knee History of surgery History of esophagogastroduodenoscopy (EGD) H/O colonoscopy Hx of breast reduction, elective History of carpal tunnel release History of neck surgery History of tubal ligation S/P JUSTYN-BSO (total abdominal hysterectomy and bilateral salpingo-oophorectomy) H/O medial meniscus repair of right knee Family History (Updated 06/04/25 @ 09:33 by Deirdre Morel MD) Father Diabetes Hypertension Maternal Grandmother Cancer Maternal Grandfather Cancer Family/Other FH: mental illness Substance use disorder Mother Arthritis Asthma COPD (chronic obstructive pulmonary disease) Lung nodule Brother No problems noted. Brother No problems noted. Son No problems noted. Son No problems noted. Son No problems noted. Son No problems noted. Social History Household Members: Significant Other and Family Housing: House Are you a primary transitional care nurse to a significant other at home: No Do you presently have visiting nurse or other home services: No Alcohol intake: current Alcohol intake frequency: holidays/special occasions only Alcohol type: hard liquor Patient Tobacco Use Status: Former Tobacco user Tobacco use type: Cigarette Years Smoked: 9 e-Cigarette/Vaping Use: Never Used Second Hand Smoke Exposure: No service: No Current occupational status: employed Current occupational exposures/hazards: No Cognitive needs: No Hearing needs: No Vision needs: No Female Reproductive History Menstrual Age of Menarche: 12 Review of Systems Const All systems reviewed & are unremarkable except as noted in HPI and below ENT Reports Normal hearing present Neuro Reports Normal hearing present and Denies confusion Psych Denies confusion Physical Exam Const General: No confusion Orientation/consciousness: No confusion Neck Other: Reports radiation of the pain from the upper cervical spine all the way to the neck upper shoulder lower shoulder right arm right forearm and 3 right middle fingers. Both Phalen and reverse Phalen tests aggravate her pain. Therefore I would not think it is medial nerve entrapment. Neck: Yes normal visual inspection and Yes full ROM ( Limited ROM in the neck reports cracking sounds with neck movements) Resp Effort & Inspection: normal respiratory effort, able to speak in complete sentences, normal respiratory pattern, no audible wheezes and no cough Cardio Jugular venous distension: no JVD GI Inspection: Yes normal to inspection Back/Spine/Pelvis Other: Tenderness on palpation on paraspinal spinal region lumbar spine. Significant tenderness on palpation in the projection of the lowest portion of the lumbar spine. SLR is positive for pain increase. Lassegue test is positive for pain increase. Reports numbness and tingling in the left lower extremity in the area of the foot. Neuro General: No confusion Cranial nerves: Yes Normal hearing present Extrem Other: Lateral rotation of the left hip causes severe discomfort in the groin. Psych Speech and movement: Normal speech and movement present Affect: normal affect Attitude: cooperative Thought process: Normal thought process present Assessment & Plan Assessment & Plan (1) Pain and swelling of left ankle: Code(s): M25.572 - Pain in left ankle and joints of left foot; M25.472 - Effusion, left ankle Category: Medical Plan I will re-schedule this patient for intra-articular left hip injection. I will see her in the office after the injection. I also will repeat the referral this patient to Podiatry in [facility]. I requested her to change the order for the MRI to [facility] radiology. This way I can examined her MRI more expeditiously and can attend her pain with epidural steroid injections in her neck. I will also schedule this patient for an appointment as soon as she completes the MRI. Coding Level of Care Code Est Pt Level 3 (81854) Diagnoses Pain and swelling of left ankle M25.572; M25.472
--- OUTSIDE RECORDS SUMMARY | 2025-07-24 12:52 | XMS_ITS | Clinical Summary ---
Author Organization [facility] Address [address] [place] [address] Care Team Providers Care Spinner Iron Name Role Phone Deirdre Stevens MD Primary [...] age to complete this topic Care Teams Spinner Iron Relationship Specialty Start Date End Date Deirdre Stevens MD [address] [facility] , [address] [facility] D/B/A: [facility] [place] [address] PCP - General Internal Medicine 05/29/18
--- OUTSIDE RECORDS SUMMARY | 2025-07-24 12:52 | XMS_ITS | Patient Health Record ---
Author Organization [facility] Address [address] [place] [id number] Care Team Providers Care Supervisor Pre Wave Name Role Phone Deirdre Stevens Primary Care Provider Bebo Mendes Jr Unavailable [phone] Allergies Allergen (clinical drug ingredient) Drug/Non Drug Allergy documented on EMR Reaction Allergy Type Onset Date Status Penicillin Unknown Drug Allergy Active fluoxetine Prozac Unknown Drug Allergy Active hydromorphone Hydromorphone HCl Unknown Drug Allergy Active Reason For Referral No Information Medications Medication SIG (Take, Route, Frequency, Duration) [...] Problem Status W/U Status Risk Notes Problem [id number] Colon cancer screening (Z12.11) Active confirmed Problem 626592081 Family history o f colonic polyps (Z83.71) Active confirmed Problem Gastroesophageal reflux disease (536362199) Gastroesophageal reflux disease (K21.9) Active confirmed Problem [id number] Gastroesophageal reflux disease, esophagitis presence not specified (K21.9) Active confirmed Plan Of Treatment Future Test Test Name Order Date UPPER GI ENDOSCOPY 08/19/2017 COLONOSCOPY 08/19/2017 UPPER GI ENDOSCOPY 02/29/2024 COLONOSCOPY 02/29/2024 Insurance Providers Payer Name Payer Address Payer Phone Subscriber Number Group Number Insured Name Patient Relationship to Insured Coverage Start Date Coverage End Date [facility] [address] [address] [place], [place] [id number] [place] Self - patient is the [...]
== END 2025-07-24 10:38 | disposition home or self-care (01) ==
LOC: HO.PMC 10:24
PROVIDERS: PCP Internal Medicine; Visit Provider Anesthesiology
DX: M25.552 Pain in left hip (principal); M54.2 Cervicalgia; M25.572 Pain in left ankle and joints of left foot; M25.472 Effusion, left ankle
CPT/HCPCS: 99213

== ENCOUNTER → 2025-07-24 10:23 | Outpatient (BNVA) | payer OTHER, SELFPAY | PROVIDERS: PCP Internal Medicine; Visit Provider Anesthesiology | DX: M25.552 Pain in left hip (principal); M54.2 Cervicalgia; M25.572 Pain in left ankle and joints of left foot; M25.472 Effusion, left ankle; R20.0 Anesthesia of skin; R20.2 Paresthesia of skin | CPT/HCPCS: 99212 ==

== ENCOUNTER 2025-08-22 09:09 | Outpatient (REF) | payer OTHER, SELFPAY ==
[2025-08-22 09:20] LABS: MANUAL DIFF FLAG NO
[2025-08-22 09:48] LABS: Hematocrit 38.6 % (37.0-47.0); Hemoglobin 11.9 g/dl (12.0-16.0); Imm Gran Abs Auto 0.01 X10*3/uL (0.00-0.03); Imm Gran Pct Auto 0.2 % (0.0-0.4); Lymphocytes Absolute Auto 2.9 X10*3/uL (1.2-4.9); Mean Corpuscular HGB Conc 30.8 g/dl (31.0-35.0); Mean Corpuscular Hemoglobin 28.1 pg (27.0-33.0); Mean Corpuscular Volume 91.0 fL (80.0-98.0); NRBC Abs Auto 0.000 X10*3/uL (0.0-0.012); NRBC Pct Auto 0.0 /100WBC (0.0-0.2); Platelet Count 290 X10*3/uL (160-400); Red Blood Count 4.24 X10*6/uL (4.20-5.50); White Blood Count 6.0 X10*3/uL (4.8-10.8)
[2025-08-22 10:06] LABS: Iron 77 mcg/dL (30-160); Percent Iron Saturation 20 % (15-50); Total Iron Binding Capacity 383 mcg/dL (228-428); Unsaturated Iron Binding 306 ug/dL
== END 2025-08-22 09:10 | disposition home or self-care (01) ==
LOC: HO.LAB 09:09
PROVIDERS: PCP Internal Medicine; Visit Provider Internal Medicine
DX: D64.9 Anemia, unspecified (principal)
CPT/HCPCS: 36415; 83540; 85025

== ENCOUNTER 2025-08-30 11:06 | Day surgery (SDC) | payer OTHER, SELFPAY ==
--- OUTSIDE RECORDS SUMMARY | 2024-04-03 06:00 | XMS_ITS ---
Author Organization [facility] Address [address] [place] [phone] Care Team Providers Care Babysitter Name Role Phone Deirdre Stevens Primary Care Provider Unavailab Bebo Portillo Jr [phone] REASON FOR VISIT gerd,screening Problems Problem Type SNOMED Code ICD Code Onset Dates Problem Status W/U Status Risk Notes Problem Gastroesophageal reflux disease ([id number]) Gastroesophageal reflux disease (K21.9) Active confirmed Encounters Encounter Location Date Provider Diagnosis [facility] [place] Outpatient [address] [place] [phone] 04/03/2024 Bebo Guy Jr Encounter for screening [...] SAGE [place] VDOB:0 1970 (54 yo F)Acc No.[id number]:04/03/2024 EGD and COL/MAC Patient: SAGE ROME V Provider: Sheryl Guy MD :1970 A ge:53 Y S ex:Female Date:04/03/2024 Address:[address] [place], [place] [id number] Pcp:Deirdre Morel Subjective: * Chief Complaints: * 1 . Gerd,screening. * Medical History: Objective: * Vitals: Assessment: * Assessment: 1. E ncounter for screening colonoscopy - Z12.11 (Primary) 2 . F amily history of colon cancer - Z80.0 3 . G astroesophageal reflux disease - K21.9 ? Plan: * Treatment: * Procedure Codes: 4 5378 DIAGNOSTIC COLONOSCOPY, 04545 UPPER GI ENDOSCOPY, BIOPSY * * The named appointment provid er may or may not be the originator of this progress note, and it is not deemed complete until electronically signed by the appointment provider. Sign off status: Pending * Provider: Sheryl Guy MD Date: 0 04/03/2024 Generated for Azra vidal/Melvin/Chazitting on: 1 02:53 PM EDT
--- OUTSIDE RECORDS SUMMARY | 2025-08-26 14:54 | XMS_ITS | Clinical Summary ---
Author Organization [facility] Address [address] [place] [address] Care Team Providers Care Housekeeper Home Name Role Phone Deirdre Stevens MD Primary [...] age to complete this topic Care Teams Housekeeper Home Relationship Specialty Start Date End Date Deirdre Stevens MD [address] [facility] , [address] [facility] D/B/A: [facility] [place] [address] PCP - General Internal Medicine 05/29/18
--- OUTSIDE RECORDS SUMMARY | 2025-08-26 14:54 | XMS_ITS | Patient Health Record ---
Author Organization [facility] Address [address] [place] [id number] Care Team Providers Care Highway Commissioner Name Role Phone Deirdre Stevens Primary Care [...] times a day Active diazePAM 10 MG Oral; Duration: 30 Active Ventolin HFA 108 (90 Base) MCG/ACT Inhalation; Duration: 30 Active hydroCHLOROthiazide 25 MG TAKE 1 TABLET BY MOUTH EVERY MORNING Oral; Duration: 90 Active Triamcinolone Acetonide 55 MCG/ACT Nasal; Duration: 90 Active Vitamin D 1000 UNIT 1 tablet Orally Once a day Active Topiramate 50 MG Oral; Duration: 90 Active Meloxicam 15 MG Oral; Duration: 90 Active buPROPion HCl ER (XL) 150 MG 1 tablet in the morning Orally Once a day Active Pantoprazole Sodium 40 MG Oral; Duration: 90 Active Valium 5 MG 1 tablet as needed Orally Twice a day Active lamoTRIgine 25 MG Oral; Duration: 90 Active Immunizations Vaccine Route Administration Date [...] Problem Status W/U Status Risk Notes Problem Colon cancer screening (707481091) Colon cancer screening (Z12.11) Active confirmed Problem Family history of polyp of colon (890257373) Family history of colonic polyps (Z83.71) Active confirmed Problem Gastroesophageal reflux disease (442900648) Gastroesophageal reflux disease (K21.9) Active confirmed Problem Gastroesophageal reflux disease (519189295) Gastroesophageal reflux disease, esophagitis presence not specified (K21.9) Active confirmed Plan Of Treatment Future Test Test Name Order Date UPPER GI ENDOSCOPY 08/19/2017 COLONOSCOPY 08/19/2017 UPPER GI ENDOSCOPY 02/29/2024 COLONOSCOPY 02/29/2024 Insurance Providers Payer Name Payer Address Payer Phone Subscriber Number Group Number Insured Name Patient Relationship to Insured Coverage Start Date Coverage End Date [facility] [address] [address] [place], [place] [id number] [place] Self - patient is the [...]
--- NOTE | 2025-08-27 14:22 | HO.ANESPROP2 ---
Documented by User: Maria C King NP 08/27/25 14:23 HPI - Anesthesia Eval Consult details Narrative: 54 yr old female for left hip intraarticular injection Chronic opioids Uses vape GERD: on PPI Asthma PMFSH Active Problems Active Problems: All Active Problems Lymphadenopathy (Acute) Dyspepsia (Acute) Pain and swelling of left ankle (Acute) Dyspnea on exertion (Acute) Vapes nicotine containing substance (Acute) Vertebrogenic low back pain (Acute) Opiate dependence (Acute) Arthritis of right knee (Acute) Spinal stenosis of lumbar region (Acute) Obesity (BMI 35.0-39.9 without comorbidity) (Acute) Allergic rhinitis (Acute) Physical exam (Acute) Left foot pain (Acute) Family history of colon cancer (Acute) Otalgia of both ears (Acute) Primary osteoarthritis of left knee (Acute) Postlaminectomy syndrome, cervical (Acute) Spondylosis without myelopathy or radiculopathy, cervical region (Acute) Radiculopathy of cervical spine (Acute) Acute meniscal tear of left knee (Acute) Trochanteric bursitis of left hip (Acute) Osteoarthritis of left knee (Acute) Mild recurrent major depression (Acute) Numbness of left hand (Acute) Arthritis of left knee (Acute) Left knee pain (Acute) BMI 34.0-34.9,adult (Acute) Well woman exam (Acute) Osteoarthritis of left hip (Acute) Arthropathy of knee (Acute) Fracture of metacarpal base of left hand, closed (Acute) Foot pain, right (Acute) Plantar fasciitis of left foot (Acute) Anemia (Chronic) Fibromyalgia (Acute) GERD (gastroesophageal reflux disease) (Acute) Asthma (Acute) BMI 35.0-35.9,adult (Acute) Obesity (BMI 30-39.9) (Acute) Essential hypertension (Acute) Daytime sleepiness (Acute) Shortness of breath (Acute) Obese (Acute) Acute traumatic internal derangement of left knee (Acute) Insomnia (Acute) Sinusitis (Acute) Anxiety (Acute) Migraine (Acute) Postlaminectomy syndrome of cervical region (Acute) Spondylosis of cervical spine with radiculopathy (Acute) Spondylosis of lumbosacral spine with radiculopathy (Acute) Past Medical History Medical History Osteoarthritis of left hip Sacroiliitis Infective arthritis of left knee Arthropathy of knee Fracture of metacarpal base of left hand, closed Foot pain, right Plantar fasciitis of left foot Anemia Fibromyalgia GERD (gastroesophageal reflux disease) Asthma BMI 35.0-35.9,adult Obesity (BMI 30-39.9) Daytime sleepiness Shortness of breath Obese Acute traumatic internal derangement of left knee Insomnia Essential hypertension Sinusitis Anxiety Migraine Postlaminectomy syndrome of cervical region 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 Brother No problems noted. Son No problems noted. Son No problems noted. Son No problems noted. Son No problems noted. Family history of problems with anesthesia: No Surgical History Surgical History Status post left knee replacement Hx of arthroscopy of left knee History of surgery History of esophagogastroduodenoscopy (EGD) H/O colonoscopy Hx of breast reduction, elective History of carpal tunnel release History of neck surgery History of tubal ligation S/P JUSTYN-BSO (total abdominal hysterectomy and bilateral salpingo-oophorectomy) H/O medial meniscus repair of right knee History of Problems with Anesthesia: No Social History Social History Household Members: Significant Other and Family Housing: House Are you a primary home care and home health aides teacher to a significant other at home: No Do you presently have visiting nurse or other home services: No Alcohol intake: current Alcohol intake frequency: holidays/special occasions only Alcohol type: hard liquor Patient Tobacco Use Status: Former Tobacco user Tobacco use type: Cigarette Years Smoked: 9 e-Cigarette/Vaping Use: Never Used Second Hand Smoke Exposure: No Use of substances other than those prescribed or required for medical reasons: No Advance Directives: No Advance Directives Information Provided: Yes service: No Current occupational status: employed Current occupational exposures/hazards: No Cognitive needs: No Hearing needs: No Vision needs: No Meds Allergies Allergy/AdvReac Type Severity Reaction Status Date / Time fluoxetine (From PROZAC) Allergy Severe OVER Verified 07/24/25 10:30 SEDATION gabapentin (GABAPENTIN) Allergy Intermediate NAUSEA,DIZZINESS, Verified 07/24/25 10:30 dizziness hydromorphone (HYDROMORPHONE) Allergy Intermediate NAUSEA/PALPITATIONS, Verified 07/24/25 10:30 vomiting latex (LATEX) Allergy Intermediate RASH Verified 07/24/25 10:30 Penicillins (PENICILLINS) Allergy Intermediate RASH Verified 07/24/25 10:30 Home Medications ?Medication ?Instructions ?Recorded ?Confirmed ?Last Taken ?Type bupropion HCl 150 mg 24 hr tablet, 150 mg PO QAM 08/14/20 06/04/25 09/21/24 History extended release lamotrigine 25 mg tablet 50 mg PO DAILY 08/14/20 06/04/25 09/21/24 History buspirone 30 mg tablet 30 mg PO BID 03/14/25 06/04/25 Unknown History Assessment and Plan Final Anesthetic Review Family History of Problems with Anesthesia: No History of Problems with Anesthesia: No Documented by User: Mandy Hill MD 08/30/25 11:40 [facility] Past Medical History Medical History Osteoarthritis of left hip Sacroiliitis Infective arthritis of left knee Arthropathy of knee Fracture of metacarpal base of left hand, closed Foot pain, right Plantar fasciitis of left foot Anemia Fibromyalgia GERD (gastroesophageal reflux disease) Asthma BMI 35.0-35.9,adult Obesity (BMI 30-39.9) Daytime sleepiness Shortness of breath Obese Acute traumatic internal derangement of left knee Insomnia Essential hypertension Sinusitis Anxiety Migraine Postlaminectomy syndrome of cervical region 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 Brother No problems noted. Son No problems noted. Son No problems noted. Son No problems noted. Son No problems noted. Surgical History Surgical History Status post left knee replacement Hx of arthroscopy of left knee History of surgery History of esophagogastroduodenoscopy (EGD) H/O colonoscopy Hx of breast reduction, elective History of carpal tunnel release History of neck surgery History of tubal ligation S/P JUSTYN-BSO (total abdominal hysterectomy and bilateral salpingo-oophorectomy) H/O medial meniscus repair of right knee Social History Social History Household Members: Significant Other and Family Housing: House Are you a primary home care and home health aides teacher to a significant other at home: No Do you presently have visiting nurse or other home services: No Alcohol intake: current Alcohol intake frequency: holidays/special occasions only Alcohol type: hard liquor Patient Tobacco Use Status: Former Tobacco user Tobacco use type: Cigarette Years Smoked: 9 e-Cigarette/Vaping Use: Never Used Second Hand Smoke Exposure: No Use of substances other than those prescribed or required for medical reasons: No Advance Directives: No Advance Directives Information Provided: Yes service: No Current occupational status: employed Current occupational exposures/hazards: No Cognitive needs: No Hearing needs: No Vision needs: No Meds Allergies Allergy/AdvReac Type Severity Reaction Status Date / Time fluoxetine (From PROZAC) Allergy Severe OVER Verified 07/24/25 10:30 SEDATION gabapentin (GABAPENTIN) Allergy Intermediate NAUSEA,DIZZINESS, Verified 07/24/25 10:30 dizziness hydromorphone (HYDROMORPHONE) Allergy Intermediate NAUSEA/PALPITATIONS, Verified 07/24/25 10:30 vomiting latex (LATEX) Allergy Intermediate RASH Verified 07/24/25 10:30 Penicillins (PENICILLINS) Allergy Intermediate RASH Verified 07/24/25 10:30 Home Medications ?Medication ?Instructions ?Recorded ?Confirmed ?Last Taken ?Type bupropion HCl 150 mg 24 hr tablet, 150 mg PO QAM 08/14/20 06/04/25 09/21/24 History extended release lamotrigine 25 mg tablet 50 mg PO DAILY 08/14/20 06/04/25 09/21/24 History buspirone 30 mg tablet 30 mg PO BID 03/14/25 06/04/25 Unknown History Exam Airway Mallampati Class: II TM Dist: >3cm Neck ROM: Full Heart: rrr Lungs: cta Assessment and Plan Assessment Anesthesia Assessment: Anesthesia Plan Discussed and Chart Reviewed Final Anesthetic Review NPO: Yes ASA Class: III Final Preanesthetic Review: No Changes in Pt Med Stat, Meds/Allgs Chart Reviewed, Consent Obtained/Reviewed and Anes Risks/Benef Reviewed Patient Risk: Intermediate Procedure Risk: Low Anesthetic Plan Anesthetic Plan: MAC: Disposition: Standard PACU
--- NOTE | ~2025-08-30 | FL_ITS ---
EXAMINATION: FLUOROSCOPY GUIDANCE FOR NEEDLE PLACEMENT CLINICAL INFORMATION: Hip Intraarticular Injection COMPARISON: None available. TECHNIQUE: Fluoroscopy guidance for left hip injection FINDINGS: Images demonstrate needle placement and contrast injection over the left hip. See procedure note for detailed findings. FLUOROSCOPY TIME: 22 seconds DOSE AREA PRODUCT: 226 uGy-m2 (microgray-meter squared) FL/FL guidance in OR IMPRESSION: Uroscopy guidance for pain management procedure. Electronically signed by: Connie Swan MD 08/30/2025 02:07 PM EDT
[2025-08-30 11:22] VITALS: BMI 33.6
--- NOTE | 2025-08-30 11:22 | MHC.SHP ---
Pre-Procedural Eval Section A - 24 Hr Update-Section A only Date of Service: 08/30/25 The patient is an INPATIENT: No Changes since office visit: Yes Patient answered all questions The patient has been examined within 24 hours of the surgical procedure. The History & Physical has been completed within 30 days and I have reviewed it.: No Section B - Complete if H&P > 30 days Chief Complaint: Unilateral primary osteoarthritis, left hip Details of Present Illness: as above Relevant Family History (Specify if Yes): No Relevant Social History: None Present Medications: None Medical History: No relevant PMH History of Previous Operations: No relevant previous surgery Allergies: Allergies Allergy/AdvReac Type Severity Reaction Status Date / Time fluoxetine (From PROZAC) Allergy Severe OVER Verified 07/24/25 10:30 SEDATION gabapentin (GABAPENTIN) Allergy Intermediate NAUSEA,DIZZINESS, Verified 07/24/25 10:30 dizziness hydromorphone (HYDROMORPHONE) Allergy Intermediate NAUSEA/PALPITATIONS, Verified 07/24/25 10:30 vomiting latex (LATEX) Allergy Intermediate RASH Verified 07/24/25 10:30 Penicillins (PENICILLINS) Allergy Intermediate RASH Verified 07/24/25 10:30 Review of Systems Sugical H&P ROS: Negative: Constitution, Cardiovascular, Respiratory, Neurological, Psychiatric, Hem-Onc, Allergic/Immunologic, Gastrointestinal, Genitourinary, Musculoskeletal, Integumentary, Endocrine and Eyes/Ears/Nose/Throat Exam Surgical H&P Exam: Normal: HEENT, Normal: Heart, Normal: Lungs, Normal: Extremities, Normal: Abdomen, Normal: Skin and Normal: Neurological Plan Diagnosis/Plan: Unchanged I have reviewed the history and physical and performed a pertinent physical examination on my patient. No changes have occurred unless specified. Time Spent With Patient Time: Total time managing care of this patient today ____ minutes.
[2025-08-30 11:37] VITALS: BP 114/70; PULSE 97; RESP 16; TEMP 36.6; O2SAT 96
[2025-08-30] MEDS: Lactated Ringers 1,000 ML 100 ML IVCONT (11:39)
--- NOTE | 2025-08-30 12:38 | W.PM.OPN ---
Operative Note Operative Note Date of Service: 08/30/25 Narrative: Intra-articular left hip steroid injection. Informed consent was explained to the patient. All questions were explained and? answered.? The patient was taken inside the operating room where she was positioned RIGHT lateral decubitus on the operating table.? ASA monitors were applied and the patient was moderately sedated. Time-out was performed delineating correct site, side, the nature of the procedure, patient's allergy, preoperative antibiotic if needed.? All operating room staff was participating in OR time-out procedure.? Non dependent LEFT hip was prepped with ChloraPrep and draped with sterile towels.? Sterilely draped C-arm was brought over the operating field and the picture of bilateral hip joints were obtained on the screen.? The smaller joint was chosen as the target for the injection.? The trochanter position was noted on the screen.? The projection of the trochanter to the skin was noted, the direction of the femoral neck was noted.? The skin was anesthetized using 2% lidocaine at the trochanter area.? 22 gauge 5 in needle was inserted through the skin and advanced to the hip joint silhouette on anterior posterior view.? When needle entered the joint the injection of the contrast was performed demonstrating intra-articular and periarticular spread of the contrast.? After that 5 cc ofropivacaine mixed with 40 mg of Kenalog was injected into the area.? The needle was removed, sterile dressing was applied
--- NOTE | 2025-08-30 12:39 | P.BOP_ITS ---
Brief Operative Note Date of Service: 08/30/25 Pre-op diagnosis: OA left hip, left hip pain. Post-op diagnosis: same Procedure: Left hip steroid injection Surgeon: Jaime Mccartney MD Anesthesia: MAC Was an Spent Grain Dryer used for this Procedure?: No Estimated blood loss (mL): 0 Condition: stable Disposition: PACU
[2025-08-30 12:45] VITALS: BP 105/69; PULSE 86; RESP 18; TEMP 36.4; O2SAT 92
[2025-08-30 13:00] VITALS: BP 117/80; PULSE 74; RESP 18; O2SAT 96
[2025-08-30 13:09] VITALS: BP 119/79; PULSE 71; RESP 18; TEMP 36.4; O2SAT 98
== END 2025-08-30 13:31 | disposition home or self-care (01) ==
PROVIDERS: PCP Internal Medicine; Visit Provider Anesthesiology
PROC: (CPT 20610; principal; 2025-08-30 12:20)
DX: M16.12 Unilateral primary osteoarthritis, left hip (principal); M25.552 Pain in left hip; M79.7 Fibromyalgia; M25.572 Pain in left ankle and joints of left foot; M79.672 Pain in left foot; M25.472 Effusion, left ankle; M96.1 Postlaminectomy syndrome, not elsewhere classified; Z96.652 Presence of left artificial knee joint; M46.1 Sacroiliitis, not elsewhere classified; D64.9 Anemia, unspecified; I10 Essential (primary) hypertension; K21.9 Gastro-esophageal reflux disease without esophagitis; Z79.891 Long term (current) use of opiate analgesic; Z88.0 Allergy status to penicillin; Z88.8 Allergy status to other drugs, medicaments and biological substances; Z91.040 Latex allergy status; Z90.710 Acquired absence of both cervix and uterus; Z98.890 Other specified postprocedural states; Z87.891 Personal history of nicotine dependence; Z79.899 Other long term (current) drug therapy; M48.061 Spinal stenosis, lumbar region without neurogenic claudication
CPT/HCPCS: 20610; J2003; J2250; J2795; J3010; J3301; Q9967

== ENCOUNTER → 2025-08-30 11:06 | Outpatient (BNV) | payer OTHER, SELFPAY | PROVIDERS: PCP Internal Medicine; Visit Provider Anesthesiology | DX: M16.12 Unilateral primary osteoarthritis, left hip (principal) | CPT/HCPCS: 20610; 77002 ==

== ENCOUNTER 2025-10-10 15:36 | Outpatient (AMB) | payer OTHER, SELFPAY ==
--- NOTE | 2025-10-10 15:43 | A.OFFVIS_ITS ---
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 Accompanied by: Self / Same As Patient Allergies fluoxetine (From PROZAC) Allergy (Severe, Verified 10/10/25 15:43) OVER SEDATION gabapentin (GABAPENTIN) Allergy (Intermediate, Verified 10/10/25 15:43) NAUSEA,DIZZINESS, dizziness hydromorphone (HYDROMORPHONE) Allergy (Intermediate, Verified 10/10/25 15:43) NAUSEA/PALPITATIONS, vomiting latex (LATEX) Allergy (Intermediate, Verified 10/10/25 15:43) RASH Penicillins (PENICILLINS) Allergy (Intermediate, Verified 10/10/25 15:43) RASH HPI Comments Details: Selina is on the phone with me with request to perform therapeutic back right- sided medial branch block C4, C5, C6. In the past she received this injection with almost a year of pain relief in the right side of her neck, the pain relief was at least 80%. This pain is not radiating to the upper extremity and most likely facetogenic in nature. I will schedule the patient for requested procedure. The risks and benefits were explained to the patient. She is very eager to go for the procedure. Prior: She receives intra-articular left hip steroid injections in this office with good results. She is also complaining on cervicalgia with pain radiating to the right upper extremity as well as numbness and tingling in 3 middle fingers. Her PCP schedule her for MRI to be done at [facility]. I told her to request PCP to change the order for the MRI in [facility]. If anything will be demonstrable on that MRI can tried to do some injections. Possibility exists that this is the carpal tunnel syndrome. I will send her for EMG if her MRI is not demonstrable of any pathology corresponding to her symptoms. She also complains on pain in the lateral surface of the left knee. 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 She is appropriately up attending physical therapy for this condition and she is wearing a brace on the left knee. Very successful results after intracept BVN RFA procedure.. Very successful results of total knee replacement. She is very proud of her ability to exercise with her left knee. The scar is thin and very nice no inflammatory changes. She probably requires total hip replacement as well. PFSH Medical History Osteoarthritis of left hip Sacroiliitis Infective arthritis of left knee Arthropathy of knee Fracture of metacarpal base of left hand, closed Foot pain, right Plantar fasciitis of left foot Anemia Fibromyalgia GERD (gastroesophageal reflux disease) Asthma BMI 35.0-35.9,adult Obesity (BMI 30-39.9) Daytime sleepiness Shortness of breath Obese Acute traumatic internal derangement of left knee Insomnia Essential hypertension Sinusitis Anxiety Migraine Postlaminectomy syndrome of cervical region 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 of lumbosacral spine with radiculopathy Surgical History Status post left knee replacement Hx of arthroscopy of left knee History of surgery History of esophagogastroduodenoscopy (EGD) H/O colonoscopy Hx of breast reduction, elective History of carpal tunnel release History of neck surgery History of tubal ligation S/P JUSTYN-BSO (total abdominal hysterectomy and bilateral salpingo-oophorectomy) H/O medial meniscus repair of right knee Family History Father Diabetes Hypertension Maternal Grandmother Cancer Maternal Grandfather Cancer Family/Other FH: mental illness Substance use disorder Mother Arthritis Asthma COPD (chronic obstructive pulmonary disease) Lung nodule Brother No problems noted. Brother No problems noted. Son No problems noted. Son No problems noted. Son No problems noted. Son No problems noted. Social History Household Members: Significant Other and Family Housing: House Are you a primary doggy daycare activities director to a significant other at home: No Do you presently have visiting nurse or other home services: No Alcohol intake: current Alcohol intake frequency: holidays/special occasions only Alcohol type: hard liquor Patient Tobacco Use Status: Former Tobacco user Tobacco use type: Cigarette Years Smoked: 9 e-Cigarette/Vaping Use: Never Used Second Hand Smoke Exposure: No service: No Current occupational status: employed Current occupational exposures/hazards: No Cognitive needs: No Hearing needs: No Vision needs: No Female Reproductive History Menstrual Age of Menarche: 12 Review of Systems Const All systems reviewed & are unremarkable except as noted in HPI and below Assessment & Plan Assessment & Plan (1) Spondylosis without myelopathy or radiculopathy, cervical region: Code(s): M47.812 - Spondylosis without myelopathy or radiculopathy, cervical region Category: Medical Plan I will schedule the patient for therapeutic C4, C5, C6 medial branch block on the right. See the discussion as above. Patient Instructions: I here by testify that I spent 15 minutes in conversation with this patient as well as planning her care and organizing this note. Coding Level of Care Code Tele Est Pt Level 3 (98701) Diagnoses Spondylosis without myelopathy or radiculopathy, cervical region M47.812
--- OUTSIDE RECORDS SUMMARY | 2025-10-10 23:03 | XMS_ITS | Clinical Summary ---
Author Organization [facility] Prior to 03/30/25 Address [address] [place] [address] Care Team Providers Care Ep Specialist Name Role Phone Deirdre Stevens MD Primary [...] age to complete this topic Care Teams Ep Specialist Relationship Specialty Start Date End Date Deirdre Stevens MD [address] [facility] , [address] [facility] D/B/A: [facility] [place] [address] PCP - General Internal Medicine 05/29/18
--- OUTSIDE RECORDS SUMMARY | 2025-10-10 23:03 | XMS_ITS | Patient Health Record ---
Author Organization [facility] Address [address] [place] [id number] Care Team Providers Care Copy Preparer Name Role Phone Deirdre Stevens Primary Care Provider Bebo Mendes Jr Unavailable Allergies Allergen (clinical drug ingredient) Drug/Non Drug Allergy documented on EMR Reaction Allergy Type Onset Date Status hydromorphone Hydromorphone HCl Unknown Drug Allergy Active fluoxetine Prozac Unknown Drug Allergy Active Penicillin Unknown Drug Allergy Active Reason For Referral No Information Medications Medication SIG (Take, Route, Frequency, Duration) Notes Start Date End Date Status oxyCODONE HCl 5 MG Tablet 1 tablet Orall y every 6 hrs/prn Active Montelukast Sodium 10 MG Tablet 1 tablet in the evening Orally Once a day Active Zanaflex 4 MG Tablet 1 tablet as needed Orally Three times a day Active diazePAM 10 MG Tablet Oral; Duration: 30 Active Ventolin HFA 108 (90 Base) MCG/ACT Aerosol Solution Inhalation; Duration: 30 Active hydroCHLOROthiazide 25 MG Tablet TAKE 1 TABLET BY MOUTH EVERY MORNING Oral; Duration: 90 Active Triamcinolone Acetonide 55 MCG/ACT Aerosol Nasal; Duration: 90 Activ e Vitamin D 1000 UNIT Tablet 1 tablet Oral ly Once a day Active Topiramate 50 MG Tablet Oral; Duration: 90 Active Meloxicam 15 MG Tablet Oral; Duration: 90 Active buPROPion HCl ER (XL) 150 MG Tablet Extended Release 24 Hour 1 tablet in the morning Orally Once a day Active Pantoprazole Sodium 40 MG Tablet Delayed Release Oral; Duration: 90 Active Valium 5 MG Tablet 1 tablet as needed Orally Twice a day Active lamoTRIgine 25 MG Tablet Oral; Duration: 90 Active Immunizations Vaccine Route Administration Date Status Comme nts Influenza Unknown 08/23/2023 Administered Social History Tobacco Use: Social History Observation Description Date Details (start date - stop date) Former Smoker NA - NA Social History Drugs/Alcohol: Social Info Question Answer Notes Alcohol Screen Did you have a drink containing alcohol in the past year? Yes How often did you have a drink containing alcohol in the past year? Monthly or less (1 point) How many drinks did you have on a typical day when you were drinking in the past year? 1 or 2 drinks (0 point) How often did you have 6 or more drinks on one occasion in the past year? Never (0 point) Points 1 Interpretation Negative Tobacco Use: Social Info Question Answer Notes Tobacco Use/Smoking Patient is a former smoker How long has it been since you last smoked? 1-5 years Additional Details Category Social Info Options Details Miscellaneous: Marital status: single Occupation: [employer] student Problems Problem Type SNOMED Code ICD Code Onset Dates Problem Status W/U Status Risk Notes Problem Colon cancer screening (705347321) Colon cancer screening (Z12.11) Active confirmed Problem Family history of polyp of colon (731889956) Family history of colonic polyps (Z83.71) Active confirmed Problem Gastroesophageal reflux disease (648858037) Gastroesophageal reflux disease (K21.9) Active confirmed Problem Gastroesophageal reflux disease (870925479) Gastroesophageal reflux disease, esophagitis presence not specified (K21.9) Active confirmed Plan Of Treatment Future Test Test Name Order Date UPPER GI ENDOSCOPY 08/19/2017 COLONOSCOPY 08/19/2017 UPPER GI ENDOSCOPY 02/29/2024 COLONOSCOPY 02/29/2024 Insurance Providers Payer Name Payer Address Payer Phone Subscriber Number Group Number Insured Name Patient Relationship to Insured Coverage Start Date Coverage End Date [facility] [address] [address] [place], [place] [id number] [place] Self - patient is the [...]
== END 2025-10-10 15:46 | disposition home or self-care (01) ==
LOC: HO.PMC 15:37
PROVIDERS: PCP Internal Medicine; Visit Provider Anesthesiology
DX: M47.812 Spondylosis without myelopathy or radiculopathy, cervical region (principal)
CPT/HCPCS: 99213